=== PATIENT | female | born 1935 | race Caucasian/White ===

== ENCOUNTER 2020-02-12 01:58 | Emergency (ER) | payer MEDICARE, OTHER, SELFPAY ==
[2020-02-12 02:00] VITALS: BP 169/79; PULSE 94; RESP 28; TEMP 36.6; O2SAT 96; BMI 26.3
--- NOTE | 2020-02-12 02:08 | ED_ITS ---
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 There is no fever, erythema, fluctuance, or swelling. She is exquisitely tender which makes exam more challenging. I do not appreciate significant looseness in the prosthesis. Related Data Home Medications Medication Instructions Recorded Confirmed Tolterodine Tartrate (Detrol La) 4 mg PO Q DAY #0 04/20/10 insulin glargine [Lantus U-100 15 unit SQ QAM #0 07/15/11 Insulin] Diphenhydramine Hydrochloride #0 09/06/11 (BENADRYL) VITAMIN D (Vitamin D3) #0 09/06/11 ACETAMINOPHEN 500 mg PO Q4HP PRN #0 11/28/16 fluoxetine [Prozac] 40 mg PO QDAY #0 11/28/16 insulin aspart U-100 [Novolog SQ QIDACHS #0 11/28/16 U-100 Insulin aspart] tolterodine [Detrol LA] 4 mg PO BID #0 11/28/16 diclofenac sodium [Voltaren] 1 jony TOPICAL #0 02/23/17 docusate sodium 250 mg PO QDAY PRN #0 02/23/17 Previous Rx's Medication Instructions Recorded indomethacin 25 mg PO TIDCC #20 cap 11/16/16 indomethacin 25 mg PO Q8HP PRN #20 cap 11/28/16 prednisone 40 mg PO Q DAY 5 Days #0 tab 12/01/16 tramadol 50 mg PO Q6HP PRN #10 tab 12/01/16 cyclobenzaprine 10 mg PO QIDP PRN #10 tab 02/23/17 clindamycin HCl 300 mg PO TID #21 cap 02/12/20 Allergies Allergy/AdvReac Type Severity Reaction Status Date / Time iodine [IODINE] Allergy Unknown Verified 02/12/20 02:09 lisinopril [LISINOPRIL] Allergy Unknown Verified 02/12/20 02:09 shellfish derived Allergy Unknown Verified 02/12/20 02:09 [SHELLFISH DERIVED] PENICILLIN Allergy Unknown Uncoded 02/12/20 02:09 Review of Systems Review of Systems Narrative: Chronic cough due to COPD Denies ? fever ? chills ? chest pain ? dyspnea ? orthopnea ? wheezing ? abdominal pain ? change to bowel or bladder habits ? nausea vomiting ? skin changes ? rashes Patient History Medical History (Updated 02/12/20 @ 02:31 by Frida Joseph MD) COPD (chronic obstructive pulmonary disease) (Acute) Diabetes (Acute) Gouty arthritis of toe (Inactive) Hypertension (Acute) Social History Smoking Status: Never smoker Exam Narrative Exam Narrative: General: Alert appropriate in no acute distress Respiratory: Able to speak in full sentences, no obvious respiratory distress Skin: No obvious rashes, warm and dry Neurologic: Grossly intact no obvious asymmetries or abnormalities Psych, appropriate insight and affect, cooperative ENT: Anchoring prosthesis the anterior portion of the mandible with tenderness associated with the right post without fluctuance, significant mobility to palpation, no swelling, no skin rashes, no submandibular lymphadenopathy Initial Vital Signs Initial Vital Signs: Vital Signs Temperature 97.8 F 02/12/20 02:00 Pulse Rate 94 H 02/12/20 02:00 Respiratory Rate 28 H 02/12/20 02:00 Blood Pressure 169/79 H 02/12/20 02:00 Pulse Oximetry 96 02/12/20 02:00 Course Orders Ordered: Discontinued Medications Hydrocodone Bitart/Acetaminophen (Vicodin 5/325 Prepack) 1 bottle MISC SEEINSTR ONE Stop: 02/12/20 02:41 Last Admin: 02/12/20 02:46 Dose: 1 bottle Documented by: [email or web address] Clindamycin HCl (Cleocin) 300 mg PO NOW ONE Stop: 02/12/20 02:18 Last Admin: 02/12/20 02:27 Dose: 300 mg Documented by: [email or web address] Vital Signs Vital signs: Vital Signs - 8 hr 02/12/20 02:00 02/12/20 02:31 Temperature 97.8 F Pulse Rate 94 H 88 Respiratory Rate 28 H Blood Pressure 169/79 H Blood Pressure [Left Arm] 135/87 Pulse Oximetry 96 96 Medical Decision Making MDM Narrative Medical decision making narrative: Exquisite tenderness around the a dental implant post without overt infection. No signs of shingles no signs of trauma. Will likely represents infection around the implant itself. We use Vicodin for pain control sparingly along with risks and benefit discussion and clindamycin and recommendation that she follow-up with her dentist tomorrow. Discharge Plan Departure Patient Disposition: Home Clinical Impression: Dental infection Instructions: DI for Dental Pain, DI for Prescription Opioid Use Activity Restrictions/Additional Instructions: Thank you for coming in today, I am sorry that you are in so much pain I suspect that your developing an infection around the right post of your dental implant. I am not seeing any large abscess or anything that looks life- threatening at this time. I am going to suggest that you begin clindamycin, an antibiotic, to treat dental infections when you are allergic to penicillin. Please contact her dentist tomorrow to see if they have other recommendations. You may notice that your blood sugars are a bit higher when you have an infection. Please make sure that your following these and using appropriate insulin as needed to control for higher sugars I have given you 10 [place], narcotic plus Tylenol. You can take 1 every 6 hours as needed for pain. These can be addicting please do be careful. These will cause constipation so make sure that you are taking extra docusate or other stool softener while you are taking narcotics. If you develop fevers, swelling, redness or signs of abscess or infection that you can see on either the outside of the inside please feel free to return for further evaluation Prescriptions: New clindamycin HCl 300 mg capsule 300 mg PO TID Qty: 21 RF: 0 No Action Tolterodine Tartrate (Detrol La) 4 mg PO Q DAY Qty: 0 RF: 0 insulin glargine [Lantus U-100 Insulin] 100 UNIT/1 ML solution 15 unit SQ QAM Qty: 0 RF: 0 VITAMIN D (Vitamin D3) Qty: 0 RF: 0 Diphenhydramine Hydrochloride (BENADRYL) Qty: 0 RF: 0 indomethacin 25 MG capsule 25 mg PO TIDCC Qty: 20 RF: 0 fluoxetine [Prozac] 40 MG capsule 40 mg PO QDAY Qty: 0 RF: 0 insulin aspart U-100 [Novolog U-100 Insulin aspart] 100 unit/mL solution SQ QIDACHS Qty: 0 RF: 0 tolterodine [Detrol LA] 4 MG capsule,extended release 24hr 4 mg PO BID Qty: 0 RF: 0 ACETAMINOPHEN 500 mg PO Q4HP PRNQty: 0 RF: 0 indomethacin 25 MG capsule 25 mg PO Q8HP PRNQty: 20 RF: 0 prednisone 20 MG tablet 40 mg PO Q DAY 5 Days Qty: 0 RF: 0 tramadol 50 MG tablet 50 mg PO Q6HP PRNQty: 10 RF: 0 docusate sodium 250 MG capsule 250 mg PO QDAY PRNQty: 0 RF: 0 diclofenac sodium [Voltaren] 1 % gel 1 jony Topical Qty: 0 RF: 0 cyclobenzaprine 10 MG tablet 10 mg PO QIDP PRNQty: 10 RF: 0 Referrals: Sapna Evans [Primary Care Provider] -
[2020-02-12] MEDS: CLINDAMYCIN 150 MG CAPSULE 300 MG PO (02:27)
[2020-02-12 02:31] VITALS: BP 135/87; PULSE 88; O2SAT 96
[2020-02-12] MEDS: HYDROCODONE/ACET 5/325 PREPACK 1 BOTTLE MISC (02:46)
== END 2020-02-12 02:50 | disposition home or self-care (01) ==
PROVIDERS: Emergency Provider Emergency Medicine; Family Provider Internal Medicine; PCP Internal Medicine
DX: K04.7 Periapical abscess without sinus (principal); E11.8 Type 2 diabetes mellitus with unspecified complications; Z79.4 Long term (current) use of insulin; I10 Essential (primary) hypertension
CPT/HCPCS: 99283

== ENCOUNTER 2020-02-14 15:50 | Emergency (ER) | payer MEDICARE, OTHER, SELFPAY ==
[2020-02-14 16:05] VITALS: BP 129/89; PULSE 94; RESP 14; TEMP 36.6; O2SAT 96; BMI 27.1
--- NOTE | 2020-02-14 16:51 | ED.DENTAL ---
HPI - Dental/Oral <Cris LopezSAMMIE - Last Filed: 02/14/20 18:34> General Chief complaint: Dental/Oral Stated complaint: states broken jaw Time Seen by Provider: 02/14/20 16:15 Source: patient Mode of arrival: Ambulatory Limitations: no limitations History of Present Illness HPI Narrative: 84yo female presents to the emergency department stating ?I was sent here by my dentist for a broken jaw. Patient states she was seen on 02/11 for a dental infection and followed up with her dentist. She was then sent to an oral surgeon who discovered that her jaw was broken. She states she has had tooth implant over 25 years ago and developed jaw pain a few weeks ago that has been increasing. She is able to eat, open and close her drop. However, the oral surgeon, Dr. Carlos took X-rays and instructed the patient to come to the hospital for evaluation and admission. Patient denies any other symptoms such as fevers, chills, nausea, vomiting, diarrhea, chest pain, shortness of breath, or any other concerns Related Data Home Medications Medication Instructions Recorded Confirmed Tolterodine Tartrate (Detrol La) 4 mg PO Q DAY #0 04/20/10 insulin glargine [Lantus U-100 15 unit SQ QAM #0 07/15/11 Insulin] Diphenhydramine Hydrochloride #0 09/06/11 (BENADRYL) VITAMIN D (Vitamin D3) #0 09/06/11 ACETAMINOPHEN 500 mg PO Q4HP PRN #0 11/28/16 fluoxetine [Prozac] 40 mg PO QDAY #0 11/28/16 insulin aspart U-100 [Novolog SQ QIDACHS #0 11/28/16 U-100 Insulin aspart] tolterodine [Detrol LA] 4 mg PO BID #0 11/28/16 diclofenac sodium [Voltaren] 1 jony TOPICAL #0 02/23/17 docusate sodium 250 mg PO QDAY PRN #0 02/23/17 Previous Rx's Medication Instructions Recorded indomethacin 25 mg PO TIDCC #20 cap 11/16/16 indomethacin 25 mg PO Q8HP PRN #20 cap 11/28/16 prednisone 40 mg PO Q DAY 5 Days #0 tab 12/01/16 tramadol 50 mg PO Q6HP PRN #10 tab 12/01/16 cyclobenzaprine 10 mg PO QIDP PRN #10 tab 02/23/17 clindamycin HCl 300 mg PO TID #21 cap 02/12/20 Allergies Allergy/AdvReac Type Severity Reaction Status Date / Time iodine [IODINE] Allergy Unknown Verified 02/14/20 16:10 lisinopril [LISINOPRIL] Allergy Unknown Verified 02/14/20 16:10 shellfish derived Allergy Unknown Verified 02/14/20 16:10 [SHELLFISH DERIVED] PENICILLIN Allergy Unknown Uncoded 02/12/20 02:09 Review of Systems <SAMMIE Lechuga - Last Filed: 02/14/20 18:34> Review of Systems Narrative: REVIEW OF SYSTEMS: GENERAL: Denies fever or chills. HENT: Reports jaw pain, see HPI. EYES: No vision changes. RESPIRATORY: No shortness of breath. GASTROINTESTINAL: No nausea or vomiting. Patient History <SAMMIE Lechuga - Last Filed: 02/14/20 18:34> Medical History COPD (chronic obstructive pulmonary disease) (Acute) Diabetes (Acute) Gouty arthritis of toe (Inactive) Hypertension (Acute) Social History Smoking Status: Never smoker Smoking Status: Never smoker alcohol intake frequency: holidays/special occasions only Substance Use Type: does not use Exam <SAMMIE Lechuga - Last Filed: 02/14/20 18:34> Initial Vital Signs Initial Vital Signs: Vital Signs Temperature 97.8 F 02/14/20 16:05 Pulse Rate 94 H 02/14/20 16:05 Respiratory Rate 14 02/14/20 16:05 Blood Pressure 129/89 02/14/20 16:05 Pulse Oximetry 96 02/14/20 16:05 PHYSICAL EXAMINATION: GENERAL: Well groomed, alert, and cooperative. Answers questions promptly and appropriately. Vital signs noted. HENT: Normocephalic, atraumatic. Multiple missing teeth, right-sided drop pain with palpation. Patient able to open almost completely and close drop completely trauma, does report pain during this process. EYES: Conjunctiva pink, sclera white, no periorbital swelling. RESPIRATORY: Normal respiratory rate, trachea midline, airway patent. No stridor, nasal flaring or accessory muscle use. SKIN: Warm, dry, soft, appropriate color for ethnicity. NEURO: Alert and Oriented X 3. <Darcy Billy DO - Last Filed: 02/15/20 07:43> Initial Vital Signs Initial Vital Signs: Vital Signs Temperature 97.8 F 02/14/20 16:05 Pulse Rate 94 H 02/14/20 16:05 Respiratory Rate 14 02/14/20 16:05 Blood Pressure 129/89 02/14/20 16:05 Pulse Oximetry 96 02/14/20 16:05 Course <SAMMIE Lechuga - Last Filed: 02/14/20 18:34> Course Course Narrative: I spoke with Dr. Domínguez from [facility] and Dr. Carlos from Oral surgery who both confirmed that patient is a direct admit at [facility] Vital Signs Vital signs: Vital Signs - 8 hr 02/14/20 16:05 Temperature 97.8 F Pulse Rate 94 H Respiratory Rate 14 Blood Pressure 129/89 Pulse Oximetry 96 <Darcy Billy DO - Last Filed: 02/15/20 07:43> Vital Signs Vital signs: Vital Signs - 8 hr 02/14/20 16:05 Temperature 97.8 F Pulse Rate 94 H Respiratory Rate 14 Blood Pressure 129/89 Pulse Oximetry 96 [facility] - Dental/Oral <SAMMIE Lechuga - Last Filed: 02/14/20 18:34> Medical Records Attestation: I reviewed the patient's medical records. Lab Data Attestation: I reviewed the patient's lab results. [facility] Narrative Medical decision making narrative: 84-year-old presenting to the emergency department for admission for a fracture drop. Patient able to open and close draw, no respiratory distress, no signs of sepsis or immediate emergency. Multiple doctors confirm patient was a direct admit at [facility]. Patient was discharge and instructed to reports to [facility] as soon as possible. Patient agreed to plan of care verbalized understanding. Discharge Plan Departure Patient Disposition: Home Clinical Impression: Jaw pain Discharge Date/Time: 02/14/20 17:05 Activity Restrictions/Additional Instructions: Thank you for entrusting me with your care today. As discussed, I spoke with Dr. Domínguez at [facility], we discussed that patient has been set up to be a admission to this hospital. Please proceed directly to [facility], they are expecting you and are aware of your jaw fracture. Prescriptions: No Action Tolterodine Tartrate (Detrol La) 4 mg PO Q DAY Qty: 0 RF: 0 insulin glargine [Lantus U-100 Insulin] 100 UNIT/1 ML solution 15 unit SQ QAM Qty: 0 RF: 0 VITAMIN D (Vitamin D3) Qty: 0 RF: 0 Diphenhydramine Hydrochloride (BENADRYL) Qty: 0 RF: 0 indomethacin 25 MG capsule 25 mg PO TIDCC Qty: 20 RF: 0 fluoxetine [Prozac] 40 MG capsule 40 mg PO QDAY Qty: 0 RF: 0 insulin aspart U-100 [Novolog U-100 Insulin aspart] 100 unit/mL solution SQ QIDACHS Qty: 0 RF: 0 tolterodine [Detrol LA] 4 MG capsule,extended release 24hr 4 mg PO BID Qty: 0 RF: 0 ACETAMINOPHEN 500 mg PO Q4HP PRNQty: 0 RF: 0 indomethacin 25 MG capsule 25 mg PO Q8HP PRNQty: 20 RF: 0 prednisone 20 MG tablet 40 mg PO Q DAY 5 Days Qty: 0 RF: 0 tramadol 50 MG tablet 50 mg PO Q6HP PRNQty: 10 RF: 0 docusate sodium 250 MG capsule 250 mg PO QDAY PRNQty: 0 RF: 0 diclofenac sodium [Voltaren] 1 % gel 1 jony Topical Qty: 0 RF: 0 cyclobenzaprine 10 MG tablet 10 mg PO QIDP PRNQty: 10 RF: 0 clindamycin HCl 300 mg capsule 300 mg PO TID Qty: 21 RF: 0 Referrals: Sapna Evans [Primary Care Provider] -
== END 2020-02-14 17:05 | disposition home or self-care (01) ==
PROVIDERS: Emergency Provider Nurse Practitioner; Family Provider Internal Medicine; PCP Internal Medicine
DX: R68.84 Jaw pain (principal)
CPT/HCPCS: 99281

== ENCOUNTER → 2021-12-21 14:39 | Outpatient (CLI) | payer MEDICARE, OTHER, SELFPAY ==
--- NOTE | 2021-12-21 14:45 | DI.CT.S_ITS ---
PROCEDURE: CT UE LT WO CON INDICATIONS: Primary osteoarthritis, left shoulder,arthritis TECHNIQUE: Noncontrast 1-1.5 mm thick sections acquired from the acromioclavicular joint to the inferior scapula, with coronal and sagittal reformatting. COMPARISON: None. FINDINGS: Image quality: Images are degraded by motion artifact. Bones: No acute, displaced fracture. Advanced degenerative change of the glenohumeral articulation with fibrocystic change . Intra-articular bodies are seen, most prominent adjacent to the biceps tendon. Advanced narrowing with mild osteophytosis of the AC joint. Soft tissues: Subcoracoid fluid, which may reflect bursitis. IMPRESSION: Advanced degenerative change of the glenohumeral articulation. Dictated by: Abelardo Lopez M.D. on 12/21/2021 at 16:03 Approved by: Abelardo Lopez M.D. on 12/21/2021 at 16:09
== END ==
PROVIDERS: Family Provider Internal Medicine; PCP Internal Medicine; Referring Provider Orthopaedic Surgery; Visit Provider Orthopaedic Surgery
DX: M19.012 Primary osteoarthritis, left shoulder (principal)
CPT/HCPCS: 73200

== ENCOUNTER → 2022-03-03 09:42 | Outpatient (CLI) | payer MEDICARE, OTHER, SELFPAY ==
[2022-03-03 13:20] LABS: COVID19 -Nasal RAPID Negative (Negative)
== END ==
PROVIDERS: Family Provider Internal Medicine; PCP Internal Medicine; Visit Provider Family Medicine Sleep Medicine
DX: Z20.822 Contact with and (suspected) exposure to COVID-19 (principal)
CPT/HCPCS: 87635; C9803

== ENCOUNTER 2022-03-05 11:13 | Observation (INO) | payer MEDICARE, OTHER, SELFPAY ==
[2022-03-03 11:41] VITALS: BMI 28.3
[2022-03-04] VITALS (14 sets, daily range): BP systolic 110–154; BP diastolic 59–105; PULSE 71–84; RESP 12–165; TEMP 35.9–36.7; O2SAT 90–95; BMI 28.3
[2022-03-04] MEDS: ACETAMINOPHEN 325 MG TABLET 975 MG PO (08:14)
[2022-03-04] MEDS: CELECOXIB 200 MG CAPSULE PO (08:15)
[2022-03-04] MEDS: VANCOMYCIN 1,000 MG/200 ML PIGGYBACK 200 MG IV ×2 (08:15→20:13)
[2022-03-04] MEDS: LACTATED RINGERS 1,000 ML 42 ML IV (08:39)
--- NOTE | 2022-03-04 09:22 | PM.PREOP ---
Pre-operative Note Interval Note History & Physical reviewed/Exam performed by Physician: Yes Changes to H&P: No
--- NOTE | 2022-03-04 09:39 | SUR.PREOP ---
Block start time [0940] . Monitoring initiated and maintained throughout procedure. Oxygen and medications given per anesthesiologist instructions. Patient remained stable throughout procedure, no adverse reactions noted. Block end time [0950_) .
--- NOTE | 2022-03-04 09:41 | SUR.OPER ---
Beach chair with Wilfrid/Elyssa shoulder positioner. Lower body on padded OR bed. Head in foam padded head cradle, secured with straps. Non-operative arm secured <90 degrees abduction. Pillow under knees. Safety belt at thigh. Cloth tape over blanket over lower legs.
[2022-03-04] MEDS: GENTAMICIN 200 MG in SODIUM CHLORIDE 0.9% 100 ML 105 ML IV (10:10)
[2022-03-04] MEDS: LIDOCAINE 1% W/EPI 20 ML INJ (10:38)
--- NOTE | 2022-03-04 10:49 | PM.PROC.1 ---
Procedures Date/Time Date of procedure: 03/04/22 Time of procedure: 09:35 General Procedure description: Ultrasound guided interscalene brachial plexus nerve block for post op pain control after left total shoulder arthroplasty by Dr. Allen. Risk and benefits of procedure discussed with patient. ASA monitoring applied to patient. O2 given via nasal cannula. 0.5 mg Versed and 25 mcg fentanyl given for procedural sedation. Skin site was prepped with chlorhexidine and allowed to fully dry. Sterile gloves, mask, hat and probe cover were used to maintain sterility. 2% lidocaine and 30ga needle was used to make a small skin wheal at needle insertion site. Under ultrasound guidance, a 21ga 50mm Pajunk needle was directed into the interscalene groove (middle/anterior scalenes) near the brachial plexus. Patient reported no parasthesias. After negative aspiration, 12 mL 0.5% ropivicaine and 10mg dexamethasone were injected around brachial plexus. Patient tolerated procedure well.
--- NOTE | 2022-03-04 12:25 | P.OP_ITS ---
Operative Date/Time/Diagnoses Date of procedure: 03/04/22 Time of procedure: 10:00 Pre-op diagnosis: Left end-stage arthritis glenohumeral joint Post-op diagnosis: same Procedure & Clinicians Procedure: Left total shoulder arthroplasty Same procedure as scheduled: Yes Indications: End-stage arthritis left shoulder joint Surgeon: Bryson Allen Sales Development Representative: Jeanie Cartagena Anesthesia Type: General and Peripheral nerve block Operative Notes Findings: End-stage arthritis to the glenohumeral joint with significant loss of cartilage to both the humeral head and the glenoid. Inferior osteophytes on the humeral head and neck. No sign of any rotator cuff tear. No sign of any high-riding humeral head. Closure Type: primary Applied: implant(s) (Size 6 stem, small glenoid and a 44 x 17 humeral head) Estimated Blood Loss (mL): 50 Procedure in detail: On date of service, Patient was met in the holding area. The operative site was signed and witnessed by the OR staff. The surgeries once again discussed with the patient and any remaining questions they had were answered fully. Patient was taken back to the operating theater and placed on the operating table in a supine position. Great care was taken to ensure that all bony prominences were properly padded. Patient was then placed into the beach chair position. The head and neck were properly positioned and secured. A timeout was performed verifying patient's name, procedure, and the operative site. The upper extremity was then prepped and draped in the normal sterile fashion. Previously, the bony anatomy and incision were marked out as well as injected with Marcaine with epinephrine. A deltopectoral approach was performed. 10 blade was used to incise the skin and fascial tissue. A deep knife was used to continue sharp dissection until the cephalic vein was visualized. The cephalic vein was dissected free allowing us to expose the deltopectoral interval. This interval was then developed. A Harrington elevator was used to free up the deltoid of any scarring both superficially as well as deeply. The vein and the deltoid were taken laterally while the pectoralis was taken medially. This gave us good visualization of the strap muscles. The clavipectoral fascia was removed and the strap muscles were then retracted medially with the pectoralis. This gave us stabilization of the subscapularis. The circumflex vessels were ligated and the subscapularis was sharply excised off the lesser tuberosity and then tagged. Once the subscapularis was released we're able to dislocate the shoulder. Patient had end-stage arthritic changes to the humeral head as well as the glenoid with large osteophytes anterior inferiorly as well as posteriorly. A Ronger was then used to remove the osteophytes. See findings above for descriptions of the humeral head and glenoid. Next, cutting guide was placed and a saw was used to remove the humeral head. Once the head was removed it was templated. A 44 x 17 head gave us the best coverage. A starting awl was then used to find the canal and then the humerus was reamed and broached. Trial stem was placed and a variety of heads were trialed. A size 10 stem gave us the best fit. Protector placed for the osteotomy was then placed and and we turned our attention back to the subscapularis as well as the glenoid. The subscapularis was freed up and a 360? fashion. The degenerative anterior and inferior capsular tissue was removed. This was followed by removing the degenerative labral tissue from around the glenoid as well as the biceps insertion. Retractors were used to protect the axillary nerve while we remove the degenerative capsular and labral tissue. This gave us good visualization of the glenoid. Glenoid trials were used until we found the appropriate fit and curvature. A large glenoid provided the best fit. The center hole was drilled followed by reaming of the glenoid. The wound was copiously irrigated after reaming. Next the pegs were drilled and a trial glenoid was impacted into place. Once we were satisfied with the preparation of the glenoid, the final component was cemented into place. This was followed by impaction. We Return to our attention back to the humerus. The protector plate was removed and heads were trialed once again until we found the appropriate fit. Once again the 44 x 17 head provided the best coverage as well as stability to the glenohumeral joint. Trials were removed and bone tunnels were made into the humeral neck. #2 FiberWire were passed through the bone tunnels for eventual subscapularis repair. The final stem and head were impacted into place and the shoulder was reduced. It was taken through range of motion and was felt to be stable in both posterior translation as well as external and internal rotation with abduction. The subscapularis was repaired back to the lesser tuberosity through the bone tunnels. This was then reinforced with soft tissue repair. Part of the rotator interval was then closed. A drain was placed and the rest of the wound was closed in a layered fashion. The shoulder was then cleaned dried and dressed and the patient was taken to the PACU in stable condition. Patient will follow our postoperative protocol for total shoulder arthroplasty. Complications: none Post-operative Condition: stable Disposition: Acute Care Plan for aftercare: Patient will be admitted overnight. As long she is comfortable enough she can go home in the morning.
[2022-03-04] MEDS: HYDROCODONE/ACET 5/325 TABLET 1 TAB PO (13:07)
[2022-03-04] MEDS: LACTATED RINGERS 1,000 ML 125 ML IV (15:00)
--- NOTE | 2022-03-04 15:10 | PT.IPTN ---
Current Diagnoses Primary osteoarthritis, left shoulder (03/04/22) Surgery Performed Operation Date: 03/04/22 09:30 Actual Procedures p Total Shoulder Arthroplasty(Left) - Bryson Allen MD Physical Therapy Treatment Note M3 PT-IP Subjective Start: 03/04/22 15:55 Freq: NEEDED Status: Active Protocol: Document 03/04/22 15:10 AB (Rec: 03/04/22 15:58 AB [id number]) Subjective Physical Therapy Visit Type Type Administrative Note Notes EMR reviewed and checked on pt . pt asleep and attempted to wake up but pt just momentarily woke up and went back to sleep. spouse in room . obtained pt's home set up and PLOF. set up PT eval tomorrow with spouse at ~ 10 am.
[2022-03-04] MEDS: INDOMETHACIN 25 MG CAPSULE PO (17:27)
[2022-03-04] MEDS: IPRATROPIUM 0.5 MG/2.5 ML NEB INH (20:30)
[2022-03-04] MEDS: ALBUTEROL 2.5 MG/3 ML NEB (ADULT) INH (20:30)
[2022-03-04] MEDS: BUDESONIDE 0.5 MG/2 ML NEB INH (20:30)
[2022-03-04] MEDS: DOCUSATE 100 MG CAPSULE PO (21:40)
[2022-03-04] MEDS: MAGNESIUM HYDROXIDE 30 ML UDC PO (21:41)
[2022-03-04] MEDS: INSULIN LISPRO 100 UNIT/ML 3ML VIAL 10 UNIT SUBCUT (21:41)
[2022-03-05] VITALS (13 sets, daily range): BP systolic 108–133; BP diastolic 52–68; PULSE 63–101; RESP 14–19; TEMP 36–36.8; O2SAT 90–96
[2022-03-05 05:21] LABS: Hematocrit 34.1 % (36-46); Hemoglobin 11.6 g/dL (12.0-16.0); Mean Corpuscular Hemoglobin 31.9 PG (26-34); Mean Corpuscular Volume 93.9 fL (80-100); Platelet Count 151 X10^3/uL (150-400); Red Blood Cell Count 3.63 X10^6/uL (4.0-5.2); White Blood Cell Count 7.9 X10^3/uL (4.5-11.0)
[2022-03-05] MEDS: ACETAMINOPHEN 325 MG TABLET 975 MG PO (06:35)
[2022-03-05] MEDS: PANTOPRAZOLE DR 40 MG TABLET PO (06:35)
--- NOTE | 2022-03-05 07:01 | PC.NURSE ---
Shift Note-Patient has been oriented x3, forgetful, in room, very attentive. Lt arm in sling, Aquacel drsg CDI, needed to be reapplied d/t patient pulling off while itching, left hand numb and tingling until am, warm with strong pulse, moves wrist and hand well. Denied pain until am, 975ml Tylenol given.
[2022-03-05] MEDS: HYDROMORPHONE 0.5 MG INJ 0.2 MG IV ×5 (08:19→19:54)
[2022-03-05] MEDS: LOSARTAN 25 MG TABLET PO (08:20)
[2022-03-05] MEDS: FLUoxetine 20 MG CAPSULE 40 MG PO (08:20)
[2022-03-05] MEDS: predniSONE 20 MG TABLET 40 MG PO (08:21)
[2022-03-05] MEDS: DOCUSATE 100 MG CAPSULE PO ×2 (08:27→19:54)
[2022-03-05] MEDS: ATORVASTATIN 20 MG TABLET 40 MG PO (08:27)
[2022-03-05] MEDS: INDOMETHACIN 25 MG CAPSULE PO ×3 (08:48→18:08)
[2022-03-05] MEDS: INSULIN LISPRO 100 UNIT/ML 3ML VIAL 10 UNIT SUBCUT ×4 (08:48→21:02)
[2022-03-05] MEDS: INSULIN GLARGINE 100 UNIT/ML 3ML PEN 15 UNIT SUBCUT (08:48)
[2022-03-05] MEDS: OXYBUTYNIN 5 MG ER TAB 20 MG PO (08:49)
[2022-03-05] MEDS: BUDESONIDE 0.5 MG/2 ML NEB INH ×2 (08:55→21:20)
[2022-03-05] MEDS: ALBUTEROL/IPRATROPIUM 3 ML AMPUL INH ×5 (08:55→23:44)
--- NOTE | 2022-03-05 09:25 | CM.DANOTE ---
DCP: Case received, EMR reviewed and met with patient. Spouse, Raj, was also at bedside. Was able to obtain information regarding patient's baseline activity level at home prior to her surgery, as well as her current living situation. DCP assessment completed with information currently available. Patient is an 86 year old female who admitted yesterday morning to the care of the orthopedic team. PCP: Dr. Evans. Payer: confirmed: [email or web address]. Patient came to the hospital for a surgical procedure. Patient had left total shoulder arthroplasty secondary to left end-state arthritis of glenohumeral joint. Met with patient in her room. Her spouse, Raj, was also at bedside. Introduced self and role. Confirmed that patient resides with spouse in [place], and with children as well. At her baseline, she does not drive, she uses a cane, also has a walker. She has had to use her right arm for most things, since she could not raise her left arm. She indicated, she has good home support, with spouse and children and in-laws. Spouse confirmed, she has a good home plan, should not need any type of home health. P: DCP to continue to follow. Will see how she does with P.T. Patient should be able to go home when she is medically stable and cleared by P.T. Marcie Gentile RN/Lining Printer Discharge Planning/Care Management CM Discharge Assessment Start: 03/05/22 09:24 Freq: Status: Active Protocol: Document 03/05/22 09:24 (Rec: 03/05/22 09:25 [id number]) Discharge Planning Assessment Assigned Assembly Member Marcie Gentile RN/Lining Printer Advance Directives? No History Provided By Patient,Significant Other, Medical Record Prior Living Arrangements House Household Members spouse,family,children Type of transporation used prior to Relies on Others admit Independent with ADL's Yes Needs Assistance With Meal Prep,Home Chores / Shopping Caregiver for Another No DME Already Rented / Owned FWW / Walker,Cane Patient/Family Preference OP PT Therapy Barriers to Discharge No Comment Patient has spouse, and children at home for support. Discharge Plan Home Transportation Arrangement Spouse Referrals Initiated None needed Whiteboard Updated in Patient Room with Yes name and ext. # of Assembly Member Review Status In Process Next Review Type Continued Stay Review Pre-Anesthesia Assessment Start: 03/03/22 11:41 Freq: Status: Complete Protocol: Document 03/03/22 11:41 CAB (Rec: 03/03/22 12:35 CAB [id number]) Pre-Anesthesia Assessment PAC Comment Unable to reach pt's for scheduled phone assess, limited chart review only. Patient Information Reviewed Via Chart Review H&P Completed Within 30 Days Yes Diagnostic Results BMP/CMP,CBC,EKG Comment Outside labs/ECG scanned, COVID screen 03/03/22 Primary Care Provider Sapna Evans Medical Clearance Received Yes Seen Specialist in Last 12 Months Yes Specialist Seen Orthopedist Comment PCP clearance scanned and placed in surgery folder for dos Primary Language Portuguese Kick Boxer Required No Height 5 ft 4 in Weight 165 lb Body Mass Index (BMI) 28.3 Barriers to Learning Memory Anesthesia Review Requested No alcohol intake current alcohol intake frequency holidays/special occasions only Smoking Status Never smoker Substance Use Type does not use Pain Present Pain Reported Musculoskeletal Symptoms Joint Pain,Limited Range of Motion History of Falling (Recent or History of Yes ) Patient is completely paralyzed or No completely immobile Comment Hx COPD Currently Taking a Beta Daphne No Anti-Coagulant Therapy No Hx Pacemaker/ICD No Pacemaker Rep Required? No Urinary Catheter Present No Hx Urinary Self Catheterization No Diabetes Yes HgbA1C 8.4 Date 11/06/21 Patient No Lactating No Presence of External or Internal Medical Yes: Bilat knee prosthesis Devices Marital Status Lives With spouse Support System Child/Children,Spouse Does the Patient Have Assistance After Yes: Daughter is very Surgery supportive and assists with care Patient Discharge Plan Description Return Home Advance Directives? No
--- NOTE | 2022-03-05 10:02 | PM.PNPO.1 ---
Subjective Subjective Date Patient Seen: 03/05/22 Time Patient Seen: 10:02 Interval history: Sitting up in bed, was just talking to RN and is tearful. Complains of severe pain in LUE. Reports 'hallucinations' w/ oxycodone, cannot have hydrocodone at this time as she just had Tylenol. She does not want 'heavy' narcotics d/t h/o alcohol abuse disorder. Suggested tramadol; per , has had this in the past with success. Has not worked with OT yet. Exam Vital Signs (past 8 hours): - 03/05/22 04:07 03/05/22 08:02 03/05/22 08:20 Temperature 97.2 F L 98.2 F Pulse Rate 68 87 87 Respiratory Rate 17 18 Blood Pressure 133/56 L 129/68 129/68 Pulse Oximetry 96 90 L 03/05/22 08:56 Temperature Pulse Rate 70 Respiratory Rate 14 Blood Pressure Pulse Oximetry 93 Oxygen Delivery Method Room Air Oxygen Flow Rate 0 Narrative Exam Narrative: Brisk capillary refill in left fingers. Movement intact in fingers and wrist. Sling in place. Aquacel dressing CDI. Hemovac w/ 120 mL of bloody drainage. Objective Labs Result Diagrams: 03/05/22 05:03 Labs: Laboratory Results - last 24 hr 03/05/22 05:03 WBC 7.9 RBC 3.63 L Hgb 11.6 L Hct 34.1 L MCV 93.9 MCH 31.9 MCHC 34.0 RDW 13.0 Plt Count 151 PFSH Medical History (Updated 03/05/22 @ 10:08 by Jeanie Cartagena PA-C) COPD (chronic obstructive pulmonary disease) Depression Diabetes Gouty arthritis of toe Hypertension Memory changes Osteoarthritis Spinal stenosis Surgical History (Updated 03/05/22 @ 10:08 by Jeanie Cartagena PA-C) History of arthroplasty of left knee History of arthroplasty of right knee Social History household members: spouse, family and children Smoking Status: Never smoker alcohol intake: former Assessment & Plan Post-op Assessment and plan (1) Status post total shoulder arthroplasty: Assessment and Plan narrative: OT, pain medication change as above. Hopeful to d/c home tomorrow if pain can be better managed. Pt to wear sling at all times, including while sleeping. TSA post-op protocol available in pt folder. (2) Acute postoperative anemia due to expected blood loss: Assessment and Plan narrative: No intervention needed at this time. (3) Diabetes: Assessment and Plan narrative: Continue home meds as ordered. (4) Hypertension: Assessment and Plan narrative: Continue home meds as ordered. Postoperative Procedures: Procedures Operation Date: 03/04/22 09:30 Actual Procedure Side Surgeon p Total Shoulder Arthroplasty Left Bryson Allen MD Postoperative day: 1 Quality VTE Deep Vein Thrombosis/Pulmonary Embolism Present on Admission: No
--- NOTE | 2022-03-05 10:21 | PT.IIE ---
Current Diagnoses Acute posthemorrhagic anemia (03/05/22) Type 2 diabetes mellitus without complications (03/05/22) Essential (primary) hypertension (03/05/22) Primary osteoarthritis, left shoulder (03/05/22) Presence of unspecified artificial shoulder joint (03/05/22) Surgery Performed Operation Date: 03/04/22 09:30 Actual Procedures p Total Shoulder Arthroplasty(Left) - Brysno Allen MD Medical History (Last Updated 03/03/22 @ 12:35 by Josie Brink RN) COPD (chronic obstructive pulmonary disease) Depression Diabetes Gouty arthritis of toe Hypertension Memory changes Osteoarthritis Spinal stenosis Physical Therapy Inpatient Evaluation/Re-Eval M1 PT/OT-IP Prior Functional Status Start: 03/04/22 15:55 Freq: NEEDED Status: Active Protocol: Document 03/05/22 10:21 AB (Rec: 03/05/22 12:51 AB [email or web address]) Medical Review Prior Functional Status Medical History Reviewed Yes Communication able to make needs known Mobility and Gait per spouse: pt is modified independent with all mobilities and ambulation using quad cane but able to ambulate without AD but with h /o falls Social History Household Members spouse,family,children Living Arrangements House Number of Floors (Floors) Two Floors Number of Stairs To Enter/Railing? 3 steps to enter with B rails 15 steps to get to 2nd level bedroom with B rails Home Environment High Toilet,Tub/Shower Home Equipment Quad Cane,Shower Seat with Backrest,Hand Held Shower Additional Social History Comment pt has her spouse and 2 daughters to assist her as needed M2 PT-IP Current Condition Start: 03/04/22 15:55 Freq: NEEDED Status: Active Protocol: Document 03/05/22 10:21 AB (Rec: 03/05/22 12:51 AB [email or web address]) Physical Therapy Current Condition Current Condition Evaluation Date 03/05/22 Treatment Diagnosis s/p L TSA; difficulty in walking Onset Date 03/04/22 M3 PT-IP Subjective Start: 03/04/22 15:55 Freq: NEEDED Status: Active Protocol: Document 03/05/22 10:21 AB (Rec: 03/05/22 12:51 AB [email or web address]) Subjective Physical Therapy Visit Type Type Initial Evaluation Visit Start Time 10:21 Visit Stop Time 10:56 Total Visit Minutes 37 Number of CLINICAL DATA ABSTRACTOR Visits 0 Physical Therapy Visit Comments Patient Comments agreeable to do PT Therapy Pain Assessment Pain When Pain Assessed At Rest Pain Present Pain Present Pain Reported Location Left Shoulder Intensity 8 Scale Used Numeric (0 - 10) Pain Management Techniques Apply Cold,Distraction, Modification of Treatment,Re- positioning,Timing of Activity with Medications M4 PT-IP Mobility and Gait Start: 03/04/22 15:55 Freq: NEEDED Status: Active Protocol: Document 03/05/22 10:21 AB (Rec: 03/05/22 12:51 AB [id number]) PT-Bed Mobility Assessment Supine to Sit Supine to Sit Standby Assistance PT-Transfer Assessment Sit to and From Stand Sit to and from Stand Minimal Assistance Equipment Transfer Assistive Device Gait Belt,Small Based Quad Cane Orthotic/Prosthetic Devices or Brace: Yes Transfers Transfer Destination Chair Transfer Technique Stand Step Pivot Transfer Ability Level of Assist Minimal Assistance,1 Person Assistance,Use of Upper Extremities Comments Mobility Comments talked to pt's spouse yesterday and caregiver training was set up but spouse in pt's room when PT came and pt stated that pt went home. pt also stated that she is not going home today. educated pt on shoulder precautions. completed supine to sit SBA. able to sit on EOB SBA. assisted with sling. noted increase LUE guarding. attempted elbow PROM but pt unable to tolerate with c/o increase pain and increase guarding with pt crying due ot pain. nurse gave pt another pain medication. Donned sling back. pt completed sit to stand min A and ambulated in room using quad cane min A and cues. pt agreed to sit on the chair. positioned pt on the chair. call ight and table placed within reach. Gait Assessment Gait Gait Assistance Required: Minimum Assistance Distance (Feet) 20 Able to Maintain Weight Bearing Status Yes During Gait Assistive Devices Assistive Device Gait Belt,Small Based Quad Cane Orthotic/Prosthetic Devices or Brace: Yes Gait Deviations General Gait Pattern Antalgic,Decreased Stride Length,Decreased Feet Clearance Factors Limiting Gait Function Factors Limiting Gait Function Decreased Activity Tolerance, Decreased Strength,Difficulty Following Directions, Incoordination,Limited Range of Motion,Pain,Poor Balance, Poor Safety Awareness PT-Balance Assessment Sitting Balance and Reactions Static Sitting Balance Ability Good Dynamic Sitting Balance Ability Good Standing Balance and Reactions Static Standing Balance Ability Fair Dynamic Standing Balance Ability Fair Device Used quad cane M5 PT-IP Objective Assessments Start: 03/04/22 15:55 Freq: NEEDED Status: Active Protocol: Document 03/05/22 10:21 AB (Rec: 03/05/22 12:51 AB [id number]) Orientation Orientation/Cognition Level of Alertness Alert Orientation Name,Situation Language Function Ability Hard of Hearing Safety Awareness Decreased Safety Awareness Memory Description Short Term Impaired,Volleyball Referee Impaired Strength Lower Extremity Strength Assessment Left Impaired Hip 4-/5 Knee 3+/5 Muscle Tone Muscle Tone WNL Yes M6 PT-IP Treatment Start: 03/04/22 15:55 Freq: NEEDED Status: Active Protocol: Document 03/05/22 10:21 AB (Rec: 03/05/22 12:51 AB [email or web address]) Physical Therapy Treatment Education Education Provided Precautions,Weight Bearing Status,Post-Op Packet,Safety M7 PT-IP Assessment and Plan Start: 03/04/22 15:55 Freq: NEEDED Status: Active Protocol: Document 03/05/22 10:21 AB (Rec: 03/05/22 12:51 AB [id number]) PT Summary Assessment and Plan Potential Rehabilitation Potential Fair Status of Condition at Evaluation Evolving Summary Impairments Pain,ROM,Strength,Balance, Coordination,Sensation,Tone, Cognition,Bed Mobility, Transfers,Gait,Activity Tolerance Assessment Summary pt requiring min A with mobility using quad cane but unable to tolerate ROM on elbow/hand due to should pain. pt plans to go home and spouse to assist her. pt will require HHPT to improve mobility and safety. pt also has decrease memory affecting safety awareness and independence. will need to conduct caregiver training prior to d/c. Goals Bed Mobility Goal Standby Assistance Transfer Goal Standby Assistance,Cane Gait Goal Standby Assistance,Cane Gait Distance 150 Other Goals up/down 15 steps L rail SBA Days to Meet Goals 5 Frequency of Treatment Frequency Of Treatment Twice a Day Treatment Plan Physical Therapy Treatment Plan Bed Mobility Training,Transfer Training,Gait Training, Therapeutic Exercise,Balance Retraining,Post Op Education, Discharge Planning,Hot or Cold Pack,Neuromuscular Re-ed, Coordination Retraining,Manual Therapy Precautions Shoulder Precautions Sling,PROM,Internal Rotation to Body,No External Rotation, No Abduction,Forward Flexion to 90 degrees,Pendulums Weight Bearing Status Weight Bearing Status Non-Weight Bearing Allowed Weight Bearing Amount (enter % LUE NWB or #) (%) Recommendations To Nursing Amount of Assist Needed 1 Person Assist Discharge Recommendations PT Discharge Recommendations Home with / Assist Available,Home Health Transportation Needs at Discharge Private Vehicle
[2022-03-05] MEDS: TRAMADOL 50 MG TABLET PO ×3 (10:47→23:59)
--- NOTE | 2022-03-05 13:15 | PT.IPTN ---
Current Diagnoses Acute posthemorrhagic anemia (03/05/22) Type 2 diabetes mellitus without complications (03/05/22) Essential (primary) hypertension (03/05/22) Primary osteoarthritis, left shoulder (03/05/22) Presence of unspecified artificial shoulder joint (03/05/22) Surgery Performed Operation Date: 03/04/22 09:30 Actual Procedures p Total Shoulder Arthroplasty(Left) - Bryson Allen MD Physical Therapy Treatment Note M2 PT-IP Current Condition Start: 03/04/22 15:55 Freq: NEEDED Status: Active Protocol: Document 03/05/22 10:21 AB (Rec: 03/05/22 12:51 AB [email or web address]) Physical Therapy Current Condition Current Condition Evaluation Date 03/05/22 Treatment Diagnosis s/p L TSA; difficulty in walking Onset Date 03/04/22 M3 PT-IP Subjective Start: 03/04/22 15:55 Freq: NEEDED Status: Active Protocol: Document 03/05/22 13:15 AB (Rec: 03/05/22 14:38 AB [email or web address]) Subjective Physical Therapy Visit Type Type Treatment Note Visit Start Time 13:15 Visit Stop Time 14:15 Total Visit Minutes 60 Number of SUPERVISOR EXTRUDING DEPARTMENT Visits 0 Physical Therapy Visit Comments Patient Comments agreeable to do PT; continues to c/o increase pain on L shoulder Therapy Pain Assessment Pain When Pain Assessed At Rest Pain Present Pain Present Pain Reported Location Left Shoulder Scale Used scale not stated Pain Behaviors Crying,Facial Grimacing, Guarding Pain Management Techniques Apply Cold,Distraction, Modification of Treatment,Re- positioning,Timing of Activity with Medications M4 PT-IP Mobility and Gait Start: 03/04/22 15:55 Freq: NEEDED Status: Active Protocol: Document 03/05/22 13:15 AB (Rec: 03/05/22 14:38 AB [email or web address]) PT-Transfer Assessment Sit to and From Stand Sit to and from Stand Contact Guard Assistance, Minimal Assistance,1 Person Assistance,Use of Upper Extremities Equipment Transfer Assistive Device Gait Belt,Small Based Quad Cane Orthotic/Prosthetic Devices or Brace: No Comments Mobility Comments spouse in room. caregiver training conducted. educated spouse on how to manage sling. sling removed and showed pt and spouse elbow/hand/wrist exercises. pt continue to c/o increase L shoulder with LUE movement with increase guarding limiting ROM on L elbow. Pt not appropriate for pendulum exercise at this time due to increase pain and LUE guarding. educated spouse on how to manage sling and spouse was able to put sling on pt. also educated on how to use safety belt and how to assist pt using safety belt. pt completed sit to stand from the chair with spouse assisiting CGA to min A and cues and pt ambulated in room ~ 25 ft using quad cane and spouse was able to assist pt. pt gets easily distracted and need cues to focus on task. pt agreed to do stairs. ambulated out in the hallway with spouse assisting CGA to min A using SBQC and completed ~ 40 ft. pt requested to sit down and w/c placed behind pt. pt then stated that she is not feeling well. BP checked: 133/61. pt rested and agreed to do stairs. assisted pt to the stairs. PT educated pt and spouse on stair climbing. pt completed up/down 3 steps using L rail ascending sideways min to mod A going up and min A for going down. pt stated that she is tired. assisted back to the room. ambulated from w/c to chair with spouse assisting CGA to min A. positioned pt on the chair. call light and table placed within reach. informed nurse that pt needs a chair alarm due to decrease safety awareness. further caregiver training is needed prior to d/c. set up caregiver training tomorrow at 10 am. Gait Assessment Gait Gait Assistance Required: Contact Guard Assist,Minimum Assistance Distance (Feet) 40 Able to Maintain Weight Bearing Status Yes During Gait Assistive Devices Assistive Device Gait Belt,Small Based Quad Cane Orthotic/Prosthetic Devices or Brace: Yes Gait Deviations General Gait Pattern Antalgic,Ataxic,Decreased Feet Clearance,Step-to Gait Factors Limiting Gait Function Factors Limiting Gait Function Decreased Activity Tolerance, Decreased Strength,Difficulty Following Directions,Limited Range of Motion,Pain,Poor Balance,Poor Safety Awareness Stair Climbing Assessment Evaluation Level of Assist On Stairs Minimal Assistance,Moderate Assistance Devices Stair Climbing Assistive Devices Left Railing Technique/Endurance Stair Climbing Direction Ascend and Descend Stair Climbing Technique Step to Step Number of Steps Climbed 3 Stair Climbing Set # Repetitions (reps) 1 Comments Stair Climbing Comments pls refer to mobility section for details M5 PT-IP Objective Assessments Start: 03/04/22 15:55 Freq: NEEDED Status: Active Protocol: Document 03/05/22 10:21 AB (Rec: 03/05/22 12:51 AB [id number]) Orientation Orientation/Cognition Level of Alertness Alert Orientation Name,Situation Language Function Ability Hard of Hearing Safety Awareness Decreased Safety Awareness Memory Description Short Term Impaired,Tin Plater Impaired Strength Lower Extremity Strength Assessment Left Impaired Hip 4-/5 Knee 3+/5 Muscle Tone Muscle Tone WNL Yes M6 PT-IP Treatment Start: 03/04/22 15:55 Freq: NEEDED Status: Active Protocol: Document 03/05/22 13:15 AB (Rec: 03/05/22 14:38 AB [id number]) Physical Therapy Treatment Exercises Exercises Elbow Flexion/Extension,Wrist ROM,Hand ROM Education Education Provided Precautions,Weight Bearing Status,Safety Brace Education [place],Patient, Caregiver M7 PT-IP Assessment and Plan Start: 03/04/22 15:55 Freq: NEEDED Status: Active Protocol: Document 03/05/22 13:15 AB (Rec: 03/05/22 14:38 AB [email or web address]) PT Summary Assessment and Plan Potential Rehabilitation Potential Good Summary Impairments Pain,ROM,Strength,Balance, Coordination,Sensation,Tone, Cognition,Bed Mobility, Transfers,Gait,Activity Tolerance Progress Towards Goals Slow Progress due to Pain Assessment Summary caregiver training conducted but further training is needed and set up for tomorrow at 10am. pt will have her spouse to assist her at home and will need HHPT. Goals Bed Mobility Goal Standby Assistance Transfer Goal Standby Assistance,Cane Gait Goal Standby Assistance,Cane Gait Distance 150 Other Goals up/down 15 steps 1 rail SBA Days to Meet Goals 5 Frequency of Treatment Frequency Of Treatment Twice a Day Treatment Plan Physical Therapy Treatment Plan Bed Mobility Training,Transfer Training,Gait Training, Therapeutic Exercise,Balance Retraining,Post Op Education, Discharge Planning,Hot or Cold Pack,Neuromuscular Re-ed, Coordination Retraining,Manual Therapy Precautions Shoulder Precautions Sling,PROM,Internal Rotation to Body,No External Rotation, No Abduction,Forward Flexion to 90 degrees,Pendulums Weight Bearing Status Weight Bearing Status Non-Weight Bearing Allowed Weight Bearing Amount (enter % LUE NWB or #) (%) Recommendations To Nursing Amount of Assist Needed 1 Person Assist Discharge Recommendations PT Discharge Recommendations Home with 23/05 Assist Available,Home Health Transportation Needs at Discharge Private Vehicle
[2022-03-05] MEDS: CYCLOBENZAPRINE 10 MG TABLET PO (20:09)
[2022-03-05] MEDS: SODIUM CHLORIDE 0.9% FLUSH 10 ML IV (20:09)
[2022-03-06] VITALS: BP 117/65; PULSE 99; RESP 20; TEMP 36.8; O2SAT 91
[2022-03-06 04:00] VITALS: BP 158/76; PULSE 99; RESP 19; TEMP 36.8; O2SAT 96
[2022-03-06] MEDS: ACETAMINOPHEN 325 MG TABLET 975 MG PO (04:27)
[2022-03-06] MEDS: PANTOPRAZOLE DR 40 MG TABLET PO (06:11)
[2022-03-06 07:15] VITALS: PULSE 76; RESP 14; O2SAT 96
[2022-03-06] MEDS: ALBUTEROL/IPRATROPIUM 3 ML AMPUL INH (07:15)
[2022-03-06] MEDS: BUDESONIDE 0.5 MG/2 ML NEB INH (07:15)
[2022-03-06 08:00] VITALS: BP 180/72; PULSE 92; RESP 19; TEMP 37.1; O2SAT 92
[2022-03-06] MEDS: predniSONE 20 MG TABLET 40 MG PO (08:24)
[2022-03-06] MEDS: LOSARTAN 25 MG TABLET PO (08:24)
[2022-03-06] MEDS: DOCUSATE 100 MG CAPSULE PO (08:24)
[2022-03-06] MEDS: TRAMADOL 50 MG TABLET PO (08:25)
[2022-03-06] MEDS: ATORVASTATIN 20 MG TABLET 40 MG PO (08:25)
[2022-03-06] MEDS: INDOMETHACIN 25 MG CAPSULE PO (08:25)
[2022-03-06] MEDS: INSULIN LISPRO 100 UNIT/ML 3ML VIAL 10 UNIT SUBCUT (08:26)
[2022-03-06] MEDS: INSULIN GLARGINE 100 UNIT/ML 3ML PEN 15 UNIT SUBCUT (08:29)
--- NOTE | 2022-03-06 08:43 | P.DS_ITS ---
History of Present Illness History of Present Illness Date Patient Seen: 03/06/22 Time Patient Seen: 08:43 Chief complaint: *OPB* LT TSA Narrative: Operative Date/Time/Diagnoses Date of procedure: 03/04/22 Time of procedure: 10:00 Pre-op diagnosis: Left end-stage arthritis glenohumeral joint Post-op diagnosis: same Procedure & Clinicians Procedure: Left total shoulder arthroplasty Same procedure as scheduled: Yes Indications: End-stage arthritis left shoulder joint Surgeon: Bryson Allen Title I Coordinator: Jeanie Cartagena Anesthesia Type: General and Peripheral nerve block Operative Notes Findings: End-stage arthritis to the glenohumeral joint with significant loss of cartilage to both the humeral head and the glenoid.? Inferior osteophytes on the humeral head and neck.? No sign of any rotator cuff tear.? No sign of any high-riding humeral head. Closure Type: primary Applied: implant(s) (Size 6 stem, small glenoid and a 44 x 17 humeral head) Estimated Blood Loss (mL): 50 Discharge Providers Provider Date of admission: 03/05/22 11:13 Discharge Date: 03/06/22 Primary care physician: Sapna Evans MD Consults: 03/04/22 12:22 Consult to Discharge Planning Routine Comment: Consult to Physical Therapy Evaluate & Treat Comment: Physician Instructions: Evaluate and Treat Consult to Respiratory Therapy Evaluate & Treat Comment: Physician Instructions: Evaluate and treat Discharge provider: Jeanie Cartagena PA-C Summary Hospital Course Discharge Diagnosis: s/p LEFT total shoulder arthroplasty Acute anemia d/t expected surgical blood loss HTN DM Hospital Course: Ms Lopez's hospital course was notable for poor pain control. On POD# 1 she was feeling better and wanted to go home with her spouse. She was evaluated by PT during her stay. She was eating and voiding without difficulty and her pain was moderately well-controlle with oral medication. Exam Vital Signs (past 8 hours): - 03/06/22 04:00 03/06/22 07:15 03/06/22 08:00 Temperature 98.2 F 98.7 F Pulse Rate 99 H 76 92 H Respiratory Rate 19 14 19 Blood Pressure 158/76 H 180/72 H Pulse Oximetry 96 96 92 Oxygen Delivery Method Room Air Oxygen Flow Rate 0 Narrative Exam Narrative: Hand tremors at baseline. Aquacel dressing CDI. 5/5 digital forensic examiner strength and hand intrinsics. Brisk capillary refill, sensation to light touch and wrist and finger movement intact. Objective Labs Result Diagrams: 03/05/22 05:03 [facility] Medical History (Updated 03/05/22 @ 10:08 by Jeanie Cartagena PA-C) COPD (chronic obstructive pulmonary disease) Depression Diabetes Gouty arthritis of toe Hypertension Memory changes Osteoarthritis Spinal stenosis Surgical History (Updated 03/05/22 @ 10:08 by Jeanie Cartagena PA-C) History of arthroplasty of left knee History of arthroplasty of right knee Social History household members: spouse, family and children Smoking Status: Never smoker alcohol intake: former Discharge Assessment & Plan Assessment and Plan Assessment: s/p LEFT total shoulder arthroplasty Acute anemia d/t expected surgical blood loss HTN DM Plan of Treatment: Discharge home, mulitmodal pain control, sling at all times, outpatient OT, follow up in office as scheduled. Discharge Plan Discharge Plan Patient Disposition: Home Discharge orders & Medications Prescriptions: New cyclobenzaprine 10 mg Tablet 10 mg PO QID PRN (Reason: MUSCLE SPASM) Qty: 90 0RF acetaminophen 325 mg Tablet 975 mg PO TID PRN (Reason: pain (scale score 4-6)) Qty: 180 1RF docusate sodium 100 mg Capsule 100 mg PO BID PRN (Reason: constipation) Qty: 60 2RF tramadol 50 mg Tablet 50 mg PO QID PRN (Reason: pain (scale score 7-10)) Qty: 120 1RF hydromorphone 2 mg tablet 2 mg PO Q6H PRN (Reason: pain, severe) Qty: 10 0RF Rx Instructions: Do not take unless having very severe pain. Continued Lantus U-100 Insulin 100 UNIT/1 ML solution 30 unit SQ QAM Qty: 0 0RF VITAMIN D (Vitamin D3) 1,000 units PO BEDTIME Qty: 0 0RF fluoxetine [Prozac] 40 MG capsule 40 mg PO QDAY Qty: 0 0RF insulin aspart U-100 [Novolog U-100 Insulin aspart] 100 unit/mL solution 10 unit SQ QIDACHS Qty: 0 0RF tolterodine [Detrol LA] 4 MG capsule,extended release 24hr 2 mg PO DAILY Qty: 0 0RF Rx Instructions: 2mg daily each morning. docusate sodium 250 MG capsule 250 mg PO QDAY PRN (Reason: Constipation) Qty: 0 0RF diclofenac sodium [Voltaren] 1 % gel 1 jony Topical PRN PRN (Reason: Pain (Scale Score 1-3)) Qty: 0 0RF omeprazole 40 mg Capsule,Delayed Release(Dr/Ec) 40 mg PO DAILY 0RF telmisartan [Micardis] 20 mg Tablet 10 mg PO DAILY 0RF Rx Instructions: takes half a 20mg tab once daily in the morning Spiriva with HandiHaler 18 mcg Capsule, W/Inhalation Device 1 cap INHALATION DAILY PRN (Reason: Respiratory Distress) 0RF Rx Instructions: puncture 1 cap using device; one dose = 2 inhalations atorvastatin 40 mg Tablet 40 mg PO DAILY 0RF aspirin 81 mg tablet,delayed release (DR/EC) 81 mg PO DAILY 0RF magnesium oxide 500 mg Tablet 500 mg PO DAILY 0RF gabapentin 300 mg capsule 900 mg PO BEDTIME 0RF doxycycline hyclate 100 mg tablet 100 mg PO BID 0RF Discontinued acetaminophen 500 mg Tablet 500 mg PO Q6H PRN (Reason: Pain) Qty: 0 0RF tramadol 50 MG tablet 50 mg PO Q6HP PRN (Reason: Pain (Scale Score 4-6)) 0RF Follow up/Referrals: Sapna Evans MD [Primary Care Provider] - Bryson Allen MD [Physician] - As previously scheduled (Follow up with Dr Allen on 03/16/2022 @ 1:00 pm at [facility] office in [place].) Diet/Activity/Treatments Diet: Diet as Tolerated Activity: Sling on at all times, including while sleeping. May have off to bathe/shower. FOR FULL ACTIVITY RESTRICTIONS, PLEASE SEE DR ALLEN'S TOTAL S [facility] PROTOCOL. Cold/Heat Therapy: Ice to shoulder for 20 minutes, 3 times/day as needed for pain. Skin/Wound/Dressing Care Report to your healthcare provider any signs of infection, such as:: chills, fever, night sweats, unusual drainage and unusual redness Dressing: Leave Aquacel dressing in place until follow up in office. May get dressing wet in shower or bath, but no soaking incision under water. Visit Report/Discharge Packet Instructions: DI for Prescription Opioid Use, DI for Shoulder Replacement Stand Alone Forms: Surgery Discharge Discharge Data Primary Care Provider: Sapna Evans Attending Provider: Bryson Allen VTE Deep Vein Thrombosis/Pulmonary Embolism Present on Admission: No
[2022-03-06] MEDS: OXYBUTYNIN 5 MG ER TAB 20 MG PO (09:14)
[2022-03-06] MEDS: FLUoxetine 20 MG CAPSULE 40 MG PO (09:15)
== END 2022-03-06 10:08 | disposition home or self-care (01) ==
LOC: OR 12:00 → AC 12:00
PROVIDERS: Admitting Provider Orthopaedic Surgery; Family Provider Internal Medicine; PCP Internal Medicine; Referring Provider Orthopaedic Surgery; Visit Provider Orthopaedic Surgery
PROC: (CPT 23472; principal; 2022-03-04 09:30)
DX: M19.012 Primary osteoarthritis, left shoulder (principal); D62 Acute posthemorrhagic anemia; E11.9 Type 2 diabetes mellitus without complications; Z79.4 Long term (current) use of insulin; I10 Essential (primary) hypertension; J44.9 Chronic obstructive pulmonary disease, unspecified; M25.712 Osteophyte, left shoulder
CPT/HCPCS: 23472; 36415; 64450; 82962; 85027; 94640; 94762; 97116; 97162; 97530; C1776; G0378; J1100; J1170; J1815; J2250; J2405; J2704; J3010; J7613

== ENCOUNTER 2022-03-07 09:49 | Inpatient (IN) | payer MEDICARE, OTHER, SELFPAY ==
[2022-03-04 14:03] VITALS: BMI 28.3
[2022-03-07] VITALS (21 sets, daily range): BP systolic 136–189; BP diastolic 78–90; PULSE 85–104; RESP 16–42; TEMP 36.8–37.1; O2SAT 91–100; BMI 27.5
--- NOTE | 2022-03-07 | DI.RAD.S_ITS ---
PROCEDURE: XR SHOULDER LT MIN 2V INDICATIONS: PAIN LT SHOULDER TECHNIQUE: 2 views of the shoulder were acquired. COMPARISON: [facility], CR, XR SHOULDER 2+ VIEWS LEFT, 08/25/2021, 14:50. [facility], CR, XR SHOULDER LT MIN 2V, 03/04/2022, 12:42. FINDINGS: Bones: Left shoulder arthroplasty with prosthesis in anatomic alignment. Moderate acromioclavicular joint degeneration. No suspicious bony lesions. Visualized ribs appear intact. Soft tissues: No suspicious soft tissue calcifications. IMPRESSION: 1. Left shoulder arthroplasty with prosthesis in anatomic alignment. 2. Moderate degenerative joint disease of the acromioclavicular joint. Dictated by: Reji Saenz M.D. on 03/07/2022 at 10:31 Approved by: Reji Saenz M.D. on 03/07/2022 at 10:32
--- NOTE | 2022-03-07 10:01 | DI.CT.S_ITS ---
PROCEDURE: CT HEAD/BRAIN WO CON INDICATIONS: altered, headache, on anticoagulation TECHNIQUE: Noncontrast 4.5 mm thick angled axial sections acquired from the foramen magnum to the vertex, with coronal and sagittal reformats. For radiation dose reduction, the following was used: automated exposure control, adjustment of mA and/or kV according to patient size. COMPARISON: [facility], CT, HEAD WITHOUT CONTRAST, 03/24/2016, 7:01. FINDINGS: Image quality: Excellent. CSF spaces: Basal cisterns are patent. No extra-axial fluid collections. The ventricles are symmetric in size and shape. Brain: No intracranial bleeds or masses. Small old lacunar infarct in the left basal ganglia. There is [id number] cerebral volume loss for age, with resultant ventricular and sulcal prominence. There are moderate to severe periventricular and deep white matter chronic small vessel ischemic changes. There is intracranial internal carotid artery atherosclerosis. Skull and face: Calvarium and visualized facial bones appear intact, without suspicious lesions. Sinuses: Visualized sinuses and mastoids are clear. IMPRESSION: 1. No acute intracranial abnormalities. 2. Cerebral volume loss and chronic microvascular ischemic changes. Dictated by: Reji Saenz M.D. on 03/07/2022 at 10:19 Approved by: Reji Saenz M.D. on 03/07/2022 at 10:21
--- NOTE | 2022-03-07 10:01 | DI.RAD.S_ITS ---
PROCEDURE: XR CHEST 1V INDICATIONS: weakness, altered TECHNIQUE: One view of the chest was acquired. COMPARISON: [facility], , CHEST 1 VIEW, 05/28/2015, 20:51. FINDINGS: Surgical changes and devices: None. Lungs and pleura: Lungs are clear. No pleural effusions or pneumothorax. Mediastinum: Mediastinal contours appear normal. Heart size is normal. Bones and chest wall: No suspicious bony lesions. Overlying soft tissues appear unremarkable. IMPRESSION: No acute cardiopulmonary disease. Dictated by: Reji Saenz M.D. on 03/07/2022 at 10:29 Approved by: Reji Saenz M.D. on 03/07/2022 at 10:30
[2022-03-07] MEDS: SODIUM CHLORIDE 0.9% 1,000 ML 150 ML IV (10:29)
[2022-03-07 11:32] LABS: Add Manual Diff / Slide Review NO; Basophils Absolute Auto 0 /uL (0-100); Basophils Percent Auto 0.2 % (0-2); Eosinophils Absolute Auto 0 /uL (0-450); Eosinophils Percent Auto 0.1 % (2-4); Hematocrit 35.9 % (36-46); Hemoglobin 12.1 g/dL (12.0-16.0); Lymphocytes Absolute Auto 1700 /uL (1100-4500); Lymphocytes Percent Auto 22.1 % (25-40); Mean Corpuscular HGB Conc 33.7 % (30-36); Mean Corpuscular Hemoglobin 31.7 PG (26-34); Mean Corpuscular Volume 93.9 fL (80-100); Monocytes Absolute Auto 800 /uL (0-900); Neutrophils Absolute Auto 5100 /uL (1500-7000); Neutrophils Percent Auto 67.6 % (50-75); Platelet Count 170 X10^3/uL (150-400); Red Blood Cell Count 3.83 X10^6/uL (4.0-5.2); White Blood Cell Count 7.5 X10^3/uL (4.5-11.0)
[2022-03-07 11:38] LABS: Lactate (Lactic Acid) 1.2 mmol/L (0.7-2.1)
[2022-03-07 12:09] LABS: Thyroid Stimulating Hormone 2.23 uIU/mL (0.47-4.68)
--- NOTE | 2022-03-07 12:10 | ED.NEUROSD ---
HPI - Neuro Symptoms/Deficit General Chief Complaint: Neuro Symptoms/Deficit Stated Complaint: Altered LOC & Lt. Shoulder pain Time Seen by Provider: 03/07/22 09:57 Source: patient and EMS Mode of arrival: Family Vehicle History of Present Illness HPI Narrative: 86-year-old female nonsmoker with history of closed head injuries, gout, COPD, hypertension, diabetes presents by EMS for evaluation of altered mental status since last evening. She had just been in the hospital to have a left shoulder surgery was discharged home yesterday after having a left total shoulder arthroplasty for end-stage arthritis of the glenohumeral joint. She was receiving Dilaudid and Flexeril for pain control in the hospital and was discharged home in her normal state of health and as the night wore on she became confused and speaking nonsensically. At that point her pain medications were held yet her symptoms continued over the course of the evening and this morning at which point EMS was activated. She has no complaint of vision change or slurred speech nor extremity numbness, tingling or weakness. She is not on any medications that are new to her, currently her had been giving Ultram and Tylenol for pain control, she had received these medications on multiple occasions prior to her surgery. She has no chest pain or shortness of breath. She has no abdominal pain though she has had decreased bowel movements since prior to the surgery. She has no urinary complaints such as dysuria, frequency or urgency. On Anticoagulants: Yes Related Data Home Medications Medication Instructions Recorded Confirmed insulin glargine 100 unit/mL 30 unit SQ QAM #0 07/15/11 03/07/22 subcutaneous solution (Lantus U-100 Insulin) VITAMIN D (Vitamin D3) 1,000 units PO BEDTIME #0 09/06/11 03/07/22 fluoxetine 40 mg capsule (Prozac) 40 mg PO QDAY #0 11/28/16 03/07/22 insulin aspart U-100 100 unit/mL 10 unit SQ QIDACHS #0 11/28/16 03/07/22 subcutaneous solution (Novolog U-100 Insulin aspart) tolterodine 4 mg capsule,extended 2 mg PO DAILY #0 11/28/16 03/07/22 release 24 hr (Detrol LA) diclofenac sodium 1 % topical gel 1 jony TOPICAL PRN PRN #0 04/26/17 05/08/22 (Voltaren) atorvastatin 40 mg tablet 40 mg PO DAILY 03/03/22 03/07/22 omeprazole 40 mg capsule,delayed 40 mg PO DAILY 03/03/22 03/07/22 release telmisartan 20 mg tablet (Micardis) 10 mg PO DAILY 03/03/22 03/07/22 aspirin 81 mg tablet,delayed 81 mg PO DAILY 03/04/22 03/07/22 release doxycycline hyclate 100 mg tablet 100 mg PO BID 03/04/22 03/07/22 gabapentin 300 mg capsule 900 mg PO BEDTIME 03/04/22 03/07/22 magnesium oxide 500 mg tablet 500 mg PO DAILY 03/04/22 03/07/22 calcium citrate 200 mg (950 mg) 200 mg PO BEDTIME 03/07/22 03/07/22 tablet Previous Rx's Medication Instructions Recorded acetaminophen 325 mg tablet 975 mg PO TID PRN #180 tab 03/06/22 cyclobenzaprine 10 mg tablet 10 mg PO QID PRN #90 tab 03/06/22 docusate sodium 100 mg capsule 100 mg PO BID PRN #60 cap 03/06/22 hydromorphone 2 mg tablet 2 mg PO Q6H PRN #10 tab 03/06/22 tramadol 50 mg tablet 50 mg PO QID PRN #120 tab 03/06/22 Allergies Allergy/AdvReac Type Severity Reaction Status Date / Time iodine [IODINE] Allergy Unknown Verified 03/07/22 10:12 lisinopril [LISINOPRIL] Allergy Unknown Verified 03/07/22 10:12 shellfish derived Allergy Unknown Verified 03/07/22 10:12 [SHELLFISH DERIVED] PENICILLIN Allergy Unknown Uncoded 03/07/22 10:12 Review of Systems Review of Systems ROS Unobtainable: Unobtainable due to mental status/LOC Hematologic/Lymphatic On Anticoagulants: Yes Patient History Medical History COPD (chronic obstructive pulmonary disease) Depression Diabetes Gouty arthritis of toe Hypertension Memory changes Osteoarthritis Spinal stenosis Surgical History History of arthroplasty of left knee History of arthroplasty of right knee Social History household members: spouse, family and children Smoking Status: Never smoker alcohol intake: former Smoking Status: Never smoker alcohol intake frequency: holidays/special occasions only Substance Use Type: does not use Exam Narrative Exam Narrative: GENERAL: [86] year old patient appears stated age. Well-developed patient, in mild distress. GCS 13, confused and slurring but controlling secretions and guarding airway without difficulty HEAD: Atraumatic. Normocephalic. EYES: Pupils equal round and reactive. Extraocular motions intact. No scleral icterus. No injection or drainage. ENT: dry mucous membranes Nose without bleeding, purulent drainage. Throat without erythema, tonsillar hypertrophy or exudate. Airway patent. NECK: Trachea midline. Non tender CARDIOVASCULAR: Regular rate and rhythm without murmurs, gallops, or rubs. RESPIRATORY: Clear to auscultation. Breath sounds equal bilaterally. No wheezes, rales, or rhonchi. GASTROINTESTINAL: Abdomen soft, non-tender, nondistended. EXTREMITIES: left upper extremity with incisions that appear clean, dry and intact, no abnormal drainage, full but painful range of motion BACK: Nontender without deformity or crepitance. No flank tenderness. NEURO: alert to person and place. SKIN: No rash or erythema of visible areas Initial Vital Signs Initial Vital Signs: Vital Signs Blood Pressure 136/88 03/07/22 09:58 Course Orders Ordered: ED Orders 03/07/22 13:27 Urinalysis and Microscopic Stat Urine Drug Screen, Rapid Stat Acetaminophen (Acetaminophen 325 Mg Tablet) 650 mg PO Q6HR PRN PRN Reason: pain Last Admin: 03/07/22 20:56 Dose: 650 mg Documented by: [email or web address] Albuterol (Albuterol 2.5 Mg/3 Ml Neb (Adult)) 2.5 mg INH [id number] PRN PRN Reason: Shortness Of Breath Albuterol (Albuterol 2.5 Mg/3 Ml Neb (Adult)) 2.5 mg INH RTBID KADE Aspirin (Aspirin Ec 81 Mg Tablet) 81 mg PO DAILY KADE Atorvastatin Calcium (Atorvastatin 20 Mg Tablet) 40 mg PO DAILY KADE Budesonide (Budesonide 0.5 Mg/2 Ml Neb) 0.5 mg INH RTBID KADE Dextrose (Dextrose 50 % In Water 25 Gm/50 Ml Syringe) 25 gm IV PRN PRN; Protocol PRN Reason: Hypoglycemia Docusate Sodium (Docusate 100 Mg Capsule) 100 mg PO BID PRN PRN Reason: constipation Fluoxetine HCl (Fluoxetine 20 Mg Capsule) 40 mg PO DAILY KADE Gabapentin (Gabapentin 300 Mg Capsule) 900 mg PO BEDTIME KADE Last Admin: 03/07/22 20:57 Dose: 900 mg Documented by: JETT Sodium Chloride (Normal Saline 0.9%) 1,000 mls @ 75 mls/hr IV CONT KADE Last Admin: 03/07/22 18:37 Dose: 75 mls/hr Documented by: [email or web address] Insulin Glargine (Insulin Glargine 100 Unit/Ml 3ml Pen) 15 unit SUBCUT BEDTIME KADE Last Admin: 03/07/22 21:49 Dose: 15 unit Documented by: JETT Cosigned by: BRONSON Insulin Human Lispro (Insulin Lispro 100 Unit/Ml 3ml Vial) 0 unit SUBCUT ACHS [facility]; Protocol Last Admin: 03/07/22 21:46 Dose: Not Given Documented by: JETT Magnesium Hydroxide (Magnesium Hydroxide 30 Ml Udc) 30 ml PO DAILY PRN PRN Reason: Constipation Naloxone HCl (Naloxone 0.4 Mg/Ml Vial) 0.2 mg IV Q2MIN PRN PRN Reason: Opiate Reversal Pantoprazole Sodium (Pantoprazole Dr 40 Mg Tablet) 40 mg PO 0600 [facility] Discontinued Medications Sodium Chloride (Normal Saline 0.9%) 1,000 mls @ 150 mls/hr IV CONT KADE Stop: 03/07/22 17:25 Last Infusion: 03/07/22 15:59 Dose: 150 mls/hr Documented by: Admin: 03/07/22 10:29 Dose: 150 mls/hr Documented by: ALEJANDRA Vital Signs Vital signs: Vital Signs - 8 hr 03/07/22 14:30 Pulse Rate 92 H Respiratory Rate 27 H Pulse Oximetry 91 MDM - Neuro Symptoms/Deficit Lab Data Result diagrams: 03/07/22 10:24 03/07/22 12:15 Labs: Lab Results 03/07/22 03/07/22 03/07/22 Range/Units 10:24 10:24 10:24 WBC 7.5 (4.5-11.0) X10^3/uL RBC 3.83 L (4.0-5.2) X10^6/uL Hgb 12.1 (12.0-16.0) g/dL Hct 35.9 L (36-46) % MCV 93.9 (80-100) fL MCH 31.7 (26-34) PG MCHC 33.7 (30-36) % RDW 13.0 (11.6-14.8) % Plt Count 170 (150-400) X10^3/uL Neut % (Auto) 67.6 (50-75) % Lymph % (Auto) 22.1 L (25-40) % Allen % (Auto) 10.0 (3-14) % Eos % (Auto) 0.1 L (2-4) % Baso % (Auto) 0.2 (0-2) % Neut # (Auto) 5100 (6464-5988) /uL Lymph # (Auto) 1700 (4335-0005) /uL Allen # (Auto) 800 (0-900) /uL Eos # (Auto) 0 (0-450) /uL Baso # (Auto) 0 (0-100) /uL Sodium (137-145) mmol/L Potassium (3.4-5.1) mmol/L Chloride (98-107) mmol/L Carbon Dioxide (22-32) mmol/L BUN (7-17) mg/dL Creatinine (0.52-1.04) mg/dL Estimated GFR (>60) mL/min BUN/Creatinine Ratio (6-22) Glucose (80-110) mg/dL Lactate 1.2 (0.7-2.1) mmol/L Calcium (8.4-10.2) mg/dL Total Bilirubin (0.2-1.3) mg/dL AST (14-36) IU/L ALT (<35) IU/L Alkaline Phosphatase (38-126) U/L Total Creatine Kinase (30-135) U/L CK-MB (CK-2) (<2.37) ng/mL CK-MB (CK-2) Rel Index (1.5-5.0) % Troponin I (0.01-0.034) ng/mL Total Protein (6.3-8.2) g/dL Albumin (3.5-5.0) g/dL Globulin (1.7-4.1) g/dL Albumin/Globulin Ratio (1.0-2.8) Procalcitonin (<0.5) ng/mL TSH 2.23 (0.47-4.68) uIU/mL Prolactin (3.0-18.6) ng/mL Urine Color Urine Appearance Urine pH (4.5-8.0) Ur Specific [place] (1.000-1.035) Urine Protein (Negative) Urine Glucose (UA) (Negative) g/dL Urine Ketones (NEGATIVE) Urine Occult Blood (Negative) Urine Nitrate (Negative) Urine Bilirubin (NEGATIVE) Urine Urobilinogen (0.2) E.U./dL Ur Leukocyte Esterase (NEGATIVE) Urine RBC (0-5/HPF) Urine WBC (0-5/HPF) Ur Squamous Epith Cells (0-5/HPF) Ur Renal Epithelial Cell (0-1/HPF) Urine Bacteria (None) Ur Culture Indicated? Salicylates (<20) mg/dL U Opiates 300ng/mL cut (Negative) Ur Oxycodone Screen (Negative) Urine Methadone Screen (Negative) Acetaminophen (10-30) ug/mL Ur Barbiturates Screen (Negative) U Tricyclic Antidepress (Negative) Ur Phencyclidine Scrn (Negative) Ur Amphetamines Screen (Negative) U Methamphetamines Scrn (Negative) Ur MDMA Scrn (Ecstasy) (Negative) U Benzodiazepines Scrn (Negative) Urine Cocaine Screen (Negative) U Marijuana (THC) Screen (Negative) Ethyl Alcohol ( - 10) mg/dL 03/07/22 03/07/22 03/07/22 Range/Units 12:15 13:27 13:27 WBC (4.5-11.0) X10^3/uL RBC (4.0-5.2) X10^6/uL Hgb (12.0-16.0) g/dL Hct (36-46) % MCV (80-100) fL MCH (26-34) PG MCHC (30-36) % RDW (11.6-14.8) % Plt Count (150-400) X10^3/uL Neut % (Auto) (50-75) % Lymph % (Auto) (25-40) % Allen % (Auto) (3-14) % Eos % (Auto) (2-4) % Baso % (Auto) (0-2) % Neut # (Auto) (4359-0048) /uL Lymph # (Auto) (7757-9112) /uL Allen # (Auto) (0-900) /uL Eos # (Auto) (0-450) /uL Baso # (Auto) (0-100) /uL Sodium 139 (137-145) mmol/L Potassium 3.7 (3.4-5.1) mmol/L Chloride 105 (98-107) mmol/L Carbon Dioxide 29 (22-32) mmol/L BUN 28 H (7-17) mg/dL Creatinine 1.31 H (0.52-1.04) mg/dL Estimated GFR 40 L (>60) mL/min BUN/Creatinine Ratio 21.4 (6-22) Glucose 154 H (80-110) mg/dL Lactate (0.7-2.1) mmol/L Calcium 9.1 (8.4-10.2) mg/dL Total Bilirubin 0.7 (0.2-1.3) mg/dL AST 42 H (14-36) IU/L ALT 23 (<35) IU/L Alkaline Phosphatase 74 (38-126) U/L Total Creatine Kinase 907 H (30-135) U/L CK-MB (CK-2) 3.42 H (<2.37) ng/mL CK-MB (CK-2) Rel Index 0.4 L (1.5-5.0) % Troponin I 0.014 (0.01-0.034) ng/mL Total Protein 6.7 (6.3-8.2) g/dL Albumin 3.8 (3.5-5.0) g/dL Globulin 2.9 (1.7-4.1) g/dL Albumin/Globulin Ratio 1.3 (1.0-2.8) Procalcitonin 0.09 (<0.5) ng/mL TSH (0.47-4.68) uIU/mL Prolactin 9.3 (3.0-18.6) ng/mL Urine Color Yellow Urine Appearance Clear Urine pH 5.5 (4.5-8.0) Ur Specific [place] 1.020 (1.000-1.035) Urine Protein Trace H (Negative) Urine Glucose (UA) 1+ H (Negative) g/dL Urine Ketones Negative (NEGATIVE) Urine Occult Blood 1+ H (Negative) Urine Nitrate Negative (Negative) Urine Bilirubin Negative (NEGATIVE) Urine Urobilinogen 0.2 (0.2) E.U./dL Ur Leukocyte Esterase Trace H (NEGATIVE) Urine RBC 0-1/hpf (0-5/HPF) Urine WBC 0-1/hpf (0-5/HPF) Ur Squamous Epith Cells None seen (0-5/HPF) Ur Renal Epithelial Cell 0-1/hpf (0-1/HPF) Urine Bacteria None seen (None) Ur Culture Indicated? Cult not indicated Salicylates < 1.0 (<20) mg/dL U Opiates 300ng/mL cut Negative (Negative) Ur Oxycodone Screen Negative (Negative) Urine Methadone Screen Negative (Negative) Acetaminophen < 10 (10-30) ug/mL Ur Barbiturates Screen Negative (Negative) U Tricyclic Antidepress Positive H (Negative) Ur Phencyclidine Scrn Negative (Negative) Ur Amphetamines Screen Negative (Negative) U Methamphetamines Scrn Negative (Negative) Ur MDMA Scrn (Ecstasy) Negative (Negative) U Benzodiazepines Scrn Negative (Negative) Urine Cocaine Screen Negative (Negative) U Marijuana (THC) Screen Negative (Negative) Ethyl Alcohol < 10 ( - 10) mg/dL MDM Narrative Medical decision making narrative: 86-year-old female with recent shoulder surgery with increased confusion and hallucinations since discharge. Her medication regimen is largely stable. There is no evidence of stroke, lab abnormality or obvious infection. Discharge Plan Departure Patient Disposition: Admitted as Observation Clinical Impression: Acute delirium, Hallucination Admit Date/Time: 03/07/22 14:54 Admit Provider: Michael Vanessa
[2022-03-07 12:36] LABS: Acetaminophen < 10 ug/mL (10-30); Alanine Aminotransferase 23 IU/L (<35); Albumin 3.8 g/dL (3.5-5.0); Albumin Globulin Ratio 1.3 (1.0-2.8); Alkaline Phosphatase 74 U/L (38-126); Aspartate Aminotransferase 42 IU/L (14-36); BUN Creatinine Ratio 21.4 (6-22); Bilirubin Total 0.7 mg/dL (0.2-1.3); Blood Urea Nitrogen 28 mg/dL (7-17); Calcium 9.1 mg/dL (8.4-10.2); Carbon Dioxide 29 mmol/L (22-32); Chloride 105 mmol/L (98-107); Creatine Kinase 907 U/L (30-135); Estimated Glomerular Filt Rate 40 mL/min (>60); Ethanol (ETOH) < 10 mg/dL; Globulin 2.9 g/dL (1.7-4.1); Glucose 154 mg/dL (80-110); HEMOLYSIS < 15 (0-50); Potassium 3.7 mmol/L (3.4-5.1); Salicylate < 1.0 mg/dL (<20); Sodium 139 mmol/L (137-145); Total Protein 6.7 g/dL (6.3-8.2)
[2022-03-07 12:48] LABS: Troponin I 0.014 ng/mL (0.01-0.034)
[2022-03-07 12:51] LABS: CKMB % Relative Index 0.4 % (1.5-5.0); Creatine Kinase MB 3.42 ng/mL (<2.37)
[2022-03-07 12:53] LABS: Procalcitonin 0.09 ng/mL (<0.5); Prolactin 9.3 ng/mL (3.0-18.6)
[2022-03-07 13:34] LABS: Appearance Urine UA CLEAR; Bilirubin Urine UA NEGATIVE (NEGATIVE); Color Urine UA YELLOW; Glucose Urine UA 1+ g/dL (Negative); Ketones Urine UA NEGATIVE (NEGATIVE); Leukocyte Esterase Urine UA TRACE (NEGATIVE); Nitrite Urine UA NEGATIVE (Negative); Occult Blood Urine UA 1+ (Negative); Protein Urine UA TRACE (Negative); Urobilinogen Urine UA 0.2 E.U./dL (0.2)
[2022-03-07 13:35] LABS: pH Urine UA 5.5 (4.5-8.0)
[2022-03-07 13:46] LABS: RBC Urine 0-1/HPF (0-5/HPF); Renal Epithelial Cells Urine 0-1/HPF (0-1/HPF); Squamous Epithelial Cell Urine None Seen (0-5/HPF); WBC Urine 0-1/HPF (0-5/HPF)
[2022-03-07 13:47] LABS: Bacteria Urine None Seen
[2022-03-07 13:48] LABS: Culture Indicated Urine Cult Not Indicated
[2022-03-07 13:49] LABS: Ur Creatinine Normal (Normal); Ur Specific Gravity Normal (Normal); Urine pH Normal (Normal)
[2022-03-07 13:50] LABS: UR Morphine/Opiate cutoff 300 Negative (Negative); Urine Amphetamines Negative (Negative); Urine Barbiturates Negative (Negative); Urine Benzodiazepines Negative (Negative); Urine Cocaine Negative (Negative); Urine MDMA Negative (Negative); Urine Methadone Negative (Negative); Urine Methamphetamines Negative (Negative); Urine Oxycodone Negative (Negative); Urine Phencyclidine Negative (Negative); Urine Tetrahydrocannabinol Negative (Negative); Urine Tricyclic Antidepressant Positive (Negative)
[2022-03-07 16:23] LABS: COVID19 -Nasal RAPID Negative (Negative)
--- NOTE | 2022-03-07 17:13 | PM.HP.1 ---
History of Present Illness History of Present Illness Date Patient Seen: 03/07/22 Time Patient Seen: 17:00 Chief complaint: Altered LOC & Lt. Shoulder pain Narrative: 86-year-old female nonsmoker with history of closed head injuries, gout, COPD, hypertension, diabetes presents by EMS for evaluation of altered mental status since last evening. History obtained from ED physician as patient is confused and not in room when I examined her. Patient had elective left total shoulder arthroplasty on 03/04/2022 and discharged from the hospital yesterday. Per history provided to ER physician she started to become confused and speaking nonsensically a couple of hours after getting home. At that point held further doses of pain medication. stated she was not having any issues with confusion while in the hospital getting the pain pills. There has been no observation of fevers, chills, complaints of chest pain, urinary discomfort, cough or shortness of breath. No unilateral weakness. Laboratory evaluation in ED unremarkable. Urinalysis microscopic with 0-1 WBC and no bacteria. Chest x-ray normal and head CT without acute findings. Patient History Medical History COPD (chronic obstructive pulmonary disease) Depression Diabetes Gouty arthritis of toe Hypertension Memory changes Osteoarthritis Spinal stenosis Surgical History History of arthroplasty of left knee History of arthroplasty of right knee Family & Social History Social History: household members spouse,family,children Prior Living Arrangements House Safety & Behavioral: Feels Safe in Current Yes Environment Been Physically Hurt or No Threatened By a Person Tobacco & Substance use: Smoking Status Never smoker alcohol intake former alcohol intake frequency holiday/special occasion Substance Use Type does not use Meds Home Medications and Allergies Home Medications Medication Instructions Recorded Confirmed Type insulin glargine 100 unit/mL 30 unit SQ QAM #0 07/15/11 03/04/22 History subcutaneous solution (Lantus U-100 Insulin) VITAMIN D (Vitamin D3) 1,000 units PO BEDTIME #0 09/06/11 03/04/22 History fluoxetine 40 mg capsule (Prozac) 40 mg PO QDAY #0 11/28/16 03/04/22 History insulin aspart U-100 100 unit/mL 10 unit SQ QIDACHS #0 11/28/16 03/04/22 History subcutaneous solution (Novolog U-100 Insulin aspart) tolterodine 4 mg capsule,extended 2 mg PO DAILY #0 11/28/16 03/04/22 History release 24 hr (Detrol LA) diclofenac sodium 1 % topical gel 1 jony TOPICAL PRN PRN #0 02/23/17 03/04/22 History (Voltaren) docusate sodium 250 mg capsule 250 mg PO QDAY PRN #0 02/23/17 03/04/22 History atorvastatin 40 mg tablet 40 mg PO DAILY 03/03/22 03/04/22 History omeprazole 40 mg capsule,delayed 40 mg PO DAILY 03/03/22 03/04/22 History release telmisartan 20 mg tablet (Micardis) 10 mg PO DAILY 03/03/22 03/04/22 History tiotropium bromide 18 mcg capsule 1 cap INHALATION DAILY PRN 03/03/22 03/03/22 History with inhalation device (Spiriva with HandiHaler) aspirin 81 mg tablet,delayed 81 mg PO DAILY 03/04/22 03/04/22 History release doxycycline hyclate 100 mg tablet 100 mg PO BID 03/04/22 03/04/22 History gabapentin 300 mg capsule 900 mg PO BEDTIME 03/04/22 03/04/22 History magnesium oxide 500 mg tablet 500 mg PO DAILY 03/04/22 03/04/22 History acetaminophen 325 mg tablet 975 mg PO TID PRN #180 tab 03/06/22 Rx cyclobenzaprine 10 mg tablet 10 mg PO QID PRN #90 tab 03/06/22 Rx docusate sodium 100 mg capsule 100 mg PO BID PRN #60 cap 03/06/22 Rx hydromorphone 2 mg tablet 2 mg PO Q6H PRN #10 tab 03/06/22 Rx tramadol 50 mg tablet 50 mg PO QID PRN #120 tab 03/06/22 Rx Allergies Allergy/AdvReac Type Severity Reaction Status Date / Time iodine [IODINE] Allergy Unknown Verified 03/07/22 10:12 lisinopril [LISINOPRIL] Allergy Unknown Verified 03/07/22 10:12 shellfish derived Allergy Unknown Verified 03/07/22 10:12 [SHELLFISH DERIVED] PENICILLIN Allergy Unknown Uncoded 03/07/22 10:12 Review of Systems Review of Systems Narrative: Unable to obtain further ROS due to patient altered mental status and family member not available at this time Exam Vital Signs (past 8 hours): - 03/07/22 09:58 03/07/22 09:59 03/07/22 10:00 Temperature Pulse Rate 89 90 Respiratory Rate 34 H Blood Pressure 136/88 144/89 H Pulse Oximetry 96 96 03/07/22 10:02 03/07/22 10:30 03/07/22 11:05 Temperature 98.2 F Pulse Rate 92 H 85 94 H Respiratory Rate 20 37 H Blood Pressure 144/89 H 149/85 H Pulse Oximetry 97 93 94 03/07/22 11:30 03/07/22 12:00 03/07/22 12:30 Temperature Pulse Rate 96 H 98 H 102 H Respiratory Rate 36 H 33 H 42 H Blood Pressure Pulse Oximetry 94 93 94 03/07/22 13:00 03/07/22 13:30 03/07/22 14:09 Temperature Pulse Rate 97 H 96 H 104 H Respiratory Rate 34 H 34 H 27 H Blood Pressure Pulse Oximetry 93 95 100 03/07/22 14:11 03/07/22 14:30 03/07/22 15:00 Temperature Pulse Rate 94 H 92 H 101 H Respiratory Rate 27 H 27 H Blood Pressure 189/90 H Pulse Oximetry 93 91 97 03/07/22 15:30 03/07/22 15:55 Temperature 98.7 F Pulse Rate 97 H 97 H Respiratory Rate 16 Blood Pressure 174/80 H Pulse Oximetry 96 91 Oxygen Delivery Method Room Air Oxygen Flow Rate 2 Narrative Exam Narrative: General: Alert but clearly confused female who appears somewhat restless HEENT: Nontraumatic, pupils equal and reactive, sclera anicteric Oropharynx: Dry mucosa Neck: No lymphadenopathy Lungs: Clear to auscultation Heart: Regular rhythm without murmur Abdomen: Soft, nontender no HSM Extremities: Left shoulder with postop sling Neurological: Oriented to self only, speech is rambling and nonsensical Objective Labs Result Diagrams: 03/07/22 10:24 03/07/22 12:15 Labs: Laboratory Results - last 24 hr 03/07/22 03/07/22 03/07/22 10:24 10:24 10:24 WBC 7.5 RBC 3.83 L Hgb 12.1 Hct 35.9 L MCV 93.9 MCH 31.7 MCHC 33.7 RDW 13.0 Plt Count 170 Neut % (Auto) 67.6 Lymph % (Auto) 22.1 L [place] % (Auto) 10.0 Eos % (Auto) 0.1 L Baso % (Auto) 0.2 Neut # (Auto) 5100 Lymph # (Auto) 1700 [place] # (Auto) 800 Eos # (Auto) 0 Baso # (Auto) 0 Sodium Potassium Chloride Carbon Dioxide BUN Creatinine Estimated GFR BUN/Creatinine Ratio Glucose Lactate 1.2 Calcium Total Bilirubin AST ALT Alkaline Phosphatase Total Creatine Kinase CK-MB (CK-2) CK-MB (CK-2) Rel Index Troponin I Total Protein Albumin Globulin Albumin/Globulin Ratio Procalcitonin TSH 2.23 Prolactin Urine Color Urine Appearance Urine pH Ur Specific Erin Urine Protein Urine Glucose (UA) Urine Ketones Urine Occult Blood Urine Nitrate Urine Bilirubin Urine Urobilinogen Ur Leukocyte Esterase Urine RBC Urine WBC Ur Squamous Epith Cells Ur Renal Epithelial Cell Urine Bacteria Ur Culture Indicated? Salicylates U Opiates 300ng/mL cut Ur Oxycodone Screen Urine Methadone Screen Acetaminophen Ur Barbiturates Screen U Tricyclic Antidepress Ur Phencyclidine Scrn Ur Amphetamines Screen U Methamphetamines Scrn Ur MDMA Scrn (Ecstasy) U Benzodiazepines Scrn Urine Cocaine Screen U Marijuana (THC) Screen Ethyl Alcohol SARS-CoV-2 (PCR) 03/07/22 03/07/22 03/07/22 12:15 13:27 13:27 WBC RBC Hgb Hct MCV MCH MCHC RDW Plt Count Neut % (Auto) Lymph % (Auto) [place] % (Auto) Eos % (Auto) Baso % (Auto) Neut # (Auto) Lymph # (Auto) [place] # (Auto) Eos # (Auto) Baso # (Auto) Sodium 139 Potassium 3.7 Chloride 105 Carbon Dioxide 29 BUN 28 H Creatinine 1.31 H Estimated GFR 40 L BUN/Creatinine Ratio 21.4 Glucose 154 H Lactate Calcium 9.1 Total Bilirubin 0.7 AST 42 H ALT 23 Alkaline Phosphatase 74 Total Creatine Kinase 907 H CK-MB (CK-2) 3.42 H CK-MB (CK-2) Rel Index 0.4 L Troponin I 0.014 Total Protein 6.7 Albumin 3.8 Globulin 2.9 Albumin/Globulin Ratio 1.3 Procalcitonin 0.09 TSH Prolactin 9.3 Urine Color Yellow Urine Appearance Clear Urine pH 5.5 Ur Specific Erin 1.020 Urine Protein Trace H Urine Glucose (UA) 1+ H Urine Ketones Negative Urine Occult Blood 1+ H Urine Nitrate Negative Urine Bilirubin Negative Urine Urobilinogen 0.2 Ur Leukocyte Esterase Trace H Urine RBC 0-1/hpf Urine WBC 0-1/hpf Ur Squamous Epith Cells None seen Ur Renal Epithelial Cell 0-1/hpf Urine Bacteria None seen Ur Culture Indicated? Cult not indicated Salicylates < 1.0 U Opiates 300ng/mL cut Negative Ur Oxycodone Screen Negative Urine Methadone Screen Negative Acetaminophen < 10 Ur Barbiturates Screen Negative U Tricyclic Antidepress Positive H Ur Phencyclidine Scrn Negative Ur Amphetamines Screen Negative U Methamphetamines Scrn Negative Ur MDMA Scrn (Ecstasy) Negative U Benzodiazepines Scrn Negative Urine Cocaine Screen Negative U Marijuana (THC) Screen Negative Ethyl Alcohol < 10 SARS-CoV-2 (PCR) 03/07/22 15:56 WBC RBC Hgb Hct MCV MCH MCHC RDW Plt Count Neut % (Auto) Lymph % (Auto) [place] % (Auto) Eos % (Auto) Baso % (Auto) Neut # (Auto) Lymph # (Auto) [place] # (Auto) Eos # (Auto) Baso # (Auto) Sodium Potassium Chloride Carbon Dioxide BUN Creatinine Estimated GFR BUN/Creatinine Ratio Glucose Lactate Calcium Total Bilirubin AST ALT Alkaline Phosphatase Total Creatine Kinase CK-MB (CK-2) CK-MB (CK-2) Rel Index Troponin I Total Protein Albumin Globulin Albumin/Globulin Ratio Procalcitonin TSH Prolactin Urine Color Urine Appearance Urine pH Ur Specific Erin Urine Protein Urine Glucose (UA) Urine Ketones Urine Occult Blood Urine Nitrate Urine Bilirubin Urine Urobilinogen Ur Leukocyte Esterase Urine RBC Urine WBC Ur Squamous Epith Cells Ur Renal Epithelial Cell Urine Bacteria Ur Culture Indicated? Salicylates U Opiates 300ng/mL cut Ur Oxycodone Screen Urine Methadone Screen Acetaminophen Ur Barbiturates Screen U Tricyclic Antidepress Ur Phencyclidine Scrn Ur Amphetamines Screen U Methamphetamines Scrn Ur MDMA Scrn (Ecstasy) U Benzodiazepines Scrn Urine Cocaine Screen U Marijuana (THC) Screen Ethyl Alcohol SARS-CoV-2 (PCR) Negative Assessment & Plan Assessment & Plan narrative: 86-year-old female postop shoulder arthroplasty now presenting with acute confusion 1. Acute metabolic encephalopathy -could be due to combination of pain meds and muscle relaxants provided postop although patient was doing okay with these meds while in hospital -no evidence of UTI or other infectious process, no evidence of CVA -possibly could be dehydrated -provide gentle hydration -NPO due to risk of aspiration -can try swallow trial in a.m. Time Spent With Patient Critical Care time: I spent a total of [] minutes of critical care time on this patient's care today; this time is exclusive of procedural time. Quality VTE Deep Vein Thrombosis/Pulmonary Embolism Present on Admission: No
[2022-03-07] MEDS: SODIUM CHLORIDE 0.9% 1,000 ML 75 ML IV (18:37)
[2022-03-07] MEDS: ACETAMINOPHEN 325 MG TABLET 650 MG PO (20:56)
[2022-03-07] MEDS: GABAPENTIN 300 MG CAPSULE 900 MG PO (20:57)
[2022-03-07] MEDS: INSULIN GLARGINE 100 UNIT/ML 3ML PEN 15 UNIT SUBCUT (21:49)
[2022-03-08] VITALS (12 sets, daily range): BP systolic 138–171; BP diastolic 65–84; PULSE 85–104; RESP 16–22; TEMP 36.6–37.6; O2SAT 89–96
[2022-03-08] MEDS: ALBUTEROL 2.5 MG/3 ML NEB (ADULT) INH ×2 (07:24→20:05)
[2022-03-08] MEDS: BUDESONIDE 0.5 MG/2 ML NEB INH ×2 (07:24→20:05)
[2022-03-08] MEDS: ASPIRIN EC 81 MG TABLET PO (08:37)
[2022-03-08] MEDS: FLUoxetine 20 MG CAPSULE 40 MG PO (08:37)
[2022-03-08] MEDS: ATORVASTATIN 20 MG TABLET 40 MG PO (08:37)
[2022-03-08] MEDS: SODIUM CHLORIDE 0.9% 1,000 ML 75 ML IV (08:54)
--- NOTE | 2022-03-08 11:52 | DI.MRI.S_ITS ---
PROCEDURE: MR STROKE Pre- and post-contrast brain MRI, non-contrast brain MR angiogram, pre- and postcontrast neck MR angiogram INDICATIONS: confusion, delirium, reported facial numbness, weak r/o CVA TECHNIQUE: Brain: Noncontrast axial T1 spin echo, axial T2 fast spin echo, sagittal and axial FLAIR, coronal T2 fast spin echo, axial gradient echo, axial diffusion and ADC through the brain. After the administration of contrast, axial 3D VIBE of the cranial vasculature and brain. Brain MRA: Non-contrast 3-D time of flight MR angiogram, with multiple wenxanj-fxbbzsftl-zffkxtugqx (MIP) reformats performed. Neck MRA: Axial and sagittal TruFISP through the neck. Coronal dynamic MR angiogram during administration of contrast in the arterial and venous phases, with 3-dimenstional yiuuwda-hqvwkwkcc-[id number] (MIP) reformats constructed from subtraction images. COMPARISON: [facility], CT, CT HEAD/BRAIN WO CON, 03/07/2022, 10:28. FINDINGS: Image quality: There are motion artifacts. BRAIN: CSF spaces: Ventricles are normal in size and shape. Basal cisterns are patent. No extra-axial fluid collections. Brain: No intracranial bleeds or mass effects. There is moderate cerebral volume loss. Severe periventricular white matter chronic small vessel ischemic changes are present. Diffusion weighted images show no acute ischemic insults. Brainstem appears normal. Normal intravascular flow voids are present. No abnormal intracranial enhancement. Skull and face: Calvarial marrow signal is normal. Orbits appear normal. Sinuses: Sinuses and mastoids are clear. BRAIN MR ANGIOGRAM: Anterior circulation: Intracranial internal carotid arteries are normal in size and enhancement. The flow within the paired anterior cerebral arteries is normal and symmetric. The flow within the middle cerebral arteries is normal and symmetric. The anterior communicating artery is seen. No stenoses, occlusions, or aneurysms. Posterior circulation: The visualized portions of the vertebral arteries demonstrate normal caliber, and join to form a normal appearing basilar artery. The flow within the posterior cerebral arteries is normal and symmetric. No stenoses, occlusions, or aneurysms. NECK MR ANGIOGRAM: Carotids: Great vessels demonstrate a conventional anatomy as they arise from the aortic arch. The origins of the common carotid arteries appear patent. The calibers and courses of both common carotid arteries are normal. The bifurcation regions appear normal bilaterally. The internal carotid arteries demonstrate normal course and caliber. Posterior circulation: The origins of the vertebral arteries appear patent. More superior portions of both vertebral arteries demonstrate normal course and caliber, and join to form a normal appearing basilar artery. Miscellaneous: Subclavian arteries appear patent. Pre-contrast images through the neck show no soft tissue abnormalities. IMPRESSION: Limited examination due to motion artifacts. BRAIN MRI: 1. No acute intracranial abnormalities. 2. Moderate cerebral volume loss and severe chronic microvascular ischemic changes. BRAIN MR ANGIOGRAM: No high-grade stenosis or occlusion in anterior or posterior circulations. NECK MR ANGIOGRAM: No high-grade stenosis or occlusion in cervical carotid arteries or vertebral arteries. Dictated by: Reji Saenz M.D. on 03/08/2022 at 15:24 Approved by: Reji Saenz M.D. on 03/08/2022 at 15:29
--- NOTE | 2022-03-08 15:29 | PM.PN.1 ---
Subjective Subjective Date Patient Seen: 03/08/22 Interval history: Patient remains delirious, reports left sided decrease in sensation, speech not back to baseline per . She is agitated intermittently but easily redirectable. Exam Vital Signs (past 8 hours): - 03/08/22 09:15 03/08/22 09:18 03/08/22 12:18 Temperature 98.9 F 99.6 F Pulse Rate 103 H 104 H Respiratory Rate 16 16 Blood Pressure 155/66 H 171/84 H Pulse Oximetry 94 94 94 Oxygen Delivery Method Room Air Oxygen Flow Rate 0 Narrative Exam Narrative: General:? Alert but clearly confused female, anxious and restless. Lungs:? Clear to auscultation without wheezes rhonchi or rales bilaterally Heart:? Regular rhythm without murmur Abdomen:? Soft, nontender non-distended Extremities:? Left shoulder with postop sling, LUE edema, trace bilateral LE edema. Neurological: Oriented to self and month,year, but not at home. speech is rambling, tangential at best, difficult to understand and pressured but also slurred. Objective Labs Result Diagrams: 03/07/22 10:24 03/07/22 12:15 Labs: Laboratory Results - last 24 hr 03/07/22 15:56 SARS-CoV-2 (PCR) Negative [facility] Medical History COPD (chronic obstructive pulmonary disease) Depression Diabetes Gouty arthritis of toe Hypertension Memory changes Osteoarthritis Spinal stenosis Surgical History History of arthroplasty of left knee History of arthroplasty of right knee Social History household members: spouse, family and children Smoking Status: Never smoker alcohol intake: former Assessment & Plan Assessment & Plan narrative: 86-year-old female postop shoulder arthroplasty now presenting with acute confusion, etiology likely due to narcotics though her delirium is persistent today. 1.? Acute metabolic encephalopathy -could be due to combination of pain meds and muscle relaxants provided postop although patient was doing okay with these meds while in hospital -no evidence of UTI or other infectious process. Given persistence today and patient reporting left facial decreased sensation will try and obtain MRI to rule out CVA. -ativan 0.5 mg prn for agitation. 2. Type 2 diabetes - continue insulin, though reduced lantus to 15 units and cut out meal time given poor PO intake currently. Also has a sliding scale. 3. HTN - remains hypertensive, will continue home medications for now, depending on MRI consider permissive HTN. Code: Occupational Therapist Spent With Patient Critical Care time: I spent a total of [] minutes of critical care time on this patient's care today; this time is exclusive of procedural time. Quality VTE Deep Vein Thrombosis/Pulmonary Embolism Present on Admission: No
[2022-03-08] MEDS: ACETAMINOPHEN 325 MG TABLET 650 MG PO (15:59)
--- NOTE | 2022-03-08 16:06 | CM.DANOTE ---
Patient is an 86 yo female who was admitted on 03/07/22 for AMS. Pt has [facility] and [employer] for insurance and her PCP is Sapna Evans. EMR was reviewed. Per MD, pt admitted with AMS with acute metabolic encephalopathy with unknown etiology. Pt was recently discharged on 03/06/22 after planned Shoulder Surg with Ortho and was cleared by PT for home with family assist and r/o HH and did not have any confusion during hospital stay. Per RN, pt off floor for MRI towards determining cause of AMS. Patient resides with spouse Rafat in [place], and with two adult Dtrs as well. At her baseline, she does not drive, she uses a cane, also has a walker. She has had to use her right arm for most things, since she could not raise her left arm. Pt has good home support, with spouse and children and in-laws. Pt and spouse declined HH at last admission a few days ago. No PT orders at this time as pt not medically appropriate at this time due to her ongoing confusion. Plan: SW to follow closely for identified discharge planning needs and to confirm safe plan of home with spouse and Dtrs to assist when more medically stable. 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 Yes Advance Directives on File No History Provided By Patient,Significant Other, Medical Record Has Patient been admitted in last 30 Yes days? Prior Living Arrangements House Household Members spouse,family,children Type of transporation used prior to Relies on Others admit Independent with ADL's Yes Is patient alert and oriented? Yes Caregiver for Another No Community Services used prior to Physical Therapy admission: Patient/Family Preference OP PT Therapy Barriers to Discharge No Comment Patient has spouse, and children at home for support. Discharge Plan Home Transportation Arrangement Spouse Referrals Initiated None needed Additional Comment Pending possible PT eval and recommendations Review Status In Process Please Provide Date Initial DC 03/08/22 Assessment Was Performed Next Review Type Continued Stay Review
[2022-03-08] MEDS: GABAPENTIN 300 MG CAPSULE 900 MG PO (21:24)
[2022-03-08] MEDS: LORazepam 0.5 MG TABLET PO (21:25)
[2022-03-08] MEDS: KETOROLAC 30 MG/ML VIAL 15 MG IV (23:14)
[2022-03-09] VITALS (10 sets, daily range): BP systolic 137–151; BP diastolic 56–67; PULSE 68–97; RESP 16–21; TEMP 36–36.8; O2SAT 92–98
[2022-03-09] MEDS: LORazepam 0.5 MG TABLET PO (01:01)
[2022-03-09] MEDS: ALBUTEROL 2.5 MG/3 ML NEB (ADULT) INH ×2 (07:10→20:25)
[2022-03-09] MEDS: BUDESONIDE 0.5 MG/2 ML NEB INH ×2 (07:10→20:24)
[2022-03-09] MEDS: ENOXAPARIN 40 MG/0.4 ML SYRINGE SUBCUT (12:02)
--- NOTE | 2022-03-09 15:35 | PM.PN.1 ---
Subjective Subjective Date Patient Seen: 03/09/22 Interval history: She is more alert today, less paranoid and very pleasant today. Still remains slightly confused. Exam Vital Signs (past 8 hours): - 03/09/22 11:38 03/09/22 12:30 Temperature 96.8 F L Pulse Rate 80 Respiratory Rate 16 Blood Pressure 145/61 H Pulse Oximetry 96 97 Oxygen Delivery Method Nasal Cannula Oxygen Flow Rate 0 Narrative Exam Narrative: General:? Elderly female in no acute distress. Lungs:? Clear to auscultation without wheezes rhonchi or rales bilaterally Heart:? Regular rhythm without murmur Abdomen:? Soft, nontender non-distended Extremities:? Left shoulder with postop sling, LUE edema, trace bilateral LE edema. Neurological: Oriented x3 today but still slightly confused. significant UE tremor at rest and worsened with motion. Objective Labs Result Diagrams: 03/07/22 10:24 03/07/22 12:15 [facility] Medical History COPD (chronic obstructive pulmonary disease) Depression Diabetes Gouty arthritis of toe Hypertension Memory changes Osteoarthritis Spinal stenosis Surgical History History of arthroplasty of left knee History of arthroplasty of right knee Social History household members: spouse, family and children Smoking Status: Never smoker alcohol intake: former Assessment & Plan Assessment & Plan narrative: 86-year-old female postop shoulder arthroplasty now presenting with acute confusion, etiology likely due to narcotics though her delirium is persistent today. 1.? Acute metabolic encephalopathy -likely due to combination of pain meds and muscle relaxants provided postop although patient was doing okay with these meds while in hospital -no evidence of UTI or other infectious process. MRI negative for stroke. -ativan 0.5 mg prn for agitation, though she is much improved today. 2. Type 2 diabetes ?- continue insulin, though reduced lantus to 15 units and cut out meal time given poor PO intake currently.? Also has a sliding scale. 3. HTN ?- continue home medications, BP much improved today. Code: Oceanographic Meteorologist Spent With Patient Critical Care time: I spent a total of [] minutes of critical care time on this patient's care today; this time is exclusive of procedural time. Quality VTE Deep Vein Thrombosis/Pulmonary Embolism Present on Admission: No
[2022-03-09] MEDS: ACETAMINOPHEN 325 MG TABLET 650 MG PO (18:17)
[2022-03-09] MEDS: SODIUM CHLORIDE 0.9% 1,000 ML 75 ML IV (19:45)
[2022-03-09] MEDS: GABAPENTIN 300 MG CAPSULE 900 MG PO (20:26)
[2022-03-09] MEDS: KETOROLAC 30 MG/ML VIAL 15 MG IV (20:26)
[2022-03-10] VITALS (13 sets, daily range): BP systolic 122–177; BP diastolic 53–89; PULSE 62–88; RESP 15–18; TEMP 36.2–37.3; O2SAT 92–96
[2022-03-10] MEDS: KETOROLAC 30 MG/ML VIAL 15 MG IV ×2 (06:01→13:13)
[2022-03-10] MEDS: PANTOPRAZOLE DR 40 MG TABLET PO (06:02)
[2022-03-10] MEDS: BUDESONIDE 0.5 MG/2 ML NEB INH ×2 (08:24→19:50)
[2022-03-10] MEDS: ALBUTEROL 2.5 MG/3 ML NEB (ADULT) INH ×2 (08:24→19:50)
[2022-03-10] MEDS: ENOXAPARIN 40 MG/0.4 ML SYRINGE SUBCUT (09:43)
[2022-03-10] MEDS: ATORVASTATIN 20 MG TABLET 40 MG PO (09:44)
[2022-03-10] MEDS: ASPIRIN EC 81 MG TABLET PO (09:45)
[2022-03-10] MEDS: FLUoxetine 20 MG CAPSULE 40 MG PO (09:45)
--- NOTE | 2022-03-10 10:42 | CM.DPC ---
Addendum entered by Marcie Gentile R.N. 03/10/22 12:59: Spoke to patient's , Raj, who is at bedside. Asked him if he has copy of vaccination cards for COVID, for it was not on state web site. Spouse has vaccination card with him, she was vaccinated at [facility]. Made copy, and Trista will fax over to [facility] and [facility]. Original Note: DCP Cont: Discussed patient during team rounds. Hospitalist indicated, patient is deconditioned, and may need skilled rehab. He did put in P.T. orders. Called spouse, Raj, to see if 'he feels that patient needs snf. He stated, she was very weak when she went home after her shoulder surgery, so it would be beneficial for her. Asked him about preferences upon snf agencies, and stated, he used to work at [facility], would be first preference, [facility] is second. Will also discuss with patient. Monserrat at [facility] will also review, she will need P.T. notes. Maribel at [facility] called back and indicated, she will review, would like vaccination status which will affect which room she will go into. P: DCP to continue to follow. Will see how she does with P.T. [facility] has referral, and [facility]. Auth from [employer] will need to be obtained. Marcie Gentile RN/Hide Examiner
[2022-03-10 11:28] LABS: Estimated Glomerular Filt Rate 53 mL/min (>60)
--- NOTE | 2022-03-10 11:54 | CM.DPNOTE ---
Faxed referral packet to [facility] per Gloria and received fax conf. Trista Schmidt CM Assist.
[2022-03-10] MEDS: INSULIN LISPRO 100 UNIT/ML 3ML VIAL SUBCUT ×3 (13:14→21:28)
--- NOTE | 2022-03-10 14:15 | PT.IIE ---
Current Diagnoses Metabolic encephalopathy (03/08/22) Medical History (Last Reviewed 03/07/22 @ 13:07 by Rolando Alegria DO) COPD (chronic obstructive pulmonary disease) Depression Diabetes Gouty arthritis of toe Hypertension Memory changes Osteoarthritis Spinal stenosis Physical Therapy Inpatient Evaluation/Re-Eval M1 PT/OT-IP Prior Functional Status Start: 03/10/22 14:58 Freq: NEEDED Status: Active Protocol: Document 03/10/22 14:15 AB (Rec: 03/10/22 15:09 AB [id number]) Medical Review Prior Functional Status Medical History Reviewed Yes Communication able to make needs known; pt easily distracted Mobility and Gait pt s/p L TSA 03/04/22 and went home. prior to TSA, pt is modified independent with all mobilities and ambulation using quad cane. spouse stated that pt was just in bed for 5 days when she went home because pt was unable to stand Social History Household Members spouse,family,children Living Arrangements House Number of Floors (Floors) Two Floors Number of Stairs To Enter/Railing? 3 steps B rails to enter the house 15 steps B rails to bedroom level Home Environment High Toilet,Tub/Shower Home Equipment Quad Cane,Bedside Commode, Shower Seat with Backrest,Hand Held Shower Additional Social History Comment pt has spouse at home and also has her 2 daughters M2 PT-IP Current Condition Start: 03/10/22 14:58 Freq: NEEDED Status: Active Protocol: Document 03/10/22 14:15 AB (Rec: 03/10/22 15:09 AB [email or web address]) Physical Therapy Current Condition Current Condition Evaluation Date 03/10/22 Treatment Diagnosis acute metaoblic encephalopathy ; difficulty in walking Onset Date 03/08/22 M3 PT-IP Subjective Start: 03/10/22 14:58 Freq: NEEDED Status: Active Protocol: Document 03/10/22 14:15 AB (Rec: 03/10/22 15:09 AB [email or web address]) Subjective Physical Therapy Visit Type Type Initial Evaluation Visit Start Time 14:15 Visit Stop Time 14:36 Total Visit Minutes 21 Number of DIAMOND MOUNTER Visits 0 Physical Therapy Visit Comments Patient Comments requesting to use the toilet M4 PT-IP Mobility and Gait Start: 03/10/22 14:58 Freq: NEEDED Status: Active Protocol: Document 03/10/22 14:15 AB (Rec: 03/10/22 15:09 AB [id number]) PT-Bed Mobility Assessment Supine to Sit Supine to Sit Standby Assistance,Head of Bed Elevated PT-Transfer Assessment Sit to and From Stand Sit to and from Stand Maximum Assistance,1 Person Assistance,2 Person Assistance ,Use of Upper Extremities Equipment Transfer Assistive Device Bed Rail,Small Based Quad Cane Orthotic/Prosthetic Devices or Brace: Yes Transfers Transfer Destination Bedside Commode Transfer Technique Stand Step Pivot Transfer Ability Level of Assist Maximum Assistance,1 Person Assistance,2 Person Assistance ,Use of Upper Extremities Comments Mobility Comments pt supine in bed without sling on. educated pt on L shoulder precautions. pt completed supine to sit with HOB elevated SBA. assisted with sling management. completed sit to stand max A x 1-2 and max cues. pt with (+ ) tremors and increase posterior trunk lean with LOB and has difficulty follow directions. instructed and assisted to sit back on the EOB. educated pt again for safety. bedside commode positioned next to pt. completed sit to stand again max A x 1-2 and max cues and step transfer using SBQC max A x 1-2 and max cues. completed sit to stand from bedside commode max A and max cues and step transfer to chair max A x 1-2 and max cues . pt refused further ambulation. positioned pt on the chair. call light and table placed within reach. Gait Assessment Comments Gait Comments steps during transfers using SBQC but refused further ambulation PT-Balance Assessment Sitting Balance and Reactions Static Sitting Balance Ability Good Dynamic Sitting Balance Ability Fair Standing Balance and Reactions Static Standing Balance Ability Poor Dynamic Standing Balance Ability Poor Device Used FWW M5 PT-IP Objective Assessments Start: 03/10/22 14:58 Freq: NEEDED Status: Active Protocol: Document 03/10/22 14:15 AB (Rec: 03/10/22 15:09 [email or web address]) Orientation Orientation/Cognition Level of Alertness Confusional State Orientation Name Safety Awareness Decreased Safety Awareness Memory Description Short Term Impaired,Halfway Impaired Gross Range of Motion Lower Extremity ROM Assessment Within Functional Limits Strength Lower Extremity Strength Assessment Bilaterally Impaired Comments Strength Comments LLE: 3+/5 RLE: 4-/5 Sensation Assessment Sensation Gross Sensation WNL Muscle Tone Muscle Tone WNL Yes M6 PT-IP Treatment Start: 03/10/22 14:58 Freq: NEEDED Status: Active Protocol: Document 03/10/22 14:15 AB (Rec: 03/10/22 15:09 AB [email or web address]) Physical Therapy Treatment Education Education Provided Precautions,Weight Bearing Status,Safety M7 PT-IP Assessment and Plan Start: 03/10/22 14:58 Freq: NEEDED Status: Active Protocol: Document 03/10/22 14:15 AB (Rec: 03/10/22 15:09 AB [email or web address]) PT Summary Assessment and Plan Potential Rehabilitation Potential Fair Status of Condition at Evaluation Evolving Summary Impairments Pain,ROM,Strength,Balance, Coordination,Sensation,Tone, Cognition,Bed Mobility, Transfers,Gait,Activity Tolerance Assessment Summary pt requiring max A x 1-2 with all mobilities using SBQC and max cues for safety. d/c plan depending on progress but at this time will require SNF rehab. will continue to assess progress. Goals Bed Mobility Goal Standby Assistance Transfer Goal Standby Assistance,Cane Gait Goal Standby Assistance,Cane Gait Distance 150 Other Goals 15 steps B rails SBA Days to Meet Goals 10 Frequency of Treatment Frequency Of Treatment Once a Day Treatment Plan Physical Therapy Treatment Plan Bed Mobility Training,Transfer Training,Gait Training, Therapeutic Exercise,Balance Retraining,Post Op Education, Discharge Planning,Hot or Cold Pack,Neuromuscular Re-ed, Coordination Retraining,Manual Therapy Precautions Shoulder Precautions Sling,PROM,Internal Rotation to Body,No External Rotation, No Abduction,Forward Flexion to 90 degrees,Pendulums Weight Bearing Status Weight Bearing Status Non-Weight Bearing Allowed Weight Bearing Amount (enter % LUE NWB or #) (%) Recommendations To Nursing Amount of Assist Needed 2 Person Assist Discharge Recommendations PT Discharge Recommendations SNF Rehab Transportation Needs at Discharge Wheelchair/Cabulance
--- NOTE | 2022-03-10 14:37 | PM.PN.1 ---
Subjective Subjective Date Patient Seen: 03/10/22 Interval history: She is more alert today, less paranoid and very pleasant today. Still remains slightly confused according to spouse at bedside. Exam Vital Signs (past 8 hours): - 03/10/22 07:35 03/10/22 08:00 03/10/22 08:24 Temperature 97.4 F L Pulse Rate 65 78 Respiratory Rate 18 16 Blood Pressure 177/71 H Pulse Oximetry 92 96 96 03/10/22 11:00 03/10/22 12:00 Temperature 97.1 F L Pulse Rate 88 Respiratory Rate 16 Blood Pressure 122/58 L Pulse Oximetry 96 96 Oxygen Delivery Method Room Air Oxygen Flow Rate 0 Narrative Exam Narrative: General:? Elderly female in no acute distress. Lungs:? Clear to auscultation without wheezes rhonchi or rales bilaterally Heart:? Regular rhythm without murmur Abdomen:? Soft, nontender non-distended Extremities:? Left shoulder with postop sling, LUE edema, trace bilateral LE edema. Neurological: Oriented x3 today but still slightly confused. significant UE tremor at rest and worsened with motion though this is better today. Objective Labs Result Diagrams: 03/07/22 10:24 03/10/22 09:32 Labs: Laboratory Results - last 24 hr 03/10/22 09:32 Creatinine 1.03 Estimated G[facility] 53 [facility] Medical History COPD (chronic obstructive pulmonary disease) Depression Diabetes Gouty arthritis of toe Hypertension Memory changes Osteoarthritis Spinal stenosis Surgical History History of arthroplasty of left knee History of arthroplasty of right knee Social History household members: spouse, family and children Smoking Status: Never smoker alcohol intake: former Assessment & Plan Assessment & Plan narrative: 86-year-old female postop shoulder arthroplasty now presenting with acute confusion, etiology likely due to narcotics though her delirium is persistent today. 1.? Acute metabolic encephalopathy -likely due to combination of pain meds and muscle relaxants as patient has slowly improved since witholding these medications. -no evidence of UTI or other infectious process. MRI negative for stroke. -no other obvious metabolic etiologies based on chemitry profile on admission and during her admission thus far. 2. Type 2 diabetes ?- continue insulin, though reduced lantus to 15 units and cut out meal time given poor PO intake. BS are increased today, likely due to improvement in diet. Will increase lantus tonight.? Also has a sliding scale. 3. HTN ?- continue home medications, BP much improved today. Code: Full Dispo: probable SNF, pending PT/OT Time Spent With Patient Critical Care time: I spent a total of [] minutes of critical care time on this patient's care today; this time is exclusive of procedural time. Quality VTE Deep Vein Thrombosis/Pulmonary Embolism Present on Admission: No
--- NOTE | 2022-03-10 15:17 | OT.IP.EVAL ---
Current Diagnoses Metabolic encephalopathy (03/08/22) Past Medical History (Last Reviewed 03/07/22 @ 13:07 by Rolando Alegria DO) COPD (chronic obstructive pulmonary disease) Depression Diabetes Gouty arthritis of toe History of arthroplasty of left knee History of arthroplasty of right knee Hypertension Memory changes Osteoarthritis Spinal stenosis Surgical History (Last Reviewed 03/07/22 @ 13:07 by Rolando Alegria DO) History of arthroplasty of left knee History of arthroplasty of right knee Occupational Therapy Inpatient Evaluation/Re-Eval M1 PT/OT-IP Prior Functional Status Start: 03/10/22 14:58 Freq: NEEDED Status: Active Protocol: Document 03/10/22 15:18 [facility] (Rec: 03/10/22 15:35 [facility] [id number]) Medical Review Prior Functional Status Medical History Reviewed Yes Communication able to make needs known; pt easily distracted Mobility and Gait pt s/p L TSA 03/04/22 and went home. prior to TSA, pt is modified independent with all mobilities and ambulation using quad cane. spouse stated that pt was just in bed for 5 days when she went home because pt was unable to stand Activities of Daily Living and IADL's Pt 's daughters and assisting pt for ADL needs after shoulder sx, prior to her surgery pt able to do all her ADl's on her own but needing assist to step into and out of the shower. Prior Functional Level (Other details) Pt's states pt much more confused then prior as at time a bit forgetful. Pt's feels she is not thinking well due to the medications. 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 Social History Household Members spouse,family,children Living Arrangements House Number of Floors (Floors) Two Floors Number of Stairs To Enter/Railing? 3 steps B rails to enter the house 15 steps B rails to bedroom level Home Environment High Toilet,Tub/Shower Home Equipment Quad Cane,Bedside Commode, Shower Seat with Backrest,Hand Held Shower Additional Social History Comment pt has spouse at home and also has her 2 daughters M2 OT-IP Current Condition Start: 03/10/22 15:18 Freq: Status: Active Protocol: Document 03/10/22 15:18 [facility] (Rec: 03/10/22 15:35 [facility] [id number]) Occupational Therapy Current Condition Current Condition Evaluation Date 03/10/22 Treatment Diagnosis acute metabolic encephalopathy , s/p recent L TSA on 03/04/22 Post Operative Precautions Shoulder Precautions Sling,Internal Rotation to Body,No External Rotation,No Abduction,Forward Flexion to 90 degrees Weight Bearing Status Allowed Weight Bearing Amount (enter % NWB LUE or #) (%) M3 OT- IP Subjective and Pain Start: 03/10/22 15:18 Freq: Status: Active Protocol: Document 03/10/22 15:18 [facility] (Rec: 03/10/22 15:35 [facility] [id number]) OT- Subjective Occupational Therapy Visit Type Type Initial Evaluation Visit Start Time 14:58 Visit Stop Time 15:17 Total Visit Minutes 19 Occupational Therapy Visit Comments Patient Comments Pt sitting on the BSC and nursing aid present when OT came into the room. Pt's in the room. Patient/Caregiver Goals Pt's wanting pt to go to skilled rehab prior to coming home to get stronger. OT Pain Assessment Pain When Pain Assessed At Rest Pain Present Pain Present Pain Reported Location Left Shoulder Intensity 2 Scale Used Numeric (0 - 10) M4 OT- IP ADL's Start: 03/10/22 15:18 Freq: Status: Active Protocol: Document 03/10/22 15:18 [facility] (Rec: 03/10/22 15:35 [facility] [id number]) OT [id number] Comments OT Self-Feeding Comments Not at meal time, mario need assist for set-up. OT ADL-Grooming Comments OT Grooming Comments Not performed as pt just wanting to get back to bed. OT ADL-Oral Care Comments Oral Care Comments Not performed. OT ADL-Dressing General Eval Lower Body Dressing Ability Maximum Assistance Areas Needing Assistance Underpants/Brief,Socks OT ADL-Toileting General Evaluation Toileting Ability Maximum Assistance Areas Needing Assistance Manage Clothing,Perform Perineal Hygiene OT ADL-Bathing Comments OT Bathing Comments Not performed. M5 OT- IP IADL's Start: 03/10/22 15:18 Freq: Status: Active Protocol: Document 03/10/22 15:18 [facility] (Rec: 03/10/22 15:35 [facility] [id number]) OT-Instrumental Activities of Daily Living Home Safety Awareness Awareness of Need for Assistance at Home Decreased Awareness Ability to Problem Solve Emergency Unable to Problem Solve Situations Home Safety Comments Pt a bit confused at this time , tearful, and not thinking well per her . Medication Management Medication Management Caregiver Administers Money Management Money Management Caregiver Provides Assistance Meal Preparation Meal Preparation Caregiver Provides Assist Shipping Clerk Shipping Clerk Caregiver Provides Assist Driving Driving Concerns Identified Regarding Safety M6 OT- IP Functional Cognition Start: 03/10/22 15:18 Freq: Status: Active Protocol: Document 03/10/22 15:18 [facility] (Rec: 03/10/22 15:35 [facility] [id number]) Cognitive Factors Limiting Selfcare Function Cognitive Ability Level of Alertness Alert,Confusional State Patient Orientation Name Attention Span Ability Capable of Focused Attention, Unable to Sustain Attention Ability to Follow Commands Able to Follow One Step Commands with Increased Time, Able to Follow One Step Commands with Repetition Cognitive Comments Cognitive Assessment Comments Pt easily gets distracted, confused and tearful, but easily redirected. Pt able to follow simple concrete commands. Pt getting tearful as explaining that they are planning on turning their living room to their bedroom as pt's states has medical issues as well. In addition having a walk in shower built on the main floor . Pt getting tearful that she does not want to leave her bedroom as she has been in it for 40 years. OT- Vision and Hearing OT- Hearing Assessment OT- Hearing Assessment WFL OT- Vision Assessment Visual Acuity Glasses All The Time Vision Assessment Comments Pt has bifocals per pt's , pt states wears glasses for reading. M7 OT- IP Mobility and Balance Start: 03/10/22 15:18 Freq: Status: Active Protocol: Document 03/10/22 15:18 [facility] (Rec: 03/10/22 15:35 [facility] [id number]) OT- Bed Mobility Assessment Sit to Supine Sit to Supine Assist Moderate Assistance OT-Transfer Assessment Sit to and From Stand MAx Assistance,1 Person Assistance Transfers Transfer Ability Moderate Assistance,Maximum Assistance,2 Person Assistance Technique Transfer Destination Bed,Bedside Commode Transfer Technique Stand Step Pivot Devices Transfer Assistive Devices Gait Belt,Small Based Quad Cane Comments Mobility Comments MOD/MAXA X 1 to stand and unsteady on the feet and needing assist for balance. Pt able to take a few step to the bed and needing mod/MAX A and another person assist for safety at this time. OT- Balance Assessment Sitting Balance and Reactions Static Sitting Balance Ability Good Dynamic Sitting Balance Ability Fair Standing Balance and Reactions Static Standing Balance Ability Poor Dynamic Standing Balance Ability Poor M8 OT- IP Objective Assessments Start: 03/10/22 15:18 Freq: Status: Active Protocol: Document 03/10/22 15:18 [facility] (Rec: 03/10/22 15:35 [facility] [id number]) OT Gross Range of Motion Upper Extremity Range of Motion Assessment Left Impaired OT Strength Upper Extremity Strength Assessment Left Impaired OT-Muscle Tone Assessment Muscle Tone WNL Yes M9 OT- IP Assessment and Plan Start: 03/10/22 15:18 Freq: Status: Active Protocol: Document 03/10/22 15:18 [facility] (Rec: 03/10/22 15:35 [facility] [id number]) OT Summary Assessment and Plan Potential Rehabilitation Potential Good Analytic Complexity at Evaluation Low Summary OT Impairments Pain,Range of Motion,Strength, Balance,Functional Cognition, Functional Mobility,Self- Feeding,Grooming,Dressing, Toileting,Bathing,Toilet Transfers,Shower Transfers, Activity Tolerance Progress Towards Goals Slow Progress due to Pain,Slow Progress due to Medical Issues,Slow Progress due to Activity Tolerance,Slow Progress due to Cognition Assessment Summary Pt MOD complexity and main barriers are steps, confusion at this time, and now needing extensive asisst for all ADL and mobility needs and would benefit from skilled rehab prior to going home. Pt had a recent L TSA on 03/04/22. Goals Self-Feeding Goal Standby Assistance Grooming Goal Standby Assistance Dressing Goal Minimal Assistance Toileting Goal Standby Assistance Bathing Goal Minimal Assistance Toilet Transfer Goal Standby Assistance Shower Transfer Goal Standby Assistance Days to Meet Goals 20 Frequency of Treatment Frequency Of Treatment Once a Day Treatment Plan OT Treatment Plan ADL Training,Functional Cognition Training,Functional Mobility,Patient/Family Education,Discharge Planning Other Treatment Recommendations and Next Transfer to [facility] [place] with MODA X1 Treatment Focus with SBQC. Discharge Recommendations OT Discharge Recommendations SNF Rehab Transportation Needs at Discharge Wheelchair/Cabulance
[2022-03-10] MEDS: INSULIN GLARGINE 100 UNIT/ML 3ML PEN 25 UNIT SUBCUT (21:26)
[2022-03-10] MEDS: GABAPENTIN 300 MG CAPSULE 900 MG PO (21:28)
[2022-03-10] MEDS: ACETAMINOPHEN 325 MG TABLET 650 MG PO (22:52)
[2022-03-11] VITALS (13 sets, daily range): BP systolic 129–157; BP diastolic 48–65; PULSE 72–86; RESP 14–18; TEMP 36.1–36.7; O2SAT 87–98
[2022-03-11] MEDS: SODIUM CHLORIDE 0.9% FLUSH 10 ML IV ×3 (02:57→21:36)
--- NOTE | 2022-03-11 03:22 | PC.NURSE ---
Up to the BSC 1 PA with her cane, denies any pain. CBG 82 this morning requested apple juice & declined any snacks. Will cont. POC & monitor.
[2022-03-11] MEDS: PANTOPRAZOLE DR 40 MG TABLET PO (05:23)
[2022-03-11 07:00] LABS: BUN Creatinine Ratio 16.1 (6-22); Blood Urea Nitrogen 19 mg/dL (7-17); Calcium 8.2 mg/dL (8.4-10.2); Carbon Dioxide 24 mmol/L (22-32); Chloride 110 mmol/L (98-107); Estimated Glomerular Filt Rate 45 mL/min (>60); Glucose 121 mg/dL (80-110); HEMOLYSIS < 15 (0-50); Potassium 3.5 mmol/L (3.4-5.1); Sodium 139 mmol/L (137-145)
[2022-03-11] MEDS: BUDESONIDE 0.5 MG/2 ML NEB INH ×2 (07:52→19:45)
[2022-03-11] MEDS: ALBUTEROL 2.5 MG/3 ML NEB (ADULT) INH ×2 (07:52→19:47)
--- NOTE | 2022-03-11 07:53 | CM.DPC ---
DCP Cont: Called Maribel at [facility] regarding the referral that was sent. She stated, she did receive the vaccine record, but not other information. Trista is refaxing the referral including the therapy notes. Maribel indicated, she can work on the insurance auth today. P: DCP to continue to follow. [facility] will work on insurance auth today, possible discharge tomorrow. Marcie Gentile RN/[employer]
[2022-03-11] MEDS: ASPIRIN EC 81 MG TABLET PO (09:43)
[2022-03-11] MEDS: ATORVASTATIN 20 MG TABLET 40 MG PO (09:43)
[2022-03-11] MEDS: ENOXAPARIN 40 MG/0.4 ML SYRINGE SUBCUT (09:44)
[2022-03-11] MEDS: FLUoxetine 20 MG CAPSULE 40 MG PO (09:44)
--- NOTE | 2022-03-11 11:21 | CM.DPC ---
DCP Cont: Spoke to Maribel at [facility]. Sent her updated P.T, and O.T. notes, she is working on insurance auth through [employer]. Let her know that patient may be medically ready tomorrow. Sent her an updated med list as well. spouse continues to be updated. P: DCP to continue to follow. [facility] is working on insurance auth. Marcie Gentile RN/[employer]
--- NOTE | 2022-03-11 11:45 | PT-IP ANOTE ---
Attempted to see pt at 11:45, pt refused therapy due to increased fatigue. Agreeable to try in PM.
--- NOTE | 2022-03-11 13:38 | OT.IP.TRT ---
Current Diagnoses Metabolic encephalopathy (03/08/22) Occupational Therapy Treatment Note M2 OT-IP Current Condition Start: 03/10/22 15:18 Freq: Status: Active Protocol: Document 03/10/22 15:18 [facility] (Rec: 03/10/22 15:35 [facility] [id number]) Occupational Therapy Current Condition Current Condition Evaluation Date 03/10/22 Treatment Diagnosis acute metabolic encephalopathy , s/p recent L TSA on 03/04/22 Post Operative Precautions Shoulder Precautions Sling,Internal Rotation to Body,No External Rotation,No Abduction,Forward Flexion to 90 degrees Weight Bearing Status Allowed Weight Bearing Amount (enter % NWB LUE or #) (%) M3 OT- IP Subjective and Pain Start: 03/10/22 15:18 Freq: Status: Active Protocol: Document 03/11/22 13:04 [facility] (Rec: 03/11/22 16:06 [facility] [id number]) OT- Subjective Occupational Therapy Visit Type Type Treatment Note Visit Start Time 13:04 Visit Stop Time 13:38 Total Visit Minutes 34 Occupational Therapy Visit Comments Patient Comments Pt wanting to use the BSC. Patient/Caregiver Goals TO go home. OT Pain Assessment Pain When Pain Assessed At Rest Pain Present Pain Present Pain Reported M4 OT- IP ADL's Start: 03/10/22 15:18 Freq: Status: Active Protocol: Document 03/11/22 13:04 [facility] (Rec: 03/11/22 16:06 [facility] [id number]) OT ADL-Grooming General Evaluation Areas Needing Assistance Combing/Brushing Hair Comments OT Grooming Comments Pt needing assist to comb the left side of her hair. OT ADL-Oral Care Comments Oral Care Comments Pt not wanting to do it now and wanting to do oral care after dinner. OT ADL-Dressing General Eval Lower Body Dressing Ability Maximum Assistance Areas Needing Assistance Underpants/Brief,Socks OT ADL-Toileting General Evaluation Toileting Ability Moderate Assistance Areas Needing Assistance Manage Clothing Comments OT Toileting Comments Pt able to wipe after urination. Pt needing assist for all hygiene needs. OT ADL-Bathing Comments OT Bathing Comments Not performed. M5 OT- IP IADL's Start: 03/10/22 15:18 Freq: Status: Active Protocol: Document 03/10/22 15:18 [facility] (Rec: 03/10/22 15:35 [facility] [id number]) OT-Instrumental Activities of Daily Living Home Safety Awareness Awareness of Need for Assistance at Home Decreased Awareness Ability to Problem Solve Emergency Unable to Problem Solve Situations Home Safety Comments Pt a bit confused at this time , tearful, and not thinking well per her . Medication Management Medication Management Caregiver Administers Money Management Money Management Caregiver Provides Assistance Meal Preparation Meal Preparation Caregiver Provides Assist Senior Information Security Consultant Senior Information Security Consultant Caregiver Provides Assist Driving Driving Concerns Identified Regarding Safety M6 OT- IP Functional Cognition Start: 03/10/22 15:18 Freq: Status: Active Protocol: Document 03/11/22 13:04 [facility] (Rec: 03/11/22 16:06 [facility] [id number]) Cognitive Factors Limiting Selfcare Function Cognitive Ability Level of Alertness Alert,Confusional State Patient Orientation Name Attention Span Ability Capable of Focused Attention, Unable to Sustain Attention Ability to Follow Commands Able to Follow One Step Commands with Increased Time, Able to Follow One Step Commands with Repetition Memory Description Short Term Impaired,Working Impaired Problem Solving Ability Unable to Identify Errors, Needs Assist to Identify Solutions Cognitive Tests SLUMS Pt scored 13/30 which implies dementia. Pt is also very hard of hearing which may also affect her score. Pt current score implies dementia. Pt able to state the year, state we live in, able to recall 10 animals in one minute, able to states 1/5 objects after time passed, able to states 3 digit number backwards, able to write the numbers correctly on the clock, and able to answer 1/4 questions right after a paragraph read. In addition pt has 7th grade education which can also impact her score. Cognitive Comments Cognitive Assessment Comments Pt easily gets distracted, confused and tearful, but easily redirected. Pt able to follow simple concrete commands. Pt getting tearful and states at home that her family does not want her to do the dishes at home as they are afraid of her falling. M7 OT- IP Mobility and Balance Start: 03/10/22 15:18 Freq: Status: Active Protocol: Document 03/11/22 13:04 [facility] (Rec: 03/11/22 16:06 [facility] [id number]) OT-Transfer Assessment Sit to and From Stand Sit to and from Stand Moderate Assistance,1 Person Assistance Transfers Transfer Ability Moderate Assistance,Maximum Assistance,1 Person Assistance Technique Transfer Destination Bed,Bedside Commode Transfer Technique Stand Step Pivot Devices Transfer Assistive Devices Gait Belt,Small Based Quad Cane Comments Mobility Comments Pt MODA/MAX X1 due to unsteady on her feet and needing another person close by for safety with SBQC. OT- Balance Assessment Sitting Balance and Reactions Static Sitting Balance Ability Good Dynamic Sitting Balance Ability Fair Standing Balance and Reactions Static Standing Balance Ability Poor Dynamic Standing Balance Ability Poor M8 OT- IP Objective Assessments Start: 03/10/22 15:18 Freq: Status: Active Protocol: Document 03/10/22 15:18 [facility] (Rec: 03/10/22 15:35 [facility] [id number]) OT Gross Range of Motion Upper Extremity Range of Motion Assessment Left Impaired OT Strength Upper Extremity Strength Assessment Left Impaired OT-Muscle Tone Assessment Muscle Tone WNL Yes M9 OT- IP Assessment and Plan Start: 03/10/22 15:18 Freq: Status: Active Protocol: Document 03/11/22 13:04 [facility] (Rec: 03/11/22 16:06 [facility] [id number]) OT Summary Assessment and Plan Potential Rehabilitation Potential Good Analytic Complexity at Evaluation Low Summary OT Impairments Pain,Range of Motion,Strength, Balance,Functional Cognition, Functional Mobility,Self- Feeding,Grooming,Dressing, Toileting,Bathing,Toilet Transfers,Shower Transfers, Activity Tolerance Progress Towards Goals Slow Progress due to Activity Tolerance,Slow Progress due to Cognition Assessment Summary Pt agreed to try to shower tomorrow for OT. Pt to go to skilled rehab when medically stable. Goals Self-Feeding Goal Standby Assistance Grooming Goal Standby Assistance Dressing Goal Minimal Assistance Toileting Goal Standby Assistance Bathing Goal Minimal Assistance Toilet Transfer Goal Standby Assistance Shower Transfer Goal Standby Assistance Days to Meet Goals 19 Frequency of Treatment Frequency Of Treatment Once a Day Treatment Plan OT Treatment Plan ADL Training,Functional Cognition Training,Functional Mobility,Patient/Family Education,Discharge Planning Other Treatment Recommendations and Next shower Treatment Focus Discharge Recommendations OT Discharge Recommendations SNF Rehab Transportation Needs at Discharge Wheelchair/Cabulance
--- NOTE | 2022-03-11 13:50 | P.PN_ITS ---
Subjective Subjective Date Patient Seen: 03/11/22 Interval history: She is more alert today, less paranoid and very pleasant today. Still remains slightly confused according to spouse at bedside. She was quite tired after working with therapy this morning. Exam Vital Signs (past 8 hours): - 03/11/22 06:00 03/11/22 07:52 03/11/22 08:20 Temperature 97.2 F L Pulse Rate 83 Respiratory Rate 18 Blood Pressure 153/62 H Pulse Oximetry 97 92 87 L 03/11/22 11:00 Temperature 96.9 F L Pulse Rate 81 Respiratory Rate 16 Blood Pressure 157/65 H Pulse Oximetry 98 Oxygen Delivery Method Room Air Oxygen Flow Rate 0 Narrative Exam Narrative: General:? Elderly female in no acute distress. Lungs:? Clear to auscultation without wheezes rhonchi or rales bilaterally Heart:? Regular rhythm without murmur Abdomen:? Soft, nontender non-distended Extremities:? Left shoulder with postop sling, LUE edema, trace bilateral LE tay ma. Neurological: Oriented x3 today but still slightly confused. UE tremor worsened with motion is better today. Objective Labs Result Diagrams: 03/07/22 10:24 03/11/22 06:16 Labs: Laboratory Results - last 24 hr 03/11/22 06:16 Sodium 139 Potassium 3.5 Chloride 110 H Carbon Dioxide 24 BUN 19 H Creatinine 1.18 H Estimated GFR 45 L BUN/Creatinine Ratio 16.1 Glucose 121 H Calcium 8.2 L [facility] Medical History (Updated 03/11/22 @ 03:43 by Katty Pugh RN) Arthropathy of left shoulder COPD (chronic obstructive pulmonary disease) Depression Diabetes Gouty arthritis of toe Hypertension Memory changes Osteoarthritis Spinal stenosis Surgical History History of arthroplasty of left knee History of arthroplasty of right knee Social History household members: spouse, family and children Smoking Status: Never smoker alcohol intake: former Assessment & Plan Assessment & Plan narrative: 86-year-old female postop shoulder arthroplasty now presenting with acute confusion, etiology likely due to narcotics though her delirium is persistent today. 1.? Acute metabolic encephalopathy -likely due to combination of pain meds and muscle relaxants as patient has slowly improved since witholding these medications. -no evidence of UTI or other infectious process. MRI negative for stroke. -no other obvious metabolic etiologies based on chemitry profile on admission and during her admission thus far. -continue PT/OT 2. Type 2 diabetes ?- continue insulin, though reduced lantus to 15 units and cut out meal time given poor PO intake. Had to increase to 25 with improvement in Am sugars. Also has a sliding scale. will continue to adjust as needed. 3. HTN ?- continue home medications, BP much improved today. 4. history of recent shoulder arthoplasty - continue PT/OT, unable to use left arm. Code: Full Dispo: awaiting authorization for SNF, she is medically appropriate for transfer now. appreciate PT/OT consultations. Time Spent With Patient Critical Care time: I spent a total of [] minutes of critical care time on this patient's care today; this time is exclusive of procedural time. Quality VTE Deep Vein Thrombosis/Pulmonary Embolism Present on Admission: No
--- NOTE | 2022-03-11 14:39 | PT.IPTN ---
Current Diagnoses Metabolic encephalopathy (03/08/22) Physical Therapy Treatment Note M2 PT-IP Current Condition Start: 03/10/22 14:58 Freq: NEEDED Status: Active Protocol: Document 03/10/22 14:15 [facility] (Rec: 03/10/22 15:09 [facility] [id number]) Physical Therapy Current Condition Current Condition Evaluation Date 03/10/22 Treatment Diagnosis acute metaoblic encephalopathy ; difficulty in walking Onset Date 03/08/22 M3 PT-IP Subjective Start: 03/10/22 14:58 Freq: NEEDED Status: Active Protocol: Document 03/11/22 14:22 [facility] (Rec: 03/11/22 15:53 [facility] [id number]) Subjective Physical Therapy Visit Type Type Treatment Note Visit Start Time 14:22 Visit Stop Time 14:39 Total Visit Minutes 17 Number of NURSE TECHNICIAN Visits 1 Physical Therapy Visit Comments Patient Comments Pt agreeable to transfer to chair. M4 PT-IP Mobility and Gait Start: 03/10/22 14:58 Freq: NEEDED Status: Active Protocol: Document 03/11/22 14:22 [facility] (Rec: 03/11/22 15:53 [facility] [id number]) PT-Bed Mobility Assessment Supine to Sit Supine to Sit Minimal Assistance,1 Person Assistance,Head of Bed Elevated Scooting Scooting to Edge of Bed Contact Guard Assistance PT-Transfer Assessment Sit to and From Stand Sit to and from Stand Moderate Assistance,1 Person Assistance,Use of Upper Extremities Equipment Transfer Assistive Device Small Based Quad Cane Orthotic/Prosthetic Devices or Brace: Yes Transfers Transfer Destination Chair Transfer Technique Stand Step Pivot Transfer Ability Level of Assist Moderate Assistance,1 Person Assistance,Use of Upper Extremities Gait Assessment Gait Gait Assistance Required: Moderate Assistance,1 Person Assist Distance (Feet) 3 Assistive Devices Assistive Device Small Based Quad Cane Orthotic/Prosthetic Devices or Brace: Yes Gait Deviations General Gait Pattern Decreased Stride Length, Decreased Feet Clearance, Flexed Trunk,Lateral Trunk Lean Factors Limiting Gait Function Factors Limiting Gait Function Decreased Activity Tolerance, Decreased Strength,Difficulty Following Directions, Incoordination,Pain,Poor Balance,Poor Safety Awareness Comments Gait Comments steps during transfers using SBQC but refused further ambulation PT-Balance Assessment Sitting Balance and Reactions Static Sitting Balance Ability Good Dynamic Sitting Balance Ability Fair Standing Balance and Reactions Static Standing Balance Ability Poor Dynamic Standing Balance Ability Poor Device Used FWW M5 PT-IP Objective Assessments Start: 03/10/22 14:58 Freq: NEEDED Status: Active Protocol: Document 03/10/22 14:15 [facility] (Rec: 03/10/22 15:09 [facility] [id number]) Orientation Orientation/Cognition Level of Alertness Confusional State Orientation Name Safety Awareness Decreased Safety Awareness Memory Description Short Term Impaired,Custodial Impaired Gross Range of Motion Lower Extremity ROM Assessment Within Functional Limits Strength Lower Extremity Strength Assessment Bilaterally Impaired Comments Strength Comments LLE: 3+/5 RLE: 4-/5 Sensation Assessment Sensation Gross Sensation WNL Muscle Tone Muscle Tone WNL Yes M6 PT-IP Treatment Start: 03/10/22 14:58 Freq: NEEDED Status: Active Protocol: Document 03/11/22 14:22 [facility] (Rec: 03/11/22 15:53 [facility] [id number]) Physical Therapy Treatment Exercises Exercises Ankle Pumps,Gluteal Sets,Heel Slides Education Education Provided Precautions,Weight Bearing Status,Safety M7 PT-IP Assessment and Plan Start: 03/10/22 14:58 Freq: NEEDED Status: Active Protocol: Document 03/11/22 14:22 [facility] (Rec: 03/11/22 15:53 [facility] [id number]) PT Summary Assessment and Plan Potential Rehabilitation Potential Fair Status of Condition at Evaluation Evolving Summary Impairments Pain,ROM,Strength,Balance, Coordination,Sensation,Tone, Cognition,Bed Mobility, Transfers,Gait,Activity Tolerance Assessment Summary Pt Min A for bed mobility, Mod A for sit<>stand and stand step pivot w/ SBQC. Pt w/ retrolean requiring verbal and tactile cues to shift weight forward. Refused further ambulation after transfer, but completed LE exercises to improve strength and blood flow. She will require SNF to improve functional mobility. Goals Bed Mobility Goal Standby Assistance Transfer Goal Standby Assistance,Cane Gait Goal Standby Assistance,Cane Gait Distance 150 Other Goals 15 steps B rails SBA Days to Meet Goals 10 Frequency of Treatment Frequency Of Treatment Once a Day Treatment Plan Physical Therapy Treatment Plan Bed Mobility Training,Transfer Training,Gait Training, Therapeutic Exercise,Balance Retraining,Post Op Education, Discharge Planning,Hot or Cold Pack,Neuromuscular Re-ed, Coordination Retraining,Manual Therapy Precautions Shoulder Precautions Sling,PROM,Internal Rotation to Body,No External Rotation, No Abduction,Forward Flexion to 90 degrees,Pendulums Weight Bearing Status Weight Bearing Status Non-Weight Bearing Allowed Weight Bearing Amount (enter % LUE NWB or #) (%) Recommendations To Nursing Amount of Assist Needed 2 Person Assist Discharge Recommendations PT Discharge Recommendations SNF Rehab Transportation Needs at Discharge Wheelchair/Cabulance
[2022-03-11] MEDS: POTASSIUM CHLORIDE 20 MEQ/15 ML UDC PO (14:50)
[2022-03-11] MEDS: INSULIN LISPRO 100 UNIT/ML 3ML VIAL SUBCUT ×3 (14:53→21:37)
[2022-03-11] MEDS: ACETAMINOPHEN 325 MG TABLET 650 MG PO (17:24)
--- NOTE | 2022-03-11 18:18 | PC.NURSE ---
Pt arrived to room 214 this afternoon reporting pain 10/10 with movement from gurney via slide board. VSS, afebrile on RA, LS CTA, abdomen SNT, BS +x4. She reports pain in L shoulder, and R hip but predominantly R hip. She is medicated with scheduled pain medications and prn morphine with good effect bringing pain level down to 4-5/10 in her R hip. She arrives from ED with Fisher in place draining medium yellow clear urine. NS at 150ml/hr she is able to tolerate apple juice, an ensure, 1/2 of a sandwhich and about 15 % of her dinner tray. MD at bedside informs RN of plan for surgery to R hip tomorrow and she will be NPO after midnight. Daughter Michell talking with daughter and notified of updates given patient permission. Continuous monitoring.
[2022-03-11] MEDS: GABAPENTIN 300 MG CAPSULE 900 MG PO (21:35)
[2022-03-11] MEDS: INSULIN GLARGINE 100 UNIT/ML 3ML PEN 25 UNIT SUBCUT (21:39)
[2022-03-12] VITALS (7 sets, daily range): BP systolic 144–170; BP diastolic 74–83; PULSE 69–87; RESP 16–20; TEMP 36.5–36.8; O2SAT 90–100
[2022-03-12] MEDS: ACETAMINOPHEN 325 MG TABLET 650 MG PO (02:00)
[2022-03-12] MEDS: PANTOPRAZOLE DR 40 MG TABLET PO (05:19)
[2022-03-12 06:40] LABS: BUN Creatinine Ratio 17.4 (6-22); Blood Urea Nitrogen 21 mg/dL (7-17); Calcium 8.3 mg/dL (8.4-10.2); Carbon Dioxide 26 mmol/L (22-32); Chloride 108 mmol/L (98-107); Estimated Glomerular Filt Rate 44 mL/min (>60); Glucose 176 mg/dL (80-110); HEMOLYSIS < 15 (0-50); Sodium 138 mmol/L (137-145)
[2022-03-12] MEDS: ASPIRIN EC 81 MG TABLET PO (08:49)
[2022-03-12] MEDS: ATORVASTATIN 20 MG TABLET 40 MG PO (08:49)
[2022-03-12] MEDS: INSULIN LISPRO 100 UNIT/ML 3ML VIAL SUBCUT ×2 (08:53→13:23)
[2022-03-12] MEDS: FLUoxetine 20 MG CAPSULE 40 MG PO (08:56)
[2022-03-12] MEDS: BUDESONIDE 0.5 MG/2 ML NEB INH (08:56)
[2022-03-12] MEDS: ALBUTEROL 2.5 MG/3 ML NEB (ADULT) INH (08:56)
[2022-03-12] MEDS: ENOXAPARIN 40 MG/0.4 ML SYRINGE SUBCUT (08:56)
--- NOTE | 2022-03-12 09:23 | CM.DPC ---
Addendum entered by Marcie Gentile R.N. 03/12/22 13:43: Monserrat at [facility] confirmed that she received insurance auth, and can accept today, with tow picker of 1530. Monserrat wants to make sure that patient will take her booster for COVID when she gets to their facility. Went in to ask patient and spouse, she was sitting up in chair. She stated that she will take booste shot. Patient will need updated COVID swab, updated nurse Marisol and Rafal. Spouse and patient are aware of tow picker time of 1530 for [facility]. Updated white board at main nurses station, and updated hospitalist, Dr. Tucker. Awaiting orders and DC Summary. PASSR completed, Monserrat already has access to vaccination information. Addendum entered by Marcie Gentile R.N. 03/12/22 12:16: Spoke to Monserrat at [facility]. She already had referral, stated that the only barrier is that she would need her COVID booster so she won't be in islolation. Updated patient's spouse, Raj, who is in the room. He is ok with [facility], patient is currently sleeping. Ayde at [facility] indicated, her recruitment director wanted more notes. Monserrat at [facility] is willing to accept, and stated that she may be able to get the auth today. Let Ayde know that this DC Resident Services Manager would need to move forward with [facility], for patient is medically ready, and several notes have already been sent to [facility]. Monserrat will work on auth, and may be able to accept today. Spouse of patient will see if she will take COVID booster. Addendum entered by Marcie Gentile R.N. 03/12/22 09:30: Did speak to Ayde at [facility]. She indicated, she has to run this by her recruitment director, and also, awaiting auth. Did mention that Maribel had accepted patient, which is why auth was submitted, so unsure as of why she needs to ask her nursing scheduler. Ayde also indicated that she has to see about staffing for Tuesday, if she does not get the auth today. She will call this DC Resident Services Manager back. Did call Monserrat at [facility] as back up regarding this patient, and that auth was pending. This is in case that [facility] states that they can't accept. Left March a message about situation. Original Note: DCP Cont: Left a message with Maribel at [facility], for she was to submit the auth to patient's insurance yesterday. In the message, inquired if she could potentially get the auth today, patient could be ready for discharge. Will await call back. P: DCP to continue to follow, working on getting patient to [facility]. Marcie Gentile RN/Delimber Operator
[2022-03-12] MEDS: SODIUM CHLORIDE 0.9% FLUSH 10 ML IV (09:59)
[2022-03-12] MEDS: KETOROLAC 30 MG/ML VIAL 15 MG IV (10:39)
--- NOTE | 2022-03-12 11:14 | PT-IP ANOTE ---
Pt refused therapy this AM due to fatigue. Will check in PM.
--- NOTE | 2022-03-12 11:14 | OT.IPNOTE ---
Pt agreed to try to shower this morning. However, after getting pain medications, pt hard to arouse and states not wanting to shower at this time.
--- NOTE | 2022-03-12 13:29 | PT.IPTN ---
Current Diagnoses Metabolic encephalopathy (03/08/22) Physical Therapy Treatment Note M2 PT-IP Current Condition Start: 03/10/22 14:58 Freq: NEEDED Status: Active Protocol: Document 03/10/22 14:15 AB (Rec: 03/10/22 15:09 AB [id number]) Physical Therapy Current Condition Current Condition Evaluation Date 03/10/22 Treatment Diagnosis acute metaoblic encephalopathy ; difficulty in walking Onset Date 03/08/22 M3 PT-IP Subjective Start: 03/10/22 14:58 Freq: NEEDED Status: Active Protocol: Document 03/12/22 13:10 KS (Rec: 03/12/22 14:16 KS [id number]) Subjective Physical Therapy Visit Type Type Treatment Note Visit Start Time 13:10 Visit Stop Time 13:29 Total Visit Minutes 19 Notes Spouse present during treatment. Number of CIGAR HEAD PEGGER Visits 2 Physical Therapy Visit Comments Patient Comments Pt agreeable to transfer to chair. M4 PT-IP Mobility and Gait Start: 03/10/22 14:58 Freq: NEEDED Status: Active Protocol: Document 03/12/22 13:10 KS (Rec: 03/12/22 14:16 KS [id number]) PT-Bed Mobility Assessment Supine to Sit Supine to Sit Minimal Assistance,1 Person Assistance,Head of Bed Elevated Scooting Scooting to Edge of Bed Contact Guard Assistance PT-Transfer Assessment Sit to and From Stand Sit to and from Stand Moderate Assistance,1 Person Assistance,Use of Upper Extremities Equipment Transfer Assistive Device Small Based Quad Cane Orthotic/Prosthetic Devices or Brace: Yes Transfers Transfer Destination Chair Transfer Technique Pt ambulared w/ SBQC Transfer Ability Level of Assist Moderate Assistance,1 Person Assistance,Use of Upper Extremities Comments Mobility Comments Pt in bed upon arrival w/ in room providing encouragement. Pt tearful, but not able to articulate why at this time. Min A for sup<>sit w/ HOB elevated, Mod A for sit<>Stand w/ SBQC. Pt then ambulated ~6 ft to chair w/ SBQC Min A. Pt became tearful again and left in chair w/ all needs in reach. RN aware. Gait Assessment Gait Gait Assistance Required: Minimum Assistance,1 Person Assist Distance (Feet) 6 Assistive Devices Assistive Device Small Based Quad Cane Orthotic/Prosthetic Devices or Brace: Yes Gait Deviations General Gait Pattern Decreased Stride Length, Decreased Feet Clearance, Flexed Trunk,Lateral Trunk Lean Factors Limiting Gait Function Factors Limiting Gait Function Decreased Activity Tolerance, Decreased Strength,Difficulty Following Directions, Incoordination,Pain,Poor Balance,Poor Safety Awareness Comments Gait Comments Ambulated from bed to chair only. PT-Balance Assessment Sitting Balance and Reactions Static Sitting Balance Ability Good Dynamic Sitting Balance Ability Fair Standing Balance and Reactions Static Standing Balance Ability Poor Dynamic Standing Balance Ability Poor Device Used FWW M5 PT-IP Objective Assessments Start: 03/10/22 14:58 Freq: NEEDED Status: Active Protocol: Document 03/10/22 14:15 AB (Rec: 03/10/22 15:09 AB [id number]) Orientation Orientation/Cognition Level of Alertness Confusional State Orientation Name Safety Awareness Decreased Safety Awareness Memory Description Short Term Impaired,Management And Budget Analyst Impaired Gross Range of Motion Lower Extremity ROM Assessment Within Functional Limits Strength Lower Extremity Strength Assessment Bilaterally Impaired Comments Strength Comments LLE: 3+/5 RLE: 4-/5 Sensation Assessment Sensation Gross Sensation WNL Muscle Tone Muscle Tone WNL Yes M6 PT-IP Treatment Start: 03/10/22 14:58 Freq: NEEDED Status: Active Protocol: Document 03/12/22 13:10 KS (Rec: 03/12/22 14:16 KS [id number]) Physical Therapy Treatment Education Education Provided Precautions,Weight Bearing Status,Safety M7 PT-IP Assessment and Plan Start: 03/10/22 14:58 Freq: NEEDED Status: Active Protocol: Document 03/12/22 13:10 KS (Rec: 03/12/22 14:16 KS [id number]) PT Summary Assessment and Plan Potential Rehabilitation Potential Fair Status of Condition at Evaluation Evolving Summary Impairments Pain,ROM,Strength,Balance, Coordination,Sensation,Tone, Cognition,Bed Mobility, Transfers,Gait,Activity Tolerance Assessment Summary Pt requiring mostly Min to Mod A for bed mobility, transfers , and short distance ambulation w/ SBQC. Very tearful this PM and needing frequent redirection and encouragement. Unstable when ambulating but no LOB. She will need SNF to improve stability and functional mobility tolerance. Goals Bed Mobility Goal Standby Assistance Transfer Goal Standby Assistance,Cane Gait Goal Standby Assistance,Cane Gait Distance 150 Other Goals 15 steps B rails SBA Days to Meet Goals 10 Frequency of Treatment Frequency Of Treatment Once a Day Treatment Plan Physical Therapy Treatment Plan Bed Mobility Training,Transfer Training,Gait Training, Therapeutic Exercise,Balance Retraining,Post Op Education, Discharge Planning,Hot or Cold Pack,Neuromuscular Re-ed, Coordination Retraining,Manual Therapy Precautions Shoulder Precautions Sling,PROM,Internal Rotation to Body,No External Rotation, No Abduction,Forward Flexion to 90 degrees,Pendulums Weight Bearing Status Weight Bearing Status Non-Weight Bearing Allowed Weight Bearing Amount (enter % LUE NWB or #) (%) Recommendations To Nursing Amount of Assist Needed 2 Person Assist Discharge Recommendations PT Discharge Recommendations SNF Rehab Transportation Needs at Discharge Wheelchair/Cabulance
--- NOTE | 2022-03-12 13:45 | P.DS_ITS ---
History of Present Illness History of Present Illness Date Patient Seen: 03/12/22 Chief complaint: Altered LOC & Lt. Shoulder pain Narrative: Per Dr. Romero: 86-year-old female nonsmoker with history of closed head injuries, gout, COPD, hypertension, diabetes presents by EMS for evaluation of altered mental status since last evening.? History obtained from ED physician as patient is confused and not in room when I examined her.? Patient had elective left total shoulder arthroplasty on 03/04/2022 and discharged from the hospital yesterday.? Per history provided to ER physician she started to become confused and speaking nonsensically a couple of hours after getting home.? At that point held further doses of pain medication.? stated she was not having any issues with confusion while in the hospital getting the pain pills.? There has been no observation of fevers, chills, complaints of chest pain, urinary discomfort, cough or shortness of breath.? No unilateral weakness.? Laboratory evaluation in ED unremarkable.? Urinalysis microscopic with 0-1 WBC and no bacteria.? Chest x- ray normal and head CT without acute findings. Discharge Providers Provider Date of admission: 03/08/22 10:00 Discharge Date: 03/12/22 Primary care physician: Sapna Evans MD Consults: 03/07/22 16:45 Consult to Dietitian, Adult Routine Comment: Reason For Exam: triggered by admit assessment 03/10/22 08:38 Consult to Occupational Therapy Evaluate & Treat Comment: Physician Instructions: Evaluate and treat Consult to Physical Therapy Evaluate & Treat Comment: Physician Instructions: Evaluate and Treat Discharge provider: Elton Tucker DO Summary Hospital Course Discharge Diagnosis: Please see hospital course by problem list noted below Hospital Course: 86-year-old female postop shoulder arthroplasty now presenting with acute confusion, etiology likely due to narcotics though her delirium is persistent today to a much lesser extent. 1.? Acute metabolic encephalopathy -likely due to combination of pain meds and muscle relaxants as patient has slowly improved since witholding these medications. Possibly she has an underlying cognitive impairment and a hospital delirium as well given extended hospital stays over the past week or so. -no evidence of UTI or other infectious process. MRI was performed and was negative for stroke. -no other obvious metabolic etiologies based on chemistry profile on admission and during her admission. -physical and occupational therapy assessments recommended transfer to a senior care facility, and the patient was discharged to [facility] to continue additional therapy prior to eventual return home. 2. Type 2 diabetes ?-patient initially had reduced Lantus dosing due to poor p.o. intake, but this was increased once her oral intake improved. She can resume her home Lantus dosing at the time of discharge, though she may need continued adjustments at her senior care facility. 3. HTN ?-no changes to her home blood pressure medications are recommended at this time 4. history of recent shoulder arthoplasty ?- continue PT/OT at SNF, she is unable to use left arm at this time pending outpatient orthopedic follow-up Time Spent with Patient Time spent: Greater than 30 minutes Exam Vital Signs (past 8 hours): - 03/12/22 07:15 03/12/22 08:59 03/12/22 11:00 Temperature 98.2 F 97.7 F Pulse Rate 69 79 74 Respiratory Rate 18 18 16 Blood Pressure 170/77 H 168/74 H Pulse Oximetry 96 95 100 03/12/22 11:30 Temperature Pulse Rate Respiratory Rate Blood Pressure Pulse Oximetry 90 L Oxygen Delivery Method Room Air Oxygen Flow Rate 0 Narrative Exam Narrative: General:? Elderly female, tearful and anxious, self depricating at times. Lungs:? Clear to auscultation without wheezes rhonchi or rales bilaterally Heart:? Regular rhythm without murmur Abdomen:? Soft, nontender non-distended Extremities:? Left shoulder with postop sling, LUE edema, trace bilateral LE edema. Neurological: Oriented x3 today but still slightly confused. UE tremor worsened with motion is better today. Objective Labs Result Diagrams: 03/07/22 10:24 03/12/22 06:06 Labs: Laboratory Results - last 24 hr 03/12/22 06:06 Sodium 138 Potassium 4.0 Chloride 108 H Carbon Dioxide 26 BUN 21 H Creatinine 1.21 H Estimated GFR 44 L BUN/Creatinine Ratio 17.4 Glucose 176 H Calcium 8.3 L [facility] Medical History (Updated 03/11/22 @ 03:43 by Katty Pugh RN) Arthropathy of left shoulder COPD (chronic obstructive pulmonary disease) Depression Diabetes Gouty arthritis of toe Hypertension Memory changes Osteoarthritis Spinal stenosis Surgical History History of arthroplasty of left knee History of arthroplasty of right knee Social History household members: spouse, family and children Smoking Status: Never smoker alcohol intake: former Discharge Plan Discharge Plan Patient Disposition: SNF Transfer to: [facility] Provider Discharge Comment: Patient was admitted with delirium secondary to pain medication after shoulder surgery. Improved with cessation but remains slightly confused. Transfer to SNF for continued PT / OT. Pain medications were reduced. Discharge orders & Medications Prescriptions: Continued Lantus U-100 Insulin 100 UNIT/1 ML solution 30 unit SQ QAM Qty: 0 0RF VITAMIN D (Vitamin D3) 1,000 units PO BEDTIME Qty: 0 0RF fluoxetine [Prozac] 40 MG capsule 40 mg PO QDAY Qty: 0 0RF insulin aspart U-100 [Novolog U-100 Insulin aspart] 100 unit/mL solution 10 unit SQ QIDACHS Qty: 0 0RF tolterodine [Detrol LA] 4 MG capsule,extended release 24hr 2 mg PO DAILY Qty: 0 0RF Rx Instructions: 2mg daily each morning. diclofenac sodium [Voltaren] 1 % gel 1 jony Topical PRN PRN (Reason: Pain (Scale Score 1-3)) Qty: 0 0RF omeprazole 40 mg Capsule,Delayed Release(Dr/Ec) 40 mg PO DAILY 0RF telmisartan [Micardis] 20 mg Tablet 10 mg PO DAILY 0RF Rx Instructions: takes half a 20mg tab once daily in the morning atorvastatin 40 mg Tablet 40 mg PO DAILY 0RF aspirin 81 mg tablet,delayed release (DR/EC) 81 mg PO DAILY 0RF magnesium oxide 500 mg Tablet 500 mg PO DAILY 0RF gabapentin 300 mg capsule 900 mg PO BEDTIME 0RF acetaminophen 325 mg Tablet 975 mg PO TID PRN (Reason: pain (scale score 4-6)) Qty: 180 1RF docusate sodium 100 mg Capsule 100 mg PO BID PRN (Reason: constipation) Qty: 60 2RF calcium citrate 200 mg (950 mg) Tablet 200 mg PO BEDTIME 0RF Discontinued doxycycline hyclate 100 mg tablet 100 mg PO BID 0RF cyclobenzaprine 10 mg Tablet 10 mg PO QID PRN (Reason: MUSCLE SPASM) Qty: 90 0RF tramadol 50 mg Tablet 50 mg PO QID PRN (Reason: pain (scale score 7-10)) Qty: 120 1RF hydromorphone 2 mg tablet 2 mg PO Q6H PRN (Reason: pain, severe) Qty: 10 0RF Rx Instructions: Do not take unless having very severe pain. Follow up/Referrals: Sapna Evans MD [Primary Care Provider] - Diet/Activity/Treatments Diet: Diet as Tolerated Liquid consistency: Normal/Thin Food texture: Regular Diet comment: As tolerate Activity: Do not use LUE. Keep in sling. Discharge Data Primary Care Provider: Sapna Evans Quality VTE Deep Vein Thrombosis/Pulmonary Embolism Present on Admission: No
[2022-03-12 14:51] LABS: COVID19 -Nasal RAPID Negative (Negative)
--- NOTE | 2022-03-12 15:38 | PC.NURSE ---
Pt A&Ox2. VSS, afebrile on RA. She reports pain to LUE minimal controlled today with prn toradol. After administration she naps and OT is unable to assist her to shower. She is medically cleared for discharge to SNF per hospitalist, and CM informs RN that she received authorization from insurance company and [facility] will be accepting patient this afternoon. She agrees to having COVID booster shot there. at bedside supportive. Pt is tearful this afternoon stating she misses home and wants to go home. RN calls report to Tamela at [facility] at 3 pm and transporter arrives at 1530 to escort patient. Facility designee given discharge packet and patient leaves with all of her belongings at 1540.
== END 2022-03-12 15:40 | DRG 92 ==
LOC: ED 14:51 → AC 14:54
PROVIDERS: Internal Medicine; Admitting Provider Internal Medicine; Emergency Provider Emergency Medicine; Family Provider Internal Medicine; PCP Internal Medicine; Referring Provider Emergency Medicine; Visit Provider Internal Medicine
DX: G92.8 Other toxic encephalopathy (principal); D62 Acute posthemorrhagic anemia; T40.2X5A Adverse effect of other opioids, initial encounter; E11.9 Type 2 diabetes mellitus without complications; E78.5 Hyperlipidemia, unspecified; I10 Essential (primary) hypertension; F32.A Depression, unspecified; Z79.4 Long term (current) use of insulin; Z96.612 Presence of left artificial shoulder joint; Z20.822 Contact with and (suspected) exposure to COVID-19; M19.012 Primary osteoarthritis, left shoulder; J44.9 Chronic obstructive pulmonary disease, unspecified; M25.712 Osteophyte, left shoulder
CPT/HCPCS: 36415; 70450; 70548; 70553; 71045; 73030; 80048; 80053; 80305; 80320; 80329; 81001; 82550; 82553; 82565; 82962; 83605; 84145; 84146; 84443; 84484; 85025; 85027; 87040; 87635; 93005; 94640; 94760; 96360; 96361; 97116; 97162; 97166; 97530; 97535; 99284; 99285; C9803; G0378; A9579; G0480; J1170; J1650; J1815; J1885; J7613

== ENCOUNTER 2022-11-09 02:27 | Emergency (ER) | payer MEDICARE, OTHER, SELFPAY ==
[2022-03-07 14:55] VITALS: BMI 27.5
[2022-11-09] VITALS (39 sets, daily range): BP systolic 117–183; BP diastolic 57–104; PULSE 70–99; RESP 12–50; TEMP 36.6; O2SAT 88–97
--- NOTE | 2022-11-09 02:36 | DI.RAD.S_ITS ---
PROCEDURE: XR CHEST 1V INDICATIONS: chest pain TECHNIQUE: One view of the chest was acquired. COMPARISON: [facility], CR, XR CHEST 1V, 03/07/2022, 10:55. FINDINGS: Surgical changes and devices: Left shoulder arthroplasty is seen. Lungs and pleura: Lungs are clear. No pleural effusions or pneumothorax. Mediastinum: Aortic arch calcifications are seen. Heart size is normal. Bones and chest wall: No suspicious bony lesions. Overlying soft tissues appear unremarkable. IMPRESSION: No acute cardiopulmonary pathology. No discrepancies. Dictated by: Markos Desir M.D. on 11/09/2022 at 8:54 Approved by: Markos Desir M.D. on 11/09/2022 at 9:00
--- NOTE | 2022-11-09 02:37 | ED_ITS ---
HPI - Chest Pain General Chief Complaint: Chest Pain Stated Complaint: CP Time Seen by Provider: 11/09/22 02:35 Source: patient and EMS Mode of arrival: EMS History of Present Illness HPI narrative: 87-year-old female nonsmoker with history of hypertension, hyperlipidemia and diabetes presents by EMS for evaluation of left-sided chest pain. She states that she is been having episodes of pain off and on for quite some time, she admittedly is a poor historian. She states that her and her or enjoying personal time but refused to elucidate what that means. She denies any trauma or injury. She states that she had left-sided chest pain and pressure without obvious provocation, palliation or radiation. She denies associated symptoms such as dizziness, weakness or lightheadedness. She denies nausea, vomiting or diarrhea. She denies any known cardiac history. She denies any recent travel or history of blood clot but does state she thinks maybe she had some type of cancer back in the 1950s Related Data Home Medications Medication Instructions Recorded Confirmed insulin glargine 100 unit/mL 30 unit SQ QAM ##0 07/15/11 03/07/22 subcutaneous solution (Lantus U-100 Insulin) VITAMIN D (Vitamin D3) 1,000 units PO BEDTIME ##0 09/06/11 03/07/22 fluoxetine 40 mg capsule (Prozac) 40 mg PO QDAY ##0 11/28/16 03/07/22 insulin aspart U-100 100 unit/mL 10 unit SQ QIDACHS ##0 11/28/16 03/07/22 subcutaneous solution (Novolog U-100 Insulin aspart) tolterodine 4 mg capsule,extended 2 mg PO DAILY urinary ##0 11/28/16 03/07/22 release 24 hr (Detrol LA) diclofenac sodium 1 % topical gel 1 jony topical PRN PRN Pain (Scale 02/23/17 03/07/22 (Voltaren) Score 1-3) ##0 atorvastatin 40 mg tablet 40 mg PO DAILY 03/03/22 03/07/22 omeprazole 40 mg capsule,delayed 40 mg PO DAILY 03/03/22 03/07/22 release telmisartan 20 mg tablet (Micardis) 10 mg PO DAILY 03/03/22 03/07/22 aspirin 81 mg tablet,delayed 81 mg PO DAILY 03/04/22 03/07/22 release gabapentin 300 mg capsule 900 mg PO BEDTIME 03/04/22 03/07/22 magnesium oxide 500 mg tablet 500 mg PO DAILY 03/04/22 03/07/22 calcium citrate 200 mg (950 mg) 200 mg PO BEDTIME 03/07/22 03/07/22 tablet Previous Rx's Medication Instructions Recorded acetaminophen 325 mg tablet 975 mg PO TID PRN pain (scale 03/06/22 score 4-6) #180 tabs docusate sodium 100 mg capsule 100 mg PO BID PRN constipation #60 03/06/22 caps Allergies Allergy/AdvReac Type Severity Reaction Status Date / Time iodine [IODINE] Allergy Severe Swelling Verified 03/08/22 09:33 of Lip/Tongue/Throat lisinopril [LISINOPRIL] Allergy Severe Swelling Verified 03/08/22 09:33 of Lip/Tongue/Throat shellfish derived Allergy Severe Swelling Verified 03/08/22 09:34 [SHELLFISH DERIVED] of Lip/Tongue/Throat Penicillins Allergy Intermediate Rash Verified 03/09/22 09:43 Review of Systems Review of Systems Narrative: GENERAL: See HPI HEENT: Denies sinus pain, ear pain, sore throat, difficulty swallowing, dizziness. RESPIRATORY: See HPI CARDIOVASCULAR: See HPI GASTROINTESTINAL: Denies nausea, vomiting, abdominal pain, diarrhea, constipation, melena. : Denies dysuria, frequency, incontinence, hematuria, urinary retention. MUSCULOSKELETAL: denies weakness, joint pain, or bony pain SKIN: Denies rash, skin lesions, or other NEUROLOGIC: Denies weakness, headache, numbness, change in speech, confusion, seizures, incoordination. PSYCHIATRIC: No concerning psychosocial issues. 12 point review of systems is negative except for those stated above Patient History Medical History Arthropathy of left shoulder COPD (chronic obstructive pulmonary disease) Depression Diabetes Gouty arthritis of toe Hypertension Memory changes Osteoarthritis Spinal stenosis Surgical History History of arthroplasty of left knee History of arthroplasty of right knee Social History household members: spouse, family and children Smoking Status: Never smoker alcohol intake: former Smoking Status: Never smoker alcohol intake frequency: holidays/special occasions only Substance Use Type: does not use Exam Narrative Exam Narrative: GENERAL: [87] year old patient appears stated age. Well-developed patient, in mild distress. Resting comfortably, pleasantly confused HEAD: Atraumatic. Normocephalic. EYES: Pupils equal round and reactive. Extraocular motions intact. No scleral icterus. No injection or drainage. ENT: Nose without bleeding, purulent drainage. Throat without erythema, tonsillar hypertrophy or exudate. Airway patent. NECK: Trachea midline. Non tender CARDIOVASCULAR: Regular rate and rhythm without murmurs, gallops, or rubs. RESPIRATORY: Clear to auscultation. Breath sounds equal bilaterally. No wheezes, rales, or rhonchi. GASTROINTESTINAL: Abdomen soft, non-tender, nondistended. EXTREMITIES: No edema or joint tenderness. BACK: Nontender without deformity or crepitance. No flank tenderness. NEURO: AOx3. SKIN: No rash or erythema of visible areas Initial Vital Signs Initial Vital Signs: Vital Signs Temperature 97.9 F 11/09/22 02:30 Pulse Rate 72 11/09/22 02:30 Respiratory Rate 18 11/09/22 02:30 Blood Pressure 137/72 11/09/22 02:30 Pulse Oximetry 96 11/09/22 02:30 Oxygen Delivery Method 11/09/22 02:30 Course Orders Ordered: Discontinued Medications Sodium Chloride (Normal Saline 0.9%) 1,000 mls @ 150 mls/hr IV CONT KADE Last Infusion: 11/09/22 07:32 Dose: 150 mls/hr Documented By: Admin: 11/09/22 03:09 Dose: 150 mls/hr Documented By: MARIAA Nitroglycerin (Nitroglycerin 0.4 Mg Sl Tab) 0.4 mg SL [id number] PRN PRN Reason: Chest Pain Nitroglycerin (Nitroglycerin Oint 1 Inch/Gm Oint...G.) 1 inch TOP NOW ONE Stop: 11/09/22 03:21 Last Admin: 11/09/22 03:23 Dose: 1 inch Documented By: SB Vital Signs Vital signs: Vital Signs - 8 hr 11/09/22 02:30 11/09/22 03:23 11/09/22 03:25 Temperature 97.9 F Pulse Rate 72 70 76 Respiratory Rate 18 24 Blood Pressure 137/72 166/70 H Pulse Oximetry 96 96 Oxygen Delivery Method Room Air 11/09/22 03:26 11/09/22 03:26 11/09/22 03:30 Temperature Pulse Rate 79 Respiratory Rate 19 Blood Pressure 143/72 H 136/67 Pulse Oximetry 96 Oxygen Delivery Method 11/09/22 03:30 Temperature Pulse Rate 78 Respiratory Rate 13 Blood Pressure Pulse Oximetry 96 Oxygen Delivery Method MDM - Chest Pain Lab Data Result diagrams: 11/09/22 02:30 11/09/22 02:30 Labs: Lab Results 11/09/22 11/09/22 11/09/22 Range/Units 02:30 02:30 02:30 WBC 6.7 (4.5-11.0) X10^3/uL RBC 4.55 (4.0-5.2) X10^6/uL Hgb 13.2 (12.0-16.0) g/dL Hct 41.1 (36-46) % MCV 90.2 (80-100) fL MCH 29.1 (26-34) PG MCHC 32.2 (30-36) % RDW 14.2 (11.6-14.8) % Plt Count 186 (150-400) X10^3/uL Neut % (Auto) 48.9 L (50-75) % Lymph % (Auto) 35.1 (25-40) % [place] % (Auto) 12.8 (3-14) % Eos % (Auto) 2.4 (2-4) % Baso % (Auto) 0.8 (0-2) % Neut # (Auto) 3300 (7454-8574) /uL Lymph # (Auto) 2400 (6400-2952) /uL [place] # (Auto) 900 (0-900) /uL Eos # (Auto) 200 (0-450) /uL Baso # (Auto) 100 (0-100) /uL PT 12.7 (10.1-12.7) SECONDS INR 1.1 (0.9-1.3) D-Dimer 477 (<500) ng/ml Sodium 137 (137-145) mmol/L Potassium 3.9 (3.4-5.1) mmol/L Chloride 100 (98-107) mmol/L Carbon Dioxide 28 (22-32) mmol/L BUN 22 H (7-17) mg/dL Creatinine 1.40 H (0.52-1.04) mg/dL Estimated GFR 37 L (>60) mL/min BUN/Creatinine Ratio 15.7 (6-22) Glucose 100 (80-110) mg/dL Calcium 9.3 (8.4-10.2) mg/dL Total Bilirubin 0.3 (0.2-1.3) mg/dL AST 30 (14-36) IU/L ALT 20 (<35) IU/L Alkaline Phosphatase 103 (38-126) U/L Total Creatine Kinase 98 (30-135) U/L CK-MB (CK-2) TNP CK-MB (CK-2) Rel Index TNP Troponin I < 0.012 (0.01-0.034) ng/mL NT-Pro-B Natriuret Pep 32 (<450) pg/mL Total Protein 7.3 (6.3-8.2) g/dL Albumin 4.2 (3.5-5.0) g/dL Globulin 3.1 (1.7-4.1) g/dL Albumin/Globulin Ratio 1.4 (1.0-2.8) Lipase 38 (23-300) U/L Procalcitonin 0.05 (<0.5) ng/mL 11/09/22 Range/Units 05:47 WBC (4.5-11.0) X10^3/uL RBC (4.0-5.2) X10^6/uL Hgb (12.0-16.0) g/dL Hct (36-46) % MCV (80-100) fL MCH (26-34) PG MCHC (30-36) % RDW (11.6-14.8) % Plt Count (150-400) X10^3/uL Neut % (Auto) (50-75) % Lymph % (Auto) (25-40) % [place] % (Auto) (3-14) % Eos % (Auto) (2-4) % Baso % (Auto) (0-2) % Neut # (Auto) (3468-8604) /uL Lymph # (Auto) (7212-1480) /uL [place] # (Auto) (0-900) /uL Eos # (Auto) (0-450) /uL Baso # (Auto) (0-100) /uL PT (10.1-12.7) SECONDS INR (0.9-1.3) D-Dimer (<500) ng/ml Sodium (137-145) mmol/L Potassium (3.4-5.1) mmol/L Chloride (98-107) mmol/L Carbon Dioxide (22-32) mmol/L BUN (7-17) mg/dL Creatinine (0.52-1.04) mg/dL Estimated GFR (>60) mL/min BUN/Creatinine Ratio (6-22) Glucose (80-110) mg/dL Calcium (8.4-10.2) mg/dL Total Bilirubin (0.2-1.3) mg/dL AST (14-36) IU/L ALT (<35) IU/L Alkaline Phosphatase (38-126) U/L Total Creatine Kinase 101 (30-135) U/L CK-MB (CK-2) 0.85 CK-MB (CK-2) Rel Index 0.8 L Troponin I < 0.012 (0.01-0.034) ng/mL NT-Pro-B Natriuret Pep (<450) pg/mL Total Protein (6.3-8.2) g/dL Albumin (3.5-5.0) g/dL Globulin (1.7-4.1) g/dL Albumin/Globulin Ratio (1.0-2.8) Lipase (23-300) U/L Procalcitonin (<0.5) ng/mL ECG Data Interpretation: [0246] EKG is normal sinus rhythm rate [67 ] and free of any signs of ischemia or ectopy. No ST segmental elevation or depression. No T wave inversions MDM Narrative Medical decision making narrative: CC: 87-year-old female presents with vague chest pressure that started with exertion Complicating co-morbidities: age, diabetes, hypertension, hyperlipidemia Data collected from: patient, paramedics Medical records reviewed: including prior notes from ER visits earlier in the year Differential considered, but not limited to: angina, pancreatitis, gallbladder disease, pneumonia, musculoskeletal, esophageal spasm Exam documented above, pertinent findings include: no significant physical exam findings, patient in no distress, lungs clear, heart rate regular, abdomen soft Lab Test results independently reviewed as above. Pertinent findings: Independently reviewed EKG as above Imaging studies independently reviewed: chest x-ray without acute findings Treatments: patient had received aspirin EN route and had resolution of symptoms with nitro Re-evaluations: patient asymptomatic for essentially entire visit Discussion: patient developed mild, vague chest pressure during exertion, she is in no extremis, EKG unremarkable, troponin negative, symptoms resolved with nitro and did not return Disposition: see below, along with detailed discharge instructions that have been reviewed with patient as well as indications for ED re-evaluation and additional outpatient follow up Discharge Plan Departure Patient Disposition: Home Clinical Impression: Atypical chest pain Activity Restrictions/Additional Instructions: *You have been diagnosed with [atypical chest pain. As we discussed your history and physical exam are reassuring, labs, EKG and x-rays would suggest against heart attack, blood clot pneumonia or other diagnosis that would require a specific intervention] *What to do: *Please continue to take your regular medications as directed. *Please follow up with your primary care provider in 2-3 days, call for an appointment. Let them know you were seen in the Emergency Department and that we ask that you be seen in follow up. We will electronically transmit a record of today's note if your PCP is in our system *If you do not have a primary care provider please contact the [facility] Resource line at [phone]. They will ask some questions about your medical history and help get you set up with a doctor in the community. *Return to Emergency Department if you should have any new, worsening or concerning symptoms, such as [fever greater than 101 F, shaking chills, worsening pain, persistent vomiting or other bothersome symptoms] Prescriptions: No Action Lantus U-100 Insulin 100 UNIT/1 ML solution 30 unit SQ QAM Qty: 0 VITAMIN D (Vitamin D3) 1,000 units PO BEDTIME Qty: 0 fluoxetine [Prozac] 40 MG capsule 40 mg PO QDAY Qty: 0 insulin aspart U-100 [Novolog U-100 Insulin aspart] 100 unit/mL solution 10 unit SQ QIDACHS Qty: 0 tolterodine [Detrol LA] 4 MG capsule,extended release 24hr 2 mg PO DAILY Qty: 0 Rx Instructions: 2mg daily each morning. diclofenac sodium [Voltaren] 1 % gel 1 jony Topical PRN PRN (Reason: Pain (Scale Score 1-3)) Qty: 0 omeprazole 40 mg Capsule,Delayed Release(Dr/Ec) 40 mg PO DAILY telmisartan [Micardis] 20 mg Tablet 10 mg PO DAILY Rx Instructions: takes half a 20mg tab once daily in the morning atorvastatin 40 mg Tablet 40 mg PO DAILY aspirin 81 mg tablet,delayed release (DR/EC) 81 mg PO DAILY magnesium oxide 500 mg Tablet 500 mg PO DAILY gabapentin 300 mg capsule 900 mg PO BEDTIME acetaminophen 325 mg Tablet 975 mg PO TID PRN (Reason: pain (scale score 4-6)) Qty: 180 1RF docusate sodium 100 mg Capsule 100 mg PO BID PRN (Reason: constipation) Qty: 60 2RF calcium citrate 200 mg (950 mg) Tablet 200 mg PO BEDTIME Referrals: Sapna Evans MD [Primary Care Provider] - Stand Alone Forms: Patient Portal/API
[2022-11-09 02:51] LABS: Add Manual Diff / Slide Review NO; Basophils Absolute Auto 100 /uL (0-100); Basophils Percent Auto 0.8 % (0-2); Eosinophils Absolute Auto 200 /uL (0-450); Eosinophils Percent Auto 2.4 % (2-4); Hematocrit 41.1 % (36-46); Hemoglobin 13.2 g/dL (12.0-16.0); Lymphocytes Absolute Auto 2400 /uL (1100-4500); Lymphocytes Percent Auto 35.1 % (25-40); Mean Corpuscular HGB Conc 32.2 % (30-36); Mean Corpuscular Hemoglobin 29.1 PG (26-34); Mean Corpuscular Volume 90.2 fL (80-100); Monocytes Absolute Auto 900 /uL (0-900); Monocytes Percent Auto 12.8 % (3-14); Neutrophils Absolute Auto 3300 /uL (1500-7000); Neutrophils Percent Auto 48.9 % (50-75); Platelet Count 186 X10^3/uL (150-400); Red Blood Cell Count 4.55 X10^6/uL (4.0-5.2); Red Cell Distribution Width 14.2 % (11.6-14.8); White Blood Cell Count 6.7 X10^3/uL (4.5-11.0)
[2022-11-09 03:05] LABS: INR 1.1 (0.9-1.3); Prothrombin Time 12.7 SECONDS (10.1-12.7)
[2022-11-09 03:06] LABS: D Dimer 477 ng/ml (<500)
--- NOTE | 2022-11-09 03:07 | PC.NURSE ---
Pt reports engaging in personal matters with her when the chest pain began. Pt denies SOB. Pain remains constant. Call light within reach. Encouraged to use for needs.
[2022-11-09 03:09] LABS: Alanine Aminotransferase 20 IU/L (<35); Albumin 4.2 g/dL (3.5-5.0); Albumin Globulin Ratio 1.4 (1.0-2.8); Alkaline Phosphatase 103 U/L (38-126); Aspartate Aminotransferase 30 IU/L (14-36); BUN Creatinine Ratio 15.7 (6-22); Bilirubin Total 0.3 mg/dL (0.2-1.3); Blood Urea Nitrogen 22 mg/dL (7-17); Calcium 9.3 mg/dL (8.4-10.2); Carbon Dioxide 28 mmol/L (22-32); Chloride 100 mmol/L (98-107); Creatine Kinase 98 U/L (30-135); Estimated Glomerular Filt Rate 37 mL/min (>60); Globulin 3.1 g/dL (1.7-4.1); Glucose 100 mg/dL (80-110); HEMOLYSIS < 15 (0-50); Lipase 38 U/L (23-300); Potassium 3.9 mmol/L (3.4-5.1); Sodium 137 mmol/L (137-145); Total Protein 7.3 g/dL (6.3-8.2)
[2022-11-09] MEDS: SODIUM CHLORIDE 0.9% 1,000 ML 150 ML IV (03:09)
[2022-11-09 03:21] LABS: NT-proBNP (BNP-Adult 18+) 32 pg/mL (<450); Troponin I < 0.012 ng/mL (0.01-0.034)
[2022-11-09] MEDS: NITROGLYCERIN OINT 1 INCH/GM OINT...G. TOP (03:23)
[2022-11-09 03:25] LABS: Procalcitonin 0.05 ng/mL (<0.5)
[2022-11-09 06:27] LABS: Creatine Kinase 101 U/L (30-135)
[2022-11-09 06:38] LABS: Troponin I < 0.012 ng/mL (0.01-0.034)
[2022-11-09 06:43] LABS: CKMB % Relative Index 0.8 % (1.5-5.0); Creatine Kinase MB 0.85 ng/mL (<2.37)
== END 2022-11-09 07:33 | disposition home or self-care (01) ==
PROVIDERS: Emergency Provider Emergency Medicine; Family Provider Internal Medicine; PCP Internal Medicine
DX: R07.89 Other chest pain (principal); Z79.899 Other long term (current) drug therapy
CPT/HCPCS: 36415; 71045; 80053; 82550; 82553; 83690; 83880; 84145; 84484; 85025; 85379; 85610; 93005; 93010; 99284

== ENCOUNTER 2022-11-17 16:04 | Emergency (ER) | payer MEDICARE, OTHER, SELFPAY ==
[2022-03-07 14:55] VITALS: BMI 27.5
--- NOTE | 2022-11-17 16:08 | DI.RAD.S_ITS ---
PROCEDURE: XR CHEST 1V INDICATIONS: chest pain TECHNIQUE: One view of the chest was acquired. COMPARISON: [facility], CR, XR CHEST 1V, 11/09/2022, 2:43. FINDINGS: Surgical changes and devices: None. Lungs and pleura: Lungs are clear. No pleural effusions or pneumothorax. Mediastinum: Mediastinal contours appear normal. Heart size is normal. Bones and chest wall: No suspicious bony lesions. Overlying soft tissues appear unremarkable. IMPRESSION: No acute cardiopulmonary findings. Dictated by: Chloe Ring M.D. on 11/17/2022 at 17:14 Approved by: Chloe Ring M.D. on 11/17/2022 at 17:15
[2022-11-17 16:12] VITALS: BP 161/77; PULSE 87; RESP 18; TEMP 36.9; O2SAT 94
[2022-11-17 16:32] LABS: Add Manual Diff / Slide Review NO; Basophils Absolute Auto 100 /uL (0-100); Basophils Percent Auto 1.1 % (0-2); Eosinophils Absolute Auto 100 /uL (0-450); Eosinophils Percent Auto 1.4 % (2-4); Hematocrit 40.2 % (36-46); Hemoglobin 13.2 g/dL (12.0-16.0); Lymphocytes Absolute Auto 1400 /uL (1100-4500); Lymphocytes Percent Auto 23.7 % (25-40); Mean Corpuscular HGB Conc 32.8 % (30-36); Mean Corpuscular Hemoglobin 29.4 PG (26-34); Mean Corpuscular Volume 89.7 fL (80-100); Monocytes Absolute Auto 600 /uL (0-900); Monocytes Percent Auto 10.1 % (3-14); Neutrophils Absolute Auto 3700 /uL (1500-7000); Neutrophils Percent Auto 63.7 % (50-75); Platelet Count 209 X10^3/uL (150-400); Red Blood Cell Count 4.48 X10^6/uL (4.0-5.2); Red Cell Distribution Width 14.4 % (11.6-14.8); White Blood Cell Count 5.8 X10^3/uL (4.5-11.0)
--- NOTE | 2022-11-17 16:40 | ED.ARRPALP ---
HPI - Arrhythmia/Palpitations General Chief Complaint: Chest Pain Stated Complaint: Atrial Flutter Time Seen by Provider: 11/17/22 16:07 Source: patient and EMS Mode of arrival: EMS History of Present Illness HPI narrative: Patient is 87-year-old female history of insulin-dependent diabetes hyperlipidemia COPD presents today from PCP office with atrial flutter. Patient reports that she had bowl of cereal this morning and then they went to a routine appointment provider heard or felt something was abnormal not sure what her rate was but thought there was flutter atrial fibrillation, and sent to the ED for further evaluation. She describes that she has some chest sort of chest discomfort she feels a little dizzy and lightheaded, however that has been going on. She denies any fever or chills. No nausea vomiting or abdominal pain. She has chronic ongoing left arm pain but no other issues. Related Data Home Medications Medication Instructions Recorded Confirmed insulin glargine 100 unit/mL 30 unit SQ QAM ##0 07/15/11 03/07/22 subcutaneous solution (Lantus U-100 Insulin) VITAMIN D (Vitamin D3) 1,000 units PO BEDTIME ##0 09/06/11 03/07/22 fluoxetine 40 mg capsule (Prozac) 40 mg PO QDAY ##0 11/28/16 03/07/22 insulin aspart U-100 100 unit/mL 10 unit SQ QIDACHS ##0 11/28/16 03/07/22 subcutaneous solution (Novolog U-100 Insulin aspart) tolterodine 4 mg capsule,extended 2 mg PO DAILY urinary ##0 11/28/16 03/07/22 release 24 hr (Detrol LA) diclofenac sodium 1 % topical gel 1 jony topical PRN PRN Pain (Scale 02/23/17 03/07/22 (Voltaren) Score 1-3) ##0 atorvastatin 40 mg tablet 40 mg PO DAILY 03/03/22 03/07/22 omeprazole 40 mg capsule,delayed 40 mg PO DAILY 03/03/22 03/07/22 release telmisartan 20 mg tablet (Micardis) 10 mg PO DAILY 03/03/22 03/07/22 aspirin 81 mg tablet,delayed 81 mg PO DAILY 03/04/22 03/07/22 release gabapentin 300 mg capsule 900 mg PO BEDTIME 03/04/22 03/07/22 magnesium oxide 500 mg tablet 500 mg PO DAILY 03/04/22 03/07/22 calcium citrate 200 mg (950 mg) 200 mg PO BEDTIME 03/07/22 03/07/22 tablet Previous Rx's Medication Instructions Recorded acetaminophen 325 mg tablet 975 mg PO TID PRN pain (scale 03/06/22 score 4-6) #180 tabs docusate sodium 100 mg capsule 100 mg PO BID PRN constipation #60 03/06/22 caps Allergies Allergy/AdvReac Type Severity Reaction Status Date / Time iodine [IODINE] Allergy Severe Swelling Verified 03/08/22 09:33 of Lip/Tongue/Throat lisinopril [LISINOPRIL] Allergy Severe Swelling Verified 03/08/22 09:33 of Lip/Tongue/Throat shellfish derived Allergy Severe Swelling Verified 03/08/22 09:34 [SHELLFISH DERIVED] of Lip/Tongue/Throat Penicillins Allergy Intermediate Rash Verified 03/09/22 09:43 Review of Systems Review of Systems ROS Unobtainable: All systems reviewed & are unremarkable except as noted in HPI and below Patient History Medical History Arthropathy of left shoulder COPD (chronic obstructive pulmonary disease) Depression Diabetes Gouty arthritis of toe Hypertension Memory changes Osteoarthritis Spinal stenosis Surgical History History of arthroplasty of left knee History of arthroplasty of right knee Social History household members: spouse, family and children Smoking Status: Never smoker alcohol intake: former Smoking Status: Never smoker alcohol intake frequency: holidays/special occasions only Substance Use Type: does not use Exam Initial Vital Signs Initial Vital Signs: Vital Signs Temperature 98.5 F 11/17/22 16:12 Pulse Rate 87 11/17/22 16:12 Respiratory Rate 18 11/17/22 16:12 Blood Pressure 161/77 H 11/17/22 16:12 Pulse Oximetry 94 11/17/22 16:12 Oxygen Delivery Method 11/17/22 16:12 GENERAL: Elderly 87-year-old female HEENT: Head atraumatic,EOMI, pupils reactive, face symmetric, moist mucous membranes CARDIOVASCULAR: Regular rate and rhythm without murmurs, rubs or gallops. RESPIRATORY: Breath sounds equal bilaterally, no wheezes rales or rhonchi. ABDOMEN: Soft, nontender. Normoactive bowel sounds all 4 quadrants. No guarding or rebound. EXTREMITIES: Normal range of motion, no clubbing or edema. Neurovascularly intact NEUROLOGICAL: Alert and oriented x4 SKIN: Warm, dry, no laceration, no petechiae, no rashes or lesions. Course Orders Ordered: ED Orders 11/17/22 16:08 XR chest 1V Stat EKG-12 Lead Stat 11/17/22 16:25 Complete Blood Count AUTO DIFF Stat Comprehensive Metabolic Panel Stat Lipase Stat NT-proBNP (BNP-Adult 18+) Stat Troponin & CK Cardiac Panel Stat 11/17/22 16:49 Ictotest Urine Stat Urine Culture Stat Urine Microscopic Stat 11/17/22 18:25 Trop I [Troponin I] Stat Vital Signs Vital signs: Vital Signs - 8 hr 11/17/22 16:12 11/17/22 17:45 Temperature 98.5 F Pulse Rate 87 72 Respiratory Rate 18 19 Blood Pressure 161/77 H 121/74 Pulse Oximetry 94 97 Oxygen Delivery Method Room Air Room Air MDM - Arrhythmia/Palpitations Lab Data Result diagrams: 11/17/22 16:25 11/17/22 16:25 Labs: Lab Results 11/17/22 11/17/22 11/17/22 Range/Units 16:25 16:25 16:49 WBC 5.8 (4.5-11.0) X10^3/uL RBC 4.48 (4.0-5.2) X10^6/uL Hgb 13.2 (12.0-16.0) g/dL Hct 40.2 (36-46) % MCV 89.7 (80-100) fL MCH 29.4 (26-34) PG MCHC 32.8 (30-36) % RDW 14.4 (11.6-14.8) % Plt Count 209 (150-400) X10^3/uL Neut % (Auto) 63.7 (50-75) % Lymph % (Auto) 23.7 L (25-40) % [place] % (Auto) 10.1 (3-14) % Eos % (Auto) 1.4 L (2-4) % Baso % (Auto) 1.1 (0-2) % Neut # (Auto) 3700 (1366-1257) /uL Lymph # (Auto) 1400 (0864-2240) /uL [place] # (Auto) 600 (0-900) /uL Eos # (Auto) 100 (0-450) /uL Baso # (Auto) 100 (0-100) /uL Sodium 136 L (137-145) mmol/L Potassium 4.1 (3.4-5.1) mmol/L Chloride 100 (98-107) mmol/L Carbon Dioxide 27 (22-32) mmol/L BUN 18 H (7-17) mg/dL Creatinine 1.21 H (0.52-1.04) mg/dL Estimated GFR 44 L (>60) mL/min BUN/Creatinine Ratio 14.9 (6-22) Glucose 242 H D (80-110) mg/dL Calcium 9.8 (8.4-10.2) mg/dL Total Bilirubin 0.4 (0.2-1.3) mg/dL AST 24 (14-36) IU/L ALT 19 (<35) IU/L Alkaline Phosphatase 98 (38-126) U/L Total Creatine Kinase 113 (30-135) U/L CK-MB (CK-2) 0.85 (<2.37) ng/mL CK-MB (CK-2) Rel Index 0.8 L (1.5-5.0) % Troponin I < 0.012 (0.01-0.034) ng/mL NT-Pro-B Natriuret Pep 133 (<450) pg/mL Total Protein 7.3 (6.3-8.2) g/dL Lipase 32 (23-300) U/L Ur Bilirubin Confirm (Negative) Urine RBC None seen (0-5/HPF) Urine WBC 1-5/hpf (0-5/HPF) Urine Bacteria None seen (None) Urine Mucus 1+ H (Negative) Ur Culture Indicated? Specimen cultured 11/17/22 11/17/22 Range/Units 16:49 18:25 WBC (4.5-11.0) X10^3/uL RBC (4.0-5.2) X10^6/uL Hgb (12.0-16.0) g/dL Hct (36-46) % MCV (80-100) fL MCH (26-34) PG MCHC (30-36) % RDW (11.6-14.8) % Plt Count (150-400) X10^3/uL Neut % (Auto) (50-75) % Lymph % (Auto) (25-40) % [place] % (Auto) (3-14) % Eos % (Auto) (2-4) % Baso % (Auto) (0-2) % Neut # (Auto) (7283-2515) /uL Lymph # (Auto) (8892-5026) /uL [place] # (Auto) (0-900) /uL Eos # (Auto) (0-450) /uL Baso # (Auto) (0-100) /uL Sodium (137-145) mmol/L Potassium (3.4-5.1) mmol/L Chloride (98-107) mmol/L Carbon Dioxide (22-32) mmol/L BUN (7-17) mg/dL Creatinine (0.52-1.04) mg/dL Estimated GFR (>60) mL/min BUN/Creatinine Ratio (6-22) Glucose (80-110) mg/dL Calcium (8.4-10.2) mg/dL Total Bilirubin (0.2-1.3) mg/dL AST (14-36) IU/L ALT (<35) IU/L Alkaline Phosphatase (38-126) U/L Total Creatine Kinase (30-135) U/L CK-MB (CK-2) (<2.37) ng/mL CK-MB (CK-2) Rel Index (1.5-5.0) % Troponin I < 0.012 (0.01-0.034) ng/mL NT-Pro-B Natriuret Pep (<450) pg/mL Total Protein (6.3-8.2) g/dL Lipase (23-300) U/L Ur Bilirubin Confirm Negative (Negative) Urine RBC (0-5/HPF) Urine WBC (0-5/HPF) Urine Bacteria (None) Urine Mucus (Negative) Ur Culture Indicated? Urine Dip Bedside Urine Glucose 1000 mg/dl Bedside Urine Bilirubin + 1 Bedside Urine Ketone - Negative Urine Specific Brant 1.025 Bedside Urine Occult Blood - Negative Bedside Urine pH 6.0 Bedside Urine Protein +/- 15 Bedside Urine Urobilinogen - Negative Bedside Urine Nitrite - Negative Bedside Urine Leukocytes + 70 Esterase Imaging Data Chest x-ray: Radiologist's Impresson: Signed Patient: Analia Lopez MR#: [id number] : 1935 Acct:[id number] Age/Sex: 87 / F Date of Service: 11/17/22 Loc: ED Accession Number: [id number] ?? Procedure: XR chest 1V Ordering Provider: Nona Jones D.O. PROCEDURE:? XR CHEST 1V ? INDICATIONS:? chest pain ? TECHNIQUE:? One view of the chest was acquired.? ? COMPARISON:? [facility] [place], CR, XR CHEST 1V, 11/09/2022, 2:43. ? FINDINGS:? ? Surgical changes and devices:? None.? ? Lungs and pleura:? Lungs are clear.? No pleural effusions or pneumothorax.? ? Mediastinum:? Mediastinal contours appear normal.? Heart size is normal.? ? Bones and chest wall:? No suspicious bony lesions.? Overlying soft tissues appear unremarkable.? ? IMPRESSION:? No acute cardiopulmonary findings. ? ? Dictated by: Chloe Ring M.D. on 11/17/2022 at 17:14 ? ? Approved by: Chloe Ring M.D. on 11/17/2022 at 17:15 ? ECG Data Interpretation: Normal sinus rhythm rate 80 ME interval 182 QRS [address] changes no T-wave inversions similar to previous EKG MDM Narrative Medical decision making narrative: Patient is a 7-year-old female who presents with possible palpitations and chest pain. She is actually seen evaluated here November 09 for the same. She had likely follow-up with PCP today who thought that there was an arrhythmia. However in the ED she is in normal sinus rhythm. She is 2- troponins. She overall is a poor historian but does not appear to be in any pain. There was no evidence of DKA. She is not requiring anything for pain at this time. At this time I do recommend outpatient follow-up possible stress test possible Holter monitor. However no indication to stay hospitalized today. MDM CC: Palpitations chest pain Complicating co-morbidities: Insulin-dependent diabetes hypertension hyperlipidemia Corroborating data: Recent ED visits Data collected from: [ ] Medical records reviewed: ED visit Differential considered: Acute coronary syndrome, atrial fibrillation atrial flutter, PVCs Exam documented above, pertinent findings include: Sinus rhythm no abnormal physical findings Lab Test results independently reviewed as above. Pertinent findings: As above 2 neg troponins Independently reviewed EKG as above Imaging studies independently reviewed: Consultations: None Treatments: None Re-evaluations: Remains in sinus rhythm no deficits Discussion: As above Diagnosis: Palpitations Disposition: see below, along with detailed discharge instructions that have been reviewed with patient as well as indications for ED re-evaluation and additional outpatient follow up Discharge Plan Departure Patient Disposition: Home Clinical Impression: Palpitations, Atypical chest pain Instructions: DI for Atypical Chest Pain, DI for Palpitations Activity Restrictions/Additional Instructions: *You have been diagnosed with palpitations atypical chest *What to do: At this time no evidence of heart attack. Rhythm is appropriate. However I do recommend a stress test and an outpatient Holter monitor. Please discuss this with her primary care provider *Continue to take medications as directed *Follow up with your primary care provider in 2-3 days or call [phone] *Return to ER if you should have increasing chest pain palpitations shortness of breath dizziness lightheadedness or any new, worsening or concerning symptoms Prescriptions: No Action Lantus U-100 Insulin 100 UNIT/1 ML solution 30 unit SQ QAM Qty: 0 VITAMIN D (Vitamin D3) 1,000 units PO BEDTIME Qty: 0 fluoxetine [Prozac] 40 MG capsule 40 mg PO QDAY Qty: 0 insulin aspart U-100 [Novolog U-100 Insulin aspart] 100 unit/mL solution 10 unit SQ QIDACHS Qty: 0 tolterodine [Detrol LA] 4 MG capsule,extended release 24hr 2 mg PO DAILY Qty: 0 Rx Instructions: 2mg daily each morning. diclofenac sodium [Voltaren] 1 % gel 1 jony Topical PRN PRN (Reason: Pain (Scale Score 1-3)) Qty: 0 omeprazole 40 mg Capsule,Delayed Release(Dr/Ec) 40 mg PO DAILY telmisartan [Micardis] 20 mg Tablet 10 mg PO DAILY Rx Instructions: takes half a 20mg tab once daily in the morning atorvastatin 40 mg Tablet 40 mg PO DAILY aspirin 81 mg tablet,delayed release (DR/EC) 81 mg PO DAILY magnesium oxide 500 mg Tablet 500 mg PO DAILY gabapentin 300 mg capsule 900 mg PO BEDTIME acetaminophen 325 mg Tablet 975 mg PO TID PRN (Reason: pain (scale score 4-6)) Qty: 180 1RF docusate sodium 100 mg Capsule 100 mg PO BID PRN (Reason: constipation) Qty: 60 2RF calcium citrate 200 mg (950 mg) Tablet 200 mg PO BEDTIME Referrals: Sapna Evans MD [Primary Care Provider] - Stand Alone Forms: Patient Portal/API
[2022-11-17 17:02] LABS: Alanine Aminotransferase 19 IU/L (<35); Alkaline Phosphatase 98 U/L (38-126); Aspartate Aminotransferase 24 IU/L (14-36); BUN Creatinine Ratio 14.9 (6-22); Bilirubin Total 0.4 mg/dL (0.2-1.3); Blood Urea Nitrogen 18 mg/dL (7-17); Calcium 9.8 mg/dL (8.4-10.2); Carbon Dioxide 27 mmol/L (22-32); Chloride 100 mmol/L (98-107); Creatine Kinase 113 U/L (30-135); Estimated Glomerular Filt Rate 44 mL/min (>60); Glucose 242 mg/dL (80-110); Lipase 32 U/L (23-300); Potassium 4.1 mmol/L (3.4-5.1); Sodium 136 mmol/L (137-145); Total Protein 7.3 g/dL (6.3-8.2)
[2022-11-17 17:12] LABS: NT-proBNP (BNP-Adult 18+) 133 pg/mL (<450); Troponin I < 0.012 ng/mL (0.01-0.034)
[2022-11-17 17:17] LABS: CKMB % Relative Index 0.8 % (1.5-5.0); Creatine Kinase MB 0.85 ng/mL (<2.37)
[2022-11-17 17:26] LABS: Ictotest Urine Negative (Negative)
[2022-11-17 17:45] VITALS: BP 121/74; PULSE 72; RESP 19; RESP 23; O2SAT 97
[2022-11-17 18:00] VITALS: BP 127/73; PULSE 74; RESP 20; O2SAT 94
[2022-11-17 18:02] LABS: Bacteria Urine None Seen; Mucus Urine 1+ (Negative); RBC Urine None Seen (0-5/HPF); WBC Urine 1-5/HPF (0-5/HPF)
[2022-11-17 18:03] LABS: Culture Indicated Urine Specimen Cultured
[2022-11-17 18:30] VITALS: BP 128/69; PULSE 70; RESP 16; O2SAT 94
[2022-11-17 19:00] VITALS: BP 146/67; PULSE 72; RESP 20; O2SAT 96
[2022-11-17 19:05] LABS: Troponin I < 0.012 ng/mL (0.01-0.034)
[2022-11-17 19:35] VITALS: BP 161/67; PULSE 67; RESP 17; O2SAT 92
[2022-11-19 16:24] LABS: Albumin 3.9 g/dL (3.5-5.0); Albumin Globulin Ratio 1.1 (1.0-2.8); Globulin 3.4 g/dL (1.7-4.1); HEMOLYSIS 26 (0-50)
== END 2022-11-17 19:46 | disposition home or self-care (01) ==
PROVIDERS: Emergency Provider Emergency Medicine; Family Provider Internal Medicine; PCP Internal Medicine
DX: R00.2 Palpitations (principal); R07.89 Other chest pain
CPT/HCPCS: 71045; 80053; 81003; 81015; 82550; 82553; 83690; 83880; 84484; 85025; 87086; 93005; 99283; 99284

== ENCOUNTER → 2023-04-12 10:01 | Outpatient (CLI) | payer MEDICARE, OTHER, SELFPAY ==
[2022-03-07 14:55] VITALS: BMI 27.5
--- NOTE | 2023-04-12 | DI.NM.S_ITS ---
PROCEDURE: NM JACOB PERF SPECT SINGLE STUDY Exercise myocardial perfusion SPECT with gated imaging and ejection fraction RADIOPHARMACEUTICAL: 27.1 mCi Tc-99m sestamibi IV at peak exercise. INDICATIONS: Essential (primary) hypertension TECHNIQUE: Radiopharmaceutical was injected at peak stress test. SPECT images were obtained, with perfusion images in short axis, horizontal long axis, and vertical long axis views. Gated images were reviewed using CorNova software. COMPARISON: None. CARDIAC STRESS: A lexiscan (dose 0.4mg IV X1) pharmaceutical nuclear stress test was done. Hemodynamic data: There is normal blood pressure and heart response to lexiscan. Symptoms: Patient denied anginal chest pain during exercise. EKG: No diagnostic changes of ischemia; no ectopy. FINDINGS: Raw data: There is good labeling of myocardium by radiotracer. No significant motion artifacts. Ygrb-id-gyrqd ratio is 0.3 (normal is less than 0.38 for sestamibi tracer, and less than 0.50 for thallium tracer). Left ventricular function: Gated images demonstrate normal left ventricle wall thickening. No segmental wall motion abnormalities. Left ventricle end diastolic volume is 79 mL. Left ventricle stress ejection fraction is 75%; normal values are above 45%. Myocardial perfusion: There is normal distribution of activity in the left and right ventricular myocardium, without focal perfusion defects. IMPRESSION: Low risk, normal pharmaceutical nuclear stress test. No resting images done. 1) No perfusion evidence of ischemia or infarction. 2) Normal left ventricular size, wall motion, and systolic function (EF post stress 75%). 3) No ST changes with lexsican. 4) No angina during the study. 5) No prior nuclear stress test available for comparison. Dictated by: Cecy Jaquez MD on 04/22/2023 at 13:04 Approved by: Cecy Jaquez MD on 04/22/2023 at 13:06
== END ==
PROVIDERS: Family Provider Internal Medicine; PCP Internal Medicine; Referring Provider Internal Medicine Cardiovascular Disease; Visit Provider Internal Medicine Cardiovascular Disease
DX: I10 Essential (primary) hypertension (principal); R42 Dizziness and giddiness; R07.9 Chest pain, unspecified
CPT/HCPCS: 78451; 93017; A9502; J2785

== ENCOUNTER → 2023-04-20 07:56 | Outpatient (CLI) | payer MEDICARE, OTHER, SELFPAY ==
[2022-03-07 14:55] VITALS: BMI 27.5
--- NOTE | 2023-04-20 | DI.ECHO.S_ITS ---
[facility] +---------+ : : [address] : [place] : : : : [id number] : : : : Phone: [phone] Echocardiogram Report + + :Name: ONUR ANDRADE Study Date: 04/20/2023 Height: 65 in : :[facility] ReadingLocation: Weight: 177 lb : : Gender: Female BSA: 1.9 m2 : :: 1935 Age: 87 yrs BP: 145/78 mmHg: :Reason For Study: HYPERTENSION : :Ordering Physician: ORQUIDEA, : :BARTOLO Performed By: Jaimee Murdock : :Referring: BARTOLO JAQUEZ : + + Interpretation Summary 1) Normal left ventricular thickness and size with mildly systolic function (EF 45-50%). 2) Normal right ventricular size and function. 3) No significant valvular abnormalities. 4) Compared to the Echo done 05/09/2014, :LVEF has decreased from 55-60% to 45- 50% on this study. Procedure: A two-dimensional transthoracic echocardiogram with color flow and Doppler was performed. The study quality was technically adequate. Comparison is made with the echocardiogram of 05/09/2014. The patient was in sinus rhythm with heart rates between 59-65 bpm during the exam. Left Ventricle: The left ventricle is normal in size and wall thickness. The ejection fraction is estimated to be 45-50%. There is mild global hypokinesis of the left ventricle. Diastolic parameters suggest a relaxation abnormality of the left ventricle, consistent with probable normal filling pressures. Right Ventricle: The right ventricle is normal in size and function. Atria: The left atrial size is normal. Right atrial size is normal. There is no Doppler evidence for an interatrial shunt. Mitral Valve: The mitral valve is normal in structure and function. There is mild mitral regurgitation. Aortic Valve: The aortic valve is not well visualized. There is no aortic valve stenosis. No aortic regurgitation is present. Tricuspid Valve: The tricuspid valve leaflets are thin and pliable. There is mild tricuspid regurgitation. The right ventricular systolic pressure is estimated to be at least 31 mmHg based on an estimated right atrial pressure of 3 mm Hg. Pulmonic Valve: The pulmonic valve is not well visualized. There is trace pulmonic regurgitation. Great Vessels: The aortic root is normal size. The dimensions of the ascending aorta are normal. The IVC is of normal diameter and collapses greater than 50% with a sniff. This suggests a low right atrial pressure of 3 mm Hg. Pericardium/ Pleura There is no pericardial effusion. There is no pleural effusion. MMode/2D Measurements & Calculations LVIDd: 3.9 cm LVOT diam: 1.9 cm LVIDs: 2.9 cm Ao root diam: 2.0 cm FS: 26.2 % asc Aorta Diam: 2.0 cm IVSd: 0.93 cm LVPWd: 0.67 cm LV bell. diameter/BSA (cm/m^2): 2.1 LV sys. diameter/BSA (cm/m^2): 1.5 LA A2 area: 16.3 cm2 RA long axis: 3.4 cm LA A4 area: 11.6 cm2 RA area: 8.4 cm2 LA length (vol): 4.3 cm RA vol: 17.8 ml LA vol: 37.0 ml RA : 9.5 ml/m2 LA vol index: 19.7 ml/m2 IVC diam: 1.5 cm RVD1 (basal): 3.2 cm RVD2 (mid): 2.6 cm TAPSE: 1.9 cm Doppler Measurements & Calculations Ao V2 max: 126.5 cm/sec LVOT Max Matthieu: 73.0 cm/sec Ao V2 mean: 84.6 cm/sec LV V1 max P.1 mmHg Ao max P.4 mmHg LV V1 VTI: 17.5 cm Ao mean P.3 mmHg MARICHUY(I,D): 1.9 cm2 Ao V2 VTI: 26.7 cm MARICHUY(V,D): 1.6 cm2 sev ratio: 0.65 MARICHUY indexed to BSA (cm^2/m^2): 0.99 MV E max matthieu: 63.1 cm/sec TR max matthieu: 266.4 cm/sec MV A max matthieu: 118.1 cm/sec TR max P.4 mmHg MV E/A: 0.53 PA V2 max: 127.9 cm/sec Med Peak E' Matthieu: 4.9 cm/sec PA V2 mean: 84.9 cm/sec E/E' med: 12.9 PA mean P.3 mmHg Lat Peak E' Matthieu: 6.4 cm/sec E/E' lat: 9.9 E/e' average: 11.4 MV dec time: 0.24 sec SVLVOT): 49.9 ml Reading Physician:10:59 AM
== END ==
PROVIDERS: Family Provider Internal Medicine; PCP Family Medicine; Referring Provider Internal Medicine Cardiovascular Disease; Visit Provider Internal Medicine Cardiovascular Disease
DX: R07.9 Chest pain, unspecified (principal); I10 Essential (primary) hypertension; R42 Dizziness and giddiness; I08.1 Rheumatic disorders of both mitral and tricuspid valves
CPT/HCPCS: 93306

== ENCOUNTER 2023-04-27 16:37 | Emergency (ER) | payer MEDICARE, OTHER, SELFPAY ==
[2022-03-07 14:55] VITALS: BMI 27.5
[2023-04-27 16:50] VITALS: BP 125/79; PULSE 65; RESP 18; TEMP 36.8; O2SAT 95; BMI 29.5
--- NOTE | 2023-04-27 17:26 | DI.RAD.S_ITS ---
PROCEDURE: XR SACROILIAC JOINT MIN 3V INDICATIONS: pain after fall TECHNIQUE: 3 views of the sacroiliac joints were acquired. COMPARISON: None. FINDINGS: Bones: Moderate degenerative changes of the lower lumbar spine. Degenerative changes of the bilateral sacroiliac joints. No suspicious sclerosis or erosions. No ankylosis noted. No definite fracture seen. Soft tissues: Overlying bowel gas pattern is normal. No suspicious soft tissue densities. IMPRESSION: No definite fracture identified in the sacrum. No diastasis of the sacroiliac joint. Degenerative changes of the lower lumbar spine and bilateral sacroiliac joints. If there are persistent symptoms or clinical suspicion for pathology, then repeat radiographs or advanced imaging (CT or MRI) may be considered for further evaluation. Dictated by: Daniel Abraham M.D. on 04/27/2023 at 18:58 Approved by: Daniel Abraham M.D. on 04/27/2023 at 18:59
--- NOTE | 2023-04-27 18:17 | ED_ITS ---
HPI - Back Pain/Injury General Chief Complaint: Back Pain/Injury Stated Complaint: FELL off bed t-3 Time Seen by Provider: 04/27/23 17:26 Source: patient History of Present Illness HPI Narrative: 87-year-old female nonsmoker with history of hypertension, hyperlipidemia, diabetes, COPD presents with a chief complaint of persistent tailbone pain since a fall about 3 weeks ago with ongoing frequency, urgency with urination in the absence of any fever or chills. She states she has some pain when sitting and movement, but is otherwise well. She she denies numbness, weakness, tingling or radiation of pain down her leg. She states she feels better with over the c ounter meds. Related Data Home Medications Medication Instructions Recorded Confirmed insulin glargine 100 unit/mL 30 unit SQ QAM ##0 07/15/11 03/07/22 subcutaneous solution (Lantus U-100 Insulin) VITAMIN D (Vitamin D3) 1,000 units PO BEDTIME ##0 09/06/11 03/07/22 fluoxetine 40 mg capsule (Prozac) 40 mg PO QDAY ##0 11/28/16 03/07/22 insulin aspart U-100 100 unit/mL 10 unit SQ QIDACHS ##0 11/28/16 03/07/22 subcutaneous solution (Novolog U-100 Insulin aspart) tolterodine 4 mg capsule,extended 2 mg PO DAILY urinary ##0 11/28/16 03/07/22 release 24 hr (Detrol LA) diclofenac sodium 1 % topical gel 1 jony topical PRN PRN Pain (Scale 02/23/17 03/07/22 (Voltaren) Score 1-3) ##0 atorvastatin 40 mg tablet 40 mg PO DAILY 03/03/22 03/07/22 omeprazole 40 mg capsule,delayed 40 mg PO DAILY 03/03/22 03/07/22 release telmisartan 20 mg tablet (Micardis) 10 mg PO DAILY 03/03/22 03/07/22 aspirin 81 mg tablet,delayed 81 mg PO DAILY 03/04/22 03/07/22 release gabapentin 300 mg capsule 900 mg PO BEDTIME 03/04/22 03/07/22 magnesium oxide 500 mg tablet 500 mg PO DAILY 03/04/22 03/07/22 calcium citrate 200 mg (950 mg) 200 mg PO BEDTIME 03/07/22 03/07/22 tablet Previous Rx's Medication Instructions Recorded acetaminophen 325 mg tablet 975 mg PO TID PRN pain (scale 03/06/22 score 4-6) #180 tabs docusate sodium 100 mg capsule 100 mg PO BID PRN constipation #60 03/06/22 caps Allergies Allergy/AdvReac Type Severity Reaction Status Date / Time iodine [IODINE] Allergy Severe Swelling Verified 03/08/22 09:33 of Lip/Tongue/Throat lisinopril [LISINOPRIL] Allergy Severe Swelling Verified 03/08/22 09:33 of Lip/Tongue/Throat shellfish derived Allergy Severe Swelling Verified 03/08/22 09:34 [SHELLFISH DERIVED] of Lip/Tongue/Throat Penicillins Allergy Intermediate Rash Verified 03/09/22 09:43 oxycodone AdvReac Hallucinati Verified 04/27/23 16:50 ng Review of Systems Review of Systems Narrative: GENERAL: Denies chills, fatigue, malaise, fever, sweats. HEENT: Denies sinus pain, ear pain, sore throat, difficulty swallowing, dizziness. RESPIRATORY: Denies dyspnea, cough, wheezing, hemoptysis, sputum. CARDIOVASCULAR: Denies chest pain, palpitations, orthopnea, edema, GASTROINTESTINAL: See HPI : See HPI MUSCULOSKELETAL: See HPI SKIN: Denies rash, skin lesions, or other NEUROLOGIC: Denies weakness, headache, numbness, change in speech, confusion, seizures, incoordination. PSYCHIATRIC: No concerning psychosocial issues. 12 point review of systems is negative except for those stated above Patient History Medical History Arthropathy of left shoulder COPD (chronic obstructive pulmonary disease) Depression Diabetes Gouty arthritis of toe Hypertension Memory changes Osteoarthritis Spinal stenosis Surgical History History of arthroplasty of left knee History of arthroplasty of right knee Social History household members: spouse, family and children Smoking Status: Never smoker alcohol intake: former Smoking Status: Never smoker alcohol intake frequency: holidays/special occasions only Substance Use Type: does not use Exam Narrative Exam Narrative: GENERAL: [87] year old patient appears stated age. Well-developed patient, in mild distress. HEAD: Atraumatic. Normocephalic. EYES: Pupils equal round and reactive. Extraocular motions intact. No scleral icterus. No injection or drainage. ENT: Nose without bleeding, purulent drainage. Throat without erythema, tonsillar hypertrophy or exudate. Airway patent. NECK: Trachea midline. Non tender CARDIOVASCULAR: Regular rate and rhythm without murmurs, gallops, or rubs. RESPIRATORY: Clear to auscultation. Breath sounds equal bilaterally. No wheezes, rales, or rhonchi. GASTROINTESTINAL: Abdomen soft, non-tender, nondistended. EXTREMITIES: No edema or joint tenderness. BACK: Low back pain, in midling, overlying coccyx and sacrum NEURO: AOx3. SKIN: No rash or erythema of visible areas Initial Vital Signs Initial Vital Signs: Vital Signs Temperature 98.2 F 04/27/23 16:50 Pulse Rate 65 04/27/23 16:50 Respiratory Rate 18 04/27/23 16:50 Blood Pressure 125/79 04/27/23 16:50 Pulse Oximetry 95 04/27/23 16:50 Oxygen Delivery Method Room Air 04/27/23 16:50 Course Orders Ordered: ED Orders 04/27/23 17:26 XR sacroiliac joint min 3V Stat Vital Signs Vital signs: Vital Signs - 8 hr 04/27/23 18:31 Pulse Rate 61 Respiratory Rate 18 Blood Pressure 182/74 H Pulse Oximetry 99 Oxygen Delivery Method Room Air MDM - Back Pain/Injury Lab Data Labs: Urine Dip Bedside Urine Glucose Negative Bedside Urine Bilirubin - Negative Bedside Urine Ketone - Negative Urine Specific [place] 1.015 Bedside Urine Occult Blood - Negative Bedside Urine pH 5.5 Bedside Urine Protein - Negative Bedside Urine Urobilinogen - Negative Bedside Urine Nitrite - Negative Bedside Urine Leukocytes - Negative Esterase MDM Narrative Medical decision making narrative: [87] year old patient presents with coccyx pain after ground level fall 3 weeks ago Multiple etiologies for patient's symptoms considered including, but not limited to: [Coccyx fracture versus sacral fracture versus contusion versus other] Prior Charts reviewed in our EMR Primary Historian: patient Labs reviewed and interpreted by myself: No evidence of urinary tract infection Imaging reviewed: No fracture Patient's history and physical exam are reassuring. Pain is well tolerated, no obvious deformities, imaging without evidence of fracture. We did discuss the possible use of a CT scan to look for occult fracture but after discussion of the fact that given her history and physical exam as well as lack of obvious significant findings that the CT would likely not demonstrate any findings that would demonstrate the need for surgical intervention or diagnosis other than pain control and weight-bearing as tolerated which she is already doing. Both patient and would prefer not to pursue advanced imaging at this time Findings and discharge diagnosis discussed with patient/family followed by verbalization of understanding Return precautions discussed with patient/family whom verbalize understanding of diagnosis and plan Discharge Plan Departure Patient Disposition: Home Clinical Impression: Coccygeal contusion Activity Restrictions/Additional Instructions: *You have been diagnosed with [tailbone pain. As we discussed your history and physical exam are reassuring and x-ray demonstrates no evidence of fracture. Furthermore your urine shows no sign of infection.] *What to do: *Please continue to take your regular medications as directed. [ ] New medication prescriptions sent to your pharmacy: [ ] [ ] New medication written as a paper prescription [ ] No new medications given *Please follow up with your primary care provider in 2-3 days, call for an appointment. Let them know you were seen in the Emergency Department and that we ask that you be seen in follow up. We will electronically transmit a record of today's note if your PCP is in our system *If you do not have a primary care provider please contact the [facility] Resource line at [phone]. They will ask some questions about your medical history and help get you set up with a doctor in the community. *Return to Emergency Department if you should have any new, worsening or concerning symptoms, such as [fever greater than 101 F, shaking chills, worsening pain, persistent vomiting or other bothersome symptoms] Prescriptions: No Action Lantus U-100 Insulin 100 UNIT/1 ML solution 30 unit SQ QAM Qty: 0 VITAMIN D (Vitamin D3) 1,000 units PO BEDTIME Qty: 0 fluoxetine [Prozac] 40 MG capsule 40 mg PO QDAY Qty: 0 insulin aspart U-100 [Novolog U-100 Insulin aspart] 100 unit/mL solution 10 unit SQ QIDACHS Qty: 0 tolterodine [Detrol LA] 4 MG capsule,extended release 24hr 2 mg PO DAILY Qty: 0 Rx Instructions: 2mg daily each morning. diclofenac sodium [Voltaren] 1 % gel 1 jony Topical PRN PRN (Reason: Pain (Scale Score 1-3)) Qty: 0 omeprazole 40 mg Capsule,Delayed Release(Dr/Ec) 40 mg PO DAILY telmisartan [Micardis] 20 mg Tablet 10 mg PO DAILY Rx Instructions: takes half a 20mg tab once daily in the morning atorvastatin 40 mg Tablet 40 mg PO DAILY aspirin 81 mg tablet,delayed release (DR/EC) 81 mg PO DAILY magnesium oxide 500 mg Tablet 500 mg PO DAILY gabapentin 300 mg capsule 900 mg PO BEDTIME acetaminophen 325 mg Tablet 975 mg PO TID PRN (Reason: pain (scale score 4-6)) Qty: 180 1RF docusate sodium 100 mg Capsule 100 mg PO BID PRN (Reason: constipation) Qty: 60 2RF calcium citrate 200 mg (950 mg) Tablet 200 mg PO BEDTIME Referrals: Katty Harrington MD [Primary Care Provider] - Stand Alone Forms: Patient Portal/API
[2023-04-27 18:31] VITALS: BP 182/74; PULSE 61; RESP 18; O2SAT 99
== END 2023-04-27 19:28 | disposition home or self-care (01) ==
PROVIDERS: Emergency Provider Emergency Medicine; Family Provider Internal Medicine; PCP Family Medicine
DX: S30.0XXA Contusion of lower back and pelvis, initial encounter (principal); W19.XXXA Unspecified fall, initial encounter
CPT/HCPCS: 72202; 81003; 99283

== ENCOUNTER 2023-07-14 18:26 | Emergency (ER) | payer MEDICARE, OTHER, SELFPAY ==
[2022-03-07 14:55] VITALS: BMI 27.5
[2023-07-14 18:27] VITALS: BP 197/80; PULSE 52; RESP 16; TEMP 37.3; O2SAT 94; BMI 30.7
--- NOTE | 2023-07-14 18:32 | DI.RAD.S_ITS ---
PROCEDURE: XR ELBOW LT MIN 3V INDICATIONS: fall/left arm pain TECHNIQUE: 3 views of the elbow were acquired. COMPARISON: None. FINDINGS: Bones: No fractures or dislocations. No suspicious bony lesions. Soft tissues: No elbow joint effusion. No suspicious soft tissue calcifications. IMPRESSION: No acute osseous abnormality. If symptoms persist with conservative management, consider cross-sectional imaging such as CT or MRI. Dictated by: Brittny Wong M.D. on 07/14/2023 at 19:00 Approved by: Brittny Wong M.D. on 07/14/2023 at 19:00
--- NOTE | 2023-07-14 18:32 | DI.RAD.S_ITS ---
PROCEDURE: XR SHOULDER LT MIN 2V INDICATIONS: fall/left arm pain TECHNIQUE: 3 views of the shoulder were acquired. COMPARISON: [facility], CR, XR SHOULDER LT MIN 2V, 03/07/2022, 10:57. FINDINGS: Bones: Status post left shoulder arthroplasty. Hardware is in expected position. No fractures or dislocations. No suspicious bony lesions. Visualized ribs appear intact. Soft tissues: No suspicious soft tissue calcifications. IMPRESSION: No acute osseous abnormality. Status post left shoulder arthroplasty with prosthesis in anatomic alignment. Dictated by: Brittny Wong M.D. on 07/14/2023 at 19:03 Approved by: Brittny Wong M.D. on 07/14/2023 at 19:05
--- NOTE | 2023-07-14 18:32 | DI.RAD.S_ITS ---
PROCEDURE: XR WRIST LT MIN 3V INDICATIONS: fall/left arm pain TECHNIQUE: 4 views of the wrist were acquired. COMPARISON: [facility], , WRIST MINIMUM 3 VIEWS RIGHT, 09/06/2011, 0:26. FINDINGS: Bones: No acute fracture dislocation. Background of osteoarthritic changes including moderate to severe degeneration of the 1st CMC joint. Scaphoid view: Intact Soft tissues: No suspicious soft tissue calcifications. IMPRESSION: No acute osseous abnormality. If symptoms persist with conservative management, consider repeat radiographs in 7-10 days or cross-sectional imaging such as CT or MRI. Dictated by: Brittny Wong M.D. on 07/14/2023 at 19:01 Approved by: Brittny Wong M.D. on 07/14/2023 at 19:03
--- NOTE | 2023-07-14 18:34 | DI.CT.S_ITS ---
PROCEDURE: CT HEAD/BRAIN WO CON INDICATIONS: fall TECHNIQUE: Noncontrast 4.5 mm thick angled axial sections acquired from the foramen magnum to the vertex, with coronal and sagittal reformats. For radiation dose reduction, the following was used: automated exposure control, adjustment of mA and/or kV according to patient size. COMPARISON: [facility], CT, CT HEAD/BRAIN WO CON, 03/07/2022, 10:28. FINDINGS: Image quality: Excellent. CSF spaces: Basal cisterns are patent. No extra-axial fluid collections. The ventricles are symmetric in size and shape. Brain: No intracranial bleeds or masses. There is cerebral volume loss for age, with resultant ventricular and sulcal prominence. There are periventricular and deep white matter chronic small vessel ischemic changes. There is intracranial internal carotid artery atherosclerosis. Skull and face: Calvarium and visualized facial bones appear intact, without suspicious lesions. Sinuses: Visualized sinuses and mastoids are clear. IMPRESSION: No acute intracranial abnormality. Dictated by: Brittny Wong M.D. on 07/14/2023 at 19:33 Approved by: Brittny Wong M.D. on 07/14/2023 at 19:34
--- NOTE | 2023-07-14 18:34 | DI.CT.S_ITS ---
PROCEDURE: CT CERVICAL SPINE WO CON INDICATIONS: fall TECHNIQUE: Noncontrast 3 mm thick sections acquired from the skull base to the T4 level. Sagittal and coronal reformats were then constructed. For radiation dose reduction, the following was used: automated exposure control, adjustment of mA and/or kV according to patient size. COMPARISON: None. FINDINGS: Image quality: Excellent. Bones: The bones are demineralized. No acute fracture or traumatic subluxation. There is loss of normal cervical lordosis. There is multilevel disc degeneration, severe at C5-C6 and C6-C7. Fixation hardware the mandible is partially visualized. Soft tissues: Prevertebral soft tissues are normal in thickness. No paravertebral hematomas. No apical pneumothoraces. IMPRESSION: No acute fracture or traumatic subluxation. Multilevel degeneration of the cervical spine, severe at C5-C6 and C6-C7. Dictated by: Brittny Wong M.D. on 07/14/2023 at 19:26 Approved by: Brittny Wong M.D. on 07/14/2023 at 19:32
--- NOTE | 2023-07-14 19:49 | ED_ITS ---
HPI - Fall General Chief Complaint: Fall Stated Complaint: Fall Time Seen by Provider: 07/14/23 18:32 Source: patient Mode of arrival: Wheelchair History of Present Illness HPI Narrative: 88-year-old female nonsmoker with history hyperlipidemia, diabetes, hypertension presents with injury suffered as a consequence of a fall. Stating that she felt dizzy at triage. As a consequence of her fall she likely struck her head but denies any neck pain, she has no back pain. She fell towards her left side and has some pain in her left upper extremity but no obvious deformity, no numbness or tingling. She has no chest pain or shortness of breath. She has no abdominal pain. She has had urinary frequency but denies back pain, fever or chills. Related Data Home Medications Medication Instructions Recorded Confirmed insulin glargine 100 unit/mL 30 unit SQ QAM ##0 07/15/11 03/07/22 subcutaneous solution (Lantus U-100 Insulin) VITAMIN D (Vitamin D3) 1,000 units PO BEDTIME ##0 09/06/11 03/07/22 fluoxetine 40 mg capsule (Prozac) 40 mg PO QDAY ##0 11/28/16 03/07/22 insulin aspart U-100 100 unit/mL 10 unit SQ QIDACHS ##0 11/28/16 03/07/22 subcutaneous solution (Novolog U-100 Insulin aspart) tolterodine 4 mg capsule,extended 2 mg PO DAILY urinary ##0 11/28/16 03/07/22 release 24 hr (Detrol LA) diclofenac sodium 1 % topical gel 1 jony topical PRN PRN Pain (Scale 02/23/17 03/07/22 (Voltaren) Score 1-3) ##0 atorvastatin 40 mg tablet 40 mg PO DAILY 03/03/22 03/07/22 omeprazole 40 mg capsule,delayed 40 mg PO DAILY 03/03/22 03/07/22 release telmisartan 20 mg tablet (Micardis) 10 mg PO DAILY 03/03/22 03/07/22 aspirin 81 mg tablet,delayed 81 mg PO DAILY 03/04/22 03/07/22 release gabapentin 300 mg capsule 900 mg PO BEDTIME 03/04/22 03/07/22 magnesium oxide 500 mg tablet 500 mg PO DAILY 03/04/22 03/07/22 calcium citrate 200 mg (950 mg) 200 mg PO BEDTIME 03/07/22 03/07/22 tablet Previous Rx's Medication Instructions Recorded acetaminophen 325 mg tablet 975 mg PO TID PRN pain (scale 03/06/22 score 4-6) #180 tabs docusate sodium 100 mg capsule 100 mg PO BID PRN constipation #60 03/06/22 caps cephalexin 500 mg capsule 500 mg PO Q6H 7 days #28 caps 07/14/23 Allergies Allergy/AdvReac Type Severity Reaction Status Date / Time iodine [IODINE] Allergy Severe Swelling Verified 03/08/22 09:33 of Lip/Tongue/Throat lisinopril [LISINOPRIL] Allergy Severe Swelling Verified 03/08/22 09:33 of Lip/Tongue/Throat shellfish derived Allergy Severe Swelling Verified 03/08/22 09:34 [SHELLFISH DERIVED] of Lip/Tongue/Throat Penicillins Allergy Intermediate Rash Verified 03/09/22 09:43 oxycodone AdvReac Hallucinati Verified 04/27/23 16:50 ng Review of Systems Review of Systems Narrative: GENERAL: Denies chills, fatigue, malaise, fever, sweats. HEENT: Denies sinus pain, ear pain, sore throat, difficulty swallowing, dizziness. RESPIRATORY: Denies dyspnea, cough, wheezing, hemoptysis, sputum. CARDIOVASCULAR: Denies chest pain, palpitations, orthopnea, edema, GASTROINTESTINAL: Denies nausea, vomiting, abdominal pain, diarrhea, constipation, melena. : See HPI MUSCULOSKELETAL: See HPI SKIN: Denies rash, skin lesions, or other NEUROLOGIC: Denies weakness, headache, numbness, change in speech, confusion, seizures, incoordination. PSYCHIATRIC: No concerning psychosocial issues. 12 point review of systems is negative except for those stated above Patient History Medical History Arthropathy of left shoulder COPD (chronic obstructive pulmonary disease) Depression Diabetes Gouty arthritis of toe Hypertension Memory changes Osteoarthritis Spinal stenosis Surgical History History of arthroplasty of left knee History of arthroplasty of right knee Social History household members: spouse, family and children Smoking Status: Never smoker alcohol intake: former Smoking Status: Never smoker alcohol intake frequency: holidays/special occasions only Substance Use Type: does not use Exam Narrative Exam Narrative: GENERAL: [88] year old patient appears stated age. Well-developed patient, in mild distress. HEAD: Atraumatic. Normocephalic. EYES: Pupils equal round and reactive. Extraocular motions intact. No scleral icterus. No injection or drainage. ENT: Dry mucous membranes. Nose without bleeding, purulent drainage. Throat without erythema, tonsillar hypertrophy or exudate. Airway patent. NECK: Trachea midline. Non tender CARDIOVASCULAR: Regular rate and rhythm without murmurs, gallops, or rubs. RESPIRATORY: Clear to auscultation. Breath sounds equal bilaterally. No wheezes, rales, or rhonchi. GASTROINTESTINAL: Abdomen soft, non-tender, nondistended. EXTREMITIES: Full but painful range of motion at left shoulder, elbow and wrist, no obvious deformity, this is closed, isolated and neurovascularly intact BACK: Nontender without deformity or crepitance. No flank tenderness. NEURO: AOx3. SKIN: No rash or erythema of visible areas Initial Vital Signs Initial Vital Signs: Vital Signs Temperature 99.2 F 07/14/23 18:27 Pulse Rate 52 L 07/14/23 18:27 Respiratory Rate 16 07/14/23 18:27 Blood Pressure 197/80 H 07/14/23 18:27 Pulse Oximetry 94 07/14/23 18:27 Oxygen Delivery Method Room Air 07/14/23 18:27 Course Orders Ordered: ED Orders 07/14/23 18:32 XR elbow LT min 3V Stat XR shoulder LT min 2V Stat XR wrist LT min 3V Stat 07/14/23 18:34 CT cervical spine wo con Stat CT head/brain wo con Stat 07/14/23 19:04 EKG-12 Lead Stat 07/14/23 19:57 Urine Culture Stat Urine Microscopic Stat Discontinued Medications Cefazolin Sodium (Cephalexin 250 Mg Cap Prepack) 1 bottle MISC SEEINSTR ONE Stop: 07/14/23 20:15 Last Admin: 07/14/23 20:32 Dose: 1 1000units Documented By: VERÓNICA Vital Signs Vital signs: Vital Signs - 8 hr 07/14/23 20:34 Pulse Rate 54 L Blood Pressure 138/62 Pulse Oximetry 92 Oxygen Delivery Method Room Air MDM - Fall Lab Data Labs: Lab Results 07/14/23 Range/Units 19:57 Urine RBC 0-1/hpf (0-5/HPF) Urine WBC 5-10/hpf H (0-5/HPF) Ur Squamous Epith Cells 0-1 /hpf (0-5/HPF) Urine Bacteria Moderate (10-30) H (None) Ur Culture Indicated? Specimen cultured Urine Dip Bedside Urine Glucose Negative Bedside Urine Bilirubin - Negative Bedside Urine Ketone - Negative Urine Specific [place] 1.015 Bedside Urine Occult Blood - Negative Bedside Urine pH 6.0 Bedside Urine Protein - Negative Bedside Urine Urobilinogen - Negative Bedside Urine Nitrite - Negative Bedside Urine Leukocytes +++ 500 Esterase MDM Narrative Medical decision making narrative: [88] year old patient presents with a fall with minor injuries and urinary complaints Multiple etiologies for patient's symptoms considered including, but not limited to: [UTI versus dehydration versus intracranial hemorrhage versus extremity f racture versus other] Prior Charts reviewed in our EMR Primary Historian: patient Labs reviewed and interpreted by myself: Urine very convincing for infection Imaging reviewed: CT of head and C-spine without fracture or intracranial hemorrhage. Extremity x-rays without fracture or dislocation Patient's symptoms improved over duration of stay with above-stated therapies. She is no longer dizzy, ambulatory in the department, no significant injuries, urine consistent with UTI. Patient given prepack of Keflex tonight and prescription sent to her pharmacy of choice Findings and discharge diagnosis discussed with patient/family followed by verbalization of understanding Return precautions discussed with patient/family whom verbalize understanding of diagnosis and plan Discharge Plan Departure Patient Disposition: Home Clinical Impression: Acute UTI Instructions: DI for Urinary Tract Infection (UTI) Activity Restrictions/Additional Instructions: *You have been diagnosed with [urinary tract infection and no significant associated injuries as a result of your fall.] *What to do: *Please continue to take your regular medications as directed. [x ] New medication prescriptions sent to your pharmacy: [[facility] in [place]] [ ] New medication written as a paper prescription [ ] No new medications given *Please follow up with your primary care provider in 2-3 days, call for an appointment. Let them know you were seen in the Emergency Department and that we ask that you be seen in follow up. We will electronically transmit a record of today's note if your PCP is in our system *Return to Emergency Department if you should have any new, worsening or concerning symptoms, such as [fever greater than 101 F, shaking chills, worsening pain, persistent vomiting or other bothersome symptoms] Prescriptions: New cephalexin 500 mg capsule 500 mg PO Q6H 7 Days Qty: 28 0RF No Action Lantus U-100 Insulin 100 UNIT/1 ML solution 30 unit SQ QAM Qty: 0 VITAMIN D (Vitamin D3) 1,000 units PO BEDTIME Qty: 0 fluoxetine [Prozac] 40 MG capsule 40 mg PO QDAY Qty: 0 insulin aspart U-100 [Novolog U-100 Insulin aspart] 100 unit/mL solution 10 unit SQ QIDACHS Qty: 0 tolterodine [Detrol LA] 4 MG capsule,extended release 24hr 2 mg PO DAILY Qty: 0 Rx Instructions: 2mg daily each morning. diclofenac sodium [Voltaren] 1 % gel 1 jony Topical PRN PRN (Reason: Pain (Scale Score 1-3)) Qty: 0 omeprazole 40 mg Capsule,Delayed Release(Dr/Ec) 40 mg PO DAILY telmisartan [Micardis] 20 mg Tablet 10 mg PO DAILY Rx Instructions: takes half a 20mg tab once daily in the morning atorvastatin 40 mg Tablet 40 mg PO DAILY aspirin 81 mg tablet,delayed release (DR/EC) 81 mg PO DAILY magnesium oxide 500 mg Tablet 500 mg PO DAILY gabapentin 300 mg capsule 900 mg PO BEDTIME acetaminophen 325 mg Tablet 975 mg PO TID PRN (Reason: pain (scale score 4-6)) Qty: 180 1RF docusate sodium 100 mg Capsule 100 mg PO BID PRN (Reason: constipation) Qty: 60 2RF calcium citrate 200 mg (950 mg) Tablet 200 mg PO BEDTIME Referrals: Katty Harrington MD [Primary Care Provider] - Stand Alone Forms: Patient Portal/API
[2023-07-14 20:07] LABS: Bacteria Urine Moderate (10-30); Culture Indicated Urine Specimen Cultured; RBC Urine 0-1/HPF (0-5/HPF); Squamous Epithelial Cell Urine 0-1 /HPF (0-5/HPF); WBC Urine 5-10/HPF (0-5/HPF)
[2023-07-14] MEDS: cephALEXin 250 MG CAP PREPACK 1 BOTTLE MISC (20:32)
[2023-07-14 20:34] VITALS: BP 138/62; PULSE 54; O2SAT 92
== END 2023-07-14 20:35 | disposition home or self-care (01) ==
PROVIDERS: Emergency Provider Emergency Medicine; Family Provider Internal Medicine; PCP Family Medicine
DX: N39.0 Urinary tract infection, site not specified (principal); S09.90XA Unspecified injury of head, initial encounter; W19.XXXA Unspecified fall, initial encounter
CPT/HCPCS: 70450; 72125; 73030; 73080; 73110; 81003; 81015; 87086; 93005; 93010; 99283; 99284

== ENCOUNTER 2023-07-30 14:36 | Emergency (ER) | payer MEDICARE, OTHER, SELFPAY ==
[2022-03-07 14:55] VITALS: BMI 27.5
[2023-07-30] VITALS (11 sets, daily range): BP systolic 129–193; BP diastolic 61–92; PULSE 53–63; RESP 16; TEMP 36.6; O2SAT 89–96; BMI 30.5
--- NOTE | 2023-07-30 14:50 | DI.RAD.S_ITS ---
PROCEDURE: XR CHEST 1V INDICATIONS: dyspnea/copd TECHNIQUE: One view of the chest was acquired. COMPARISON: [facility], CR, XR CHEST 1V, 11/17/2022, 16:11. [facility], CR, XR CHEST 1V, 11/09/2022, 2:43. FINDINGS: Surgical changes and devices: Left shoulder arthroplasty. Lungs and pleura: Lungs are clear. No pleural effusions or pneumothorax. Mediastinum: Mediastinal contours appear normal. Heart size is normal. Bones and chest wall: No suspicious bony lesions. Overlying soft tissues appear unremarkable. IMPRESSION: No acute cardiopulmonary process. Dictated by: David Hewitt M.D. on 07/30/2023 at 15:37 Approved by: David Hewitt M.D. on 07/30/2023 at 15:37
--- NOTE | 2023-07-30 14:50 | DI.RAD.S_ITS ---
PROCEDURE: XR FOOT LT MIN 3V INDICATIONS: L heel pain TECHNIQUE: 3 views of the foot were acquired. COMPARISON: [facility], , FOOT 3V LEFT, 03/24/2016, 6:38. [facility], , FOOT 3V LEFT, 07/15/2011, 22:46. FINDINGS: Bones: No fractures or dislocations. No suspicious bony lesions. Stable appearance of 2nd PIP fixation. Severe osteoarthritic changes of the 1st MTP joint with mild hallux valgus angulation and medial bunion formation. Soft tissues: No tibiotalar joint effusion. Achilles tendon appears normal. IMPRESSION: No acute osseous abnormality. If pain persists with conservative management, consider repeat x-ray in 10-14 days or cross-sectional imaging. Severe osteoarthritic changes of the 1st MTP with mild hallux hallux valgus angulation and medial bunion formation. Dictated by: David Hewitt M.D. on 07/30/2023 at 15:30 Approved by: David Hewitt M.D. on 07/30/2023 at 15:36
[2023-07-30 15:16] LABS: Add Manual Diff / Slide Review NO; Basophils Absolute Auto 0 /uL (0-100); Basophils Percent Auto 0.9 % (0-2); Eosinophils Absolute Auto 100 /uL (0-450); Eosinophils Percent Auto 2.9 % (2-4); Hematocrit 40.1 % (36-46); Hemoglobin 13.1 g/dL (12.0-16.0); Lymphocytes Absolute Auto 1800 /uL (1100-4500); Lymphocytes Percent Auto 35.3 % (25-40); Mean Corpuscular HGB Conc 32.6 % (30-36); Mean Corpuscular Hemoglobin 28.5 PG (26-34); Mean Corpuscular Volume 87.5 fL (80-100); Monocytes Absolute Auto 400 /uL (0-900); Monocytes Percent Auto 8.2 % (3-14); Neutrophils Absolute Auto 2700 /uL (1500-7000); Neutrophils Percent Auto 52.7 % (50-75); Platelet Count 203 X10^3/uL (150-400); Red Blood Cell Count 4.58 X10^6/uL (4.0-5.2); Red Cell Distribution Width 15.1 % (11.6-14.8); White Blood Cell Count 5.1 X10^3/uL (4.5-11.0)
--- NOTE | 2023-07-30 15:22 | ED_ITS ---
HPI - Extremity Injury (Lower) General Chief Complaint: Extremity Injury, Lower Stated Complaint: poss complications from fall last week Time Seen by Provider: 07/30/23 14:48 Source: patient Mode of arrival: Wheelchair History of Present Illness HPI Narrative: 88-year-old female presents by private vehicle from home for left heel pain. Ginette polanco was seen 1 week ago for a fall. She underwent extensive imaging that was reported to be negative and discharged home. states that today the patient was walking when she felt a pain Kiran up from her left heel all the way up to her buttock. Patient complained of pain and they are here today for evaluation. Patient denies new trauma or new falls. Related Data Home Medications Medication Instructions Recorded Confirmed insulin glargine 100 unit/mL 30 unit SQ QAM ##0 07/15/11 03/07/22 subcutaneous solution (Lantus U-100 Insulin) VITAMIN D (Vitamin D3) 1,000 units PO BEDTIME ##0 09/06/11 03/07/22 fluoxetine 40 mg capsule (Prozac) 40 mg PO QDAY ##0 11/28/16 03/07/22 insulin aspart U-100 100 unit/mL 10 unit SQ QIDACHS ##0 11/28/16 03/07/22 subcutaneous solution (Novolog U-100 Insulin aspart) tolterodine 4 mg capsule,extended 2 mg PO DAILY urinary ##0 11/28/16 03/07/22 release 24 hr (Detrol LA) diclofenac sodium 1 % topical gel 1 jony topical PRN PRN Pain (Scale 02/23/17 (Voltaren) Score 1-3) ##0 atorvastatin 40 mg tablet 40 mg PO DAILY 03/03/22 03/07/22 omeprazole 40 mg capsule,delayed 40 mg PO DAILY 03/03/22 03/07/22 release telmisartan 20 mg tablet (Micardis) 10 mg PO DAILY 03/03/22 03/07/22 aspirin 81 mg tablet,delayed 81 mg PO DAILY 03/04/22 03/07/22 release gabapentin 300 mg capsule 900 mg PO BEDTIME 03/04/22 03/07/22 magnesium oxide 500 mg tablet 500 mg PO DAILY 03/04/22 03/07/22 calcium citrate 200 mg (950 mg) 200 mg PO BEDTIME 03/07/22 03/07/22 tablet Previous Rx's Medication Instructions Recorded acetaminophen 325 mg tablet 975 mg PO TID PRN pain (scale 03/06/22 score 4-6) #180 tabs docusate sodium 100 mg capsule 100 mg PO BID PRN constipation #60 03/06/22 caps Allergies Allergy/AdvReac Type Severity Reaction Status Date / Time iodine [IODINE] Allergy Severe Swelling Verified 07/30/23 14:45 of Lip/Tongue/Throat lisinopril [LISINOPRIL] Allergy Severe Swelling Verified 07/30/23 14:45 of Lip/Tongue/Throat shellfish derived Allergy Severe Swelling Verified 07/30/23 14:45 [SHELLFISH DERIVED] of Lip/Tongue/Throat Penicillins Allergy Intermediate Rash Verified 07/30/23 14:45 oxycodone AdvReac Hallucinati Verified 07/30/23 14:45 ng Review of Systems Review of Systems Narrative: CONSTITUTIONAL- Denies: fever, chills, fatigue HEENT- Denies: sore throat, nosebleed, vision changes RESPIRATORY- Denies: shortness of breath, cough, wheezing CARDIAC- Denies: chest pain, edema, orthopnea GI- Denies: abdominal pain, nausea, vomiting, constipation, diarrhea - Denies: frequency, dysuria, hematuria, flank pain MSK-reports: Left heel pain Denies: Joint pain NEUROLOGICAL- Denies: headache, numbness, weakness, dizziness PSYCHIATRIC- Denies: anxiety, depression, suicidal ideation, homicidal ideation Patient History Medical History Arthropathy of left shoulder COPD (chronic obstructive pulmonary disease) Depression Diabetes Gouty arthritis of toe Hypertension Memory changes Osteoarthritis Spinal stenosis Surgical History History of arthroplasty of left knee History of arthroplasty of right knee Social History household members: spouse, family and children Smoking Status: Never smoker alcohol intake: former Smoking Status: Never smoker alcohol intake frequency: holidays/special occasions only Substance Use Type: does not use Exam Initial Vital Signs Initial Vital Signs: Vital Signs Temperature 97.9 F 07/30/23 14:37 Pulse Rate 58 L 07/30/23 14:37 Respiratory Rate 16 07/30/23 14:37 Blood Pressure 193/92 H 07/30/23 14:37 Pulse Oximetry 92 07/30/23 14:37 Oxygen Delivery Method Room Air 07/30/23 14:37 Const: Awake, alert, no acute distress, nontoxic appearing, frail Eyes: PERRL, EOMI, conjunctiva normal ENT: Atraumatic, dentition normal, mucous membranes moist Cardiac: regular rate, regular rhythm RESP: unlabored, clear bilaterally, no wheezing GI: Atraumatic, soft, nontender, nondistended, no rebound, no guarding MSK: Atraumatic, full range of motion, pulses equal Skin: Warm, Dry, intact, no rashes Neuro: AO x3, CN II-XII grossly intact, moves all extremities Psych: affect normal, mood normal, not suicidal, not homicidal Course Course Course Narrative: Frail but nontoxic patient with heel pain, seemingly atraumatic. When patient is distracted there is no reproducible tenderness to palpation, however when paying attention to the physical exam the patient winces when the base of her left heel is palpated. There is no deformity, no foreign body, no laceration, no rash. Patient incidentally found to have oxygen saturations of 87% on room air. Placed on nasal cannula. Patient does have history of COPD with chronic cough. Orders Ordered: ED Orders 07/30/23 14:50 XR chest 1V Stat XR foot LT min 3V Stat 07/30/23 15:05 CBC Auto Diff [Complete Blood Count AUTO DIFF] Stat CMP [Comprehensive Metabolic Panel] Stat Reevaluation(s) Reevaluation #1: Laboratory work is reviewed, no significant abnormalities. While in the exam room the patient coughed a large mucus plug and subsequently saturations improved and she did not require any additional oxygen. She was removed from nasal cannula and saturations maintained greater than 90% on room air. X-rays negative for acute findings. Patient advised of all lab and imaging results, she will continue to follow supportive care measures at home with Tylenol, ice, elevation of the extremity. Vital Signs Vital signs: Vital Signs - 8 hr 07/30/23 14:37 07/30/23 14:50 07/30/23 14:46 Temperature 97.9 F Pulse Rate 58 L 58 L Pulse Rate [Left Dorsalis Pedis] 63 Respiratory Rate 16 Blood Pressure 193/92 H Pulse Oximetry 92 89 L Oxygen Delivery Method Room Air Room Air Oxygen Flow Rate 07/30/23 14:49 07/30/23 14:49 07/30/23 15:00 Temperature Pulse Rate 59 L 53 L Pulse Rate [Left Dorsalis Pedis] Respiratory Rate Blood Pressure 172/79 H Pulse Oximetry 92 91 Oxygen Delivery Method Nasal Cannula Nasal Cannula Oxygen Flow Rate 2 2 07/30/23 15:16 07/30/23 15:16 07/30/23 15:30 Temperature Pulse Rate 59 L 54 L Pulse Rate [Left Dorsalis Pedis] Respiratory Rate Blood Pressure 154/70 H Pulse Oximetry 94 94 Oxygen Delivery Method Nasal Cannula Nasal Cannula Oxygen Flow Rate 2 2 07/30/23 15:53 07/30/23 15:53 07/30/23 16:00 Temperature Pulse Rate 57 L Pulse Rate [Left Dorsalis Pedis] Respiratory Rate Blood Pressure 132/84 135/82 Pulse Oximetry 95 Oxygen Delivery Method Nasal Cannula Oxygen Flow Rate 2 07/30/23 16:00 07/30/23 16:30 07/30/23 16:30 Temperature Pulse Rate 55 L 56 L Pulse Rate [Left Dorsalis Pedis] Respiratory Rate Blood Pressure 136/69 Pulse Oximetry 96 93 Oxygen Delivery Method Nasal Cannula Room Air Oxygen Flow Rate 2 07/30/23 17:00 07/30/23 17:00 Temperature Pulse Rate 55 L Pulse Rate [Left Dorsalis Pedis] Respiratory Rate Blood Pressure 129/61 Pulse Oximetry 96 Oxygen Delivery Method Room Air Oxygen Flow Rate MDM - Extremity Injury (Lower) Lab Data 07/30/23 15:05 07/30/23 15:05 Labs: Lab Results 07/30/23 07/30/23 Range/Units 15:05 15:05 WBC 5.1 (4.5-11.0) X10^3/uL RBC 4.58 (4.0-5.2) X10^6/uL Hgb 13.1 (12.0-16.0) g/dL Hct 40.1 (36-46) % MCV 87.5 (80-100) fL MCH 28.5 (26-34) PG MCHC 32.6 (30-36) % RDW 15.1 H (11.6-14.8) % Plt Count 203 (150-400) X10^3/uL Neut % (Auto) 52.7 (50-75) % Lymph % (Auto) 35.3 (25-40) % [place] % (Auto) 8.2 (3-14) % Eos % (Auto) 2.9 (2-4) % Baso % (Auto) 0.9 (0-2) % Neut # (Auto) 2700 (4629-1772) /uL Lymph # (Auto) 1800 (7253-3772) /uL [place] # (Auto) 400 (0-900) /uL Eos # (Auto) 100 (0-450) /uL Baso # (Auto) 0 (0-100) /uL Sodium 136 L (137-145) mmol/L Potassium 4.3 (3.4-5.1) mmol/L Chloride 103 (98-107) mmol/L Carbon Dioxide 26 (22-32) mmol/L BUN 26 H (7-17) mg/dL Creatinine 1.34 H (0.52-1.04) mg/dL Estimated GFR 38 L (>60) mL/min BUN/Creatinine Ratio 19.4 (6-22) Glucose 119 H (80-110) mg/dL Calcium 9.5 (8.4-10.2) mg/dL Total Bilirubin 0.6 (0.2-1.3) mg/dL AST 30 (14-36) IU/L ALT 22 (<35) IU/L Alkaline Phosphatase 76 (38-126) U/L Total Protein 7.0 (6.3-8.2) g/dL Albumin 3.9 (3.5-5.0) g/dL Globulin 3.1 (1.7-4.1) g/dL Albumin/Globulin Ratio 1.3 (1.0-2.8) Discharge Plan Departure Patient Disposition: Home Clinical Impression: Acute foot pain, COPD (chronic obstructive pulmonary disease) Instructions: Chronic Obstructive Pulmonary Disease, DI for Foot Pain Prescriptions: No Action Lantus U-100 Insulin 100 UNIT/1 ML solution 30 unit SQ QAM Qty: 0 VITAMIN D (Vitamin D3) 1,000 units PO BEDTIME Qty: 0 fluoxetine [Prozac] 40 MG capsule 40 mg PO QDAY Qty: 0 insulin aspart U-100 [Novolog U-100 Insulin aspart] 100 unit/mL solution 10 unit SQ QIDACHS Qty: 0 tolterodine [Detrol LA] 4 MG capsule,extended release 24hr 2 mg PO DAILY Qty: 0 Rx Instructions: 2mg daily each morning. diclofenac sodium [Voltaren] 1 % gel 1 jony Topical PRN PRN (Reason: Pain (Scale Score 1-3)) Qty: 0 omeprazole 40 mg Capsule,Delayed Release(Dr/Ec) 40 mg PO DAILY telmisartan [Micardis] 20 mg Tablet 10 mg PO DAILY Rx Instructions: takes half a 20mg tab once daily in the morning atorvastatin 40 mg Tablet 40 mg PO DAILY aspirin 81 mg tablet,delayed release (DR/EC) 81 mg PO DAILY magnesium oxide 500 mg Tablet 500 mg PO DAILY gabapentin 300 mg capsule 900 mg PO BEDTIME acetaminophen 325 mg Tablet 975 mg PO TID PRN (Reason: pain (scale score 4-6)) Qty: 180 1RF docusate sodium 100 mg Capsule 100 mg PO BID PRN (Reason: constipation) Qty: 60 2RF calcium citrate 200 mg (950 mg) Tablet 200 mg PO BEDTIME Referrals: Katty Harrington MD [Primary Care Provider] - Stand Alone Forms: Patient Portal/API
[2023-07-30 15:24] LABS: Alanine Aminotransferase 22 IU/L (<35); Albumin 3.9 g/dL (3.5-5.0); Albumin Globulin Ratio 1.3 (1.0-2.8); Alkaline Phosphatase 76 U/L (38-126); Aspartate Aminotransferase 30 IU/L (14-36); BUN Creatinine Ratio 19.4 (6-22); Bilirubin Total 0.6 mg/dL (0.2-1.3); Blood Urea Nitrogen 26 mg/dL (7-17); Calcium 9.5 mg/dL (8.4-10.2); Carbon Dioxide 26 mmol/L (22-32); Chloride 103 mmol/L (98-107); Estimated Glomerular Filt Rate 38 mL/min (>60); Globulin 3.1 g/dL (1.7-4.1); Glucose 119 mg/dL (80-110); HEMOLYSIS < 15 (0-50); Potassium 4.3 mmol/L (3.4-5.1); Sodium 136 mmol/L (137-145)
== END 2023-07-30 17:13 | disposition home or self-care (01) ==
PROVIDERS: Emergency Provider Emergency Medicine; Family Provider Internal Medicine; PCP Family Medicine
DX: M79.672 Pain in left foot (principal); J44.9 Chronic obstructive pulmonary disease, unspecified; Z79.899 Other long term (current) drug therapy
CPT/HCPCS: 36415; 71045; 73630; 80053; 85025; 99284

== ENCOUNTER 2023-08-16 06:07 | Emergency (ER) | payer MEDICARE, OTHER, SELFPAY ==
[2022-03-07 14:55] VITALS: BMI 27.5
[2023-08-16] VITALS (40 sets, daily range): BP systolic 150–210; BP diastolic 65–92; PULSE 73–109; RESP 18–38; TEMP 36.2–36.8; O2SAT 89–96; BMI 28.1
--- NOTE | 2023-08-16 06:11 | DI.RAD.S_ITS ---
PROCEDURE: XR SHOULDER RT MIN 2V INDICATIONS: trauma TECHNIQUE: 3 views of the shoulder were acquired. COMPARISON: [facility], CR, XR SHOULDER LT MIN 2V, 07/14/2023, 18:36. [facility], CR, XR SHOULDER LT MIN 2V, 03/07/2022, 10:57. FINDINGS: Bones: No fractures or dislocations. No suspicious bony lesions. Visualized ribs appear intact. Superior subluxation of the humerus. Glenohumeral and acromioclavicular joint space narrowing with associated osteophytosis. Soft tissues: No suspicious soft tissue calcifications. IMPRESSION: No displaced fracture. Moderate shoulder osteoarthritis. Superior subluxation of the humerus, likely a sequela of chronic rotator cuff repair. Dictated by: Octaviano Bailey M.D. on 08/16/2023 at 8:13 Approved by: Octaviano Bailey M.D. on 08/16/2023 at 8:14
--- NOTE | 2023-08-16 06:11 | DI.CT.S_ITS ---
PROCEDURE: CT CHEST ABD PEL WO CON INDICATIONS: trauma, thorasic pain, pelvic pain, TECHNIQUE: After the administration of oral contrast, 5 mm thick sections acquired from the lung apices to the symphysis pubis. 5 mm thick coronal and sagittal reformats acquired, with additional 7 mm coronal MIP reformats through the lungs. For radiation dose reduction, the following was used: automated exposure control, adjustment of mA and/or kV according to patient size. COMPARISON: None. FINDINGS: Image quality: Suboptimal due to lack of intravenous contrast. CHEST: Lungs and pleura: No acute pulmonary opacities. No pleural effusions or pneumothorax. Central and peripheral airways are patent are normal in caliber. Moderate centrilobular emphysema. 2 mm solid nodule in the right upper lobe (series 4, image 38). Mediastinum: Heart size is normal. No pericardial effusion. No mediastinal adenopathy by CT size criteria. Thoracic aorta and central pulmonary arteries are normal in size. Esophagus is normal in caliber. No hiatal hernia. Mild coronary artery calcifications for age Chest wall: No axillary or supraclavicular adenopathy by size criteria. Thyroid gland is unremarkable . ABDOMEN: Solid organs: Liver is normal in size. Gallbladder is unremarkable . Pancreas is normal in contours. Spleen is normal in size. No adrenal nodules. Both kidneys are normal in size, without hydronephrosis or nephrolithiasis. Peritoneum and bowel: Small and large bowel loops are normal in caliber and wall thickness. No free fluid or air. Nodes and vessels: No retroperitoneal or mesenteric adenopathy by size criteria. Aorta and inferior vena cava are normal in size. Miscellaneous: No ventral hernias. PELVIS: Genitourinary: Bladder wall thickness is normal. Miscellaneous: No inguinal hernias or adenopathy. Bones: No suspicious bony lesions. No vertebral body compression fractures. IMPRESSION: No evidence of traumatic injury. 2 mm solid nodule in the right upper lobe. Consider 12 month follow-up per Fleischner society guidelines. Dictated by: Octaviano Bailey M.D. on 08/16/2023 at 8:14 Approved by: Octaviano Bailey M.D. on 08/16/2023 at 8:19
--- NOTE | 2023-08-16 06:11 | DI.RAD.S_ITS ---
PROCEDURE: XR SHOULDER LT MIN 2V INDICATIONS: trauma TECHNIQUE: 3 views of the shoulder were acquired. COMPARISON: [facility], CR, XR SHOULDER LT MIN 2V, 07/14/2023, 18:36. [facility], CR, XR SHOULDER LT MIN 2V, 03/07/2022, 10:57. FINDINGS: Bones: No fractures or dislocations. No suspicious bony lesions. Visualized ribs appear intact. Left shoulder arthroplasty. Soft tissues: No suspicious soft tissue calcifications. IMPRESSION: No displaced fracture. Dictated by: Octaviano Bailey M.D. on 08/16/2023 at 8:13 Approved by: Octaviano Bailey M.D. on 08/16/2023 at 8:13
--- NOTE | 2023-08-16 06:13 | DI.CT.S_ITS ---
PROCEDURE: CT CERVICAL SPINE WO CON INDICATIONS: trauma, tender C3-C7 TECHNIQUE: Noncontrast 3 mm thick sections acquired from the skull base to the T4 level. Sagittal and coronal reformats were then constructed. For radiation dose reduction, the following was used: automated exposure control, adjustment of mA and/or kV according to patient size. COMPARISON: [facility], CT, CT CERVICAL SPINE WO CON, 07/14/2023, 18:37. FINDINGS: Image quality: Excellent. Bones: No acute fractures or dislocations. No acute compression fractures of the vertebral bodies. Craniocervical junction is intact. C1-C2 relationship is preserved. Visualized superior ribs are intact. Moderate-severe multilevel cervical spondylosis noted throughout the imaged spine. There is significant disc space loss, prominent endplate osteophytes, and moderate degenerative endplate changes. No high-grade central canal stenosis identified. Soft tissues: Prevertebral soft tissues are normal in thickness. No paravertebral hematomas. No apical pneumothoraces. IMPRESSION: CT cervical spine without acute fracture or traumatic malalignment. Moderate-severe multilevel cervical spondylosis. No significant discrepancy with the night shift supervisor radiology preliminary report. Dictated by: Daniel Abraham M.D. on 08/16/2023 at 7:20 Approved by: Daniel Abraham M.D. on 08/16/2023 at 7:23
--- NOTE | 2023-08-16 06:13 | DI.CT.S_ITS ---
PROCEDURE: CT HEAD/BRAIN WO CON INDICATIONS: trauma, hit head TECHNIQUE: Noncontrast 4.5 mm thick angled axial sections acquired from the foramen magnum to the vertex, with coronal and sagittal reformats. For radiation dose reduction, the following was used: automated exposure control, adjustment of mA and/or kV according to patient size. COMPARISON: [facility], CT, CT HEAD/BRAIN WO CON, 07/14/2023, 18:37. [facility], CT, CT HEAD/BRAIN WO CON, 03/07/2022, 10:28. FINDINGS: Image quality: Excellent. CSF spaces: Basal cisterns are patent. No extra-axial fluid collections. The ventricles are symmetric in size and shape. Brain: No intracranial bleeds or masses. There is cerebral volume loss for age, with resultant ventricular and sulcal prominence. There are periventricular and deep white matter chronic small vessel ischemic changes. There is intracranial internal carotid artery atherosclerosis. Skull and face: Calvarium and visualized facial bones appear intact, without suspicious lesions. Sinuses: Visualized sinuses and mastoids are clear. IMPRESSION: 1. CT head without acute intracranial abnormalities or acute calvarial fractures. 2. Age-related senescent changes and sequela of chronic small vessel ischemic disease. No significant discrepancy with the medical service technician radiology preliminary report. Dictated by: Daniel Abraham M.D. on 08/16/2023 at 7:18 Approved by: Daniel Abraham M.D. on 08/16/2023 at 7:19
--- NOTE | 2023-08-16 06:23 | ED_ITS ---
HPI - General Adult <Frida Joseph MD - Last Filed: 09/08/23 18:04> General Chief complaint: Trauma Stated complaint: GLF, hip pain Time Seen by Provider: 08/16/23 06:11 Source: patient, family and EMS Mode of arrival: EMS History of Present Illness HPI narrative: 88-year-old woman with progressive Alzheimer's type dementia, hypertension, hyperlipidemia, diabetes brought in by medics after she fell while doing laundry in the shower today. Medics note that they have been out to the home more frequently to help with minor falls as well as minor behavioral issues that are becoming more and more challenging for the family. accompanies the medics. The exact details of the fall are unclear has been states that he walked into the bathroom, startled her and she fell landing on her right side. Patient quite literally, hurts anywhere she is touched. She is coughing but her does not note that she is had fevers recently. She is not oriented to person time or place Related Data Home Medications Medication Instructions Recorded Confirmed VITAMIN D (Vitamin D3) 1,000 units PO BEDTIME ##0 09/06/11 08/19/23 fluoxetine 40 mg capsule (Prozac) 40 mg PO QDAY ##0 11/28/16 08/19/23 insulin aspart U-100 100 unit/mL 10 unit SQ BID ##0 11/28/16 08/19/23 subcutaneous solution (Novolog U-100 Insulin aspart) atorvastatin 40 mg tablet 40 mg PO BEDTIME 03/03/22 08/19/23 aspirin 81 mg tablet,delayed 81 mg PO DAILY 03/04/22 08/19/23 release gabapentin 300 mg capsule 600 mg PO BEDTIME 03/04/22 08/19/23 magnesium oxide 500 mg tablet 500 mg PO DAILY 03/04/22 08/19/23 calcium citrate 200 mg (950 mg) 500 mg PO BID 03/07/22 08/19/23 tablet doxycycline hyclate 100 mg tablet 100 mg PO BID 08/16/23 08/19/23 insulin glargine 100 unit/mL (3 30 unit SUBCUT DAILY 08/16/23 08/19/23 mL) subcutaneous pen (Lantus Solostar U-100 Insulin) metoprolol succinate 50 mg 50 mg PO DAILY 08/16/23 08/19/23 tablet,extended release 24 hr omeprazole 20 mg capsule,delayed 40 mg PO DAILY 08/16/23 08/19/23 release Previous Rx's Medication Instructions Recorded donepezil 5 mg tablet 5 mg PO BEDTIME #30 tabs 08/23/23 Allergies Allergy/AdvReac Type Severity Reaction Status Date / Time iodine [IODINE] Allergy Severe Swelling Verified 07/30/23 14:45 of Lip/Tongue/Throat lisinopril [LISINOPRIL] Allergy Severe Swelling Verified 07/30/23 14:45 of Lip/Tongue/Throat shellfish derived Allergy Severe Swelling Verified 07/30/23 14:45 [SHELLFISH DERIVED] of Lip/Tongue/Throat Penicillins Allergy Intermediate Rash Verified 07/30/23 14:45 oxycodone AdvReac Hallucinati Verified 07/30/23 14:45 ng Review of Systems <Frida Joseph MD - Last Filed: 09/08/23 18:04> Review of Systems Narrative: Pertinent positive and negative findings as per HPI Patient History <Frida Joseph MD - Last Filed: 09/08/23 18:04> Medical History Arthropathy of left shoulder Spinal stenosis Osteoarthritis Depression Memory changes COPD (chronic obstructive pulmonary disease) Diabetes Hypertension Gouty arthritis of toe Surgical History History of arthroplasty of left knee History of arthroplasty of right knee Social History household members: spouse, family and children Smoking Status: Never smoker alcohol intake: former Smoking Status: Never smoker alcohol intake frequency: holidays/special occasions only Substance Use Type: does not use Exam <Frida Joseph MD - Last Filed: 09/08/23 18:04> Initial Vital Signs Initial Vital Signs: Vital Signs Temperature 97.2 F L 08/16/23 06:08 Pulse Rate 87 08/16/23 06:08 Respiratory Rate 18 08/16/23 06:08 Blood Pressure 186/92 H 08/16/23 06:08 Pulse Oximetry 95 08/16/23 06:08 Oxygen Delivery Method Room Air 08/16/23 06:08 General: Frail, older-appearing woman in a C-collar quite chatty but not oriented to person time or place. States that she hurts with any where she is palpated HEENT: Moist mucous membranes, normal sclera with reactive pupils, no bruising or contusions but she complains about pain on the right mormon area Neck: Midline tenderness C 3, 4, 5, 6, 7, supple otherwise Respiratory: Lungs are clear to auscultation, no wheezing no rales no rhonchi. Full and symmetrical air movement Chest: She is tender with any AP compression of the ribcage. She is tender along multiple areas of midline thoracic spine. There is no obvious bruising over the thorax, no subcutaneous air no restricted breathing or splinting secondary to pain Cardiac: Regular rate and rhythm no murmurs no bruits Abdomen: Soft, patient states that her entire abdomen is tender to palpation, she has no rebound or guarding, no flank pain Pelvis: She does complain of ?pain in the ass? with minor manipulation of pelvic ring Hips: She states that both hips hurt right more than the left. Internal and external rotation of both hips seems to cause more pelvic ring pain. She is not able to localize specifically where the pain is Skin: Quite thin, she has a large bruise that appears to be 2 to 3-day-old on the left upper arm and a new contusion to the proximal posterior right upper arm. Neurologic: She is speaking in full sentences, moving all extremities despite reported pain, she is not oriented to person time and place and does appear to be at her baseline per her Extremities: Pain with movement of the left shoulder that patient states is new and worse since a shoulder replacement in 2021, tenderness with external rotation at the right shoulder. No elbow wrist knee or ankle pain is reported Psych: Cooperative, poor memory <José Kaiser MD - Last Filed: 08/17/23 08:03> Initial Vital Signs Initial Vital Signs: Vital Signs Temperature 97.2 F L 08/16/23 06:08 Pulse Rate 87 08/16/23 06:08 Respiratory Rate 18 08/16/23 06:08 Blood Pressure 186/92 H 08/16/23 06:08 Pulse Oximetry 95 08/16/23 06:08 Oxygen Delivery Method Room Air 08/16/23 06:08 Course <Frida Joseph MD - Last Filed: 09/08/23 18:04> Orders Ordered: Discontinued Medications Acetaminophen (Acetaminophen 325 Mg Tablet) 975 mg PO NOW ONE Stop: 08/16/23 07:16 Last Admin: 08/16/23 07:45 Dose: 975 mg Documented By: VERÓNICA Albuterol/Ipratropium (Albuterol/Ipratropium 3 Ml Ampul) 3 ml INH NOW ONE Stop: 08/16/23 09:32 Last Admin: 08/16/23 09:43 Dose: 3 ml Documented By: PAOLO Sodium Chloride (Normal Saline 0.9%) 500 mls @ 1,000 mls/hr IV BOLUS ONE Stop: 08/16/23 09:54 Last Admin: 08/16/23 11:10 Dose: Not Given Documented By: VERÓNICA Oxycodone/Acetaminophen (Oxycodone/Acetaminophen 5/325 Tablet) 1 tab PO NOW ONE Stop: 08/16/23 06:12 Last Admin: 08/16/23 06:30 Dose: Not Given Documented By: BRUCE Vital Signs Vital signs: Vital Signs - 8 hr 08/16/23 06:08 08/16/23 06:15 08/16/23 06:49 Temperature 97.2 F L Pulse Rate 87 83 88 Respiratory Rate 18 24 Blood Pressure 186/92 H 181/88 H Pulse Oximetry 95 94 96 Oxygen Delivery Method Room Air Oxygen Flow Rate 08/16/23 06:50 08/16/23 06:51 08/16/23 06:51 Temperature Pulse Rate 85 86 Respiratory Rate 20 20 Blood Pressure 210/90 H Pulse Oximetry 94 95 Oxygen Delivery Method Oxygen Flow Rate 08/16/23 07:00 08/16/23 07:00 08/16/23 07:15 Temperature Pulse Rate 88 86 86 Respiratory Rate 18 23 23 Blood Pressure 198/65 H Pulse Oximetry 93 94 92 Oxygen Delivery Method Room Air Nasal Cannula Oxygen Flow Rate 3 08/16/23 07:29 08/16/23 07:29 08/16/23 07:30 Temperature Pulse Rate 88 88 Respiratory Rate 24 24 Blood Pressure 199/84 H Pulse Oximetry 91 91 Oxygen Delivery Method Oxygen Flow Rate 08/16/23 07:30 08/16/23 07:31 08/16/23 07:45 Temperature Pulse Rate 88 87 Respiratory Rate 18 23 Blood Pressure 195/85 H 195/85 H Pulse Oximetry 92 92 Oxygen Delivery Method Nasal Cannula Oxygen Flow Rate 3 08/16/23 07:45 08/16/23 08:00 08/16/23 08:01 Temperature Pulse Rate 91 H 90 Respiratory Rate 24 24 Blood Pressure 191/85 H Pulse Oximetry 93 92 Oxygen Delivery Method Oxygen Flow Rate 08/16/23 08:01 08/16/23 08:32 08/16/23 08:45 Temperature Pulse Rate 95 H 84 Respiratory Rate 24 Blood Pressure 156/72 H Pulse Oximetry 91 Oxygen Delivery Method Oxygen Flow Rate 08/16/23 09:00 08/16/23 09:21 08/16/23 09:30 Temperature Pulse Rate 85 78 73 Respiratory Rate 22 22 22 Blood Pressure Pulse Oximetry 91 92 94 Oxygen Delivery Method Nasal Cannula Oximask Oximask Oxygen Flow Rate 3 3 3 08/16/23 09:43 08/16/23 09:45 08/16/23 10:00 Temperature Pulse Rate 73 81 90 Respiratory Rate 18 24 23 Blood Pressure Pulse Oximetry 96 91 91 Oxygen Delivery Method Oximask Oxygen Flow Rate 3 08/16/23 10:15 08/16/23 10:30 08/16/23 10:45 Temperature Pulse Rate 92 H 94 H 91 H Respiratory Rate 31 H 28 H 26 H Blood Pressure Pulse Oximetry 91 91 92 Oxygen Delivery Method Oximask Oxygen Flow Rate 3.5 08/16/23 11:00 08/16/23 11:15 08/16/23 11:30 Temperature Pulse Rate 90 92 H 90 Respiratory Rate 18 26 H 24 Blood Pressure Pulse Oximetry 91 92 92 Oxygen Delivery Method Oximask Oxygen Flow Rate 3.5 08/16/23 11:45 08/16/23 12:00 08/16/23 12:15 Temperature Pulse Rate 91 H 92 H 109 H Respiratory Rate 28 H 37 H 27 H Blood Pressure Pulse Oximetry 91 90 L 92 Oxygen Delivery Method Oximask Oxygen Flow Rate 3.5 08/16/23 12:17 08/16/23 12:17 08/16/23 12:30 Temperature Pulse Rate 94 H 85 Respiratory Rate 25 H 24 Blood Pressure 164/70 H Pulse Oximetry 93 89 L Oxygen Delivery Method Oximask Oximask Oxygen Flow Rate 3.5 3.5 08/16/23 12:30 08/16/23 12:45 08/16/23 12:57 Temperature Pulse Rate 86 90 Respiratory Rate 36 H 29 H Blood Pressure 151/70 H Pulse Oximetry 92 Oxygen Delivery Method Oxygen Flow Rate 3.5 08/16/23 12:57 08/16/23 13:00 08/16/23 13:02 Temperature Pulse Rate 80 89 Respiratory Rate 38 H 23 Blood Pressure 196/89 H Pulse Oximetry 89 L 93 Oxygen Delivery Method Oximask Oxygen Flow Rate 3.5 08/16/23 13:02 08/16/23 13:15 Temperature Pulse Rate 78 Respiratory Rate 23 Blood Pressure 180/77 H Pulse Oximetry 94 Oxygen Delivery Method Oxygen Flow Rate <José Kaiser MD - Last Filed: 08/17/23 08:03> Course Course Narrative: August 16, 2023 7:00 a.m. Job: ?sign out from Dr Joseph patient had ground level fall. Likely mechanical mechanism. Imaging is pending. Laboratory studies pending. Pain is controlled. 7:15 a.m.. Patient in no distress at this time. She does request Tylenol for pain. Orders Ordered: Discontinued Medications Acetaminophen (Acetaminophen 325 Mg Tablet) 975 mg PO NOW ONE Stop: 08/16/23 07:16 Last Admin: 08/16/23 07:45 Dose: 975 mg Documented By: VERÓNICA Albuterol/Ipratropium (Albuterol/Ipratropium 3 Ml Ampul) 3 ml INH NOW ONE Stop: 08/16/23 09:32 Last Admin: 08/16/23 09:43 Dose: 3 ml Documented By: PAOLO Sodium Chloride (Normal Saline 0.9%) 500 mls @ 1,000 mls/hr IV BOLUS ONE Stop: 08/16/23 09:54 Last Admin: 08/16/23 11:10 Dose: Not Given Documented By: VERÓNICA Oxycodone/Acetaminophen (Oxycodone/Acetaminophen 5/325 Tablet) 1 tab PO NOW ONE Stop: 08/16/23 06:12 Last Admin: 08/16/23 06:30 Dose: Not Given Documented By: BRUCE Vital Signs Vital signs: Vital Signs - 8 hr 08/16/23 06:08 08/16/23 06:15 08/16/23 06:49 Temperature 97.2 F L Pulse Rate 87 83 88 Respiratory Rate 18 24 Blood Pressure 186/92 H 181/88 H Pulse Oximetry 95 94 96 Oxygen Delivery Method Room Air Oxygen Flow Rate 08/16/23 06:50 08/16/23 06:51 08/16/23 06:51 Temperature Pulse Rate 85 86 Respiratory Rate 20 20 Blood Pressure 210/90 H Pulse Oximetry 94 95 Oxygen Delivery Method Oxygen Flow Rate 08/16/23 07:00 08/16/23 07:00 08/16/23 07:15 Temperature Pulse Rate 88 86 86 Respiratory Rate 18 23 23 Blood Pressure 198/65 H Pulse Oximetry 93 94 92 Oxygen Delivery Method Room Air Nasal Cannula Oxygen Flow Rate 3 08/16/23 07:29 08/16/23 07:29 08/16/23 07:30 Temperature Pulse Rate 88 88 Respiratory Rate 24 24 Blood Pressure 199/84 H Pulse Oximetry 91 91 Oxygen Delivery Method Oxygen Flow Rate 08/16/23 07:30 08/16/23 07:31 08/16/23 07:45 Temperature Pulse Rate 88 87 Respiratory Rate 18 23 Blood Pressure 195/85 H 195/85 H Pulse Oximetry 92 92 Oxygen Delivery Method Nasal Cannula Oxygen Flow Rate 3 08/16/23 07:45 08/16/23 08:00 08/16/23 08:01 Temperature Pulse Rate 91 H 90 Respiratory Rate 24 24 Blood Pressure 191/85 H Pulse Oximetry 93 92 Oxygen Delivery Method Oxygen Flow Rate 08/16/23 08:01 08/16/23 08:32 08/16/23 08:45 Temperature Pulse Rate 95 H 84 Respiratory Rate 24 Blood Pressure 156/72 H Pulse Oximetry 91 Oxygen Delivery Method Oxygen Flow Rate 08/16/23 09:00 08/16/23 09:21 08/16/23 09:30 Temperature Pulse Rate 85 78 73 Respiratory Rate 22 22 22 Blood Pressure Pulse Oximetry 91 92 94 Oxygen Delivery Method Nasal Cannula Oximask Oximask Oxygen Flow Rate 3 3 3 08/16/23 09:43 08/16/23 09:45 08/16/23 10:00 Temperature Pulse Rate 73 81 90 Respiratory Rate 18 24 23 Blood Pressure Pulse Oximetry 96 91 91 Oxygen Delivery Method Oximask Oxygen Flow Rate 3 08/16/23 10:15 08/16/23 10:30 08/16/23 10:45 Temperature Pulse Rate 92 H 94 H 91 H Respiratory Rate 31 H 28 H 26 H Blood Pressure Pulse Oximetry 91 91 92 Oxygen Delivery Method Oximask Oxygen Flow Rate 3.5 08/16/23 11:00 08/16/23 11:15 08/16/23 11:30 Temperature Pulse Rate 90 92 H 90 Respiratory Rate 18 26 H 24 Blood Pressure Pulse Oximetry 91 92 92 Oxygen Delivery Method Oximask Oxygen Flow Rate 3.5 08/16/23 11:45 08/16/23 12:00 08/16/23 12:15 Temperature Pulse Rate 91 H 92 H 109 H Respiratory Rate 28 H 37 H 27 H Blood Pressure Pulse Oximetry 91 90 L 92 Oxygen Delivery Method Oximask Oxygen Flow Rate 3.5 08/16/23 12:17 08/16/23 12:17 08/16/23 12:30 Temperature Pulse Rate 94 H 85 Respiratory Rate 25 H 24 Blood Pressure 164/70 H Pulse Oximetry 93 89 L Oxygen Delivery Method Oximask Oximask Oxygen Flow Rate 3.5 3.5 08/16/23 12:30 08/16/23 12:45 08/16/23 12:57 Temperature Pulse Rate 86 90 Respiratory Rate 36 H 29 H Blood Pressure 151/70 H Pulse Oximetry 92 Oxygen Delivery Method Oxygen Flow Rate 3.5 08/16/23 12:57 08/16/23 13:00 08/16/23 13:02 Temperature Pulse Rate 80 89 Respiratory Rate 38 H 23 Blood Pressure 196/89 H Pulse Oximetry 89 L 93 Oxygen Delivery Method Oximask Oxygen Flow Rate 3.5 08/16/23 13:02 08/16/23 13:15 Temperature Pulse Rate 78 Respiratory Rate 23 Blood Pressure 180/77 H Pulse Oximetry 94 Oxygen Delivery Method Oxygen Flow Rate Medical Decision Making <Frida Joseph MD - Last Filed: 09/08/23 18:04> Lab Data 08/16/23 06:26 08/16/23 06:26 Labs: Lab Results 08/16/23 08/16/23 Range/Units 06:26 08:35 WBC 5.9 (4.5-11.0) X10^3/uL RBC 4.43 (4.0-5.2) X10^6/uL Hgb 13.0 (12.0-16.0) g/dL Hct 39.2 (36-46) % MCV 88.3 (80-100) fL MCH 29.2 (26-34) PG MCHC 33.1 (30-36) % RDW 14.5 (11.6-14.8) % Plt Count 179 (150-400) X10^3/uL Neut % (Auto) 57.5 (50-75) % Lymph % (Auto) 28.8 (25-40) % [place] % (Auto) 12.4 (3-14) % Eos % (Auto) 0.7 L (2-4) % Baso % (Auto) 0.6 (0-2) % Neut # (Auto) 3400 (2919-1100) /uL Lymph # (Auto) 1700 (2865-0332) /uL [place] # (Auto) 700 (0-900) /uL Eos # (Auto) 0 (0-450) /uL Baso # (Auto) 0 (0-100) /uL Sodium 139 (137-145) mmol/L Potassium 3.6 (3.4-5.1) mmol/L Chloride 105 (98-107) mmol/L Carbon Dioxide 22 (22-32) mmol/L BUN 20 H (7-17) mg/dL Creatinine 1.19 H (0.52-1.04) mg/dL Estimated GFR 44 L (>60) mL/min BUN/Creatinine Ratio 16.8 (6-22) Glucose 184 H (80-110) mg/dL Calcium 9.5 (8.4-10.2) mg/dL Total Bilirubin 0.5 (0.2-1.3) mg/dL AST 30 (14-36) IU/L ALT 21 (<35) IU/L Alkaline Phosphatase 81 (38-126) U/L Troponin I 0.022 (0.01-0.034) ng/mL Total Protein 7.3 (6.3-8.2) g/dL Albumin 4.1 (3.5-5.0) g/dL Globulin 3.2 (1.7-4.1) g/dL Albumin/Globulin Ratio 1.3 (1.0-2.8) Procalcitonin 0.06 (<0.5) ng/mL Urine Color Yellow Urine Appearance Clear Urine pH 5.0 (4.5-8.0) Ur Specific [place] >=1.030 H (1.000-1.035) Urine Protein Trace H (Negative) Urine Glucose (UA) 1+ H (Negative) g/dL Urine Ketones Trace H (NEGATIVE) Urine Occult Blood Negative (Negative) Urine Nitrate Negative (Negative) Urine Bilirubin Negative (NEGATIVE) Urine Urobilinogen 0.2 (0.2) E.U./dL Ur Leukocyte Esterase Negative (NEGATIVE) Urine RBC 1-5/hpf (0-5/HPF) Urine WBC 5-10/hpf H (0-5/HPF) Ur Squamous Epith Cells 1-5 /hpf (0-5/HPF) Urine Bacteria Moderate (10-30) H (None) Hyaline Casts 0-1/lpf (None) Urine Mucus 2+ H (Negative) Ur Culture Indicated? Specimen cultured Blood Type B Positive Antibody Screen Negative Urine Dip Bedside Urine Glucose 250 mg/dl Bedside Urine Bilirubin - Negative Bedside Urine Ketone +/- 5 Urine Specific [place] 1.030 Bedside Urine Occult Blood - Negative Bedside Urine pH 6.0 Bedside Urine Protein +/- 15 Bedside Urine Urobilinogen - Negative Bedside Urine Nitrite - Negative Bedside Urine Leukocytes + 70 Esterase Point of care testing: Urine Dip Bedside Urine Glucose 250 mg/dl Bedside Urine Bilirubin - Negative Bedside Urine Ketone +/- 5 Urine Specific [place] 1.030 Bedside Urine Occult Blood - Negative Bedside Urine pH 6.0 Bedside Urine Protein +/- 15 Bedside Urine Urobilinogen - Negative Bedside Urine Nitrite - Negative Bedside Urine Leukocytes + 70 Esterase MDM Narrative Medical decision making narrative: CC: Fall in the shower, standby traumas activated. Incidentally noted cough Complicating co-morbidities: Progressive Alzheimer's type dementia, hypertension hyperlipidemia Data collected from: patient, medics, Social determinants of health that may influence the patients condition: Progressive dementia with increasing difficulties keeping her safe at home Medical records reviewed: Recent hospital visits for foot pain UTI coccygeal contusion atypical chest pain and hospital discharge summary from February of 2022 with acute delirium are all reviewed Differential considered: Dementia, minor trauma, possibility for multiple fractures and injuries Exam documented above, pertinent findings include: Patient is talking and conversant does not seem to be any acute distress however is tender at almost every point palpated on her exam. She does have a older bruise in the left upper extremity and new bruise on the right upper extremity. Lab Test results independently reviewed as above. Pertinent findings: Independently reviewed EKG as above Imaging studies independently reviewed: Consultations: Treatments: Given her pain at every point of palpation her advanced age and overall confusion, in discussion with her , we will go ahead with complete scan from head cervical spine chest abdomen and pelvis all without contrast due to contrast allergy. Has been requests no pain medication beyond Tylenol as it causes worsening confusion Re-evaluations: Discussion: <José Kaiser MD - Last Filed: 08/17/23 08:03> Lab Data Labs: Lab Results 08/16/23 08/16/23 Range/Units 06:26 08:35 WBC 5.9 (4.5-11.0) X10^3/uL RBC 4.43 (4.0-5.2) X10^6/uL Hgb 13.0 (12.0-16.0) g/dL Hct 39.2 (36-46) % MCV 88.3 (80-100) fL MCH 29.2 (26-34) PG MCHC 33.1 (30-36) % RDW 14.5 (11.6-14.8) % Plt Count 179 (150-400) X10^3/uL Neut % (Auto) 57.5 (50-75) % Lymph % (Auto) 28.8 (25-40) % [place] % (Auto) 12.4 (3-14) % Eos % (Auto) 0.7 L (2-4) % Baso % (Auto) 0.6 (0-2) % Neut # (Auto) 3400 (4487-3743) /uL Lymph # (Auto) 1700 (8752-9922) /uL [place] # (Auto) 700 (0-900) /uL Eos # (Auto) 0 (0-450) /uL Baso # (Auto) 0 (0-100) /uL Sodium 139 (137-145) mmol/L Potassium 3.6 (3.4-5.1) mmol/L Chloride 105 (98-107) mmol/L Carbon Dioxide 22 (22-32) mmol/L BUN 20 H (7-17) mg/dL Creatinine 1.19 H (0.52-1.04) mg/dL Estimated GFR 44 L (>60) mL/min BUN/Creatinine Ratio 16.8 (6-22) Glucose 184 H (80-110) mg/dL Calcium 9.5 (8.4-10.2) mg/dL Total Bilirubin 0.5 (0.2-1.3) mg/dL AST 30 (14-36) IU/L ALT 21 (<35) IU/L Alkaline Phosphatase 81 (38-126) U/L Troponin I 0.022 (0.01-0.034) ng/mL Total Protein 7.3 (6.3-8.2) g/dL Albumin 4.1 (3.5-5.0) g/dL Globulin 3.2 (1.7-4.1) g/dL Albumin/Globulin Ratio 1.3 (1.0-2.8) Procalcitonin 0.06 (<0.5) ng/mL Urine Color Yellow Urine Appearance Clear Urine pH 5.0 (4.5-8.0) Ur Specific [place] >=1.030 H (1.000-1.035) Urine Protein Trace H (Negative) Urine Glucose (UA) 1+ H (Negative) g/dL Urine Ketones Trace H (NEGATIVE) Urine Occult Blood Negative (Negative) Urine Nitrate Negative (Negative) Urine Bilirubin Negative (NEGATIVE) Urine Urobilinogen 0.2 (0.2) E.U./dL Ur Leukocyte Esterase Negative (NEGATIVE) Urine RBC 1-5/hpf (0-5/HPF) Urine WBC 5-10/hpf H (0-5/HPF) Ur Squamous Epith Cells 1-5 /hpf (0-5/HPF) Urine Bacteria Moderate (10-30) H (None) Hyaline Casts 0-1/lpf (None) Urine Mucus 2+ H (Negative) Ur Culture Indicated? Specimen cultured Blood Type B Positive Antibody Screen Negative Urine Dip Bedside Urine Glucose 250 mg/dl Bedside Urine Bilirubin - Negative Bedside Urine Ketone +/- 5 Urine Specific [place] 1.030 Bedside Urine Occult Blood - Negative Bedside Urine pH 6.0 Bedside Urine Protein +/- 15 Bedside Urine Urobilinogen - Negative Bedside Urine Nitrite - Negative Bedside Urine Leukocytes + 70 Esterase Point of care testing: Urine Dip Bedside Urine Glucose 250 mg/dl Bedside Urine Bilirubin - Negative Bedside Urine Ketone +/- 5 Urine Specific [place] 1.030 Bedside Urine Occult Blood - Negative Bedside Urine pH 6.0 Bedside Urine Protein +/- 15 Bedside Urine Urobilinogen - Negative Bedside Urine Nitrite - Negative Bedside Urine Leukocytes + [address] chest abdomen and pelvis: Radiologist's Impression: [address] [address] [address] Scan Report Signed Patient: Analia Lopez MR#: [id number] : 1935 Acct:[id number] Age/Sex: 88 / F Date of Service: 08/16/23 Loc: ED Accession Number: [id number] Procedure: CT chest abd pel wo con Ordering Provider: Frida Joseph MD PROCEDURE: CT CHEST ABD PEL WO CON INDICATIONS: trauma, thorasic pain, pelvic pain, TECHNIQUE: After the administration of oral contrast, 5 mm thick sections acquired from the lung apices to the symphysis pubis. 5 mm thick coronal and sagittal reformats acquired, with additional 7 mm coronal MIP reformats through the lungs. For radiation dose reduction, the following was used: automated exposure control, adjustment of mA and/or kV according to patient size. COMPARISON: None. FINDINGS: Image quality: Suboptimal due to lack of intravenous contrast. CHEST: Lungs and pleura: No acute pulmonary opacities. No pleural effusions or pneumothorax. Central and peripheral airways are patent are normal in caliber. Moderate centrilobular emphysema. 2 mm solid nodule in the right upper lobe (series 4, image 38). Mediastinum: Heart size is normal. No pericardial effusion. No mediastinal adenopathy by CT size criteria. Thoracic aorta and central pulmonary arteries are normal in size. Esophagus is normal in caliber. No hiatal hernia. Mild coronary artery calcifications for age Chest wall: No axillary or supraclavicular adenopathy by size criteria. Thyroid gland is unremarkable . ABDOMEN: Solid organs: Liver is normal in size. Gallbladder is unremarkable . Pancreas is normal in contours. Spleen is normal in size. No adrenal nodules. Both kidneys are normal in size, without hydronephrosis or nephrolithiasis. Peritoneum and bowel: Small and large bowel loops are normal in caliber and wall thickness. No free fluid or air. Nodes and vessels: No retroperitoneal or mesenteric adenopathy by size criteria. Aorta and inferior vena cava are normal in size. Miscellaneous: No ventral hernias. PELVIS: Genitourinary: Bladder wall thickness is normal. Miscellaneous: No inguinal hernias or adenopathy. Bones: No suspicious bony lesions. No vertebral body compression fractures. IMPRESSION: No evidence of traumatic injury. 2 mm solid nodule in the right upper lobe. Consider 12 month follow-up per Fleischner society guidelines. Dictated by: Octaviano Bailey M.D. on 08/16/2023 at 8:14 Approved by: Octaviano Bailey M.D. on 08/16/2023 at 8:19 CT scan - head: Radiologist's Impression: [address] [address] [address] Scan Report Signed Patient: Analia Lopez MR#: [id number] : 1935 Acct:[id number] Age/Sex: 88 / F Date of Service: 08/16/23 Loc: ED Accession Number: [id number] Procedure: CT head/brain wo con Ordering Provider: Frida Joseph MD PROCEDURE: CT HEAD/BRAIN WO CON INDICATIONS: trauma, hit head TECHNIQUE: Noncontrast 4.5 mm thick angled axial sections acquired from the foramen magnum to the vertex, with coronal and sagittal reformats. For radiation dose reduction, the following was used: automated exposure control, adjustment of mA and/or kV according to patient size. COMPARISON: [facility], CT, CT HEAD/BRAIN WO CON, 07/14/2023, 18:37. [facility], CT, CT HEAD/BRAIN WO CON, 03/07/2022, 10:28. FINDINGS: Image quality: Excellent. CSF spaces: Basal cisterns are patent. No extra-axial fluid collections. The ventricles are symmetric in size and shape. Brain: No intracranial bleeds or masses. There is cerebral volume loss for age, with resultant ventricular and sulcal prominence. There are periventricular and deep white matter chronic small vessel ischemic changes. There is intracranial internal carotid artery atherosclerosis. Skull and face: Calvarium and visualized facial bones appear intact, without suspicious lesions. Sinuses: Visualized sinuses and mastoids are clear. IMPRESSION: 1. CT head without acute intracranial abnormalities or acute calvarial fractures. 2. Age-related senescent changes and sequela of chronic small vessel ischemic disease. No significant discrepancy with the shift foreman radiology preliminary report. Dictated by: Daniel Abraham M.D. on 08/16/2023 at 7:18 Approved by: Daniel Abraham M.D. on 08/16/2023 at 7:19 CT - cervical spine: Radiologist's Impression: [address] [address] [address] Scan Report Signed Patient: Analia Lopez MR#: [id number] : 1935 Acct:[id number] Age/Sex: 88 / F Date of Service: 08/16/23 Loc: ED Accession Number: [id number] Procedure: CT cervical spine wo con Ordering Provider: Frida Joseph MD PROCEDURE: CT CERVICAL SPINE WO CON INDICATIONS: trauma, tender C3-C7 TECHNIQUE: Noncontrast 3 mm thick sections acquired from the skull base to the T4 level. Sagittal and coronal reformats were then constructed. For radiation dose reduction, the following was used: automated exposure control, adjustment of mA and/or kV according to patient size. COMPARISON: [facility], CT, CT CERVICAL SPINE WO CON, 07/14/2023, 18:37. FINDINGS: Image quality: Excellent. Bones: No acute fractures or dislocations. No acute compression fractures of the vertebral bodies. Craniocervical junction is intact. C1-C2 relationship is preserved. Visualized superior ribs are intact. Moderate-severe multilevel cervical spondylosis noted throughout the imaged spine. There is significant disc space loss, prominent endplate osteophytes, and moderate degenerative endplate changes. No high-grade central canal stenosis identified. Soft tissues: Prevertebral soft tissues are normal in thickness. No paravertebral hematomas. No apical pneumothoraces. IMPRESSION: CT cervical spine without acute fracture or traumatic malalignment. Moderate-severe multilevel cervical spondylosis. No significant discrepancy with the shift foreman radiology preliminary report. Dictated by: Daniel Abraham M.D. on 08/16/2023 at 7:20 Approved by: Daniel Abraham M.D. on 08/16/2023 at 7:23 Extremity x-ray #1: Radiologist's Impression: [address] [address] XRay Report Signed Patient: Analia Lopez MR#: [id number] : 1935 Acct:[id number] Age/Sex: 88 / F Date of Service: 08/16/23 Loc: ED Accession Number: [id number] Procedure: XR shoulder RT min 2V Ordering Provider: Frida Joseph MD PROCEDURE: XR SHOULDER RT MIN 2V INDICATIONS: trauma TECHNIQUE: 3 views of the shoulder were acquired. COMPARISON: [facility], CR, XR SHOULDER LT MIN 2V, 07/14/2023, 18:36. [facility], CR, XR SHOULDER LT MIN 2V, 03/07/2022, 10:57. FINDINGS: Bones: No fractures or dislocations. No suspicious bony lesions. Visualized ribs appear intact. Superior subluxation of the humerus. Glenohumeral and acromioclavicular joint space narrowing with associated osteophytosis. Soft tissues: No suspicious soft tissue calcifications. IMPRESSION: No displaced fracture. Moderate shoulder osteoarthritis. Superior subluxation of the humerus, likely a sequela of chronic rotator cuff repair. Dictated by: Octaviano Bailey M.D. on 08/16/2023 at 8:13 Approved by: Octaviano Bailey M.D. on 08/16/2023 at 8:14 [facility] Narrative Medical decision making narrative: CC: Fall in the shower, standby traumas activated. Incidentally noted cough Complicating co-morbidities: Progressive Alzheimer's type dementia, hypertension hyperlipidemia Data collected from: patient, medics, Social determinants of health that may influence the patients condition: Progressive dementia with increasing difficulties keeping her safe at home Medical records reviewed: Recent hospital visits for foot pain UTI coccygeal contusion atypical chest pain and hospital discharge summary from February of 2022 with acute delirium are all reviewed Differential considered: Dementia, minor trauma, possibility for multiple fractures and injuries Exam documented above, pertinent findings include: Patient is talking and conversant does not seem to be any acute distress however is tender at almost every point palpated on her exam. She does have a older bruise in the left upper extremity and new bruise on the right upper extremity. Lab Test results independently reviewed as above. Pertinent findings: WBC 5.9 hemoglobin 13.0 platelets 179 sodium 139 potassium 3.6 BUN 20 creatinine 1.19, both are at baseline, GFR 44 which is at baseline. Glucose 184. Calcium 9.5 AST 30 ALT 21 troponin 0.022 within normal range, procalcitonin 0.06 Imaging studies independently reviewed: CT head CT cervical spine and CT chest abdomen pelvis x-ray bilateral shoulders no acute finding Consultations: 1:31 p.m.. Patient has been evaluated by social work as well as respiratory therapist. Renetta, social work, states that patient and have family that live with them as well as grandchildren help out. They do have good support. Respiratory therapy has evaluated patient and requiring to be sent home on 1 L nasal cannula oxygen at rest and requires 8 L on ambulation. This is likely not new but chronic. Again, please review past year medical charts patient has been needing oxygen all this time. Patient has been evaluated and treated by respiratory therapy for home oxygen. She requires 1 L at rest and 8 L ambulation. However again this is chronic. She will also have supplemental oxygen to go home with and provided at home services as well. Treatments: Given her pain at every point of palpation her advanced age and overall confusion, in discussion with her , we will go ahead with complete scan from head cervical spine chest abdomen and pelvis all without contrast due to contrast allergy. Has been requests no pain medication beyond Tylenol as it causes worsening confusion Re-evaluations: 8:25 a.m.. Patient able to up and ambulate to the bathroom for urine specimen. Pain is controlled. 1:40 p.m.. Patient in no distress. Patient and do desire discharge home. They do have good home support. Return precautions reviewed with him. They desire discharge home Patient 87% room air on ambulating. I reviewed with patient and . She does have history of COPD. She is not on home oxygen. They are uncertain if she is supposed to be on home oxygen. They do not do breathing treatments at home. Does not smoke. Patient in no respiratory distress at rest but gets short of breath when he is walking around. No recent illness. Does have chronic productive cough which is not new. CT chest is reassuring at this time. No prior history of blood clots in legs or lungs. Discussion: Appropriate for discharge home. Patient has been extensively worked up, trauma is clear of significant injuries. Has contusions. Been evaluated by respiratory therapy as well as social work. Patient has good resources and will be going home with home oxygen. Patient home setting has been evaluated by social work as well. Patient is safe to go home. Discharge Plan Departure Patient Disposition: Home Clinical Impression: Contusion of multiple sites, COPD (chronic obstructive pulmonary disease) Instructions: DI for Chronic Obstructive Pulmonary Disease, DI for Contusion, DI for Trauma Activity Restrictions/Additional Instructions: Please see family doctor this week for re-evaluation. Please continue home oxygen as demonstrated instructed by respiratory therapy here. Be careful with your oxygen tubing and not to trip over it. Return if worse if any questions or concerns. Your CT scans and x-rays are reassuring as well as blood work today. Please have your blood pressure rechecked with family doctor this week as well. Prescriptions: No Action VITAMIN D (Vitamin D3) 1,000 units PO BEDTIME Qty: 0 fluoxetine [Prozac] 40 MG capsule 40 mg PO QDAY Qty: 0 insulin aspart U-100 [Novolog U-100 Insulin aspart] 100 unit/mL solution 10 unit SQ BID Qty: 0 atorvastatin 40 mg Tablet 40 mg PO BEDTIME aspirin 81 mg tablet,delayed release (DR/EC) 81 mg PO DAILY magnesium oxide 500 mg Tablet 500 mg PO DAILY gabapentin 300 mg capsule 600 mg PO BEDTIME calcium citrate 200 mg (950 mg) Tablet 500 mg PO BID metoprolol succinate 50 mg tablet extended release 24 hr 50 mg PO DAILY omeprazole 20 mg capsule,delayed release(DR/EC) 40 mg PO DAILY insulin glargine [Lantus Solostar U-100 Insulin] 100 unit/mL (3 mL) insulin pen 30 unit SUBCUT DAILY Patient Comments: [NO ORIGINAL SIG] doxycycline hyclate 100 mg tablet 100 mg PO BID donepezil 5 mg Tablet 5 mg PO BEDTIME Qty: 30 0RF Referrals: Katty Harrington MD [Primary Care Provider] - Stand Alone Forms: Patient Portal/API
[2023-08-16 06:53] LABS: Add Manual Diff / Slide Review NO; Basophils Absolute Auto 0 /uL (0-100); Basophils Percent Auto 0.6 % (0-2); Eosinophils Absolute Auto 0 /uL (0-450); Eosinophils Percent Auto 0.7 % (2-4); Hematocrit 39.2 % (36-46); Lymphocytes Absolute Auto 1700 /uL (1100-4500); Lymphocytes Percent Auto 28.8 % (25-40); Mean Corpuscular HGB Conc 33.1 % (30-36); Mean Corpuscular Hemoglobin 29.2 PG (26-34); Mean Corpuscular Volume 88.3 fL (80-100); Monocytes Absolute Auto 700 /uL (0-900); Monocytes Percent Auto 12.4 % (3-14); Neutrophils Absolute Auto 3400 /uL (1500-7000); Neutrophils Percent Auto 57.5 % (50-75); Platelet Count 179 X10^3/uL (150-400); Red Blood Cell Count 4.43 X10^6/uL (4.0-5.2); Red Cell Distribution Width 14.5 % (11.6-14.8); White Blood Cell Count 5.9 X10^3/uL (4.5-11.0)
[2023-08-16 07:16] LABS: Alanine Aminotransferase 21 IU/L (<35); Albumin 4.1 g/dL (3.5-5.0); Albumin Globulin Ratio 1.3 (1.0-2.8); Alkaline Phosphatase 81 U/L (38-126); Aspartate Aminotransferase 30 IU/L (14-36); BUN Creatinine Ratio 16.8 (6-22); Bilirubin Total 0.5 mg/dL (0.2-1.3); Blood Urea Nitrogen 20 mg/dL (7-17); Calcium 9.5 mg/dL (8.4-10.2); Carbon Dioxide 22 mmol/L (22-32); Chloride 105 mmol/L (98-107); Estimated Glomerular Filt Rate 44 mL/min (>60); Globulin 3.2 g/dL (1.7-4.1); Glucose 184 mg/dL (80-110); HEMOLYSIS < 15 (0-50); Potassium 3.6 mmol/L (3.4-5.1); Sodium 139 mmol/L (137-145); Total Protein 7.3 g/dL (6.3-8.2)
[2023-08-16 07:27] LABS: Troponin I 0.022 ng/mL (0.01-0.034)
[2023-08-16 07:32] LABS: Procalcitonin 0.06 ng/mL (<0.5)
[2023-08-16] MEDS: ACETAMINOPHEN 325 MG TABLET 975 MG PO (07:45)
[2023-08-16 09:00] LABS: Appearance Urine UA CLEAR; Bilirubin Urine UA NEGATIVE (NEGATIVE); Color Urine UA YELLOW; Glucose Urine UA 1+ g/dL (Negative); Ketones Urine UA TRACE (NEGATIVE); Leukocyte Esterase Urine UA NEGATIVE (NEGATIVE); Nitrite Urine UA NEGATIVE (Negative); Occult Blood Urine UA NEGATIVE (Negative); Protein Urine UA TRACE (Negative); Specific Gravity Urine UA >=1.030 (1.000-1.035); Urobilinogen Urine UA 0.2 E.U./dL (0.2)
[2023-08-16 09:08] LABS: Bacteria Urine Moderate (10-30); Culture Indicated Urine Specimen Cultured; Hyaline Casts Urine 0-1/LPF; Mucus Urine 2+ (Negative); RBC Urine 1-5/HPF (0-5/HPF); Squamous Epithelial Cell Urine 1-5 /HPF (0-5/HPF); WBC Urine 5-10/HPF (0-5/HPF)
--- NOTE | 2023-08-16 09:22 | PC.NURSE ---
Ambulation trial. Pt on 3L in room with 91% sat. Pt dropped to 82% RA on ambulation trial with HR 113. Physician aware. states is not on home O2, states someone has talked to her about needing home O2. Physician aware. Currently in room on 3L 93%, RT brought a oximask to help with sleep apnea sat drop.
[2023-08-16] MEDS: ALBUTEROL/IPRATROPIUM 3 ML AMPUL INH (09:43)
--- NOTE | 2023-08-16 13:28 | PC.NURSE ---
RT and RN performed ambulation trial, pt required 6L O2 to maintain 88% during exertion, physician aware.
--- NOTE | 2023-08-16 13:54 | CM.SWNOTE ---
ED LANDSCAPE MANAGER Note Patient is 88 y/o female who presents to ED after GLF, patient had full trauma work up. Patient has hx of COPD and does not currently have home O2. Patient sees PCP on [place], Patient has Medicare, [employer] Medicare and [employer]. ED provider requests LANDSCAPE MANAGER consult for assistance with home O2 referral. ED provider puts in orders for RT Home O2 eval and education. LANDSCAPE MANAGER calls acute care DCP and reports that RT will follow up with the home O2 referral and ensure patient receives home oxygen. LANDSCAPE MANAGER enters room to meet with patient, present in room is spouse. Patient presents as A/Ox3, it is reported that patient and spouse live in [place] with daughter and son. It is reported to RN that grandchildren help out as well. It is reported that patient has DME and has cane and walker at home. Patient and spouse deny concerns regarding ADLs and state that things are going fine at home. Patient and spouse deny further needs from LANDSCAPE MANAGER. Per RT, patient requires 6 liters of O2, patient passed ambulation trial. Plan: patient to d/c to home with home O2 upon medical clearance with spouse. Patient to f/u with outpatient providers. AYUSH Hall
== END 2023-08-16 14:20 | disposition home or self-care (01) ==
PROVIDERS: Emergency Medicine; Emergency Provider Emergency Medicine; Family Provider Internal Medicine; PCP Family Medicine
DX: S70.11XA Contusion of right thigh, initial encounter (principal); S40.021A Contusion of right upper arm, initial encounter; S30.0XXA Contusion of lower back and pelvis, initial encounter; J44.9 Chronic obstructive pulmonary disease, unspecified; M54.6 Pain in thoracic spine; S09.90XA Unspecified injury of head, initial encounter; R10.2 Pelvic and perineal pain; W18.2XXA Fall in (into) shower or empty bathtub, initial encounter; F03.90 Unspecified dementia, unspecified severity, without behavioral disturbance, psychotic disturbance, mood disturbance, and anxiety
CPT/HCPCS: 51798; 70450; 71250; 72125; 73030; 74176; 80053; 81001; 81003; 84145; 84484; 85025; 86850; 86900; 86901; 87086; 99285

== ENCOUNTER 2023-08-19 03:21 | Inpatient (IN) | payer MEDICARE, OTHER, SELFPAY ==
[2022-03-07 14:55] VITALS: BMI 27.5
[2023-08-19] VITALS (24 sets, daily range): BP systolic 97–153; BP diastolic 51–91; PULSE 65–85; RESP 14–23; TEMP 35.6–36.8; O2SAT 88–99; BMI 26.9
--- NOTE | 2023-08-19 03:26 | DI.RAD.S_ITS ---
PROCEDURE: XR CHEST 1V INDICATIONS: dyspnea TECHNIQUE: One view of the chest was acquired. COMPARISON: [facility], CR, XR CHEST 1V, 07/30/2023, 14:52. FINDINGS: Surgical changes and devices: Stable postsurgical changes of left shoulder arthroplasty. Lungs and pleura: Lungs are clear. No pleural effusions or pneumothorax. Mediastinum: Mediastinal contours appear normal. Heart size is normal. Bones and chest wall: No suspicious bony lesions. Overlying soft tissues appear unremarkable. IMPRESSION: Stable radiographic evaluation of the chest without acute cardiopulmonary abnormalities or focal airspace disease. No significant discrepancy with the warehouse shift supervisor radiology preliminary report. Dictated by: Daniel Abraham M.D. on 08/19/2023 at 7:02 Approved by: Daniel Abraham M.D. on 08/19/2023 at 7:03
--- NOTE | 2023-08-19 03:27 | ED.GENADULT ---
HPI - General Adult General Chief complaint: Shortness of Breath/Dyspnea Stated complaint: low oxygen sats. Time Seen by Provider: 08/19/23 03:24 History of Present Illness HPI narrative: 88-year-old woman with progressive Alzheimer's type dementia, hypertension, hyperlipidemia, diabetes brought in by medics for evaluation of shortness of breath and abnormal breathing pattern. Her reports that she had gone to bed in her normal state of health and then prior to calling EMS he was up to use the restroom and noted that she was breathing quite slow and abnormally. EMS was activated on their arrival she was found to have saturations in the low 80s. She was given oxygen by nasal cannula in perked up bit in route, IV was placed. She had been seen and evaluated a few days ago for injury suffered as a consequence of a fal. she was discharged after a very thorough evaluation including respiratory therapy and social work. She was given oxygen 1 L at home. She routinely requires 1 L at rest and upwards of 8 L on ambulation.l She has no new medications and they deny any change in medications. She is had no fever or chills, no nausea or vomiting, no difficulty with bowel movements or bladder control Patient is full code per Related Data Home Medications Medication Instructions Recorded Confirmed VITAMIN D (Vitamin D3) 1,000 units PO BEDTIME ##0 09/06/11 08/16/23 fluoxetine 40 mg capsule (Prozac) 40 mg PO QDAY ##0 11/28/16 08/16/23 insulin aspart U-100 100 unit/mL 10 unit SQ BID ##0 11/28/16 08/16/23 subcutaneous solution (Novolog U-100 Insulin aspart) atorvastatin 40 mg tablet 40 mg PO BEDTIME 03/03/22 08/16/23 aspirin 81 mg tablet,delayed 81 mg PO DAILY 03/04/22 08/16/23 release gabapentin 300 mg capsule 600 mg PO BEDTIME 03/04/22 08/16/23 magnesium oxide 500 mg tablet 500 mg PO DAILY 03/04/22 08/16/23 calcium citrate 200 mg (950 mg) 500 mg PO BID 03/07/22 08/16/23 tablet doxycycline hyclate 100 mg tablet 100 mg PO BID 08/16/23 08/16/23 insulin glargine 100 unit/mL (3 30 unit SUBCUT DAILY 08/16/23 08/16/23 mL) subcutaneous pen (Lantus Solostar U-100 Insulin) metoprolol succinate 50 mg 50 mg PO DAILY 08/16/23 08/16/23 tablet,extended release 24 hr omeprazole 20 mg capsule,delayed 40 mg PO BID 08/16/23 08/16/23 release Allergies Allergy/AdvReac Type Severity Reaction Status Date / Time iodine [IODINE] Allergy Severe Swelling Verified 07/30/23 14:45 of Lip/Tongue/Throat lisinopril [LISINOPRIL] Allergy Severe Swelling Verified 07/30/23 14:45 of Lip/Tongue/Throat shellfish derived Allergy Severe Swelling Verified 07/30/23 14:45 [SHELLFISH DERIVED] of Lip/Tongue/Throat Penicillins Allergy Intermediate Rash Verified 07/30/23 14:45 oxycodone AdvReac Hallucinati Verified 07/30/23 14:45 ng Review of Systems Review of Systems Narrative: GENERAL: Denies chills, fatigue, malaise, fever, sweats. HEENT: Denies sinus pain, ear pain, sore throat, difficulty swallowing, dizziness. RESPIRATORY: see HPI CARDIOVASCULAR: Denies chest pain, palpitations, orthopnea, edema, GASTROINTESTINAL: Denies nausea, vomiting, abdominal pain, diarrhea, constipation, melena. : Denies dysuria, frequency, incontinence, hematuria, urinary retention. MUSCULOSKELETAL: denies weakness, joint pain, or bony pain SKIN: Denies rash, skin lesions, or other NEUROLOGIC: Denies weakness, headache, numbness, change in speech, confusion, seizures, incoordination. PSYCHIATRIC: No concerning psychosocial issues. 12 point review of systems is negative except for those stated above Patient History Medical History Arthropathy of left shoulder Spinal stenosis Osteoarthritis Depression Memory changes COPD (chronic obstructive pulmonary disease) Diabetes Hypertension Gouty arthritis of toe Surgical History History of arthroplasty of left knee History of arthroplasty of right knee Social History household members: spouse, family and children Smoking Status: Never smoker alcohol intake: former Smoking Status: Never smoker alcohol intake frequency: holidays/special occasions only Substance Use Type: does not use Exam Narrative Exam Narrative: GENERAL: [88] year old patient appears stated age. Well-developed patient, in mild distress. GCS 14 ( pleasantly confused) HEAD: Atraumatic. Normocephalic. EYES: Pupils equal round and reactive. Extraocular motions intact. No scleral icterus. No injection or drainage. ENT: dry mucous membranesNose without bleeding, purulent drainage. Throat without erythema, tonsillar hypertrophy or exudate. Airway patent. NECK: Trachea midline. Non tender CARDIOVASCULAR: Regular rate and rhythm without murmurs, gallops, or rubs. RESPIRATORY: decreased breath sounds throughout with prolonged expiratory phase, slightly coarse sounds in bilateral bases L >R, no significant increased work of breathing or use of accessory muscles GASTROINTESTINAL: Abdomen soft, non-tender, nondistended. EXTREMITIES: No edema or joint tenderness. BACK: Nontender without deformity or crepitance. No flank tenderness. NEURO: AOx3. SKIN: No rash or erythema of visible areas Initial Vital Signs Initial Vital Signs: Vital Signs Pulse Rate 65 08/19/23 03:26 Respiratory Rate 22 08/19/23 03:26 Pulse Oximetry 91 08/19/23 03:26 Course Orders Ordered: ED Orders 08/19/23 03:26 Chest [XR chest 1V] Stat 08/19/23 03:42 Blood Culture Stat Complete Blood Count AUTO DIFF Stat Comprehensive Metabolic Panel Stat Lactate (Lactic Acid) Stat Magnesium Stat NT-proBNP (BNP-Adult 18+) Stat Troponin & CK Cardiac Panel Stat 08/19/23 03:50 COVID19 -Nasal RAPID Stat 08/19/23 04:08 Ictotest Urine Stat UA Complete [Urinalysis and Microscopic] Stat Urine Culture Stat 08/19/23 04:17 ABG [Arterial Blood Gas] Stat Sodium Chloride (Normal Saline 0.9%) 1,000 mls @ 1,000 mls/hr IV BOLUS ONE Stop: 08/19/23 06:12 Last Admin: 08/19/23 05:26 Dose: 1,000 mls/hr Discontinued Medications Albuterol/Ipratropium (Albuterol/Ipratropium 3 Ml Ampul) 3 ml INH NOW ONE Stop: 08/19/23 03:25 Last Admin: 08/19/23 03:41 Dose: 3 ml Documented By: DUY Ceftriaxone Sodium 1,000 mg/ (Sodium Chloride) 100 mls @ 200 mls/hr IV NOW ONE Stop: 08/19/23 05:14 Last Admin: 08/19/23 05:26 Dose: 200 mls/hr Methylprednisolone (Methylprednisolone 125 Mg/2 Ml Vial) 125 mg IV NOW ONE Stop: 08/19/23 03:25 Last Admin: 08/19/23 03:41 Dose: 125 mg Documented By: DUY Vital Signs Vital signs: Vital Signs - 8 hr 08/19/23 03:26 08/19/23 03:30 08/19/23 03:30 Temperature 97.3 F L Pulse Rate 65 68 Respiratory Rate 22 23 Blood Pressure 140/66 153/72 H Pulse Oximetry 91 92 Oxygen Delivery Method Room Air Oxygen Flow Rate 08/19/23 03:30 08/19/23 03:47 08/19/23 04:00 Temperature Pulse Rate 65 74 Respiratory Rate 22 Blood Pressure Pulse Oximetry 88 L 99 91 Oxygen Delivery Method Room Air Nasal Cannula Oxygen Flow Rate 2 08/19/23 04:01 08/19/23 04:01 08/19/23 04:24 Temperature 96.1 F L Pulse Rate 75 Respiratory Rate Blood Pressure 117/57 L Pulse Oximetry 91 Oxygen Delivery Method Nasal Cannula Oxygen Flow Rate 2 08/19/23 04:29 08/19/23 04:30 08/19/23 04:30 Temperature 96.6 F L 96.6 F L Pulse Rate 70 68 Respiratory Rate 15 14 Blood Pressure 97/53 L Pulse Oximetry 90 L 90 L Oxygen Delivery Method Nasal Cannula Nasal Cannula Oxygen Flow Rate 2 08/19/23 05:00 08/19/23 05:00 08/19/23 05:15 Temperature 97.2 F L Pulse Rate 75 Respiratory Rate 15 Blood Pressure 102/51 L Pulse Oximetry 90 L Oxygen Delivery Method Nasal Cannula Nasal Cannula Oxygen Flow Rate 2 4 08/19/23 05:30 08/19/23 05:33 08/19/23 05:33 Temperature 97.9 F 98.1 F Pulse Rate 75 77 Respiratory Rate 15 16 Blood Pressure 118/55 L Pulse Oximetry 94 97 Oxygen Delivery Method Nasal Cannula Oxygen Flow Rate 3 Medical Decision Making Lab Data 08/19/23 03:42 08/19/23 03:42 Labs: Lab Results 08/19/23 08/19/23 08/19/23 Range/Units 03:42 03:50 04:08 WBC 7.2 (4.5-11.0) X10^3/uL RBC 4.38 (4.0-5.2) X10^6/uL Hgb 12.8 (12.0-16.0) g/dL Hct 38.8 (36-46) % MCV 88.5 (80-100) fL MCH 29.1 (26-34) PG MCHC 32.9 (30-36) % RDW 14.6 (11.6-14.8) % Plt Count 185 (150-400) X10^3/uL Neut % (Auto) 73.6 (50-75) % Lymph % (Auto) 17.7 L (25-40) % [place] % (Auto) 7.6 (3-14) % Eos % (Auto) 0.5 L (2-4) % Baso % (Auto) 0.6 (0-2) % Neut # (Auto) 5300 (9355-0995) /uL Lymph # (Auto) 1300 (3568-2536) /uL [place] # (Auto) 600 (0-900) /uL Eos # (Auto) 0 (0-450) /uL Baso # (Auto) 0 (0-100) /uL ABG Sample Site ABG pH (7.35-7.45) ABG pCO2 (35-45) mmHg ABG pO2 (80-100) mmHg ABG HCO3 (23-27) mmol/L ABG Total CO2 (23-27) mmol/L ABG O2 Saturation (95-100) % ABG Base Excess (-2-3) mmol/L FiO2 Sodium 139 (137-145) mmol/L Potassium 3.7 (3.4-5.1) mmol/L Chloride 106 (98-107) mmol/L Carbon Dioxide 25 (22-32) mmol/L BUN 19 H (7-17) mg/dL Creatinine 1.22 H (0.52-1.04) mg/dL Estimated GFR 43 L (>60) mL/min BUN/Creatinine Ratio 15.6 (6-22) Glucose 110 (80-110) mg/dL Lactate 1.1 (0.7-2.1) mmol/L Calcium 10.0 (8.4-10.2) mg/dL Magnesium 1.7 (1.6-2.3) mg/dL Total Bilirubin 0.5 (0.2-1.3) mg/dL AST 35 (14-36) IU/L ALT 26 (<35) IU/L Alkaline Phosphatase 75 (38-126) U/L Total Creatine Kinase 214 H (30-135) U/L Troponin I 0.018 (0.01-0.034) ng/mL NT-Pro-B Natriuret Pep 186 (<450) pg/mL Total Protein 7.1 (6.3-8.2) g/dL Albumin 3.8 (3.5-5.0) g/dL Globulin 3.3 (1.7-4.1) g/dL Albumin/Globulin Ratio 1.2 (1.0-2.8) Urine Color Yellow Urine Appearance Clear Urine pH 5.0 (4.5-8.0) Ur Specific [place] >=1.030 H (1.000-1.035) Urine Protein 1+ H (Negative) Urine Glucose (UA) Negative (Negative) g/dL Urine Ketones 1+ H (NEGATIVE) Urine Occult Blood 2+ H (Negative) Urine Nitrate Negative (Negative) Urine Bilirubin 1+ H (NEGATIVE) Ur Bilirubin Confirm Negative (Negative) Urine Urobilinogen 1.0 (0.2) E.U./dL Ur Leukocyte Esterase 1+ H (NEGATIVE) Urine RBC 1-5/hpf (0-5/HPF) Urine WBC 1-5/hpf (0-5/HPF) Ur Squamous Epith Cells None seen (0-5/HPF) Calcium Oxalate Crystal Few H Urine Bacteria None seen (None) Ur Culture Indicated? Specimen cultured SARS-CoV-2 (PCR) Negative (Negative) 08/19/23 Range/Units 04:17 WBC (4.5-11.0) X10^3/uL RBC (4.0-5.2) X10^6/uL Hgb (12.0-16.0) g/dL Hct (36-46) % MCV (80-100) fL MCH (26-34) PG MCHC (30-36) % RDW (11.6-14.8) % Plt Count (150-400) X10^3/uL Neut % (Auto) (50-75) % Lymph % (Auto) (25-40) % [place] % (Auto) (3-14) % Eos % (Auto) (2-4) % Baso % (Auto) (0-2) % Neut # (Auto) (5962-4080) /uL Lymph # (Auto) (2783-6123) /uL [place] # (Auto) (0-900) /uL Eos # (Auto) (0-450) /uL Baso # (Auto) (0-100) /uL ABG Sample Site Right radial ABG pH 7.39 (7.35-7.45) ABG pCO2 34.5 L (35-45) mmHg ABG pO2 62 L (80-100) mmHg ABG HCO3 21 L (23-27) mmol/L ABG Total CO2 22 L (23-27) mmol/L ABG O2 Saturation 99 (95-100) % ABG Base Excess -4.0 L (-2-3) mmol/L FiO2 28 Sodium (137-145) mmol/L Potassium (3.4-5.1) mmol/L Chloride (98-107) mmol/L Carbon Dioxide (22-32) mmol/L BUN (7-17) mg/dL Creatinine (0.52-1.04) mg/dL Estimated GFR (>60) mL/min BUN/Creatinine Ratio (6-22) Glucose (80-110) mg/dL Lactate (0.7-2.1) mmol/L Calcium (8.4-10.2) mg/dL Magnesium (1.6-2.3) mg/dL Total Bilirubin (0.2-1.3) mg/dL AST (14-36) IU/L ALT (<35) IU/L Alkaline Phosphatase (38-126) U/L Total Creatine Kinase (30-135) U/L Troponin I (0.01-0.034) ng/mL NT-Pro-B Natriuret Pep (<450) pg/mL Total Protein (6.3-8.2) g/dL Albumin (3.5-5.0) g/dL Globulin (1.7-4.1) g/dL Albumin/Globulin Ratio (1.0-2.8) Urine Color Urine Appearance Urine pH (4.5-8.0) Ur Specific [place] (1.000-1.035) Urine Protein (Negative) Urine Glucose (UA) (Negative) g/dL Urine Ketones (NEGATIVE) Urine Occult Blood (Negative) Urine Nitrate (Negative) Urine Bilirubin (NEGATIVE) Ur Bilirubin Confirm (Negative) Urine Urobilinogen (0.2) E.U./dL Ur Leukocyte Esterase (NEGATIVE) Urine RBC (0-5/HPF) Urine WBC (0-5/HPF) Ur Squamous Epith Cells (0-5/HPF) Calcium Oxalate Crystal Urine Bacteria (None) Ur Culture Indicated? SARS-CoV-2 (PCR) (Negative) MDM Narrative Medical decision making narrative: [88] year old patient presents with ow oxygen level Multiple etiologies for patient's symptoms considered including, but not limited to: [ lCOPD exacerbation versus pneumonia versus other] Prior Charts reviewed in our EMR Primary Historian: patient, with independent history from Labs reviewed and interpreted by myself: no leukocytosis or left shift, no signs of anemia, ABG notes PO2 62 on 3L Imaging reviewed: L pneumonia Consultations: Dr. Torres happy to accept on his service patient was found by EMS with oxygen saturation of 80% on her baseline 1 L. She has some coarse lung sounds with crackles in left greater than right base, chest x-ray shows an infiltrative process not noted a few days ago on imaging. Labs are largely reassuring, ABG nose PO2 of 62, patient requires hospitalization for ongoing treatment stabilization of her condition Discharge Plan Departure Patient Disposition: Admitted As Inpatient Clinical Impression: Left lower lobe pneumonia, Acute exacerbation of chronic obstructive pulmonary disease
[2023-08-19] MEDS: methylPREDNISolone 125 MG/2 ML VIAL IV (03:41)
[2023-08-19] MEDS: ALBUTEROL/IPRATROPIUM 3 ML AMPUL INH ×3 (03:41→20:45)
[2023-08-19 04:00] LABS: Add Manual Diff / Slide Review NO; Basophils Absolute Auto 0 /uL (0-100); Basophils Percent Auto 0.6 % (0-2); Eosinophils Absolute Auto 0 /uL (0-450); Eosinophils Percent Auto 0.5 % (2-4); Hematocrit 38.8 % (36-46); Hemoglobin 12.8 g/dL (12.0-16.0); Lymphocytes Absolute Auto 1300 /uL (1100-4500); Lymphocytes Percent Auto 17.7 % (25-40); Mean Corpuscular HGB Conc 32.9 % (30-36); Mean Corpuscular Hemoglobin 29.1 PG (26-34); Mean Corpuscular Volume 88.5 fL (80-100); Monocytes Absolute Auto 600 /uL (0-900); Monocytes Percent Auto 7.6 % (3-14); Neutrophils Absolute Auto 5300 /uL (1500-7000); Neutrophils Percent Auto 73.6 % (50-75); Platelet Count 185 X10^3/uL (150-400); Red Blood Cell Count 4.38 X10^6/uL (4.0-5.2); Red Cell Distribution Width 14.6 % (11.6-14.8); White Blood Cell Count 7.2 X10^3/uL (4.5-11.0)
[2023-08-19 04:08] LABS: Alanine Aminotransferase 26 IU/L (<35); Albumin 3.8 g/dL (3.5-5.0); Albumin Globulin Ratio 1.2 (1.0-2.8); Alkaline Phosphatase 75 U/L (38-126); Aspartate Aminotransferase 35 IU/L (14-36); BUN Creatinine Ratio 15.6 (6-22); Bilirubin Total 0.5 mg/dL (0.2-1.3); Blood Urea Nitrogen 19 mg/dL (7-17); Carbon Dioxide 25 mmol/L (22-32); Chloride 106 mmol/L (98-107); Creatine Kinase 214 U/L (30-135); Estimated Glomerular Filt Rate 43 mL/min (>60); Globulin 3.3 g/dL (1.7-4.1); Glucose 110 mg/dL (80-110); HEMOLYSIS < 15 (0-50); Magnesium 1.7 mg/dL (1.6-2.3); Potassium 3.7 mmol/L (3.4-5.1); Sodium 139 mmol/L (137-145); Total Protein 7.1 g/dL (6.3-8.2)
[2023-08-19 04:19] LABS: COVID19 -Nasal RAPID Negative (Negative)
[2023-08-19 04:19] LABS: NT-proBNP (BNP-Adult 18+) 186 pg/mL (<450); Troponin I 0.018 ng/mL (0.01-0.034)
[2023-08-19 04:19] LABS: Appearance Urine UA CLEAR; Bilirubin Urine UA 1+ (NEGATIVE); Color Urine UA YELLOW; Glucose Urine UA NEGATIVE (Negative); Ketones Urine UA 1+ (NEGATIVE); Leukocyte Esterase Urine UA 1+ (NEGATIVE); Nitrite Urine UA NEGATIVE (Negative); Occult Blood Urine UA 2+ (Negative); Protein Urine UA 1+ (Negative); Specific Gravity Urine UA >=1.030 (1.000-1.035)
[2023-08-19 04:20] LABS: Lactate (Lactic Acid) 1.1 mmol/L (0.7-2.1)
[2023-08-19 04:27] LABS: Ictotest Urine Negative (Negative)
[2023-08-19 04:27] LABS: pH ABG 7.39 (7.35-7.45)
[2023-08-19 04:28] LABS: Allen Test for ABG Passed? Yes, Passed; Blood Gas Collection Site Right Radial; Fractionated Inspired Oxygen 28; HCO3 ABG 21 mmol/L (23-27); Oxygen Saturation ABG 99 % (95-100); PCO2 ABG 34.5 mmHg (35-45); PO2 ABG 62 mmHg (80-100); TCO2 ABG 22 mmol/L (23-27)
[2023-08-19 04:32] LABS: Bacteria Urine None Seen; Calcium Oxalate Crystals Urine Few; Culture Indicated Urine Specimen Cultured; RBC Urine 1-5/HPF (0-5/HPF); Squamous Epithelial Cell Urine None Seen (0-5/HPF); WBC Urine 1-5/HPF (0-5/HPF)
[2023-08-19] MEDS: SODIUM CHLORIDE 0.9% 1,000 ML 1000 ML IV (05:26)
[2023-08-19] MEDS: cefTRIAXone 1,000 MG in SODIUM CHLORIDE 0.9% 100 ML 200 MG IV (05:26)
--- NOTE | 2023-08-19 06:31 | PM.HP.1 ---
History of Present Illness History of Present Illness Date Patient Seen: 08/19/23 Time Patient Seen: 06:31 Chief complaint: low oxygen sats. Narrative: The pt is a 88 yo with oxygen dependent COPD but states taht she does not wear it at home because the tanks are too big. She is suppose to be on 2-3 lpm and recently was started on Doxycycline 100 mg BID after she went to the ER for evaluation of a cough and congestion that has been getting worse over the past 2 weeks. There has been no fevers, chills, hemoptysis, N/V/ but dose report some diarrhea. [facility] Medical History Arthropathy of left shoulder Spinal stenosis Osteoarthritis Depression Memory changes COPD (chronic obstructive pulmonary disease) Diabetes Hypertension Gouty arthritis of toe Surgical History History of arthroplasty of left knee History of arthroplasty of right knee Social History household members: spouse, family and children Smoking Status: Never smoker alcohol intake: former Meds Home Medications and Allergies Home Medications Medication Instructions Recorded Confirmed Type VITAMIN D (Vitamin D3) 1,000 units PO BEDTIME ##0 09/06/11 08/16/23 History fluoxetine 40 mg capsule (Prozac) 40 mg PO QDAY ##0 11/28/16 08/16/23 History insulin aspart U-100 100 unit/mL 10 unit SQ BID ##0 11/28/16 08/16/23 History subcutaneous solution (Novolog U-100 Insulin aspart) atorvastatin 40 mg tablet 40 mg PO BEDTIME 03/03/22 08/16/23 History aspirin 81 mg tablet,delayed 81 mg PO DAILY 03/04/22 08/16/23 History release gabapentin 300 mg capsule 600 mg PO BEDTIME 03/04/22 08/16/23 History magnesium oxide 500 mg tablet 500 mg PO DAILY 03/04/22 08/16/23 History calcium citrate 200 mg (950 mg) 500 mg PO BID 03/07/22 08/16/23 History tablet doxycycline hyclate 100 mg tablet 100 mg PO BID 08/16/23 08/16/23 History insulin glargine 100 unit/mL (3 30 unit SUBCUT DAILY 08/16/23 08/16/23 History mL) subcutaneous pen (Lantus Solostar U-100 Insulin) metoprolol succinate 50 mg 50 mg PO DAILY 08/16/23 08/16/23 History tablet,extended release 24 hr omeprazole 20 mg capsule,delayed 40 mg PO BID 08/16/23 08/16/23 History release Allergies Allergy/AdvReac Type Severity Reaction Status Date / Time iodine [IODINE] Allergy Severe Swelling Verified 07/30/23 14:45 of Lip/Tongue/Throat lisinopril [LISINOPRIL] Allergy Severe Swelling Verified 07/30/23 14:45 of Lip/Tongue/Throat shellfish derived Allergy Severe Swelling Verified 07/30/23 14:45 [SHELLFISH DERIVED] of Lip/Tongue/Throat Penicillins Allergy Intermediate Rash Verified 07/30/23 14:45 oxycodone AdvReac Hallucinati Verified 07/30/23 14:45 ng Exam Vital Signs (past 8 hours): - 08/19/23 03:26 08/19/23 03:30 08/19/23 03:30 Temperature 97.3 F L Pulse Rate 65 68 Respiratory Rate 22 23 Blood Pressure 140/66 153/72 H Pulse Oximetry 91 92 Oxygen Delivery Method Room Air Oxygen Flow Rate 08/19/23 03:30 08/19/23 03:47 08/19/23 04:00 Temperature Pulse Rate 65 74 Respiratory Rate 22 Blood Pressure Pulse Oximetry 88 L 99 91 Oxygen Delivery Method Room Air Nasal Cannula Oxygen Flow Rate 2 08/19/23 04:01 08/19/23 04:01 08/19/23 04:24 Temperature 96.1 F L Pulse Rate 75 Respiratory Rate Blood Pressure 117/57 L Pulse Oximetry 91 Oxygen Delivery Method Nasal Cannula Oxygen Flow Rate 2 08/19/23 04:29 08/19/23 04:30 08/19/23 04:30 Temperature 96.6 F L 96.6 F L Pulse Rate 70 68 Respiratory Rate 15 14 Blood Pressure 97/53 L Pulse Oximetry 90 L 90 L Oxygen Delivery Method Nasal Cannula Nasal Cannula Oxygen Flow Rate 2 08/19/23 05:00 08/19/23 05:00 08/19/23 05:15 Temperature 97.2 F L Pulse Rate 75 Respiratory Rate 15 Blood Pressure 102/51 L Pulse Oximetry 90 L Oxygen Delivery Method Nasal Cannula Nasal Cannula Oxygen Flow Rate 2 4 08/19/23 05:30 08/19/23 05:33 08/19/23 05:33 Temperature 97.9 F 98.1 F Pulse Rate 75 77 Respiratory Rate 15 16 Blood Pressure 118/55 L Pulse Oximetry 94 97 Oxygen Delivery Method Nasal Cannula Oxygen Flow Rate 3 08/19/23 06:00 08/19/23 06:21 Temperature 98.2 F Pulse Rate 78 Respiratory Rate 16 Blood Pressure 112/57 L Pulse Oximetry 95 93 Oxygen Delivery Method Nasal Cannula Oxygen Flow Rate 3 3 Oxygen Delivery Method Nasal Cannula Oxygen Flow Rate 3 Objective Imaging Chest x-ray: My impression: diffuse nonspecific infiltrates Labs 08/19/23 03:42 08/19/23 03:42 Labs: Laboratory Results - last 24 hr 08/19/23 08/19/23 08/19/23 03:42 03:50 04:08 WBC 7.2 RBC 4.38 Hgb 12.8 Hct 38.8 MCV 88.5 MCH 29.1 MCHC 32.9 RDW 14.6 Plt Count 185 Neut % (Auto) 73.6 Lymph % (Auto) 17.7 L [place] % (Auto) 7.6 Eos % (Auto) 0.5 L Baso % (Auto) 0.6 Neut # (Auto) 5300 Lymph # (Auto) 1300 [place] # (Auto) 600 Eos # (Auto) 0 Baso # (Auto) 0 ABG Sample Site ABG pH ABG pCO2 ABG pO2 ABG HCO3 ABG Total CO2 ABG O2 Saturation ABG Base Excess FiO2 Sodium 139 Potassium 3.7 Chloride 106 Carbon Dioxide 25 BUN 19 H Creatinine 1.22 H Estimated GFR 43 L BUN/Creatinine Ratio 15.6 Glucose 110 Lactate 1.1 Calcium 10.0 Magnesium 1.7 Total Bilirubin 0.5 AST 35 ALT 26 Alkaline Phosphatase 75 Total Creatine Kinase 214 H Troponin I 0.018 NT-Pro-B Natriuret Pep 186 Total Protein 7.1 Albumin 3.8 Globulin 3.3 Albumin/Globulin Ratio 1.2 Urine Color Yellow Urine Appearance Clear Urine pH 5.0 Ur Specific [place] >=1.030 H Urine Protein 1+ H Urine Glucose (UA) Negative Urine Ketones 1+ H Urine Occult Blood 2+ H Urine Nitrate Negative Urine Bilirubin 1+ H Ur Bilirubin Confirm Negative Urine Urobilinogen 1.0 Ur Leukocyte Esterase 1+ H Urine RBC 1-5/hpf Urine WBC 1-5/hpf Ur Squamous Epith Cells None seen Calcium Oxalate Crystal Few H Urine Bacteria None seen Ur Culture Indicated? Specimen cultured SARS-CoV-2 (PCR) Negative 08/19/23 04:17 WBC RBC Hgb Hct MCV MCH MCHC RDW Plt Count Neut % (Auto) Lymph % (Auto) [place] % (Auto) Eos % (Auto) Baso % (Auto) Neut # (Auto) Lymph # (Auto) [place] # (Auto) Eos # (Auto) Baso # (Auto) ABG Sample Site Right radial ABG pH 7.39 ABG pCO2 34.5 L ABG pO2 62 L ABG HCO3 21 L ABG Total CO2 22 L ABG O2 Saturation 99 ABG Base Excess -4.0 L FiO2 28 Sodium Potassium Chloride Carbon Dioxide BUN Creatinine Estimated GFR BUN/Creatinine Ratio Glucose Lactate Calcium Magnesium Total Bilirubin AST ALT Alkaline Phosphatase Total Creatine Kinase Troponin I NT-Pro-B Natriuret Pep Total Protein Albumin Globulin Albumin/Globulin Ratio Urine Color Urine Appearance Urine pH Ur Specific [place] Urine Protein Urine Glucose (UA) Urine Ketones Urine Occult Blood Urine Nitrate Urine Bilirubin Ur Bilirubin Confirm Urine Urobilinogen Ur Leukocyte Esterase Urine RBC Urine WBC Ur Squamous Epith Cells Calcium Oxalate Crystal Urine Bacteria Ur Culture Indicated? SARS-CoV-2 (PCR) Assessment & Plan Assessment and plan (1) Acute exacerbation of chronic obstructive pulmonary disease: Status: Acute (2) Diabetes: Problem details: A1c 8.4 11/06/21 Status: Acute (3) Hypertension: Status: Acute Plan Will put the pt on Solumedrol 60mg Q8 hours, breathing tx, Doxcycline, close monitoring. could consider PT/OT, I spoke with the ER provider regarding decision to admit, labs reviewed by myself, CXR reviewed, will recheck labs in am.
[2023-08-19] MEDS: PANTOPRAZOLE DR 20 MG TABLET PO (06:45)
[2023-08-19 07:03] LABS: Add Manual Diff / Slide Review NO; Basophils Absolute Auto 0 /uL (0-100); Basophils Percent Auto 0.3 % (0-2); Eosinophils Absolute Auto 0 /uL (0-450); Eosinophils Percent Auto 0.2 % (2-4); Hematocrit 38.3 % (36-46); Hemoglobin 12.6 g/dL (12.0-16.0); Lymphocytes Absolute Auto 700 /uL (1100-4500); Lymphocytes Percent Auto 15.4 % (25-40); Mean Corpuscular HGB Conc 32.9 % (30-36); Mean Corpuscular Hemoglobin 29.2 PG (26-34); Mean Corpuscular Volume 88.7 fL (80-100); Monocytes Absolute Auto 100 /uL (0-900); Monocytes Percent Auto 2.3 % (3-14); Neutrophils Absolute Auto 3900 /uL (1500-7000); Neutrophils Percent Auto 81.8 % (50-75); Platelet Count 167 X10^3/uL (150-400); Red Blood Cell Count 4.32 X10^6/uL (4.0-5.2); Red Cell Distribution Width 14.3 % (11.6-14.8); White Blood Cell Count 4.7 X10^3/uL (4.5-11.0)
[2023-08-19 07:14] LABS: BUN Creatinine Ratio 19.4 (6-22); Blood Urea Nitrogen 20 mg/dL (7-17); Calcium 9.5 mg/dL (8.4-10.2); Carbon Dioxide 22 mmol/L (22-32); Chloride 109 mmol/L (98-107); Estimated Glomerular Filt Rate 53 mL/min (>60); Glucose 180 mg/dL (80-110); HEMOLYSIS 18 (0-50); Potassium 3.9 mmol/L (3.4-5.1); Sodium 138 mmol/L (137-145)
[2023-08-19] MEDS: DOXYCYCLINE HYCLATE 100 MG TABLET PO ×2 (08:49→20:54)
[2023-08-19] MEDS: INSULIN GLARGINE 100 UNIT/ML 3ML PEN 30 UNIT SUBCUT (08:56)
[2023-08-19] MEDS: ENOXAPARIN 30 MG/0.3 ML SYRINGE SUBCUT (09:00)
[2023-08-19] MEDS: ACETAMINOPHEN 325 MG TABLET 650 MG PO (09:02)
--- NOTE | 2023-08-19 10:49 | PM.HP.1 ---
History of Present Illness History of Present Illness Date Patient Seen: 08/19/23 Time Patient Seen: 10:49 Date of Onset of Symptoms: 08/18/23 Chief complaint: low oxygen sats. Narrative: The patient is an 88-year-old female with history of COPD who had recently run out of oxygen. She is not sure who the vendor is. The patient became acutely short of breath yesterday. Apparently she was recently started on oral antibiotic for possible URI, doxycycline. She notes 2 weeks of Simmering symptoms that came to a head yesterday. Upon arrival she was quite dyspneic and was treated with bronchodilators. She was admitted for acute COPD exacerbation. She denies any chest pain or last several days. She is able to ambulate at home. A Fisher catheter was placed in the emergency department, but she denies any symptoms of retention. She lives on [facility] with her . [facility] Medical History Arthropathy of left shoulder Spinal stenosis Osteoarthritis Depression Memory changes COPD (chronic obstructive pulmonary disease) Diabetes Hypertension Gouty arthritis of toe Surgical History History of arthroplasty of left knee History of arthroplasty of right knee Social History household members: spouse, family and children Smoking Status: Never smoker alcohol intake: former Meds Home Medications and Allergies Home Medications Medication Instructions Recorded Confirmed Type VITAMIN D (Vitamin D3) 1,000 units PO BEDTIME ##0 09/06/11 08/19/23 History fluoxetine 40 mg capsule (Prozac) 40 mg PO QDAY ##0 11/28/16 08/19/23 History insulin aspart U-100 100 unit/mL 10 unit SQ BID ##0 11/28/16 08/19/23 History subcutaneous solution (Novolog U-100 Insulin aspart) atorvastatin 40 mg tablet 40 mg PO BEDTIME 03/03/22 08/19/23 History aspirin 81 mg tablet,delayed 81 mg PO DAILY 03/04/22 08/19/23 History release gabapentin 300 mg capsule 600 mg PO BEDTIME 03/04/22 08/19/23 History magnesium oxide 500 mg tablet 500 mg PO DAILY 03/04/22 08/19/23 History calcium citrate 200 mg (950 mg) 500 mg PO BID 03/07/22 08/19/23 History tablet doxycycline hyclate 100 mg tablet 100 mg PO BID 08/16/23 08/19/23 History insulin glargine 100 unit/mL (3 30 unit SUBCUT DAILY 08/16/23 08/19/23 History mL) subcutaneous pen (Lantus Solostar U-100 Insulin) metoprolol succinate 50 mg 50 mg PO DAILY 08/16/23 08/19/23 History tablet,extended release 24 hr omeprazole 20 mg capsule,delayed 40 mg PO DAILY 08/16/23 08/19/23 History release Allergies Allergy/AdvReac Type Severity Reaction Status Date / Time iodine [IODINE] Allergy Severe Swelling Verified 07/30/23 14:45 of Lip/Tongue/Throat lisinopril [LISINOPRIL] Allergy Severe Swelling Verified 07/30/23 14:45 of Lip/Tongue/Throat shellfish derived Allergy Severe Swelling Verified 07/30/23 14:45 [SHELLFISH DERIVED] of Lip/Tongue/Throat Penicillins Allergy Intermediate Rash Verified 07/30/23 14:45 oxycodone AdvReac Hallucinati Verified 07/30/23 14:45 ng Review of Systems Review of Systems Narrative: She denies recent urinary symptoms including dysuria, hematuria or polyuria. All else reviewed and otherwise negative. Exam Vital Signs (past 8 hours): - 08/19/23 03:26 08/19/23 03:30 08/19/23 03:30 Temperature 97.3 F L Pulse Rate 65 68 Respiratory Rate 22 23 Blood Pressure 140/66 153/72 H Pulse Oximetry 91 92 Oxygen Delivery Method Room Air Oxygen Flow Rate 08/19/23 03:30 08/19/23 03:47 08/19/23 04:00 Temperature Pulse Rate 65 74 Respiratory Rate 22 Blood Pressure Pulse Oximetry 88 L 99 91 Oxygen Delivery Method Room Air Nasal Cannula Oxygen Flow Rate 2 08/19/23 04:01 08/19/23 04:01 08/19/23 04:24 Temperature 96.1 F L Pulse Rate 75 Respiratory Rate Blood Pressure 117/57 L Pulse Oximetry 91 Oxygen Delivery Method Nasal Cannula Oxygen Flow Rate 2 08/19/23 04:29 08/19/23 04:30 08/19/23 04:30 Temperature 96.6 F L 96.6 F L Pulse Rate 70 68 Respiratory Rate 15 14 Blood Pressure 97/53 L Pulse Oximetry 90 L 90 L Oxygen Delivery Method Nasal Cannula Nasal Cannula Oxygen Flow Rate 2 08/19/23 05:00 08/19/23 05:00 08/19/23 05:15 Temperature 97.2 F L Pulse Rate 75 Respiratory Rate 15 Blood Pressure 102/51 L Pulse Oximetry 90 L Oxygen Delivery Method Nasal Cannula Nasal Cannula Oxygen Flow Rate 2 4 08/19/23 05:30 08/19/23 05:33 08/19/23 05:33 Temperature 97.9 F 98.1 F Pulse Rate 75 77 Respiratory Rate 15 16 Blood Pressure 118/55 L Pulse Oximetry 94 97 Oxygen Delivery Method Nasal Cannula Oxygen Flow Rate 3 08/19/23 06:00 08/19/23 06:21 08/19/23 07:44 Temperature 98.2 F 96.6 F L Pulse Rate 78 65 Respiratory Rate 16 19 Blood Pressure 112/57 L 119/65 Pulse Oximetry 95 93 97 Oxygen Delivery Method Nasal Cannula Oxygen Flow Rate 3 3 3 08/19/23 09:05 08/19/23 09:40 Temperature 97.5 F L Pulse Rate 76 Respiratory Rate 16 Blood Pressure 131/67 Pulse Oximetry 95 Oxygen Delivery Method Nasal Cannula Oxygen Flow Rate Oxygen Delivery Method Nasal Cannula Oxygen Flow Rate 3 Narrative Exam Narrative: She is alert and oriented x3, no distress and fluent speech. Her head is normocephalic, EOMI. Anicteric sclera. Neck: Supple and normal JVP. Lungs are notable for decreased breath sounds and expiratory wheezing, normal effort. Heart is regular, no murmur gallop or rub. Abdomen is soft, non-distended. Extremities are free of edema, good peripheral pulses. Skin is otherwise free of rash or lesions. Joints are not swollen or deformed, there is no adenopathy. Judgment appears to be reasonably normal. Objective Imaging Chest x-ray: Radiologist's impression: IMPRESSION: Stable radiographic evaluation of the chest without acute cardiopulmonary abnormalities or focal airspace disease. No significant discrepancy with the mold shifter radiology preliminary report. Labs 08/19/23 06:25 08/19/23 06:25 Labs: Laboratory Results - last 24 hr 08/19/23 08/19/23 08/19/23 03:42 03:50 04:08 WBC 7.2 RBC 4.38 Hgb 12.8 Hct 38.8 MCV 88.5 MCH 29.1 MCHC 32.9 RDW 14.6 Plt Count 185 Neut % (Auto) 73.6 Lymph % (Auto) 17.7 L [place] % (Auto) 7.6 Eos % (Auto) 0.5 L Baso % (Auto) 0.6 Neut # (Auto) 5300 Lymph # (Auto) 1300 [place] # (Auto) 600 Eos # (Auto) 0 Baso # (Auto) 0 ABG Sample Site ABG pH ABG pCO2 ABG pO2 ABG HCO3 ABG Total CO2 ABG O2 Saturation ABG Base Excess FiO2 Sodium 139 Potassium 3.7 Chloride 106 Carbon Dioxide 25 BUN 19 H Creatinine 1.22 H Estimated GFR 43 L BUN/Creatinine Ratio 15.6 Glucose 110 Lactate 1.1 Calcium 10.0 Magnesium 1.7 Total Bilirubin 0.5 AST 35 ALT 26 Alkaline Phosphatase 75 Total Creatine Kinase 214 H Troponin I 0.018 NT-Pro-B Natriuret Pep 186 Total Protein 7.1 Albumin 3.8 Globulin 3.3 Albumin/Globulin Ratio 1.2 Urine Color Yellow Urine Appearance Clear Urine pH 5.0 Ur Specific [place] >=1.030 H Urine Protein 1+ H Urine Glucose (UA) Negative Urine Ketones 1+ H Urine Occult Blood 2+ H Urine Nitrate Negative Urine Bilirubin 1+ H Ur Bilirubin Confirm Negative Urine Urobilinogen 1.0 Ur Leukocyte Esterase 1+ H Urine RBC 1-5/hpf Urine WBC 1-5/hpf Ur Squamous Epith Cells None seen Calcium Oxalate Crystal Few H Urine Bacteria None seen Ur Culture Indicated? Specimen cultured SARS-CoV-2 (PCR) Negative 08/19/23 08/19/23 04:17 06:25 WBC 4.7 RBC 4.32 Hgb 12.6 Hct 38.3 MCV 88.7 MCH 29.2 MCHC 32.9 RDW 14.3 Plt Count 167 Neut % (Auto) 81.8 H Lymph % (Auto) 15.4 L [place] % (Auto) 2.3 L Eos % (Auto) 0.2 L Baso % (Auto) 0.3 Neut # (Auto) 3900 Lymph # (Auto) 700 L [place] # (Auto) 100 Eos # (Auto) 0 Baso # (Auto) 0 ABG Sample Site Right radial ABG pH 7.39 ABG pCO2 34.5 L ABG pO2 62 L ABG HCO3 21 L ABG Total CO2 22 L ABG O2 Saturation 99 ABG Base Excess -4.0 L FiO2 28 Sodium 138 Potassium 3.9 Chloride 109 H Carbon Dioxide 22 BUN 20 H Creatinine 1.03 Estimated GFR 53 L BUN/Creatinine Ratio 19.4 Glucose 180 H Lactate Calcium 9.5 Magnesium Total Bilirubin AST ALT Alkaline Phosphatase Total Creatine Kinase Troponin I NT-Pro-B Natriuret Pep Total Protein Albumin Globulin Albumin/Globulin Ratio Urine Color Urine Appearance Urine pH Ur Specific [place] Urine Protein Urine Glucose (UA) Urine Ketones Urine Occult Blood Urine Nitrate Urine Bilirubin Ur Bilirubin Confirm Urine Urobilinogen Ur Leukocyte Esterase Urine RBC Urine WBC Ur Squamous Epith Cells Calcium Oxalate Crystal Urine Bacteria Ur Culture Indicated? SARS-CoV-2 (PCR) Assessment & Plan Assessment & Plan narrative: 1. Acute COPD exacerbation, present on admission and active. We will treat with bronchodilators and corticosteroids and reassess status. 2. Diabetes mellitus 2, present on admission and stable. Last A1 8.4 in 2021. We will continue her home regimen of Lantus and lispro. 3. Essential hypertension, present on admission and active. We will resume and continue home medications and follow clinically. The chest x-ray is negative for acute infiltrate and she was started on IV Solu-Medrol, doxycycline as well as bronchodilators. A respiratory PCR was not obtained. Will add a PCR. Time Spent With Patient Time with patient: 30 to 49 minutes with 50% spent counseling/coordinating care
[2023-08-19] MEDS: methylPREDNISolone 125 MG/2 ML VIAL 60 MG IV ×2 (12:19→20:04)
[2023-08-19] MEDS: INSULIN LISPRO 100 UNIT/ML 3ML VIAL SUBCUT ×3 (12:20→20:56)
[2023-08-19 13:11] LABS: Influenza A - CEPHEID Flu A NEGATIVE (NEGATIVE); Influenza B - CEPHEID Flu B NEGATIVE (NEGATIVE); Respiratory Syncytial Virus Negative (Negative)
[2023-08-19 13:17] LABS: COVID-19 CEPHEID 4-PLEX PCR Negative (Negative)
--- NOTE | 2023-08-19 16:12 | CM.DPNOTE ---
DCP Note 88 yo F presents with Shortness of Breath/Dyspnea, admitted for management of COPD exacerbation. Patient lives with spouse (and children?) in [place]. Attempted assessment, patient states she is very upset. Spouse, two daughters and son in law are present at bedside. Left room to get report from RN, student life advisor explains that there was a very heated argument between patient and her family and she is concerned about toxicity within this family. Patient is not A+Ox4 per [place] Damon and her student life advisor. Suggested to RN that CM team follow closely and return when patient is alone, or with spouse, to complete initial assessment of need and screen for APS report. Received order for SW Consult this afternoon. COLTEN Jimenez
--- NOTE | 2023-08-19 18:49 | PC.NURSE ---
Patient this evening ACHS BG check was 420, upon repeat test BG read was 399. MD Ross (hospitalist) notified and ordered patient to receive high dose SSI. 12 units given this evening and patient ate 100% of her dinner
[2023-08-19] MEDS: SODIUM CHLORIDE 0.9% FLUSH 10 ML IV (20:55)
[2023-08-19] MEDS: SENNOSIDES 8.6 MG TABLET 17.2 MG PO (20:55)
[2023-08-20] VITALS (9 sets, daily range): BP systolic 115–137; BP diastolic 52–71; PULSE 65–82; RESP 16–19; TEMP 35.8–36.4; O2SAT 92–96
[2023-08-20] MEDS: SODIUM CHLORIDE 0.9% FLUSH 10 ML IV (03:38)
[2023-08-20] MEDS: methylPREDNISolone 125 MG/2 ML VIAL 60 MG IV (03:39)
[2023-08-20] MEDS: PANTOPRAZOLE DR 20 MG TABLET PO (06:15)
--- NOTE | 2023-08-20 06:39 | PC.NURSE ---
Pt. up to the BSC most of this shift. Pulled out her IV access & spouse requested to restart her line later this morning. Pt. is trying to sleep now, will report to day RN. Message sent to Dr. Torres regarding the incident, responded to leave IV out.
--- NOTE | 2023-08-20 08:06 | P.PN_ITS ---
Subjective Subjective Interval history: She is upset, crying and quite angry this morning. She eventually comes down and says ?I am spoiled and I lost my temper. ? She was given lorazepam and eventually took a good nap and felt better in the afternoon. Her family are visiting during the 2nd visit I have with her today. I spoke at length with her daughter, her and other family members explaining the process of balancing dementia and COPD. Her indicates that she will likely need to go to a fci soon but at this point appears willing to take her home? Her oxygen remains low at night, dropping into the 80s, requiring 4 L due to shallow respirations at night but her saturation remains in the 90s during the day on room air. She is also pulled out her IV so will be changed from Solu- Medrol to prednisone. When I see her in the afternoon she has no memory of the events this morning. Her dementia is quite advanced. Her labs from yesterday include a normal CBC and improving GFR now up to 53. Exam Vital Signs (past 8 hours): - 08/20/23 03:00 08/20/23 03:00 08/20/23 07:00 Temperature 97.5 F L 96.8 F L Pulse Rate 68 70 Respiratory Rate 16 19 Blood Pressure 132/59 L 137/71 Pulse Oximetry 94 94 92 Oxygen Delivery Method Simple Mask Oxygen Flow Rate 3 2 3 Oxygen Delivery Method Simple Mask Oxygen Flow Rate 3 Narrative Exam Narrative: Very agitated, upset, threatening with her walker. On 2nd visit she is calm and interruptive, talking over other conversations in the room which she does not seem to be aware of. Her topics are nonsensical. Heart is regular rate and rhythm without murmur Lungs are clear to auscultation bilaterally Extremities have no ankle edema Objective Labs 08/19/23 06:25 08/19/23 06:25 Labs: Laboratory Results - last 24 hr 08/19/23 12:07 SARS-CoV-2 (PCR) Negative Influenza A (RT-PCR) Flu a negative Influenza B (RT-PCR) Flu b negative RSV (PCR) Negative [facility] Medical History Arthropathy of left shoulder Spinal stenosis Osteoarthritis Depression Memory changes COPD (chronic obstructive pulmonary disease) Diabetes Hypertension Gouty arthritis of toe Surgical History History of arthroplasty of left knee History of arthroplasty of right knee Social History household members: spouse, family and children Smoking Status: Never smoker alcohol intake: former Assessment & Plan Assessment & Plan narrative: 1. Acute COPD exacerbation, present on admission and active. Continue oxygen at night, bronchodilators and change to prednisone 40 mg a day. Possible discharge tomorrow with or without oxygen depending on events overnight 2. Diabetes mellitus 2, present on admission and stable. Last A1 8.4 in 2021. We will continue her home regimen of Lantus and lispro. 3. Essential hypertension, present on admission and active. We will resume and continue home medications and follow clinically. The chest x-ray is negative for acute infiltrate 4. Agitated Alzheimer's dementia. Begin donepezil. Discussion with family on potential placement. -Lorazepam as needed. Consider Zyprexa/Seroquel. Discharge plans. indicates that eventual fci placement is his wish but at this time will be taking her home. May need home oxygen, to be determined on 08/21. Total time today of 50 minutes.
[2023-08-20] MEDS: ENOXAPARIN 30 MG/0.3 ML SYRINGE SUBCUT (08:23)
[2023-08-20] MEDS: DOXYCYCLINE HYCLATE 100 MG TABLET PO ×2 (08:23→20:33)
[2023-08-20] MEDS: INSULIN GLARGINE 100 UNIT/ML 3ML PEN 30 UNIT SUBCUT (08:24)
[2023-08-20] MEDS: INSULIN LISPRO 100 UNIT/ML 3ML VIAL SUBCUT ×4 (08:25→20:34)
[2023-08-20] MEDS: ALBUTEROL/IPRATROPIUM 3 ML AMPUL INH ×3 (08:45→20:20)
[2023-08-20] MEDS: LORazepam 0.5 MG TABLET PO (09:39)
[2023-08-20] MEDS: LORazepam 2 MG/ML INJ 1 MG IM (10:13)
[2023-08-20] MEDS: predniSONE 20 MG TABLET 40 MG PO (15:30)
[2023-08-20] MEDS: ACETAMINOPHEN 325 MG TABLET 650 MG PO (18:57)
[2023-08-20] MEDS: DONEPEZIL 5 MG TABLET PO (20:33)
[2023-08-20] MEDS: SENNOSIDES 8.6 MG TABLET 17.2 MG PO (20:33)
[2023-08-21] VITALS (10 sets, daily range): BP systolic 131–153; BP diastolic 60–72; PULSE 72–88; RESP 16–24; TEMP 36.1–36.6; O2SAT 91–99
[2023-08-21] MEDS: BENZOCAINE/MENTHOL 1 LOZ PKT 1 EACH PO (04:20)
--- NOTE | 2023-08-21 07:59 | PC.NURSE ---
Assess- Patient is alert and oriented x4. She states that she does have some pain to her l.shoulder and l.side of her body. Up with the help of this RN and patients . Patients blood sugar 241 this morning. She is confused and thinks that she is at home with her 9 family members. She yelled at her when she had to use the commode. But then calmed down. Patient's lung sounds are diminished in the bases and she does have some sob with exertion. Patient on 2L of oxygen via oxymask. She will be eating breakfast shortly.
[2023-08-21] MEDS: INSULIN LISPRO 100 UNIT/ML 3ML VIAL SUBCUT ×4 (08:19→20:37)
[2023-08-21] MEDS: INSULIN GLARGINE 100 UNIT/ML 3ML PEN 30 UNIT SUBCUT (08:20)
[2023-08-21] MEDS: predniSONE 20 MG TABLET 40 MG PO (08:21)
[2023-08-21] MEDS: DOXYCYCLINE HYCLATE 100 MG TABLET PO (08:21)
[2023-08-21] MEDS: ENOXAPARIN 30 MG/0.3 ML SYRINGE SUBCUT (08:21)
[2023-08-21 09:10] LABS: Add Manual Diff / Slide Review NO; Basophils Absolute Auto 0 /uL (0-100); Basophils Percent Auto 0.3 % (0-2); Eosinophils Absolute Auto 0 /uL (0-450); Hematocrit 37.5 % (36-46); Hemoglobin 12.2 g/dL (12.0-16.0); Lymphocytes Absolute Auto 1100 /uL (1100-4500); Lymphocytes Percent Auto 10.5 % (25-40); Mean Corpuscular HGB Conc 32.5 % (30-36); Mean Corpuscular Hemoglobin 28.8 PG (26-34); Mean Corpuscular Volume 88.5 fL (80-100); Monocytes Absolute Auto 600 /uL (0-900); Monocytes Percent Auto 5.4 % (3-14); Neutrophils Absolute Auto 8800 /uL (1500-7000); Neutrophils Percent Auto 83.8 % (50-75); Platelet Count 193 X10^3/uL (150-400); Red Blood Cell Count 4.24 X10^6/uL (4.0-5.2); White Blood Cell Count 10.5 X10^3/uL (4.5-11.0)
[2023-08-21 09:21] LABS: BUN Creatinine Ratio 30.8 (6-22); Blood Urea Nitrogen 33 mg/dL (7-17); Calcium 9.6 mg/dL (8.4-10.2); Carbon Dioxide 21 mmol/L (22-32); Chloride 104 mmol/L (98-107); Estimated Glomerular Filt Rate 50 mL/min (>60); Glucose 228 mg/dL (80-110); HEMOLYSIS < 15 (0-50); Potassium 3.8 mmol/L (3.4-5.1); Sodium 136 mmol/L (137-145)
[2023-08-21] MEDS: ALBUTEROL/IPRATROPIUM 3 ML AMPUL INH ×3 (10:32→20:46)
--- NOTE | 2023-08-21 15:22 | CM.DANOTE ---
Addendum entered by COLTEN Bond 08/21/23 16:55: Per chargeback specialist, d/c currently pending home O2 needs. RT attempting to contact daughter now to coordinate home O2 plan. Current plan is to d/c home around 1700. SL Addendum entered by COLTEN Bond 08/21/23 16:01: [facility] from [facility] reports can accept patient. RN Gloria kindly agreed to assist in faxing face to face and order to [facility] . CM team will fax d/c summary to [facility] when available. SL Original Note: DCP Assessment Note: Patient is an 88yo F here following low O2 stats. PCP Amado Cullen at [facility] Payer [employer] Medicare and [facility] ROLLOFF TRUCK DRIVER reviewed EMR. Per provider, patient likely to be able to d/c today. Provider reports ordering home O2 eval with RT for additional home O2 needs. Provider in agreement with . ROLLOFF TRUCK DRIVER placed order. Per RN, patient frequently gets short tempered and yells at spouse in room. ROLLOFF TRUCK DRIVER entered room and introduced self and role. Patient accompanied by spouse Raj at bedside ([phone]). Patient reports living in home with spouse and 7 other family members, some small grand children some adult children. Patient reports her family manages most of her ADLs, including transportation, meal prep, house keeping, and assists with bathing. Patient reports having a cane, walker, and bedside commode. Patient reports feeling safe and cared for at home. Patient reports getting frustrated with those around her due to her memory. Patient reported concern with her dtrs cancer diagnosis and her ability to continue in helping caregiving support. Patient and spouse in agreement with [facility] for RN/ROLLOFF TRUCK DRIVER/PT/OT/GAS METER REPAIR SUPERVISOR. Spouse and patient met outside of room. Spouse reports being interested in additional supports for ad terminal makeup operator planning. Spouse does not want to send patient to a memory care facility yet but is interested in resources. ROLLOFF TRUCK DRIVER provided copy of [facility] booklet and [facility] brochure. Spouse interested in hearing from [facility] re: retirement planning. ROLLOFF TRUCK DRIVER faxed initial ref information to [facility] for review. Martina agreed to review. ROLLOFF TRUCK DRIVER completed Face to face. Plan: patient to d/c home with family support. Anticipate [facility] to follow pending acceptance. CM team will continue to follow closely. COLTEN Bond Discharge Planning/Care Management Advanced directive, confirm from FAMILY Start: 08/19/23 15:42 Freq: Q24H Status: Complete Protocol: Document 08/20/23 15:42 HCW (Rec: 08/20/23 16:03 HCW [id number]) Advance Directive, confirm on record Time 16:03 Person contacted patient Copy received No CM Discharge Assessment Start: 08/21/23 15:17 Freq: Status: Active Protocol: Document 08/21/23 15:17 SL (Rec: 08/21/23 15:22 SL [id number]) Discharge Planning Assessment Assigned Pharmacovigilance Scientist COLTEN Lackey DPOA/Assigned Designee Name Raj Lopez (spouse) Contact Information [phone] Advance Directives? Yes Advance Directives on File No History Provided By Patient,Significant Other, Medical Record Prior Living Arrangements House Household Members spouse,family,children Comment 9 people in the home Type of transporation used prior to Relies on Others admit Comment or adult children to transport Independent with ADL's No Is patient alert and oriented? dementia impacts patient memory and understanding of circumstances Needs Assistance With Bathing,Meal Prep,Managing Medications,Home Chores / Shopping DME Already Rented / Owned FWW / Walker,Cane,Oxygen, Bedside Commode Comment here due to running out of home O2 Patient/Family Preference Home with Home Health Comment [facility] reviewing Barriers to Discharge No Comment Patient has spouse, and children at home for support. Discharge Plan Home with Home Health Transportation Arrangement Spouse Referrals Initiated None needed,Home Health SNF/HH Preference [facility] Contact Name/Phone Martina reviewing Whiteboard Updated in Patient Room with Yes name and ext. # of Pharmacovigilance Scientist Review Status In Process Next Review Type Continued Stay Review
--- NOTE | 2023-08-21 15:31 | PM.DS.1 ---
History of Present Illness History of Present Illness Date Patient Seen: 08/19/23 Time Patient Seen: 10:49 Date of Onset of Symptoms: 08/18/23 Chief complaint: low oxygen sats. Narrative: The patient is an 88-year-old female with history of COPD who had recently run out of oxygen. She is not sure who the vendor is. The patient became acutely short of breath yesterday. Apparently she was recently started on oral antibiotic for possible URI, doxycycline. She notes 2 weeks of Simmering symptoms that came to a head yesterday. Upon arrival she was quite dyspneic and was treated with bronchodilators. She was admitted for acute COPD exacerbation. She denies any chest pain or last several days. She is able to ambulate at home. A Fisher catheter was placed in the emergency department, but she denies any symptoms of retention. She lives on [facility] with her . Discharge Providers Provider Date of admission: 08/19/23 05:41 Discharge Date: 08/21/23 Primary care physician: Katty Harrington MD Consults: 08/19/23 15:39 Consult to Dietitian, Adult Routine Comment: Reason For Exam: no teeth, Consult to Electrician Locomotive Routine Comment: 08/21/23 15:27 Consult to Home Health Routine Comment: Reason For Exam: RN/CUT OFF OPERATOR SCORER/PT/OT/bath aid Discharge provider: José Crespo, DO Exam Vital Signs (past 8 hours): - 08/21/23 07:50 08/21/23 08:59 08/21/23 10:49 Temperature 97.0 F L Pulse Rate 72 82 Respiratory Rate 16 20 Blood Pressure 153/72 H Pulse Oximetry 91 91 Oxygen Delivery Method Oximask Nasal Cannula Oxygen Flow Rate 2 0 2 08/21/23 12:00 08/21/23 14:26 08/21/23 15:00 Temperature 97.3 F L Pulse Rate 86 78 Respiratory Rate 16 18 Blood Pressure 138/68 Pulse Oximetry 99 92 Oxygen Delivery Method Nasal Cannula Nasal Cannula Oxygen Flow Rate 2 2 2 Oxygen Delivery Method Nasal Cannula Oxygen Flow Rate 2 Narrative Exam Narrative: Very agitated, upset, threatening with her walker. On 2nd visit she is calm and interruptive, talking over other conversations in the room which she does not seem to be aware of. Her topics are nonsensical. Heart is regular rate and rhythm without murmur Lungs are clear to auscultation bilaterally Extremities have no ankle edema Objective Labs 08/21/23 09:05 08/21/23 09:05 Labs: Laboratory Results - last 24 hr 08/21/23 09:05 WBC 10.5 RBC 4.24 Hgb 12.2 Hct 37.5 MCV 88.5 MCH 28.8 MCHC 32.5 RDW 15.0 H Plt Count 193 Neut % (Auto) 83.8 H Lymph % (Auto) 10.5 L [place] % (Auto) 5.4 Eos % (Auto) 0.0 L Baso % (Auto) 0.3 Neut # (Auto) 8800 H Lymph # (Auto) 1100 [place] # (Auto) 600 Eos # (Auto) 0 Baso # (Auto) 0 Sodium 136 L Potassium 3.8 Chloride 104 Carbon Dioxide 21 L BUN 33 H Creatinine 1.07 H Estimated GFR 50 L BUN/Creatinine Ratio 30.8 H Glucose 228 H Calcium 9.6 PFSH Medical History Arthropathy of left shoulder Spinal stenosis Osteoarthritis Depression Memory changes COPD (chronic obstructive pulmonary disease) Diabetes Hypertension Gouty arthritis of toe Surgical History History of arthroplasty of left knee History of arthroplasty of right knee Social History household members: spouse, family and children Smoking Status: Never smoker alcohol intake: former Discharge Plan Discharge Plan Patient Disposition: Home Health Service Discharge orders & Medications Prescriptions: New prednisone 20 mg Tablet 40 mg PO DAILY 3 Days Qty: 6 0RF Rx Instructions: start on 08/22 cefdinir 300 mg capsule 300 mg PO BID 3 Days Qty: 6 0RF Rx Instructions: start on 08/22 Continued VITAMIN D (Vitamin D3) 1,000 units PO BEDTIME Qty: 0 fluoxetine [Prozac] 40 MG capsule 40 mg PO QDAY Qty: 0 insulin aspart U-100 [Novolog U-100 Insulin aspart] 100 unit/mL solution 10 unit SQ BID Qty: 0 atorvastatin 40 mg Tablet 40 mg PO BEDTIME aspirin 81 mg tablet,delayed release (DR/EC) 81 mg PO DAILY magnesium oxide 500 mg Tablet 500 mg PO DAILY gabapentin 300 mg capsule 600 mg PO BEDTIME calcium citrate 200 mg (950 mg) Tablet 500 mg PO BID metoprolol succinate 50 mg tablet extended release 24 hr 50 mg PO DAILY omeprazole 20 mg capsule,delayed release(DR/EC) 40 mg PO DAILY insulin glargine [Lantus Solostar U-100 Insulin] 100 unit/mL (3 mL) insulin pen 30 unit SUBCUT DAILY Patient Comments: [NO ORIGINAL SIG] doxycycline hyclate 100 mg tablet 100 mg PO BID Follow up/Referrals: Katty Harrington MD [Primary Care Provider] - 1 Week Visit Report/Discharge Packet Stand Alone Forms: Patient Portal/API, Stroke Signs & Symptoms Discharge Data Primary Care Provider: Katty Harrington
--- NOTE | 2023-08-21 16:15 | CM.DPNOTE ---
DCP: Faxed over orders and face to face to [facility]. Valorie, NEW HOME SALES CONSULTANT, has indicated that she spoke to Martina at [facility], who has confirmed acceptance. H&P was already faxed. P: Patient is discharging home with family and [facility]. Marcie Gentile RN/Negative Checker
--- NOTE | 2023-08-21 18:20 | P.PN_ITS ---
Subjective Subjective Interval history: Patient feeling much better today. Ready to go home. Home O2 being arranged first. Exam Vital Signs (past 8 hours): - 08/21/23 10:49 08/21/23 12:00 08/21/23 14:26 Temperature 97.3 F L Pulse Rate 82 86 78 Respiratory Rate 20 16 18 Blood Pressure 138/68 Pulse Oximetry 99 Oxygen Delivery Method Nasal Cannula Nasal Cannula Oxygen Flow Rate 2 2 2 08/21/23 15:00 Temperature Pulse Rate Respiratory Rate Blood Pressure Pulse Oximetry 92 Oxygen Delivery Method Nasal Cannula Oxygen Flow Rate 2 Oxygen Delivery Method Nasal Cannula Oxygen Flow Rate 2 Narrative Exam Narrative: Demented. Heart is regular rate and rhythm without murmur Lungs are clear to auscultation bilaterally Extremities have no ankle edema Objective Labs 08/21/23 09:05 08/21/23 09:05 Labs: Laboratory Results - last 24 hr 08/21/23 09:05 WBC 10.5 RBC 4.24 Hgb 12.2 Hct 37.5 MCV 88.5 MCH 28.8 MCHC 32.5 RDW 15.0 H Plt Count 193 Neut % (Auto) 83.8 H Lymph % (Auto) 10.5 L [place] % (Auto) 5.4 Eos % (Auto) 0.0 L Baso % (Auto) 0.3 Neut # (Auto) 8800 H Lymph # (Auto) 1100 [place] # (Auto) 600 Eos # (Auto) 0 Baso # (Auto) 0 Sodium 136 L Potassium 3.8 Chloride 104 Carbon Dioxide 21 L BUN 33 H Creatinine 1.07 H Estimated GFR 50 L BUN/Creatinine Ratio 30.8 H Glucose 228 H Calcium 9.6 PFSH Medical History Arthropathy of left shoulder Spinal stenosis Osteoarthritis Depression Memory changes COPD (chronic obstructive pulmonary disease) Diabetes Hypertension Gouty arthritis of toe Surgical History History of arthroplasty of left knee History of arthroplasty of right knee Social History household members: spouse, family and children Smoking Status: Never smoker alcohol intake: former Assessment & Plan Assessment & Plan narrative: 1. Acute hypoxic resp failure 2/2 PNA and COPD exacerbation, present on admission and active. On abx and steroids. Continue oxygen at night, bronchodilators and change to prednisone 40 mg a day. Arranging home O2. 2. Diabetes mellitus 2, present on admission and stable. Last A1 8.4 in 2021. We will continue her home regimen of Lantus and lispro. 3. Essential hypertension, present on admission and active. We will resume and continue home medications and follow clinically. 4. Agitated Alzheimer's dementia. -Lorazepam as needed. Consider Zyprexa/Seroquel if needed. -improved mentation on 08/21 and no agitation -started donepezil and can prescribe on dc Dispo: Dc home on 08/22 with home O2.
[2023-08-21] MEDS: DONEPEZIL 5 MG TABLET PO (20:37)
[2023-08-21] MEDS: SENNOSIDES 8.6 MG TABLET 17.2 MG PO (20:37)
--- NOTE | 2023-08-21 23:42 | PC.NURSE ---
Addendum entered by Radha Martinez R.N. 08/22/23 01:26: Patient having a lot of coughing with thicker, clear, mucusy secretions. O2 sat 95%. Changed out from oximask to nasal canula as not able to leave oximask on. Weepy stating she is scared that she won't go to [facility]. Reassured she is not dying at this time. RT notified and humidifier added to oxygen. Provided tea to help with secretions and medicated with ativan for anxiety. Original Note: Patient is alert and oriented except did not know day of month or year. Has bilateral UE tremors right > left. Breath sounds CTA with intermittent cough producing clear sputum. Denied SOB. Was on oxygen at 2L/min per NC at time of assessment with sat of 95%; placed on oximask for night as tends to desat when asleep. HRR. Denied nausea. BT present and abdomen is soft. Stated she had 3 loose stools earlier today so declined senna at bedtime. Up to bathroom with cane and SBA and voided; denied dysuria. Is able to move herself in bed. Has decreased ROM in left UE; stated she had a left TSA and did not do her exercises which affected her ROM. Bruising noted on bilateral UE. Denied pain except when attempting to lift left arm. Did agree to have bilateral calf SCD's applied when assisted to bed but after getting up to bathroom declined to have them put back on. Spouse at bedside and assisting patient as needed. Fall risk score is high and bed alarm is activated.
[2023-08-22] VITALS (9 sets, daily range): BP systolic 126–151; BP diastolic 57–75; PULSE 60–89; RESP 16–20; TEMP 36.1–36.6; O2SAT 92–97
[2023-08-22] MEDS: LORazepam 0.5 MG TABLET PO (01:15)
[2023-08-22] MEDS: ONDANSETRON 4 MG ODT SL (02:10)
[2023-08-22] MEDS: ALBUTEROL 2.5 MG/3 ML NEB (ADULT) INH (02:35)
[2023-08-22] MEDS: PANTOPRAZOLE DR 20 MG TABLET PO (05:57)
--- NOTE | 2023-08-22 08:14 | PC.NURSE ---
Patients blood sugar this morning 142. She is eating breakfast and states that she is feeling better today. Patient has had home oxygen through [email or web address] before and they are aware of this. She has no iv access for the last couple of days and is a one person assist with walker. at bedside. Patient will most likely discharge home today.
[2023-08-22] MEDS: predniSONE 20 MG TABLET 40 MG PO (08:39)
[2023-08-22] MEDS: ACETAMINOPHEN 325 MG TABLET 650 MG PO ×2 (08:39→21:01)
[2023-08-22] MEDS: ENOXAPARIN 40 MG/0.4 ML SYRINGE SUBCUT (08:39)
[2023-08-22] MEDS: INSULIN LISPRO 100 UNIT/ML 3ML VIAL SUBCUT ×4 (08:42→20:55)
[2023-08-22] MEDS: ALBUTEROL/IPRATROPIUM 3 ML AMPUL INH ×2 (09:40→15:24)
[2023-08-22] MEDS: INSULIN GLARGINE 100 UNIT/ML 3ML PEN 33 UNIT SUBCUT (12:08)
[2023-08-22] MEDS: SODIUM CHLORIDE 0.9% FLUSH 10 ML IV ×2 (12:10→20:56)
[2023-08-22] MEDS: cefTRIAXone 1,000 MG in SODIUM CHLORIDE 0.9% 100 ML 200 MG IV (15:32)
--- NOTE | 2023-08-22 15:56 | CM.DPC ---
DCP Continued: GENETICS NURSE reviewed EMR. Per Sandra MCCABE, can accept patient. Will just need d/c summary and to be notified on discharge. Per RN, patient lethargic today and provider would like to keep her another day. Plan: patient likely to d/c home tomorrow with Sandra MCCABE to follow for RN/OT/PT/GENETICS NURSE. Transport with family in POV. CM team will continue to follow closely. COLTEN Bond
--- NOTE | 2023-08-22 20:27 | P.PN_ITS ---
Subjective Subjective Date Patient Seen: 08/22/23 Time Patient Seen: 08:00 Interval history: She is still requiring oxygen, up to 6L with activity. RN thinks she is more fatigued today. She has a cough, but acknowledges this is chronic. Exam Vital Signs (past 8 hours): - 08/22/23 16:00 Temperature 97.6 F Pulse Rate 86 Respiratory Rate 18 Blood Pressure 141/63 H Pulse Oximetry 94 Oxygen Flow Rate 2 Fraction of Inspired Oxygen 28 SaO2/FiO2 Ratio 335 Oxygen Delivery Method Oximask Oxygen Flow Rate 2 Narrative Exam Narrative: GEN: frail, chronically ill appearing CV: regular rate and rhythm PULM: coarse breath sounds bilaterally EXT: no edema Objective Labs 08/21/23 09:05 08/21/23 09:05 [facility] Medical History Arthropathy of left shoulder Spinal stenosis Osteoarthritis Depression Memory changes COPD (chronic obstructive pulmonary disease) Diabetes Hypertension Gouty arthritis of toe Surgical History History of arthroplasty of left knee History of arthroplasty of right knee Social History household members: spouse, family and children Smoking Status: Never smoker alcohol intake: former Assessment & Plan Assessment & Plan narrative: 1. Acute hypoxic resp failure 2/2 PNA and COPD exacerbation, present on admission and active. On abx and steroids. Continue oxygen at night, bronchodilators and change to prednisone 40 mg a day. Arranging home O2. 2. Diabetes mellitus 2, present on admission and stable. Last A1 8.4 in 2021. We will continue her home regimen of Lantus and lispro. 3. Essential hypertension, present on admission and active. We will resume and continue home medications and follow clinically. 4. Agitated Alzheimer's dementia. -stop ativan, start seroquel prn -improved mentation on 08/21 and no agitation -started donepezil and can prescribe on dc
[2023-08-22] MEDS: DONEPEZIL 5 MG TABLET PO (20:54)
[2023-08-23] VITALS: BP 170/74; PULSE 62; RESP 16; TEMP 36.4; O2SAT 95
--- NOTE | 2023-08-23 02:57 | PC.NURSE ---
Patient is alert and oriented except did not know day of month or year. Breath sounds CTA with sat of 93%; on oxygen at 2.5L/min per oximask. HRR w/BP of 142/72 at time of assessment but on last check was elevated further at 170/74. Does have an intermittent cough which has been nonproductive tonight. Denied nausea. BT present and abdomen is soft; declined senna again tonight. Is able to move herself in bed. Up to bathroom with cane and spouse's assistance. Declined to wear SCD's so reminded of importance to ankle wave when awake. Did complain of generalized pain so was medicated with tylenol and on reassessment was asleep. Fall risk score is high and bed alarm is activated. Spouse rooming in.
[2023-08-23 04:00] VITALS: BP 183/81; PULSE 69; RESP 17; TEMP 36.4; O2SAT 98
[2023-08-23 04:01] VITALS: BP 183/81; PULSE 69; RESP 17; TEMP 36.5; O2SAT 98
[2023-08-23] MEDS: PANTOPRAZOLE DR 20 MG TABLET PO (06:45)
[2023-08-23] MEDS: ALBUTEROL/IPRATROPIUM 3 ML AMPUL INH (07:53)
[2023-08-23 08:00] VITALS: BP 161/73; PULSE 69; PULSE 74; RESP 16; TEMP 36.2; O2SAT 94; O2SAT 96
[2023-08-23] MEDS: predniSONE 20 MG TABLET 40 MG PO (09:05)
[2023-08-23] MEDS: ENOXAPARIN 40 MG/0.4 ML SYRINGE SUBCUT (09:05)
[2023-08-23] MEDS: INSULIN GLARGINE 100 UNIT/ML 3ML PEN 33 UNIT SUBCUT (09:06)
[2023-08-23] MEDS: INSULIN LISPRO 100 UNIT/ML 3ML VIAL SUBCUT (09:06)
[2023-08-23] MEDS: SODIUM CHLORIDE 0.9% FLUSH 10 ML IV (09:09)
--- NOTE | 2023-08-23 13:24 | CM.DPC ---
DCP Cont: Patient has discharge orders for home today. Called over at [facility], spoke to Makenzie in intake, has already accepted patient. She has received orders, face to face, but DC Summary is still pending. Let her know that this DC Plant Anatomy Teacher can send her updated notes. P: Patient is discharging home today on home oxygen and [facility] services, will send updated notes. Marcie Gentile RN/Infectious Disease Technician
--- NOTE | 2023-08-23 13:58 | PC.NURSE ---
Pt is dressed and ready for discharge home with Spouse. Daughter is here to drive them home. IV has been removed. Went over d/c instructions with Pt and Spouse-discussed d/c meds, time of last dose, reviewed stroke education, discussed follow up. Scripts have been sent to [facility]. Pt and Spouse denied further questions and Pt was taken out via w/c by [employer] TESTER to [facility] with Spouse, Daughter, and all belongings.
--- NOTE | 2023-08-23 18:52 | P.DS_ITS ---
History of Present Illness History of Present Illness Date Patient Seen: 08/19/23 Time Patient Seen: 10:49 Date of Onset of Symptoms: 08/18/23 Chief complaint: mental health crisis Narrative: Per admitting physician: The patient is an 88-year-old female with history of COPD who had recently run out of oxygen. She is not sure who the vendor is. The patient became acutely short of breath yesterday. Apparently she was recently started on oral antibiotic for possible URI, doxycycline. She notes 2 weeks of Simmering symptoms that came to a head yesterday. Upon arrival she was quite dyspneic and was treated with bronchodilators. She was admitted for acute COPD exacerbation. She denies any chest pain or last several days. She is able to ambulate at home. A Fisher catheter was placed in the emergency department, but she denies a ny symptoms of retention. She lives on [address] with her . Discharge Providers Provider Discharge Date: 08/23/23 Primary care physician: Katty Harrington MD Discharge provider: Sonny Delatorre MD Summary Hospital Course Discharge Diagnosis: 1. Acute hypoxemic respiratory failure secondary to pneumonia and COPD ex acerbation 2. Type 2 Diabetes 3. Essential Hypertension 4. Alzheimer's dementia Hospital Course: Ms. Lopez was admitted to the hospital with respiratory failure. She has a long history of cough, and COPD. She worsened to the point of weakness and lethargy and tachypnea with her noting significant hypoxemia. She had not been on oxygen at home. She was on oxygen during her hospital stay and was not able to be weaned off this. However, she was discharged on 2L o2 with up to 6L o2 required for exertion and her respiratory symptoms were much improved and per her her cough was the best it had been in a long time. She was started on donepezil for her Alzheimer's, I did discuss the limited benefits of this with her but he wanted to continue this medication. She was quite emotionally labile at times. She has a difficult home situation with many family in her house, some who are sick. She was trialed on ativan but became lethargic with this medication so this was stopped. Seroquel was considered but ultimately she felt well without this and was able to be discharged home. She was seen by social work and her did not want to have her placed in a memory facility at this time, social work did provide senior resources and home health resources. Exam Vital Signs (past 8 hours): - 08/22/23 16:00 Temperature 97.6 F Pulse Rate 86 Respiratory Rate 18 Blood Pressure 141/63 H Pulse Oximetry 94 Oxygen Flow Rate 2 Fraction of Inspired Oxygen 28 SaO2/FiO2 Ratio 335 Oxygen Delivery Method Oximask Oxygen Flow Rate 2 Narrative Exam Narrative: GEN: frail, chronically ill appearing CV: regular rate and rhythm PULM: clear bilaterally EXT: no edema NEURO: awake, lert, oriented [facility] Medical History Arthropathy of left shoulder Spinal stenosis Osteoarthritis Depression Memory changes COPD (chronic obstructive pulmonary disease) Diabetes Hypertension Gouty arthritis of toe Surgical History History of arthroplasty of left knee History of arthroplasty of right knee Social History household members: spouse, family and children Smoking Status: Never smoker alcohol intake: former Discharge Plan Departure Prescriptions: No Action VITAMIN D (Vitamin D3) 1,000 units PO BEDTIME Qty: 0 fluoxetine [Prozac] 40 MG capsule 40 mg PO QDAY Qty: 0 insulin aspart U-100 [Novolog U-100 Insulin aspart] 100 unit/mL solution 10 unit SQ BID Qty: 0 atorvastatin 40 mg Tablet 40 mg PO BEDTIME aspirin 81 mg tablet,delayed release (DR/EC) 81 mg PO DAILY magnesium oxide 500 mg Tablet 500 mg PO DAILY gabapentin 300 mg capsule 600 mg PO BEDTIME calcium citrate 200 mg (950 mg) Tablet 500 mg PO BID metoprolol succinate 50 mg tablet extended release 24 hr 50 mg PO DAILY omeprazole 20 mg capsule,delayed release(DR/EC) 40 mg PO DAILY insulin glargine [Lantus Solostar U-100 Insulin] 100 unit/mL (3 mL) insulin pen 30 unit SUBCUT DAILY Patient Comments: [NO ORIGINAL SIG] doxycycline hyclate 100 mg tablet 100 mg PO BID prednisone 20 mg Tablet 40 mg PO DAILY 3 Days Qty: 6 0RF Rx Instructions: start on 08/22 cefdinir 300 mg capsule 300 mg PO BID 3 Days Qty: 6 0RF Rx Instructions: start on 08/22 donepezil 5 mg Tablet 5 mg PO BEDTIME Qty: 30 0RF Referrals: Katty Harrington MD [Primary Care Provider] -
== END 2023-08-23 14:00 | disposition home health service (06) | DRG 190 ==
LOC: ED 05:30 → AC 05:42
PROVIDERS: Hospitalist; Student in an Organized Health Care Education/Training Program; Admitting Provider Internal Medicine; Emergency Provider Emergency Medicine; Family Provider Internal Medicine; PCP Family Medicine; Referring Provider Emergency Medicine; Visit Provider Internal Medicine
DX: J44.1 Chronic obstructive pulmonary disease with (acute) exacerbation (principal); J96.01 Acute respiratory failure with hypoxia; F02.811 Dementia in other diseases classified elsewhere, unspecified severity, with agitation; E11.9 Type 2 diabetes mellitus without complications; I10 Essential (primary) hypertension; G30.9 Alzheimer's disease, unspecified; Z99.81 Dependence on supplemental oxygen; Z79.4 Long term (current) use of insulin; S40.021A Contusion of right upper arm, initial encounter; J44.9 Chronic obstructive pulmonary disease, unspecified; M54.6 Pain in thoracic spine; S09.90XA Unspecified injury of head, initial encounter; R10.2 Pelvic and perineal pain; W18.2XXA Fall in (into) shower or empty bathtub, initial encounter; S70.11XA Contusion of right thigh, initial encounter
CPT/HCPCS: 0241U; 36415; 36600; 51798; 70450; 71045; 71250; 72125; 73030; 74176; 80048; 80053; 81001; 81003; 82550; 82805; 82962; 83605; 83735; 83880; 84145; 84484; 85025; 86850; 86900; 86901; 87040; 87086; 87635; 93010; 94618; 94640; 94760; 96365; 96375; 99284; 99285; C9803; J0696; J1650; J1815; J2060; J2405; J2930; J7613

== ENCOUNTER 2023-08-23 18:42 | Emergency (ER) | payer MEDICARE, OTHER, SELFPAY ==
[2023-08-19 15:00] VITALS: BMI 26.9
[2023-08-23] VITALS (16 sets, daily range): BP systolic 186–216; BP diastolic 80–142; PULSE 57–83; RESP 17–30; TEMP 36.9; O2SAT 92–97; BMI 29.4
--- NOTE | 2023-08-23 18:52 | ED_ITS ---
HPI - General Adult General Chief complaint: Altered Mental Status Stated complaint: mental health crisis Time Seen by Provider: 08/23/23 18:46 History of Present Illness HPI narrative: 88-year-old woman with progressive Alzheimer's type dementia, hypertension, hyperlipidemia, diabetes brought in by medics for evaluation of feeling sad at home. She had just been admitted for a COPD exacerbation and had been sufficiently stabilized and was discharged today. She was set up with 2 L of oxygen for home use. There was extensive care management and social work involvement. There was some discussion about the potential of being sent to a detention facility but family did not wish to pursue this at that time. With Care management help there was consultation and contact with home nursing for additional support at home. Patient denies any suicidal or homicidal ideations. She had mentioned that she felt sad and wanted to come back to the hospital to be seen. She denies any increased work of breathing, no fever no vomiting, no chest pain. Related Data Home Medications Medication Instructions Recorded Confirmed VITAMIN D (Vitamin D3) 1,000 units PO BEDTIME ##0 09/06/11 08/19/23 fluoxetine 40 mg capsule (Prozac) 40 mg PO QDAY ##0 11/28/16 08/19/23 insulin aspart U-100 100 unit/mL 10 unit SQ BID ##0 11/28/16 08/19/23 subcutaneous solution (Novolog U-100 Insulin aspart) atorvastatin 40 mg tablet 40 mg PO BEDTIME 03/03/22 08/19/23 aspirin 81 mg tablet,delayed 81 mg PO DAILY 03/04/22 08/19/23 release gabapentin 300 mg capsule 600 mg PO BEDTIME 03/04/22 08/19/23 magnesium oxide 500 mg tablet 500 mg PO DAILY 03/04/22 08/19/23 calcium citrate 200 mg (950 mg) 500 mg PO BID 03/07/22 08/19/23 tablet doxycycline hyclate 100 mg tablet 100 mg PO BID 08/16/23 08/19/23 insulin glargine 100 unit/mL (3 30 unit SUBCUT DAILY 08/16/23 08/19/23 mL) subcutaneous pen (Lantus Solostar U-100 Insulin) metoprolol succinate 50 mg 50 mg PO DAILY 08/16/23 08/19/23 tablet,extended release 24 hr omeprazole 20 mg capsule,delayed 40 mg PO DAILY 08/16/23 08/19/23 release Previous Rx's Medication Instructions Recorded donepezil 5 mg tablet 5 mg PO BEDTIME #30 tabs 08/23/23 Allergies Allergy/AdvReac Type Severity Reaction Status Date / Time iodine [IODINE] Allergy Severe Swelling Verified 07/30/23 14:45 of Lip/Tongue/Throat lisinopril [LISINOPRIL] Allergy Severe Swelling Verified 07/30/23 14:45 of Lip/Tongue/Throat shellfish derived Allergy Severe Swelling Verified 07/30/23 14:45 [SHELLFISH DERIVED] of Lip/Tongue/Throat Penicillins Allergy Intermediate Rash Verified 07/30/23 14:45 oxycodone AdvReac Hallucinati Verified 07/30/23 14:45 ng Review of Systems Review of Systems Narrative: GENERAL: Denies chills, fatigue, malaise, fever, sweats. HEENT: Denies sinus pain, ear pain, sore throat, difficulty swallowing, dizziness. RESPIRATORY: Denies dyspnea, cough, wheezing, hemoptysis, sputum. CARDIOVASCULAR: Denies chest pain, palpitations, orthopnea, edema, GASTROINTESTINAL: Denies nausea, vomiting, abdominal pain, diarrhea, constipation, melena. : Denies dysuria, frequency, incontinence, hematuria, urinary retention. MUSCULOSKELETAL: denies weakness, joint pain, or bony pain SKIN: Denies rash, skin lesions, or other NEUROLOGIC: Denies weakness, headache, numbness, change in speech, confusion, seizures, incoordination. PSYCHIATRIC: See HPI 12 point review of systems is negative except for those stated above Patient History Medical History Arthropathy of left shoulder Spinal stenosis Osteoarthritis Depression Memory changes COPD (chronic obstructive pulmonary disease) Diabetes Hypertension Gouty arthritis of toe Surgical History History of arthroplasty of left knee History of arthroplasty of right knee Social History household members: spouse, family and children Smoking Status: Never smoker alcohol intake: former Smoking Status: Never smoker alcohol intake frequency: holidays/special occasions only Substance Use Type: does not use Exam Narrative Exam Narrative: GENERAL: [88] year old patient appears stated age. Frail and elderly, in no obvious distress, pleasantly confused and at her baseline HEAD: Atraumatic. Normocephalic. EYES: Pupils equal round and reactive. Extraocular motions intact. No scleral icterus. No injection or drainage. ENT: Nose without bleeding, purulent drainage. Throat without erythema, tonsillar hypertrophy or exudate. Airway patent. NECK: Trachea midline. Non tender CARDIOVASCULAR: Regular rate and rhythm without murmurs, gallops, or rubs. RESPIRATORY: Prolonged expiratory phase with decreased lung sounds, no increased oxygen requirements GASTROINTESTINAL: Abdomen soft, non-tender, nondistended. EXTREMITIES: No edema or joint tenderness. BACK: Nontender without deformity or crepitance. No flank tenderness. NEURO: Cranial nerves 2-12 grossly intact. SKIN: No rash or erythema of visible areas Initial Vital Signs Initial Vital Signs: Vital Signs Pulse Rate 73 08/23/23 18:43 Blood Pressure 186/94 H 08/23/23 18:43 Pulse Oximetry 93 08/23/23 18:43 Course Orders Ordered: ED Orders 08/23/23 18:47 EKG-12 Lead Stat 08/23/23 19:11 Acetaminophen Stat Complete Blood Count AUTO DIFF Stat Comprehensive Metabolic Panel Stat Ethanol (ETOH) Stat Free T4, Direct Thyroxine Stat Salicylate Stat Thyroid Stimulating Hormone Stat 08/23/23 19:50 Urine Drug Screen, Rapid Stat Discontinued Medications Quetiapine Fumarate (Quetiapine 25 Mg Tablet) 12.5 mg PO NOW ONE Stop: 08/23/23 19:30 Last Admin: 08/23/23 19:37 Dose: 12.5 mg Documented By: DUY Vital Signs Vital signs: Vital Signs - 8 hr 08/23/23 18:43 08/23/23 18:43 08/23/23 18:46 Temperature 98.4 F Pulse Rate 73 69 Respiratory Rate 20 Blood Pressure 186/94 H 193/104 H Pulse Oximetry 93 92 Oxygen Delivery Method Room Air Oxygen Flow Rate 08/23/23 18:49 08/23/23 18:49 08/23/23 19:00 Temperature Pulse Rate 83 71 Respiratory Rate 24 Blood Pressure 193/109 H Pulse Oximetry 94 96 Oxygen Delivery Method Nasal Cannula Nasal Cannula Oxygen Flow Rate 2 2 08/23/23 19:00 08/23/23 19:11 08/23/23 19:11 Temperature Pulse Rate 74 Respiratory Rate 30 H Blood Pressure 216/95 H 194/89 H Pulse Oximetry 96 Oxygen Delivery Method Nasal Cannula Oxygen Flow Rate 2 08/23/23 19:30 08/23/23 20:00 08/23/23 20:01 Temperature Pulse Rate 73 57 L 59 L Respiratory Rate 26 H 20 22 Blood Pressure Pulse Oximetry 97 97 97 Oxygen Delivery Method Nasal Cannula Nasal Cannula Oxygen Flow Rate 2 2 08/23/23 20:01 08/23/23 20:08 08/23/23 20:08 Temperature Pulse Rate 58 L Respiratory Rate 19 Blood Pressure 205/95 H 214/80 H Pulse Oximetry 97 Oxygen Delivery Method Nasal Cannula Oxygen Flow Rate 2 08/23/23 20:30 08/23/23 20:30 08/23/23 21:00 Temperature Pulse Rate 58 L 77 Respiratory Rate 24 22 Blood Pressure 202/109 H Pulse Oximetry 95 97 Oxygen Delivery Method Nasal Cannula Nasal Cannula Oxygen Flow Rate 2 2 08/23/23 21:00 08/23/23 21:04 08/23/23 21:04 Temperature Pulse Rate 68 Respiratory Rate 21 Blood Pressure 189/139 H 189/142 H Pulse Oximetry 95 Oxygen Delivery Method Nasal Cannula Oxygen Flow Rate 2 08/23/23 21:30 08/23/23 21:31 08/23/23 21:31 Temperature Pulse Rate 76 67 Respiratory Rate 22 21 Blood Pressure 203/90 H Pulse Oximetry 95 95 Oxygen Delivery Method Nasal Cannula Nasal Cannula Oxygen Flow Rate 2 2 08/23/23 22:00 08/23/23 22:01 08/23/23 22:01 Temperature Pulse Rate 63 62 Respiratory Rate 22 17 Blood Pressure 207/95 H Pulse Oximetry 97 97 Oxygen Delivery Method Nasal Cannula Nasal Cannula Oxygen Flow Rate 2 2 Medical Decision Making Lab Data 08/23/23 19:11 08/23/23 19:11 Labs: Lab Results 08/23/23 08/23/23 Range/Units 19:11 19:50 WBC 5.8 (4.5-11.0) X10^3/uL RBC 4.68 (4.0-5.2) X10^6/uL Hgb 13.6 (12.0-16.0) g/dL Hct 41.0 (36-46) % MCV 87.5 (80-100) fL MCH 29.1 (26-34) PG MCHC 33.2 (30-36) % RDW 14.8 (11.6-14.8) % Plt Count 182 (150-400) X10^3/uL Neut % (Auto) 81.8 H (50-75) % Lymph % (Auto) 14.9 L (25-40) % Trigg % (Auto) 2.6 L (3-14) % Eos % (Auto) 0.0 L (2-4) % Baso % (Auto) 0.7 (0-2) % Neut # (Auto) 4700 (8831-6378) /uL Lymph # (Auto) 900 L (9458-7590) /uL Trigg # (Auto) 200 (0-900) /uL Eos # (Auto) 0 (0-450) /uL Baso # (Auto) 0 (0-100) /uL Sodium 137 (137-145) mmol/L Potassium 4.5 (3.4-5.1) mmol/L Chloride 103 (98-107) mmol/L Carbon Dioxide 24 (22-32) mmol/L BUN 27 H (7-17) mg/dL Creatinine 1.13 H (0.52-1.04) mg/dL Estimated GFR 47 L (>60) mL/min BUN/Creatinine Ratio 23.9 H (6-22) Glucose 211 H (80-110) mg/dL Calcium 10.0 (8.4-10.2) mg/dL Total Bilirubin 0.5 (0.2-1.3) mg/dL AST 39 H (14-36) IU/L ALT 44 H (<35) IU/L Alkaline Phosphatase 75 (38-126) U/L Total Protein 7.3 (6.3-8.2) g/dL Albumin 4.1 (3.5-5.0) g/dL Globulin 3.2 (1.7-4.1) g/dL Albumin/Globulin Ratio 1.3 (1.0-2.8) TSH 0.656 (0.47-4.68) uIU/mL Free T4 1.30 (0.78-2.19) ng/dL Salicylates < 1.0 (<20) mg/dL U Opiates 300ng/mL cut Negative (Negative) Ur Oxycodone Screen Negative (Negative) Urine Methadone Screen Negative (Negative) Acetaminophen < 10 (10-30) ug/mL Ur Barbiturates Screen Negative (Negative) U Tricyclic Antidepress Negative (Negative) Ur Phencyclidine Scrn Negative (Negative) Ur Amphetamines Screen Negative (Negative) U Methamphetamines Scrn Negative (Negative) Ur MDMA Scrn (Ecstasy) Negative (Negative) U Benzodiazepines Scrn Negative (Negative) Urine Cocaine Screen Negative (Negative) U Marijuana (THC) Screen Negative (Negative) Ethyl Alcohol < 10 ( - 10) mg/dL Urine Dip Bedside Urine Glucose 500 mg/dl Bedside Urine Bilirubin - Negative Bedside Urine Ketone - Negative Urine Specific [place] 1.005 Bedside Urine Occult Blood - Negative Bedside Urine pH 6.0 Bedside Urine Protein - Negative Bedside Urine Urobilinogen - Negative Bedside Urine Nitrite - Negative Bedside Urine Leukocytes - Negative Esterase Point of care testing: Urine Dip Bedside Urine Glucose 500 mg/dl Bedside Urine Bilirubin - Negative Bedside Urine Ketone - Negative Urine Specific [place] 1.005 Bedside Urine Occult Blood - Negative Bedside Urine pH 6.0 Bedside Urine Protein - Negative Bedside Urine Urobilinogen - Negative Bedside Urine Nitrite - Negative Bedside Urine Leukocytes - Negative Esterase MDM Narrative Medical decision making narrative: [88] year old patient presents with feeling sad, no suicidal or homicidal ideation, no increased work of breathing and otherwise well Multiple etiologies for patient's symptoms considered including, but not limited to: [Depression versus dementia versus other] Prior Charts reviewed in our EMR Primary Historian: patient Labs reviewed and interpreted by myself: No significant abnormalities requiring a specific intervention Imaging reviewed: Stable radiographic evaluation Patient's symptoms improved over duration of stay with above-stated therapies. She is at her baseline, we have confirmed that oxygen has been delivered to her home. We have discussed with the patient's who is happy to have the patient home. I discussed with the patient who states she is feeling fine and just wants to go home and go to sleep. Findings and discharge diagnosis discussed with patient/family followed by verbalization of understanding Return precautions discussed with patient/family whom verbalize understanding of diagnosis and plan Discharge Plan Departure Patient Disposition: Home Clinical Impression: Depression, COPD (chronic obstructive pulmonary disease), Dementia Instructions: DI for Chronic Obstructive Pulmonary Disease Activity Restrictions/Additional Instructions: *You have been diagnosed with [depression, dementia, chronic COPD] *What to do: *Please continue to take your regular medications as directed. [ ] New medication prescriptions sent to your pharmacy: [ ] [ ] New medication written as a paper prescription [ ] No new medications given *Please follow up with your primary care provider in 2-3 days, call for an appointment. Let them know you were seen in the Emergency Department and that we ask that you be seen in follow up. We will electronically transmit a record of today's note if your PCP is in our system *If you do not have a primary care provider please contact the [facility] Resource line at [phone]. They will ask some questions about your medical history and help get you set up with a doctor in the community. *Return to Emergency Department if you should have any new, worsening or concerning symptoms, such as [fever greater than 101 F, shaking chills, worsening pain, persistent vomiting or other bothersome symptoms] Prescriptions: No Action VITAMIN D (Vitamin D3) 1,000 units PO BEDTIME Qty: 0 fluoxetine [Prozac] 40 MG capsule 40 mg PO QDAY Qty: 0 insulin aspart U-100 [Novolog U-100 Insulin aspart] 100 unit/mL solution 10 unit SQ BID Qty: 0 atorvastatin 40 mg Tablet 40 mg PO BEDTIME aspirin 81 mg tablet,delayed release (DR/EC) 81 mg PO DAILY magnesium oxide 500 mg Tablet 500 mg PO DAILY gabapentin 300 mg capsule 600 mg PO BEDTIME calcium citrate 200 mg (950 mg) Tablet 500 mg PO BID metoprolol succinate 50 mg tablet extended release 24 hr 50 mg PO DAILY omeprazole 20 mg capsule,delayed release(DR/EC) 40 mg PO DAILY insulin glargine [Lantus Solostar U-100 Insulin] 100 unit/mL (3 mL) insulin pen 30 unit SUBCUT DAILY Patient Comments: [NO ORIGINAL SIG] doxycycline hyclate 100 mg tablet 100 mg PO BID donepezil 5 mg Tablet 5 mg PO BEDTIME Qty: 30 0RF Referrals: Katty Harrignton MD [Primary Care Provider] - Stand Alone Forms: Patient Portal/API
--- NOTE | 2023-08-23 18:52 | PM.DS.1 ---
History of Present Illness History of Present Illness Date Patient Seen: 08/19/23 Time Patient Seen: 10:49 Date of Onset of Symptoms: 08/18/23 Chief complaint: mental health crisis Narrative: Per admitting physician: The patient is an 88-year-old female with history of COPD who had recently run out of oxygen. She is not sure who the vendor is. The patient became acutely short of breath yesterday. Apparently she was recently started on oral antibiotic for possible URI, doxycycline. She notes 2 weeks of [place]mer[place] symptoms that came to a head yesterday. Upon arrival she was quite dyspneic and was treated with bronchodilators. She was admitted for acute COPD exacerbation. She denies any chest pain or last several days. She is able to ambulate at home. A Fisher catheter was placed in the emergency department, but she denies any symptoms of retention. She lives on [address] with her . Discharge Providers Provider Discharge Date: 08/23/23 Primary care physician: Katty Harrington MD Discharge provider: Sonny Delatorre MD Summary Hospital Course Discharge Diagnosis: 1. Acute hypoxemic respiratory failure secondary to pneumonia and COPD exacerbation 2. Type 2 Diabetes 3. Essential Hypertension 4. Alzheimer's dementia Hospital Course: Ms. Lopez was admitted to the hospital with respiratory failure. She has a long history of cough, and COPD. She worsened to the point of weakness and lethargy and tachypnea with her noting significant hypoxemia. She had not been on oxygen at home. She was on oxygen during her hospital stay and was not able to be weaned off this. However, she was discharged on 2L o2 with up to 6L o2 required for exertion and her respiratory symptoms were much improved and per her her cough was the best it had been in a long time. She was started on donepezil for her Alzheimer's, I did discuss the limited benefits of this with her but he wanted to continue this medication. She was quite emotionally labile at times. She has a difficult home situation with many family in her house, some who are sick. She was trialed on ativan but became lethargic with this medication so this was stopped. Seroquel was considered but ultimately she felt well without this and was able to be discharged home. She was seen by social work and her did not want to have her placed in a memory facility at this time, social work did provide senior resources and home health resources. Exam Vital Signs (past 8 hours): - 08/22/23 16:00 Temperature 97.6 F Pulse Rate 86 Respiratory Rate 18 Blood Pressure 141/63 H Pulse Oximetry 94 Oxygen Flow Rate 2 Fraction of Inspired Oxygen 28 SaO2/FiO2 Ratio 335 Oxygen Delivery Method Oximask Oxygen Flow Rate 2 Narrative Exam Narrative: GEN: frail, chronically ill appearing CV: regular rate and rhythm PULM: clear bilaterally EXT: no edema NEURO: awake, lert, oriented [facility] Medical History Arthropathy of left shoulder Spinal stenosis Osteoarthritis Depression Memory changes COPD (chronic obstructive pulmonary disease) Diabetes Hypertension Gouty arthritis of toe Surgical History History of arthroplasty of left knee History of arthroplasty of right knee Social History household members: spouse, family and children Smoking Status: Never smoker alcohol intake: former Discharge Plan Departure Prescriptions: No Action VITAMIN D (Vitamin D3) 1,000 units PO BEDTIME Qty: 0 fluoxetine [Prozac] 40 MG capsule 40 mg PO QDAY Qty: 0 insulin aspart U-100 [Novolog U-100 Insulin aspart] 100 unit/mL solution 10 unit SQ BID Qty: 0 atorvastatin 40 mg Tablet 40 mg PO BEDTIME aspirin 81 mg tablet,delayed release (DR/EC) 81 mg PO DAILY magnesium oxide 500 mg Tablet 500 mg PO DAILY gabapentin 300 mg capsule 600 mg PO BEDTIME calcium citrate 200 mg (950 mg) Tablet 500 mg PO BID metoprolol succinate 50 mg tablet extended release 24 hr 50 mg PO DAILY omeprazole 20 mg capsule,delayed release(DR/EC) 40 mg PO DAILY insulin glargine [Lantus Solostar U-100 Insulin] 100 unit/mL (3 mL) insulin pen 30 unit SUBCUT DAILY Patient Comments: [NO ORIGINAL SIG] doxycycline hyclate 100 mg tablet 100 mg PO BID prednisone 20 mg Tablet 40 mg PO DAILY 3 Days Qty: 6 0RF Rx Instructions: start on 08/22 cefdinir 300 mg capsule 300 mg PO BID 3 Days Qty: 6 0RF Rx Instructions: start on 08/22 donepezil 5 mg Tablet 5 mg PO BEDTIME Qty: 30 0RF Referrals: Katty Harrington MD [Primary Care Provider] -
[2023-08-23 19:18] LABS: Add Manual Diff / Slide Review NO; Basophils Absolute Auto 0 /uL (0-100); Basophils Percent Auto 0.7 % (0-2); Eosinophils Absolute Auto 0 /uL (0-450); Hemoglobin 13.6 g/dL (12.0-16.0); Lymphocytes Absolute Auto 900 /uL (1100-4500); Lymphocytes Percent Auto 14.9 % (25-40); Mean Corpuscular HGB Conc 33.2 % (30-36); Mean Corpuscular Hemoglobin 29.1 PG (26-34); Mean Corpuscular Volume 87.5 fL (80-100); Monocytes Absolute Auto 200 /uL (0-900); Monocytes Percent Auto 2.6 % (3-14); Neutrophils Absolute Auto 4700 /uL (1500-7000); Neutrophils Percent Auto 81.8 % (50-75); Platelet Count 182 X10^3/uL (150-400); Red Blood Cell Count 4.68 X10^6/uL (4.0-5.2); Red Cell Distribution Width 14.8 % (11.6-14.8); White Blood Cell Count 5.8 X10^3/uL (4.5-11.0)
[2023-08-23] MEDS: QUETIAPINE 25 MG TABLET 12.5 MG PO (19:37)
[2023-08-23 19:38] LABS: Acetaminophen < 10 ug/mL (10-30); Alanine Aminotransferase 44 IU/L (<35); Albumin 4.1 g/dL (3.5-5.0); Albumin Globulin Ratio 1.3 (1.0-2.8); Alkaline Phosphatase 75 U/L (38-126); Aspartate Aminotransferase 39 IU/L (14-36); BUN Creatinine Ratio 23.9 (6-22); Bilirubin Total 0.5 mg/dL (0.2-1.3); Blood Urea Nitrogen 27 mg/dL (7-17); Carbon Dioxide 24 mmol/L (22-32); Chloride 103 mmol/L (98-107); Estimated Glomerular Filt Rate 47 mL/min (>60); Ethanol (ETOH) < 10 mg/dL; Globulin 3.2 g/dL (1.7-4.1); Glucose 211 mg/dL (80-110); HEMOLYSIS 31 (0-50); Potassium 4.5 mmol/L (3.4-5.1); Salicylate < 1.0 mg/dL (<20); Sodium 137 mmol/L (137-145); Total Protein 7.3 g/dL (6.3-8.2)
[2023-08-23 20:06] LABS: Ur Creatinine Normal (Normal); Ur Specific Gravity Normal (Normal); Urine pH Normal (Normal)
[2023-08-23 20:07] LABS: UR Morphine/Opiate cutoff 300 Negative (Negative); Urine Amphetamines Negative (Negative); Urine Barbiturates Negative (Negative); Urine Benzodiazepines Negative (Negative); Urine Cocaine Negative (Negative); Urine MDMA Negative (Negative); Urine Methadone Negative (Negative); Urine Methamphetamines Negative (Negative); Urine Oxycodone Negative (Negative); Urine Phencyclidine Negative (Negative); Urine Tetrahydrocannabinol Negative (Negative); Urine Tricyclic Antidepressant Negative (Negative)
[2023-08-23 20:35] LABS: Thyroid Stimulating Hormone 0.656 uIU/mL (0.47-4.68)
--- NOTE | 2023-08-23 21:15 | PC.NURSE ---
This nurse spoke with patient's Raj who confirms that the oxygen tank was delivered later today.
--- NOTE | 2023-08-24 10:07 | RT ---
Received a call from patients , notifying me that the patient had run out of oxygen. He noted that after we set up the patient up with oxygen he refused it from [facility]. He stated that he has been kicking himself ever since. Per chart notes, patient's stated that they received oxygen, however after speaking with the patient's today, it appears that he did not receive oxygen from [facility] after all. Patient was given oxygen upon discharge on 08/23 as well as upon discharge on the evening of 08/23 from the ED. Patient's reported that [facility] is not able to provide oxygen at this time because the testing is too old. Patient's states that the patients oxygen is currently 95% on room air. Notified patients that I would attempt to contact [facility] and that he should return to the Emergency room if his deteriorates or has low oxgyen levels. Patient affirmed understanding of the need to return to the ED if his shows signs of low oxygen levels.
--- NOTE | 2023-08-24 10:41 | RT ---
Spoke with Kaitlin from [place]. She stated that she would call the patient's to hopefully finalize oxygen set up.
--- NOTE | 2023-08-25 16:32 | RT ---
Spoke with [place], who confirmed that that the patient received oxygen.
== END 2023-08-23 22:35 | disposition home or self-care (01) ==
PROVIDERS: Emergency Provider Emergency Medicine; Family Provider Internal Medicine; PCP Family Medicine
DX: F32.A Depression, unspecified (principal); R07.9 Chest pain, unspecified; J44.9 Chronic obstructive pulmonary disease, unspecified; F03.90 Unspecified dementia, unspecified severity, without behavioral disturbance, psychotic disturbance, mood disturbance, and anxiety
CPT/HCPCS: 36415; 80053; 80305; 80320; 80329; 81003; 84439; 84443; 85025; 93005; 99284; G0480

== ENCOUNTER 2023-09-27 00:25 | Emergency (ER) | payer MEDICARE, OTHER, SELFPAY ==
[2023-08-19 15:00] VITALS: BMI 26.9
[2023-09-27] VITALS (8 sets, daily range): BP systolic 160–201; BP diastolic 72–88; PULSE 66–86; RESP 18–34; TEMP 36.6; O2SAT 91–98; BMI 28.7
--- NOTE | 2023-09-27 00:30 | DI.RAD.S_ITS ---
PROCEDURE: XR CHEST 1V INDICATIONS: chest pain TECHNIQUE: One view of the chest was acquired. COMPARISON: [facility], CR, XR CHEST 1V, 08/19/2023, 3:27. [facility], CR, XR CHEST 1V, 07/30/2023, 14:52. FINDINGS: Surgical changes and devices: Left shoulder arthroplasty. Lungs and pleura: Lungs are clear. No pleural effusions or pneumothorax. Mediastinum: Mediastinal contours appear normal. Heart size is normal. Bones and chest wall: No suspicious bony lesions. Overlying soft tissues appear unremarkable. IMPRESSION: No acute cardiopulmonary abnormality. Dictated by: Pako Ventura M.D. on 09/27/2023 at 1:36 Approved by: Pako Ventura M.D. on 09/27/2023 at 1:37
[2023-09-27 01:20] LABS: Add Manual Diff / Slide Review NO; Basophils Absolute Auto 100 /uL (0-100); Eosinophils Absolute Auto 0 /uL (0-450); Eosinophils Percent Auto 0.3 % (2-4); Hematocrit 38.6 % (36-46); Hemoglobin 12.7 g/dL (12.0-16.0); Lymphocytes Absolute Auto 2000 /uL (1100-4500); Lymphocytes Percent Auto 30.3 % (25-40); Mean Corpuscular HGB Conc 32.8 % (30-36); Mean Corpuscular Volume 88.3 fL (80-100); Monocytes Absolute Auto 900 /uL (0-900); Neutrophils Absolute Auto 3600 /uL (1500-7000); Neutrophils Percent Auto 54.4 % (50-75); Platelet Count 220 X10^3/uL (150-400); Red Blood Cell Count 4.37 X10^6/uL (4.0-5.2); Red Cell Distribution Width 14.7 % (11.6-14.8); White Blood Cell Count 6.7 X10^3/uL (4.5-11.0)
[2023-09-27 01:31] LABS: Alanine Aminotransferase 20 IU/L (<35); Albumin 4.1 g/dL (3.5-5.0); Albumin Globulin Ratio 1.4 (1.0-2.8); Alkaline Phosphatase 77 U/L (38-126); Aspartate Aminotransferase 41 IU/L (14-36); BUN Creatinine Ratio 16.5 (6-22); Bilirubin Total 0.8 mg/dL (0.2-1.3); Blood Urea Nitrogen 18 mg/dL (7-17); Carbon Dioxide 27 mmol/L (22-32); Chloride 104 mmol/L (98-107); Creatine Kinase 817 U/L (30-135); Estimated Glomerular Filt Rate 49 mL/min (>60); Glucose 113 mg/dL (80-110); HEMOLYSIS < 15 (0-50); Lipase 25 U/L (23-300); Potassium 3.7 mmol/L (3.4-5.1); Sodium 140 mmol/L (137-145); Total Protein 7.1 g/dL (6.3-8.2)
[2023-09-27 01:42] LABS: Troponin I 0.092 ng/mL (0.01-0.034)
--- NOTE | 2023-09-27 02:05 | ED_ITS ---
HPI - Chest Pain General Chief Complaint: Chest Pain Stated Complaint: CP Time Seen by Provider: 09/27/23 00:29 Source: patient, family and EMS Mode of arrival: EMS History of Present Illness HPI narrative: Patient is an 88-year-old female. Reported history of dementia. Is on medications for this. Arrived by EMS. Patient states that she was sitting on her chair. She was wrapping [place] presents. She states she was bending over picking things up off the ground. She had a sudden onset of a cramping sensation in the middle of her chest. She has had discomfort like this in the past but not this bad. She does not remember being short of breath. She is on oxygen by nasal cannula at home at all times. She was unsure as to whether or not it got worse with any movement. She does think that it got worse with palpation. It started to resolve EN route here to the emergency department. Her gave her aspirin prior to EMS arrival. She denies any vomiting. She now is asymptomatic. He was also report that she took some Gaviscon prior to arrival when she thinks this helped her symptoms as well. Related Data Home Medications Medication Instructions Recorded Confirmed VITAMIN D (Vitamin D3) 1,000 units PO BEDTIME ##0 09/06/11 08/19/23 fluoxetine 40 mg capsule (Prozac) 40 mg PO QDAY ##0 11/28/16 08/19/23 insulin aspart U-100 100 unit/mL 10 unit SQ BID ##0 11/28/16 08/19/23 subcutaneous solution (Novolog U-100 Insulin aspart) atorvastatin 40 mg tablet 40 mg PO BEDTIME 03/03/22 08/19/23 aspirin 81 mg tablet,delayed 81 mg PO DAILY 03/04/22 08/19/23 release gabapentin 300 mg capsule 600 mg PO BEDTIME 03/04/22 08/19/23 magnesium oxide 500 mg tablet 500 mg PO DAILY 03/04/22 08/19/23 calcium citrate 200 mg (950 mg) 500 mg PO BID 03/07/22 08/19/23 tablet doxycycline hyclate 100 mg tablet 100 mg PO BID 08/16/23 08/19/23 insulin glargine 100 unit/mL (3 30 unit SUBCUT DAILY 08/16/23 08/19/23 mL) subcutaneous pen (Lantus Solostar U-100 Insulin) metoprolol succinate 50 mg 50 mg PO DAILY 08/16/23 08/19/23 tablet,extended release 24 hr omeprazole 20 mg capsule,delayed 40 mg PO DAILY 08/16/23 08/19/23 release Previous Rx's Medication Instructions Recorded donepezil 5 mg tablet 5 mg PO BEDTIME #30 tabs 08/23/23 Allergies Allergy/AdvReac Type Severity Reaction Status Date / Time iodine [IODINE] Allergy Severe Swelling Verified 07/30/23 14:45 of Lip/Tongue/Throat lisinopril [LISINOPRIL] Allergy Severe Swelling Verified 07/30/23 14:45 of Lip/Tongue/Throat shellfish derived Allergy Severe Swelling Verified 07/30/23 14:45 [SHELLFISH DERIVED] of Lip/Tongue/Throat Penicillins Allergy Intermediate Rash Verified 07/30/23 14:45 oxycodone AdvReac Hallucinati Verified 07/30/23 14:45 ng Review of Systems Constitutional Constitutional: Reports system reviewed and no additional complaints, except as documented Cardiovascular Cardiovascular: Reports system reviewed and no additional complaints, except as documented Respiratory Respiratory: Reports system reviewed and no additional complaints, except as documented Gastrointestinal Gastrointestinal: Reports system reviewed and no additional complaints, except as documented Integumentary/Breasts Skin/Breast: Reports system reviewed and no additional complaints, except as documented Patient History Medical History Arthropathy of left shoulder Spinal stenosis Osteoarthritis Depression Memory changes COPD (chronic obstructive pulmonary disease) Diabetes Hypertension Gouty arthritis of toe Surgical History History of arthroplasty of left knee History of arthroplasty of right knee Social History household members: spouse, family and children Smoking Status: Never smoker alcohol intake: former Smoking Status: Never smoker alcohol intake frequency: holidays/special occasions only Substance Use Type: does not use Exam Initial Vital Signs Initial Vital Signs: Vital Signs Temperature 97.8 F 09/27/23 00:36 Pulse Rate 66 09/27/23 00:36 Respiratory Rate 18 09/27/23 00:36 Blood Pressure 198/88 H 09/27/23 00:36 Pulse Oximetry 97 09/27/23 00:36 Oxygen Delivery Method Room Air 09/27/23 00:36 [facility] Head: normal to inspection and normocephalic Chest Other: Patient states I could reproduce the pain with palpation of the center of her chest. No crepitus. Resp Effort & Inspection: normal respiratory effort Auscultation: clear to auscultation bilaterally Cardio Rate: regular rate GI Inspection: normal to inspection and non-distended Neuro General: patient alert, patient awake, patient oriented x3 and moves all extremities Course Orders Ordered: ED Orders 09/27/23 00:29 EKG-12 Lead Stat 09/27/23 00:30 XR chest 1V Stat 09/27/23 01:10 Complete Blood Count AUTO DIFF Stat Comprehensive Metabolic Panel Stat Lipase Stat Troponin & CK Cardiac Panel Stat Vital Signs Vital signs: Vital Signs - 8 hr 09/27/23 00:36 Temperature 97.8 F Pulse Rate 66 Respiratory Rate 18 Blood Pressure 198/88 H Pulse Oximetry 97 Oxygen Delivery Method Room Air MDM - Chest Pain Lab Data Attestation: I reviewed the patient's lab results. 09/27/23 01:10 09/27/23 01:10 Labs: Lab Results 09/27/23 Range/Units 01:10 WBC 6.7 (4.5-11.0) X10^3/uL RBC 4.37 (4.0-5.2) X10^6/uL Hgb 12.7 (12.0-16.0) g/dL Hct 38.6 (36-46) % MCV 88.3 (80-100) fL MCH 29.0 (26-34) PG MCHC 32.8 (30-36) % RDW 14.7 (11.6-14.8) % Plt Count 220 (150-400) X10^3/uL Neut % (Auto) 54.4 (50-75) % Lymph % (Auto) 30.3 (25-40) % [place] % (Auto) 14.0 (3-14) % Eos % (Auto) 0.3 L (2-4) % Baso % (Auto) 1.0 (0-2) % Neut # (Auto) 3600 (4114-2142) /uL Lymph # (Auto) 2000 (3333-0652) /uL [place] # (Auto) 900 (0-900) /uL Eos # (Auto) 0 (0-450) /uL Baso # (Auto) 100 (0-100) /uL Sodium 140 (137-145) mmol/L Potassium 3.7 (3.4-5.1) mmol/L Chloride 104 (98-107) mmol/L Carbon Dioxide 27 (22-32) mmol/L BUN 18 H (7-17) mg/dL Creatinine 1.09 H (0.52-1.04) mg/dL Estimated GFR 49 L (>60) mL/min BUN/Creatinine Ratio 16.5 (6-22) Glucose 113 H (80-110) mg/dL Calcium 10.0 (8.4-10.2) mg/dL Total Bilirubin 0.8 (0.2-1.3) mg/dL AST 41 H (14-36) IU/L ALT 20 (<35) IU/L Alkaline Phosphatase 77 (38-126) U/L Total Creatine Kinase 817 H (30-135) U/L Troponin I 0.092 H (0.01-0.034) ng/mL Total Protein 7.1 (6.3-8.2) g/dL Albumin 4.1 (3.5-5.0) g/dL Globulin 3.0 (1.7-4.1) g/dL Albumin/Globulin Ratio 1.4 (1.0-2.8) Lipase 25 (23-300) U/L Imaging Data Chest x-ray: Radiologist's Impression: PROCEDURE: XR CHEST 1V INDICATIONS: chest pain TECHNIQUE: One view of the chest was acquired. COMPARISON: [facility], XR CHEST 1V, 08/19/2023, 3:27. [facility], XR CHEST 1V, 07/30/2023, 14:52. FINDINGS: Surgical changes and devices: Left shoulder arthroplasty. Lungs and pleura: Lungs are clear. No pleural effusions or pneumothorax. Mediastinum: Mediastinal contours appear normal. Heart size is normal. Bones and chest wall: No suspicious bony lesions. Overlying soft tissues appear unremarkable. IMPRESSION: No acute cardiopulmonary abnormality. ECG Data Attestation: I personally reviewed and interpreted this ECG as follows: Interpretation: Sinus rhythm Ventricular rate is 67 LVH Left axis deviation Sinus arrhythmia No ST T wave changes MDM Narrative Medical decision making narrative: Patient is asymptomatic currently. I was able to reproduce the pain that she said that she had earlier this evening by touching her in the center of her chest. Her chest x-ray is unremarkable EKG shows no ischemic changes. Patient obviously has multiple risk factors for ACS however given the fact that she states that I could reproduce the pain with palpation the center of her chest this would not be consistent with acute coronary syndrome. No signs of pneumonia. Patient is alert to person and place. She knows where she is. She knows what year it is. There are periods of time when she does seem to go off on an unrelated tangent. Plan will be to discharge patient home with return precautions. The patient and are in agreement with this plan. Discharge Plan Departure Patient Disposition: Home Clinical Impression: Atypical chest pain Instructions: DI for Atypical Chest Pain Activity Restrictions/Additional Instructions: Recommend that you take all of your medications as directed. Contact your primary care doctor for a follow-up. Return to the emergency department for new or worsening symptoms. Prescriptions: No Action VITAMIN D (Vitamin D3) 1,000 units PO BEDTIME Qty: 0 fluoxetine [Prozac] 40 MG capsule 40 mg PO QDAY Qty: 0 insulin aspart U-100 [Novolog U-100 Insulin aspart] 100 unit/mL solution 10 unit SQ BID Qty: 0 atorvastatin 40 mg Tablet 40 mg PO BEDTIME aspirin 81 mg tablet,delayed release (DR/EC) 81 mg PO DAILY magnesium oxide 500 mg Tablet 500 mg PO DAILY gabapentin 300 mg capsule 600 mg PO BEDTIME calcium citrate 200 mg (950 mg) Tablet 500 mg PO BID metoprolol succinate 50 mg tablet extended release 24 hr 50 mg PO DAILY omeprazole 20 mg capsule,delayed release(DR/EC) 40 mg PO DAILY insulin glargine [Lantus Solostar U-100 Insulin] 100 unit/mL (3 mL) insulin pen 30 unit SUBCUT DAILY Patient Comments: [NO ORIGINAL SIG] doxycycline hyclate 100 mg tablet 100 mg PO BID donepezil 5 mg Tablet 5 mg PO BEDTIME Qty: 30 0RF Referrals: Katty Harrington MD [Primary Care Provider] - Stand Alone Forms: Patient Portal/API
== END 2023-09-27 03:10 | disposition home or self-care (01) ==
PROVIDERS: Emergency Provider Emergency Medicine; Family Provider Internal Medicine; PCP Family Medicine
DX: R07.89 Other chest pain (principal)
CPT/HCPCS: 36415; 71045; 80053; 82550; 83690; 84484; 85025; 93005; 99284

== ENCOUNTER 2023-10-06 14:20 | Emergency (ER) | payer MEDICARE, OTHER, SELFPAY ==
[2023-08-19 15:00] VITALS: BMI 26.9
[2023-10-06] VITALS (15 sets, daily range): BP systolic 107–193; BP diastolic 71–106; PULSE 52–75; RESP 16–24; TEMP 36.6; O2SAT 95–99
--- NOTE | 2023-10-06 14:29 | DI.RAD.S_ITS ---
PROCEDURE: XR CHEST 1V INDICATIONS: shortness of breath, agitation TECHNIQUE: One view of the chest was acquired. COMPARISON: [facility], CR, XR CHEST 1V, 09/27/2023, 0:52. FINDINGS: Surgical changes and devices: Left shoulder arthroplasty. Lungs and pleura: Lungs are clear. No pleural effusions or pneumothorax. Mediastinum: Mediastinal contours appear normal. Heart size is normal. Bones and chest wall: No suspicious bony lesions. Overlying soft tissues appear unremarkable. IMPRESSION: No acute process. Dictated by: Kira Hurst M.D. on 10/06/2023 at 15:06 Approved by: Kira Hurst M.D. on 10/06/2023 at 15:06
--- NOTE | 2023-10-06 14:32 | ED.NEUROSD ---
HPI - Neuro Symptoms/Deficit General Chief Complaint: Neuro Symptoms/Deficit Stated Complaint: Diff breathing,drowsy Time Seen by Provider: 10/06/23 14:29 Source: patient, family (), EMS, RN notes reviewed and old records reviewed Mode of arrival: EMS History of Present Illness HPI Narrative: 88-year-old female with progressive Alzheimer's type dementia, hypertension, dyslipidemia, diabetes with known COPD on 4 L home O2. Patient presents today with EMS. Has been states she requested to come to the ER after moving from the bedroom to her recliner chair. He states she complained of feeling more short of breath but she is quite agitated. He states she has known memory issues and does get agitated from time to time she often thinks that they are trying to walk her up in a mental health facility. Patient denies both your history. Patient is intermittently quite agitated. Glucose was 89 in the field. According to she does act this way intermittently. He states it is not atypical. No reported fevers or chills. She did complain of some shortness of breath at 1 point but denies any currently. No chest pain or pressure. She complained of some nausea has been earlier but no vomiting. No recent diarrhea or constipation, no known recent urinary issues. Has had a recent UTI. No new swelling of extremities. Patient 4 L nasal cannula normally and was not requiring additional with EMS. She had no interventions EN route. Patient has multiple allergies including iodine, lisinopril, penicillin and oxycodone. No tobacco, alcohol or illicit. She is accompanied by her . Primary care is on [facility]. Has been confirmed she is DNR/DNI limited intervention. Related Data Home Medications Medication Instructions Recorded Confirmed VITAMIN D (Vitamin D3) 1,000 units PO BEDTIME ##0 09/06/11 08/19/23 fluoxetine 40 mg capsule (Prozac) 40 mg PO QDAY ##0 11/28/16 08/19/23 insulin aspart U-100 100 unit/mL 10 unit SQ BID ##0 11/28/16 08/19/23 subcutaneous solution (Novolog U-100 Insulin aspart) atorvastatin 40 mg tablet 40 mg PO BEDTIME 03/03/22 08/19/23 aspirin 81 mg tablet,delayed 81 mg PO DAILY 03/04/22 08/19/23 release gabapentin 300 mg capsule 600 mg PO BEDTIME 03/04/22 08/19/23 magnesium oxide 500 mg tablet 500 mg PO DAILY 03/04/22 08/19/23 calcium citrate 200 mg (950 mg) 500 mg PO BID 03/07/22 08/19/23 tablet doxycycline hyclate 100 mg tablet 100 mg PO BID 08/16/23 08/19/23 insulin glargine 100 unit/mL (3 30 unit SUBCUT DAILY 08/16/23 08/19/23 mL) subcutaneous pen (Lantus Solostar U-100 Insulin) metoprolol succinate 50 mg 50 mg PO DAILY 08/16/23 08/19/23 tablet,extended release 24 hr omeprazole 20 mg capsule,delayed 40 mg PO DAILY 08/16/23 08/19/23 release Previous Rx's Medication Instructions Recorded donepezil 5 mg tablet 5 mg PO BEDTIME #30 tabs 08/23/23 Allergies Allergy/AdvReac Type Severity Reaction Status Date / Time iodine [IODINE] Allergy Severe Swelling Verified 10/06/23 14:27 of Lip/Tongue/Throat lisinopril [LISINOPRIL] Allergy Severe Swelling Verified 10/06/23 14:27 of Lip/Tongue/Throat shellfish derived Allergy Severe Swelling Verified 10/06/23 14:27 [SHELLFISH DERIVED] of Lip/Tongue/Throat Penicillins Allergy Intermediate Rash Verified 10/06/23 14:27 oxycodone AdvReac Hallucinati Verified 10/06/23 14:27 ng Review of Systems Review of Systems ROS Unobtainable: All systems reviewed & are unremarkable except as noted in HPI and below Patient History Medical History Arthropathy of left shoulder Spinal stenosis Osteoarthritis Depression Memory changes COPD (chronic obstructive pulmonary disease) Diabetes Hypertension Gouty arthritis of toe Surgical History History of arthroplasty of left knee History of arthroplasty of right knee Social History household members: spouse, family and children Smoking Status: Never smoker alcohol intake: former Smoking Status: Never smoker alcohol intake frequency: holidays/special occasions only Substance Use Type: does not use Exam Narrative Exam Narrative: GEN: Elderly appearing female, alert and oriented x to self and location and some medical history, patient appears to be in moderate distress. Patient is tearful notes she expects to be taken to a psychiatric facility. HEENT: Atraumatic, pupils are equal round reactive to light, extraocular movements are intact, nares are clear, there is no conjunctival pallor. Throat is clear without any exudates, erythema, tonsillar enlargement or uvular deviation HEART: Regular rate and rhythm without murmur, clicks, rubs. pulses are equal in upper and lower extremities LUNGS:Lungs clear to auscultation, no wheezes, rales, crackles, chest moves symmetrically, tachypnea or accessory muscle use. Patient's son nasal cannula at 4 L ABD:bowel sounds normal, soft, non-tender, no guarding, rebound, rigidity, no masses noted, no hepatosplenomegaly :No CVA tenderness MSCL: Non-tender, no muscle atrophy, muscles strength 5/5 upper and lower extremities, full range of motion exception of left shoulder. Patient has had a prior shoulder replacement. Has pain with movement at the shoulder. Has been states this is typical. NEURO:CN 2-12 intact, sensation normal PSYCH: Anxious. Intermittently tearful and calm. Initial Vital Signs Initial Vital Signs: Vital Signs Temperature 97.9 F 10/06/23 14:21 Pulse Rate 58 L 10/06/23 14:21 Respiratory Rate 24 10/06/23 14:21 Blood Pressure 107/81 10/06/23 14:21 Pulse Oximetry 98 10/06/23 14:21 Oxygen Delivery Method Nasal Cannula 10/06/23 14:21 Oxygen Flow Rate 4 10/06/23 14:21 Course Orders Ordered: ED Orders 10/06/23 14:27 BNP [NT-proBNP (BNP-Adult 18+)] Stat CBC Auto Diff [Complete Blood Count AUTO DIFF] Stat CMP [Comprehensive Metabolic Panel] Stat Lactate (Lactic Acid) Stat Lipase Stat Procalcitonin Stat Troponin & CK Cardiac Panel Stat 10/06/23 14:28 VBG [Venous Blood Gas] Stat 10/06/23 14:29 Chest [XR chest 1V] Stat 10/06/23 14:32 EKG-12 Lead Stat 10/06/23 14:41 Consult to PRESS SETUP OPERATOR - Certified Performance Technologist Stat 10/06/23 14:56 Covid-19 + FLU A/B + RSV - PCR Stat 10/06/23 16:40 Trop I [Troponin I] Stat Discontinued Medications Lorazepam (Lorazepam 2 Mg/Ml Inj) 0.5 mg IV NOW ONE Stop: 10/06/23 14:35 Last Admin: 10/06/23 14:50 Dose: Not Given Documented By: YAMILET Vital Signs Vital signs: Vital Signs - 8 hr 10/06/23 14:21 10/06/23 14:23 10/06/23 14:24 Temperature 97.9 F Pulse Rate 58 L 73 Respiratory Rate 24 Blood Pressure 107/81 107/81 Pulse Oximetry 98 97 Oxygen Delivery Method Nasal Cannula Oxygen Flow Rate 4 10/06/23 14:24 10/06/23 14:30 10/06/23 14:31 Temperature Pulse Rate 61 75 Respiratory Rate 24 20 Blood Pressure 112/79 Pulse Oximetry 96 98 Oxygen Delivery Method Oxygen Flow Rate 10/06/23 14:31 10/06/23 15:00 10/06/23 15:01 Temperature Pulse Rate 71 55 L Respiratory Rate 24 16 Blood Pressure 170/71 H Pulse Oximetry 96 Oxygen Delivery Method Oxygen Flow Rate 10/06/23 15:01 10/06/23 15:30 10/06/23 15:31 Temperature Pulse Rate 53 L 54 L Respiratory Rate 20 21 Blood Pressure 181/79 H Pulse Oximetry 95 96 Oxygen Delivery Method Oxygen Flow Rate 10/06/23 15:31 10/06/23 16:00 10/06/23 16:01 Temperature Pulse Rate 57 L 52 L Respiratory Rate 21 20 Blood Pressure 169/73 H Pulse Oximetry 96 99 Oxygen Delivery Method Oxygen Flow Rate 10/06/23 16:01 10/06/23 17:00 10/06/23 17:01 Temperature Pulse Rate 54 L 55 L 54 L Respiratory Rate 20 Blood Pressure Pulse Oximetry 99 99 99 Oxygen Delivery Method Oxygen Flow Rate 10/06/23 17:01 10/06/23 17:30 10/06/23 17:31 Temperature Pulse Rate 61 Respiratory Rate Blood Pressure 193/81 H 181/106 H Pulse Oximetry 97 Oxygen Delivery Method Oxygen Flow Rate 10/06/23 17:31 Temperature Pulse Rate 60 Respiratory Rate Blood Pressure Pulse Oximetry 98 Oxygen Delivery Method Oxygen Flow Rate MDM - Neuro Symptoms/Deficit Lab Data 10/06/23 14:27 10/06/23 14:27 Labs: Lab Results 1210/06/23 10/06/23 Range/Units 14:27 14:28 14:56 WBC 6.7 (4.5-11.0) X10^3/uL RBC 4.59 (4.0-5.2) X10^6/uL Hgb 13.2 (12.0-16.0) g/dL Hct 40.3 (36-46) % MCV 87.8 (80-100) fL MCH 28.7 (26-34) PG MCHC 32.7 (30-36) % RDW 15.2 H (11.6-14.8) % Plt Count 208 (150-400) X10^3/uL Neut % (Auto) 58.3 (50-75) % Lymph % (Auto) 31.4 (25-40) % Columbia % (Auto) 9.0 (3-14) % Eos % (Auto) 0.7 L (2-4) % Baso % (Auto) 0.6 (0-2) % Neut # (Auto) 3900 (2838-0721) /uL Lymph # (Auto) 2100 (9235-1528) /uL [place] # (Auto) 600 (0-900) /uL Eos # (Auto) 0 (0-450) /uL Baso # (Auto) 0 (0-100) /uL VBG pH 7.45 H (7.33-7.43) VBG pCO2 39.7 L (45-50) mmHg VBG pO2 16 L (35-45) mmHg VBG HCO3 28 (24-28) mmol/L VBG Total CO2 29 (24-29) mmol/L VBG O2 Saturation 24 L (70-75) % VBG Base Excess 4.0 (0-4) mmol/L FiO2 36 Sodium 138 (137-145) mmol/L Potassium 4.3 (3.4-5.1) mmol/L Chloride 102 (98-107) mmol/L Carbon Dioxide 29 (22-32) mmol/L BUN 21 H (7-17) mg/dL Creatinine 1.15 H (0.52-1.04) mg/dL Estimated GFR 46 L (>60) mL/min BUN/Creatinine Ratio 18.3 (6-22) Glucose 92 (80-110) mg/dL Lactate 1.8 (0.7-2.1) mmol/L Calcium 10.0 (8.4-10.2) mg/dL Total Bilirubin 0.8 (0.2-1.3) mg/dL AST 31 (14-36) IU/L ALT 18 (<35) IU/L Alkaline Phosphatase 73 (38-126) U/L Total Creatine Kinase 95 D (30-135) U/L Troponin I 0.018 (0.01-0.034) ng/mL NT-Pro-B Natriuret Pep 286 (<450) pg/mL Total Protein 7.5 (6.3-8.2) g/dL Albumin 4.2 (3.5-5.0) g/dL Globulin 3.3 (1.7-4.1) g/dL Albumin/Globulin Ratio 1.3 (1.0-2.8) Lipase 25 (23-300) U/L Procalcitonin 0.05 (<0.5) ng/mL SARS-CoV-2 (PCR) Negative (Negative) Influenza A (RT-PCR) Flu a negative (NEGATIVE) Influenza B (RT-PCR) Flu b negative (NEGATIVE) RSV (PCR) Negative (Negative) 10/06/23 Range/Units 16:40 WBC (4.5-11.0) X10^3/uL RBC (4.0-5.2) X10^6/uL Hgb (12.0-16.0) g/dL Hct (36-46) % MCV (80-100) fL MCH (26-34) PG MCHC (30-36) % RDW (11.6-14.8) % Plt Count (150-400) X10^3/uL Neut % (Auto) (50-75) % Lymph % (Auto) (25-40) % Columbia % (Auto) (3-14) % Eos % (Auto) (2-4) % Baso % (Auto) (0-2) % Neut # (Auto) (9772-0078) /uL Lymph # (Auto) (6994-5802) /uL Columbia # (Auto) (0-900) /uL Eos # (Auto) (0-450) /uL Baso # (Auto) (0-100) /uL VBG pH (7.33-7.43) VBG pCO2 (45-50) mmHg VBG pO2 (35-45) mmHg VBG HCO3 (24-28) mmol/L VBG Total CO2 (24-29) mmol/L VBG O2 Saturation (70-75) % VBG Base Excess (0-4) mmol/L FiO2 Sodium (137-145) mmol/L Potassium (3.4-5.1) mmol/L Chloride (98-107) mmol/L Carbon Dioxide (22-32) mmol/L BUN (7-17) mg/dL Creatinine (0.52-1.04) mg/dL Estimated GFR (>60) mL/min BUN/Creatinine Ratio (6-22) Glucose (80-110) mg/dL Lactate (0.7-2.1) mmol/L Calcium (8.4-10.2) mg/dL Total Bilirubin (0.2-1.3) mg/dL AST (14-36) IU/L ALT (<35) IU/L Alkaline Phosphatase (38-126) U/L Total Creatine Kinase (30-135) U/L Troponin I 0.023 (0.01-0.034) ng/mL NT-Pro-B Natriuret Pep (<450) pg/mL Total Protein (6.3-8.2) g/dL Albumin (3.5-5.0) g/dL Globulin (1.7-4.1) g/dL Albumin/Globulin Ratio (1.0-2.8) Lipase (23-300) U/L Procalcitonin (<0.5) ng/mL SARS-CoV-2 (PCR) (Negative) Influenza A (RT-PCR) (NEGATIVE) Influenza B (RT-PCR) (NEGATIVE) RSV (PCR) (Negative) Urine Dip Bedside Urine Glucose Negative Bedside Urine Bilirubin - Negative Bedside Urine Ketone +/- 5 Urine Specific Fletcher 1.010 Bedside Urine Occult Blood - Negative Bedside Urine pH 7.0 Bedside Urine Protein - Negative Bedside Urine Urobilinogen - Negative Bedside Urine Nitrite - Negative Bedside Urine Leukocytes - Negative Esterase Imaging Data Chest x-ray: Radiologist's Impression: Close Chest X-Ray (Signed) AudreyPako - 09/27/23 Chest X-Ray (Signed) Daniel Abraham - 08/19/[address] (Signed) Daniel Abraham - 08/16/[address] (Signed) Annie Abrahamon - 08/16/23 Shoulder X-Ray (Signed) Octaviano Bailey - 08/16/23 Shoulder X-Ray (Signed) Octaviano Bailey - 08/16/23 Chest/Abdomen/Pelvis CT (Signed) Octaviano Bailey - 08/16/23 Foot X-Ray (Signed) Hewitt,David - 07/30/23 Chest X-Ray (Signed) Hewitt,David - 07/30/[address] (Signed) Marvin,Brittny - 07/14/[address] (Signed) [place],Brittny - 07/14/23 Wrist X-Ray (Signed) Marvin,Brittny - 07/14/23 Shoulder X-Ray (Signed) Marvin,Brittny - 07/14/23 Elbow X-Ray (Signed) [place],Brittny - 07/14/23 Sacroiliac Joint X-Ray (Signed) Daniel Abraham - 04/27/23 Echocardiogram Ultrasound (Signed) Cecy Jaquez - 04/20/23 Myocardial Perfusion Scan Nuc Med (Signed) Cecy Jaquez - 04/12/23 Chest X-Ray (Signed) Chloe Ring - 11/17/22 Chest X-Ray (Signed) Markos Desir - 11/09/22 Brain MRI (Signed) Nina Saenz - 03/08/[address] (Signed) Nina Saenz - 03/07/22 Chest X-Ray (Signed) Nina Saenz - 03/07/22 Shoulder X-Ray (Signed) Nina Saenz - 03/07/22 Telemetry Strips 03/05/22 Shoulder X-Ray (Cancelled) 03/04/[address] (Signed) Abelardo Lopez - 12/21/[address] [address] XRay Report Signed Patient: Analia Lopez MR#: [id number] : 1935 Acct:[id number] Age/Sex: 88 / F Date of Service: 09/27/23 Loc: ED Accession Number: [id number] Procedure: XR chest 1V Ordering Provider: Lanker,Benedict D.O. PROCEDURE: XR CHEST 1V INDICATIONS: chest pain TECHNIQUE: One view of the chest was acquired. COMPARISON: [facility], CR, XR CHEST 1V, 08/19/2023, 3:27. [facility], CR, XR CHEST 1V, 07/30/2023, 14:52. FINDINGS: Surgical changes and devices: Left shoulder arthroplasty. Lungs and pleura: Lungs are clear. No pleural effusions or pneumothorax. Mediastinum: Mediastinal contours appear normal. Heart size is normal. Bones and chest wall: No suspicious bony lesions. Overlying soft tissues appear unremarkable. IMPRESSION: No acute cardiopulmonary abnormality. Dictated by: Pako Ventura M.D. on 09/27/2023 at 1:36 Approved by: Pako Ventura M.D. on 09/27/2023 at 1:37 ECG Data Attestation: I personally reviewed and interpreted this ECG as follows: Prior ECG tracings: available for review Interpretation: Sinus bradycardia rate of 53 DE 192 QRS 84 QTC of 459. No acute ST elevation depression. Patient has prior from 09/27/2023 does have change in V1 appreciated and other leads. EKG 2. Sinus bradycardia rate of 57 DE 194 QRS 82 QTC [address]. No acute ST elevation depression. No dynamic changes. MDM Narrative Medical decision making narrative: 88-year-old female with known COPD, hypertension dyslipidemia with dementia with what sounds like intermittent behavioral issues. Patient's seems more agitated and then upset than an medical distress. She is on her usual 4 L nasal cannula, patient's glucose in the field was 89. Patient was in her normal health until moving from the bedroom to her chair when she did describe some shortness of breath but also told her that she is going to be put in a mental health institution. states there is no plan for this she has not been in a mental health institution in the past but he states this is a frequent concern and she is been very paranoid about this. He states this is fairly similar response. Labs show normal white count hemoglobin and platelets. Electrolytes appropriate with sodium 138 and potassium of 4.3 BUN 21 creatinine 1.15, glucose of 92- lactate at 1.8, CK is 95 with a troponin of 0.018 and BNP of 286. Troponin was repeated 2 hours from the last and is 0.23. VBG shows pH 7.45 with a pCO2 of 39 PO2 of 16. EKG showed sinus bradycardia nonspecific change. Chest x-ray show shows no acute change. Urine sample is negative. There was discussion about having some benzodiazepine or additional medication but patient has calmed during her stay. She seems reassured after her initial workup waiting for 2nd troponin. Discussed with if negative would likely discharge home. There is a COVID/influenza/RSV is negative. Asked if they would like to me with a PRESS SETUP OPERATOR seems agreeable. Has been states they do have home health care available. But he is open to meeting with PRESS SETUP OPERATOR. PRESS SETUP OPERATOR consultation and peripheral equipment operator met with the patient and family. Has been is comfortable with patient returning home. Discharge Plan Departure Patient Disposition: Home Clinical Impression: Shortness of breath Activity Restrictions/Additional Instructions: Please follow-up with your physician for recheck. Your pulmonary and cardiac workup did not show any major changes today. Urine did not show any obvious infection. Please continue your home medications as prescribed. Please return for new or worsening symptoms, chest pain, shortness of breath, new swelling in her extremities, changes of altered mental status or other new or concerning changes. Prescriptions: No Action VITAMIN D (Vitamin D3) 1,000 units PO BEDTIME Qty: 0 fluoxetine [Prozac] 40 MG capsule 40 mg PO QDAY Qty: 0 insulin aspart U-100 [Novolog U-100 Insulin aspart] 100 unit/mL solution 10 unit SQ BID Qty: 0 atorvastatin 40 mg Tablet 40 mg PO BEDTIME aspirin 81 mg tablet,delayed release (DR/EC) 81 mg PO DAILY magnesium oxide 500 mg Tablet 500 mg PO DAILY gabapentin 300 mg capsule 600 mg PO BEDTIME calcium citrate 200 mg (950 mg) Tablet 500 mg PO BID metoprolol succinate 50 mg tablet extended release 24 hr 50 mg PO DAILY omeprazole 20 mg capsule,delayed release(DR/EC) 40 mg PO DAILY insulin glargine [Lantus Solostar U-100 Insulin] 100 unit/mL (3 mL) insulin pen 30 unit SUBCUT DAILY Patient Comments: [NO ORIGINAL SIG] doxycycline hyclate 100 mg tablet 100 mg PO BID donepezil 5 mg Tablet 5 mg PO BEDTIME Qty: 30 0RF Referrals: Katty Harrington MD [Primary Care Provider] - Stand Alone Forms: Patient Portal/API
[2023-10-06 14:40] LABS: Fractionated Inspired Oxygen 36; HCO3 VBG 28 mmol/L (24-28); Oxygen Saturation VBG 24 % (70-75); PCO2 VBG 39.7 mmHg (45-50); PO2 VBG 16 mmHg (35-45); Total CO2 VBG 29 mmol/L (24-29); pH VBG 7.45 (7.33-7.43)
[2023-10-06 14:46] LABS: Add Manual Diff / Slide Review NO; Basophils Absolute Auto 0 /uL (0-100); Basophils Percent Auto 0.6 % (0-2); Eosinophils Absolute Auto 0 /uL (0-450); Eosinophils Percent Auto 0.7 % (2-4); Hematocrit 40.3 % (36-46); Hemoglobin 13.2 g/dL (12.0-16.0); Lymphocytes Absolute Auto 2100 /uL (1100-4500); Lymphocytes Percent Auto 31.4 % (25-40); Mean Corpuscular HGB Conc 32.7 % (30-36); Mean Corpuscular Hemoglobin 28.7 PG (26-34); Mean Corpuscular Volume 87.8 fL (80-100); Monocytes Absolute Auto 600 /uL (0-900); Neutrophils Absolute Auto 3900 /uL (1500-7000); Neutrophils Percent Auto 58.3 % (50-75); Platelet Count 208 X10^3/uL (150-400); Red Blood Cell Count 4.59 X10^6/uL (4.0-5.2); Red Cell Distribution Width 15.2 % (11.6-14.8); White Blood Cell Count 6.7 X10^3/uL (4.5-11.0)
[2023-10-06 14:58] LABS: Lactate (Lactic Acid) 1.8 mmol/L (0.7-2.1)
[2023-10-06 14:59] LABS: Alanine Aminotransferase 18 IU/L (<35); Albumin 4.2 g/dL (3.5-5.0); Albumin Globulin Ratio 1.3 (1.0-2.8); Alkaline Phosphatase 73 U/L (38-126); Aspartate Aminotransferase 31 IU/L (14-36); BUN Creatinine Ratio 18.3 (6-22); Bilirubin Total 0.8 mg/dL (0.2-1.3); Blood Urea Nitrogen 21 mg/dL (7-17); Carbon Dioxide 29 mmol/L (22-32); Chloride 102 mmol/L (98-107); Creatine Kinase 95 U/L (30-135); Estimated Glomerular Filt Rate 46 mL/min (>60); Globulin 3.3 g/dL (1.7-4.1); Glucose 92 mg/dL (80-110); HEMOLYSIS < 15 (0-50); Lipase 25 U/L (23-300); Potassium 4.3 mmol/L (3.4-5.1); Sodium 138 mmol/L (137-145); Total Protein 7.5 g/dL (6.3-8.2)
--- NOTE | 2023-10-06 15:00 | PC.NURSE ---
Patient's at bedside providing history and states patient with worsening dementia. Patient has been removing nasal cannula and reluctant to take home medications stating to why take them, they don't do anything. Patient's states patient was found sleeping without NC in and when he placed in her nose she became startled and upset. Patient's stated then walking patient to bathroom without NC in placed and patient became weak. Patient then coughed and became nauseous. Patient is awake, crying and asking to go home.
[2023-10-06 15:11] LABS: NT-proBNP (BNP-Adult 18+) 286 pg/mL (<450); Troponin I 0.018 ng/mL (0.01-0.034)
[2023-10-06 15:16] LABS: Procalcitonin 0.05 ng/mL (<0.5)
[2023-10-06 16:30] LABS: Influenza A - CEPHEID Flu A NEGATIVE (NEGATIVE); Influenza B - CEPHEID Flu B NEGATIVE (NEGATIVE); Respiratory Syncytial Virus Negative (Negative)
[2023-10-06 16:37] LABS: COVID-19 CEPHEID 4-PLEX PCR Negative (Negative)
[2023-10-06 17:17] LABS: Troponin I 0.023 ng/mL (0.01-0.034)
--- NOTE | 2023-10-06 17:48 | CM.SWNOTE ---
ED BRUSH MAKER Note Chaplan provides support to spouse during patient's presentation to ED. Patient is 88 y/o female who presents to ED due to concern for AMS, SOB. Patient has hx of Dementia. BRUSH MAKER briefly meets with spouse and provides senior resource guide. It is reported that patient and spouse reside with several family members who support caring for patient. Spouse endorses that patient does not believe her home is hers, spouse to call his daughter to assist in getting patient home. Spouse denies further needs from BRUSH MAKER and states that he does not think patient would ever agree to a memory care facility. BRUSH MAKER encourages spouse to look into caregivers as a resource for patient. Patient d/c'd upon medical clearance, patient's family to look into higher level of care for patient. Renetta Cat, ON AWAKE COUNSELOR
== END 2023-10-06 17:45 | disposition home or self-care (01) ==
PROVIDERS: Emergency Provider Emergency Medicine; Family Provider Internal Medicine; PCP Family Medicine
DX: J44.9 Chronic obstructive pulmonary disease, unspecified (principal); G30.9 Alzheimer's disease, unspecified; F02.80 Dementia in other diseases classified elsewhere, unspecified severity, without behavioral disturbance, psychotic disturbance, mood disturbance, and anxiety; E11.9 Type 2 diabetes mellitus without complications; Z79.4 Long term (current) use of insulin; I10 Essential (primary) hypertension; Z99.81 Dependence on supplemental oxygen; Z11.52 Encounter for screening for COVID-19
CPT/HCPCS: 0241U; 71045; 80053; 81003; 82550; 82805; 83605; 83690; 83880; 84145; 84484; 85025; 93005; 93010; 96374; 99284

== ENCOUNTER 2023-10-09 16:50 | Emergency (ER) | payer MEDICARE, OTHER, SELFPAY ==
[2023-08-19 15:00] VITALS: BMI 26.9
[2023-10-09 17:23] VITALS: BP 155/67; PULSE 52; RESP 18; TEMP 36.7; O2SAT 95
--- NOTE | 2023-10-09 17:26 | DI.RAD.S_ITS ---
PROCEDURE: XR FOREARM RT 2V INDICATIONS: pain, hx of metal plate TECHNIQUE: 2 views of the forearm were acquired. COMPARISON: [facility], CR, XR HAND RT MIN 3V, 10/09/2023, 17:41. FINDINGS: Bones: No metal plate identified. Cortical irregularity of the radial head neck junction of undetermined chronicity. Osteoarthritic changes of the distal radial ulnar joint. Osteoarthritic change of the radiocarpal joints. Soft tissues: No suspicious soft tissue calcifications or masses. No significant elbow effusion. IMPRESSION: Cortical irregularity at the head neck junction of the radius is concerning for fracture however given lack of elbow effusion this may reflect chronic injury. Correlate for focal pain Dictated by: José Melendez M.D. on 10/09/2023 at 16:59 Approved by: José Melendez M.D. on 10/09/2023 at 17:01
--- NOTE | 2023-10-09 17:26 | DI.RAD.S_ITS ---
PROCEDURE: XR HAND RT MIN 3V INDICATIONS: pain TECHNIQUE: 3 views of the hand(s) acquired. COMPARISON: None. FINDINGS: Bones: Questionable lucency of the dorsal aspect of the 3rd distal phalanx with mild displacement. Advanced osteoarthritic changes throughout the interphalangeal joints of the hand. Moderate to advanced osteoarthritic changes at the 1st carpometacarpal/triscaphe joint. Moderate osteoarthritic changes of the radial ulnar and radiocarpal joints. Calcifications along the triangular fibrocartilage. Carpal bones are normally aligned. No suspicious bony lesions. Soft tissues: No suspicious soft tissue calcifications. IMPRESSION: 1. Probable dorsal avulsion fracture of the 3rd distal phalanx may represent chronic injury, correlate for focal pain. 2. Multifocal advanced osteoarthritic changes. 3. Chondrocalcinosis of the wrist. Dictated by: José Melendez M.D. on 10/09/2023 at 17:02 Approved by: José Melendez M.D. on 10/09/2023 at 17:05
--- NOTE | 2023-10-09 18:22 | ED.UPPEXIN ---
HPI - Extremity Injury (Upper) <Mechelle You PA-C - Last Filed: 10/09/23 19:44> General Chief Complaint: Extremity Injury, Upper Stated Complaint: slipped/rt ulna injury Time Seen by Provider: 10/09/23 17:32 Source: patient and family Mode of arrival: Wheelchair History of Present Illness HPI narrative: 88-year-old woman with history of COPD, arthritis, hypertension and diabetes presents with her and daughter with concern for right wrist injury. Pt normally walks with a cane, is right handed. Today around 3pm she walked into the home and her wet shoes slipped on the floor and she fell farward into a soft reclining chair, but her outstretched hand, wrist and elbow hit a wooden table on the opposite side of the chair. She did not hit her head, fall to the ground or lose consciousness or sustain amny other injury. She has been able to move her hand and wrist and elbow fairly normally but states that she has some pain in her wrist and in her elbow when she presses on it. She normally takes Tylenol for pain and has been taking all of her regular medications. She denies any other complaints or concerns. Related Data Home Medications Medication Instructions Recorded Confirmed VITAMIN D (Vitamin D3) 1,000 units PO BEDTIME ##0 09/06/11 08/19/23 fluoxetine 40 mg capsule (Prozac) 40 mg PO QDAY ##0 11/28/16 08/19/23 insulin aspart U-100 100 unit/mL 10 unit SQ BID ##0 11/28/16 08/19/23 subcutaneous solution (Novolog U-100 Insulin aspart) atorvastatin 40 mg tablet 40 mg PO BEDTIME 03/03/22 08/19/23 aspirin 81 mg tablet,delayed 81 mg PO DAILY 03/04/22 08/19/23 release gabapentin 300 mg capsule 600 mg PO BEDTIME 03/04/22 08/19/23 magnesium oxide 500 mg tablet 500 mg PO DAILY 03/04/22 08/19/23 calcium citrate 200 mg (950 mg) 500 mg PO BID 03/07/22 08/19/23 tablet doxycycline hyclate 100 mg tablet 100 mg PO BID 08/16/23 08/19/23 insulin glargine 100 unit/mL (3 30 unit SUBCUT DAILY 08/16/23 08/19/23 mL) subcutaneous pen (Lantus Solostar U-100 Insulin) metoprolol succinate 50 mg 50 mg PO DAILY 08/16/23 08/19/23 tablet,extended release 24 hr omeprazole 20 mg capsule,delayed 40 mg PO DAILY 08/16/23 08/19/23 release Previous Rx's Medication Instructions Recorded donepezil 5 mg tablet 5 mg PO BEDTIME #30 tabs 08/23/23 Allergies Allergy/AdvReac Type Severity Reaction Status Date / Time iodine [IODINE] Allergy Severe Swelling Verified 10/06/23 14:27 of Lip/Tongue/Throat lisinopril [LISINOPRIL] Allergy Severe Swelling Verified 10/06/23 14:27 of Lip/Tongue/Throat shellfish derived Allergy Severe Swelling Verified 10/06/23 14:27 [SHELLFISH DERIVED] of Lip/Tongue/Throat Penicillins Allergy Intermediate Rash Verified 10/06/23 14:27 oxycodone AdvReac Hallucinati Verified 10/06/23 14:27 ng Review of Systems <Mechelle You PA-C - Last Filed: 10/09/23 19:44> Review of Systems Narrative: See HPI Patient History <Mechelle You PA-C - Last Filed: 10/09/23 19:44> Medical History Arthropathy of left shoulder Spinal stenosis Osteoarthritis Depression Memory changes COPD (chronic obstructive pulmonary disease) Diabetes Hypertension Gouty arthritis of toe Surgical History History of arthroplasty of left knee History of arthroplasty of right knee Social History household members: spouse, family and children Smoking Status: Never smoker alcohol intake: former Smoking Status: Never smoker alcohol intake frequency: holidays/special occasions only Substance Use Type: does not use Exam <Mechelle You PA-C - Last Filed: 10/09/23 19:44> Narrative Exam Narrative: GENERAL: 88 year old patient appears stated age. Well-developed patient, in mild distress, alert oriented and answering questions appropriately. HEAD: Atraumatic. Normocephalic. EYES: Pupils equal round and reactive. Extraocular motions intact. No scleral icterus. No injection or drainage. ENT: Nose without bleeding, purulent drainage. Airway patent. NECK: Trachea midline. Non tender CARDIOVASCULAR: Regular rate and rhythm without murmurs, gallops, or rubs. RESPIRATORY: Lung sounds coarse on auscultation. Breath sounds equal bilaterally. No wheezes, rales, or rhonchi. GASTROINTESTINAL: Abdomen nondistended. EXTREMITIES: Wrists and hands /fingers have significant bony arthritic changes. There is no tenderness with palpation over the fingers or metacarpals of the affected right hand. Range of motion of fingers wrist and elbow are intact on the affected right arm. Patient has mild bruising to the dorsum of the base of the hand just distal to the wrist, there is no appreciable swelling and no significant tenderness noted. She has report of tenderness at the base of her left thumb however no tenderness on exam. She does have point tenderness over the proximal radius/elbow. There is slight bruising present as well. Supination and pronation are intact and pain-free. No other edema or joint tenderness. NEURO: AOx3. SKIN: No rash or erythema of visible areas Initial Vital Signs Initial Vital Signs: Vital Signs Temperature 98.1 F 10/09/23 17:23 Pulse Rate 52 L 10/09/23 17:23 Respiratory Rate 18 10/09/23 17:23 Blood Pressure 155/67 H 10/09/23 17:23 Pulse Oximetry 95 10/09/23 17:23 Oxygen Delivery Method Room Air 10/09/23 17:23 <Darcy Billy DO - Last Filed: 10/11/23 09:37> Initial Vital Signs Initial Vital Signs: Vital Signs Temperature 98.1 F 10/09/23 17:23 Pulse Rate 52 L 10/09/23 17:23 Respiratory Rate 18 10/09/23 17:23 Blood Pressure 155/67 H 10/09/23 17:23 Pulse Oximetry 95 10/09/23 17:23 Oxygen Delivery Method Room Air 10/09/23 17:23 Course <Mechelle You PA-C - Last Filed: 10/09/23 19:44> Orders Ordered: ED Orders 10/09/23 17:26 XR forearm RT 2V Stat XR hand RT min 3V Stat Vital Signs Vital signs: Vital Signs - 8 hr 10/09/23 17:23 Temperature 98.1 F Pulse Rate 52 L Respiratory Rate 18 Blood Pressure 155/67 H Pulse Oximetry 95 Oxygen Delivery Method Room Air <Darcy Billy DO - Last Filed: 10/11/23 09:37> Orders Ordered: ED Orders 10/09/23 17:26 XR forearm RT 2V Stat XR hand RT min 3V Stat Vital Signs Vital signs: Vital Signs - 8 hr 10/09/23 17:23 Temperature 98.1 F Pulse Rate 52 L Respiratory Rate 18 Blood Pressure 155/67 H Pulse Oximetry 95 Oxygen Delivery Method Room Air MDM - Extremity Injury (Upper) <Mechelle You PA-C - Last Filed: 10/09/23 19:44> Differential Diagnosis Differential diagnosis: Likely sprain and strain of wrist, fracture of wrist and other (Elbow fracture, proximal radius fracture) Medical Records Attestation: I reviewed the patient's medical records. Imaging Data Extremity x-ray #1: My Impression: Agree with Radiology interpretation Radiologist's Impression: [address] [address] XRay Report Signed Patient: Analia Lopez MR#: [id number] : 1935 Acct:[id number] Age/Sex: 88 / F Date of Service: 10/09/23 Loc: ED Accession Number: [id number] Procedure: XR forearm RT 2V Ordering Provider: Darcy Billy D.O. PROCEDURE: XR FOREARM RT 2V INDICATIONS: pain, hx of metal plate TECHNIQUE: 2 views of the forearm were acquired. COMPARISON: [facility], CR, XR HAND RT MIN 3V, 10/09/2023, 17:41. FINDINGS: Bones: No metal plate identified. Cortical irregularity of the radial head neck junction of undetermined chronicity. Osteoarthritic changes of the distal radial ulnar joint. Osteoarthritic change of the radiocarpal joints. Soft tissues: No suspicious soft tissue calcifications or masses. No significant elbow effusion. IMPRESSION: Cortical irregularity at the head neck junction of the radius is concerning for fracture however given lack of elbow effusion this may reflect chronic injury. Correlate for focal pain Dictated by: José Melendez M.D. on 10/09/2023 at 16:59 Approved by: José Melendez M.D. on 10/09/2023 at 17:01 Extremity x-ray #2: My Impression: Agree with Radiology interpretation Radiologist's Impression: [address] [address] XRay Report Signed Patient: Analia Lopez MR#: [id number] : 1935 Acct:[id number] Age/Sex: 88 / F Date of Service: 10/09/23 Loc: ED Accession Number: [id number] Procedure: XR hand RT min 3V Ordering Provider: Darcy Billy D.O. PROCEDURE: XR HAND RT MIN 3V INDICATIONS: pain TECHNIQUE: 3 views of the hand(s) acquired. COMPARISON: None. FINDINGS: Bones: Questionable lucency of the dorsal aspect of the 3rd distal phalanx with mild displacement. Advanced osteoarthritic changes throughout the interphalangeal joints of the hand. Moderate to advanced osteoarthritic changes at the 1st carpometacarpal/triscaphe joint. Moderate osteoarthritic changes of the radial ulnar and radiocarpal joints. Calcifications along the triangular fibrocartilage. Carpal bones are normally aligned. No suspicious bony lesions. Soft tissues: No suspicious soft tissue calcifications. IMPRESSION: 1. Probable dorsal avulsion fracture of the 3rd distal phalanx may represent chronic injury, correlate for focal pain. 2. Multifocal advanced osteoarthritic changes. 3. Chondrocalcinosis of the wrist. Dictated by: José Melendez M.D. on 10/09/2023 at 17:02 Approved by: José Melendez M.D. on 10/09/2023 at 17:05 [facility] Narrative Medical decision making narrative: 88-year-old woman with a significant medical history including COPD, diabetes and hypertension presents with concern for right elbow and wrist injury today sustained due to a slip from standing without falling to the ground. Patient did not hit her head or lose consciousness initially hit a soft recliner chair but her arm outstretched and also hit into a solid would not table. Exam today and age and history of arthritis are concerning for needing x-rays for further evaluation. These are obtained of hand and forearm. She does have a possible cortical irregularity of the proximal radius and given she has point tenderness over this region she is placed in a sugar-tong splint and sling with recommendation for orthopedic follow-up. She is also advised to follow up closely with her primary care provider. She has no other concerning injuries found on exam. X-ray did note a possible irregularity of her 3rd right digit however she has no tenderness or bruising noted at this location. Return precautions provided, follow-up plan discussed, all questions answered. Discharge Plan Departure Patient Disposition: Home Clinical Impression: Injury of elbow Qualifiers: Encounter type: initial encounter Laterality: right Qualified Code(s): S59.901A - Unspecified injury of right elbow, initial encounter Injury of right wrist Qualifiers: Encounter type: initial encounter Qualified Code(s): S69.91XA - Unspecified injury of right wrist, hand and finger(s), initial encounter Activity Restrictions/Additional Instructions: *You have been diagnosed with [elbow and wrist injury on the right.] *What to do: *Please continue to take your regular medications as directed. [ ] New medication prescriptions sent to your pharmacy: [ ] [ ] New medication written as a paper prescription [X ] No new medications given *Please follow up with your primary care provider in 2-3 days, call for an appointment. Let them know you were seen in the Emergency Department and that we ask that you be seen in follow up. We will electronically transmit a record of today's note if your PCP is in our system. We placed you in a splint today and sling, your x-ray was concerning for a possible subtle fracture near your elbow and given you have pain at that location and hit that today when he slipped it is best to splint it in the event that this is actually a fracture. There is also a possibility that these are chronic changes that you previously had in your bone. I would like you to follow up closely with orthopedics you can call the number associated here with this chart or if you have an orthopedic provider you obtained before your welcome to see them. The splint will need to come off and with re-evaluation, additional imaging you may or may not need a cast or further care by Orthopedics. Please keep the splint dry and follow all instructions provided. Continue with your regular pain regimen, Tylenol. *If you do not have a primary care provider please contact the [facility] Resource line at [phone]. They will ask some questions about your medical history and help get you set up with a doctor in the community. *Return to Emergency Department if you should have any new, worsening or concerning symptoms, such as [fever greater than 101 F, shaking chills, worsening pain, persistent vomiting or other bothersome symptoms] Prescriptions: No Action VITAMIN D (Vitamin D3) 1,000 units PO BEDTIME Qty: 0 fluoxetine [Prozac] 40 MG capsule 40 mg PO QDAY Qty: 0 insulin aspart U-100 [Novolog U-100 Insulin aspart] 100 unit/mL solution 10 unit SQ BID Qty: 0 atorvastatin 40 mg Tablet 40 mg PO BEDTIME aspirin 81 mg tablet,delayed release (DR/EC) 81 mg PO DAILY magnesium oxide 500 mg Tablet 500 mg PO DAILY gabapentin 300 mg capsule 600 mg PO BEDTIME calcium citrate 200 mg (950 mg) Tablet 500 mg PO BID metoprolol succinate 50 mg tablet extended release 24 hr 50 mg PO DAILY omeprazole 20 mg capsule,delayed release(DR/EC) 40 mg PO DAILY insulin glargine [Lantus Solostar U-100 Insulin] 100 unit/mL (3 mL) insulin pen 30 unit SUBCUT DAILY Patient Comments: [NO ORIGINAL SIG] doxycycline hyclate 100 mg tablet 100 mg PO BID donepezil 5 mg Tablet 5 mg PO BEDTIME Qty: 30 0RF Referrals: Shoshana Hernandez MD [Physician] - Katty Harrington MD [Primary Care Provider] - Stand Alone Forms: Patient Portal/API ED Sign-out <Darcy Billy DO - Last Filed: 10/11/23 09:37> Cosign ED Attending Lianeature Attestation: I was immediately available in the department for consultation.
== END 2023-10-09 19:36 | disposition home or self-care (01) ==
PROVIDERS: Emergency Provider Student in an Organized Health Care Education/Training Program; Family Provider Internal Medicine; PCP Family Medicine
DX: S59.901A Unspecified injury of right elbow, initial encounter (principal); S69.91XA Unspecified injury of right wrist, hand and finger(s), initial encounter; W01.0XXA Fall on same level from slipping, tripping and stumbling without subsequent striking against object, initial encounter
CPT/HCPCS: 29105; 73090; 73130; 99283

== ENCOUNTER 2023-10-09 22:25 | Emergency (ER) | payer MEDICARE, OTHER, SELFPAY ==
[2023-08-19 15:00] VITALS: BMI 26.9
[2023-10-09 22:37] VITALS: BP 184/84; PULSE 56; RESP 24; TEMP 37.4; O2SAT 94
--- NOTE | 2023-10-09 23:51 | PC.NURSE ---
pt c/o pain in fingers after splint, splint loosened upon arrival to room
--- NOTE | 2023-10-10 04:52 | ED_ITS ---
HPI - Extremity Injury (Upper) General Chief Complaint: Extremity Injury, Upper Stated Complaint: Right Hand injury Time Seen by Provider: 10/09/23 22:54 Source: patient and family Mode of arrival: Wheelchair History of Present Illness HPI narrative: An 88-year-old female complaining of right wrist and arm pain. Had a ground level fall earlier in the day was seen here, x-rays of the forearm and right hand did not show any definite fracture, there were locations that were concerning for acute fracture at the proximal radius and dorsum of the distal phalanx of the 3rd finger of the hand. She was placed in a sugar-tong splint. She returns tonight complaining about increased pain in her wrist and hand. This is relieved when her splint is loosened. She was directed to follow up with Orthopedics at the last visit. He is had no new injury since then. Has good sensation in that hand. I independently reviewed x-rays of her right hand and right forearm that were obtained on previous visit also reviewed radiology reports I reviewed the ED note from that visit Related Data Home Medications Medication Instructions Recorded Confirmed VITAMIN D (Vitamin D3) 1,000 units PO BEDTIME ##0 09/06/11 08/19/23 fluoxetine 40 mg capsule (Prozac) 40 mg PO QDAY ##0 11/28/16 08/19/23 insulin aspart U-100 100 unit/mL 10 unit SQ BID ##0 11/28/16 08/19/23 subcutaneous solution (Novolog U-100 Insulin aspart) atorvastatin 40 mg tablet 40 mg PO BEDTIME 03/03/22 08/19/23 aspirin 81 mg tablet,delayed 81 mg PO DAILY 03/04/22 08/19/23 release gabapentin 300 mg capsule 600 mg PO BEDTIME 03/04/22 08/19/23 magnesium oxide 500 mg tablet 500 mg PO DAILY 03/04/22 08/19/23 calcium citrate 200 mg (950 mg) 500 mg PO BID 03/07/22 08/19/23 tablet doxycycline hyclate 100 mg tablet 100 mg PO BID 08/16/23 08/19/23 insulin glargine 100 unit/mL (3 30 unit SUBCUT DAILY 08/16/23 08/19/23 mL) subcutaneous pen (Lantus Solostar U-100 Insulin) metoprolol succinate 50 mg 50 mg PO DAILY 08/16/23 08/19/23 tablet,extended release 24 hr omeprazole 20 mg capsule,delayed 40 mg PO DAILY 08/16/23 08/19/23 release Previous Rx's Medication Instructions Recorded donepezil 5 mg tablet 5 mg PO BEDTIME #30 tabs 08/23/23 Allergies Allergy/AdvReac Type Severity Reaction Status Date / Time iodine [IODINE] Allergy Severe Swelling Verified 10/06/23 14:27 of Lip/Tongue/Throat lisinopril [LISINOPRIL] Allergy Severe Swelling Verified 10/06/23 14:27 of Lip/Tongue/Throat shellfish derived Allergy Severe Swelling Verified 10/06/23 14:27 [SHELLFISH DERIVED] of Lip/Tongue/Throat Penicillins Allergy Intermediate Rash Verified 10/06/23 14:27 oxycodone AdvReac Hallucinati Verified 10/06/23 14:27 ng Patient History Medical History Arthropathy of left shoulder Spinal stenosis Osteoarthritis Depression Memory changes COPD (chronic obstructive pulmonary disease) Diabetes Hypertension Gouty arthritis of toe Surgical History History of arthroplasty of left knee History of arthroplasty of right knee Social History household members: spouse, family and children Smoking Status: Never smoker alcohol intake: former Smoking Status: Never smoker alcohol intake frequency: holidays/special occasions only Substance Use Type: does not use Exam Initial Vital Signs Initial Vital Signs: Vital Signs Temperature 99.3 F 10/09/23 22:37 Pulse Rate 56 L 10/09/23 22:37 Respiratory Rate 24 10/09/23 22:37 Blood Pressure 184/84 H 10/09/23 22:37 Pulse Oximetry 94 10/09/23 22:37 Oxygen Delivery Method Room Air 10/09/23 22:37 Const General: No acute distress and other (Sugar-tong splint on the right forearm and wrist is intact.) Resp Effort & Inspection: normal respiratory effort Skin General: no rashes or lesions noted Neuro General: patient alert, patient awake and patient oriented x3 Extrem Other: Splint on the right forearm is loosened with relief of her discomfort. There is no focal bony tenderness on the distal right 3rd finger. This is 1 of the locations where there was concern for a possible fracture. Given that she is wearing a sugar-tong splint for her possible proximal radius fracture I did not take the splint down. The sugar-tong splint was recent cured looser than previously. Capillary refill and light touch sensation in her right hand were intact. Course Vital Signs Vital signs: Vital Signs - 8 hr 10/09/23 22:37 Temperature 99.3 F Pulse Rate 56 L Respiratory Rate 24 Blood Pressure 184/84 H Pulse Oximetry 94 Oxygen Delivery Method Room Air MDM - Extremity Injury (Upper) MDM Narrative Medical decision making narrative: 88-year-old female with right forearm and hand pain after a fall earlier today. There were a couple of small areas had concern for possible fracture seen on x- ray. Her right long finger does not have tenderness to suggest a fracture at that location. I did not take down the splint that she was already wearing to assess tenderness in her forearm. I recommended she keep her orthopedics follow-up appointment. Discharge Plan Departure Patient Disposition: Home Clinical Impression: Pain of hand Activity Restrictions/Additional Instructions: We loosened your splint and this seems to be helping pain. Continue with previous home medications may use Tylenol as needed for pain elevate your right hand and arm above the level of the heart when able. Follow up with Orthopedics as previously suggested. Prescriptions: No Action VITAMIN D (Vitamin D3) 1,000 units PO BEDTIME Qty: 0 fluoxetine [Prozac] 40 MG capsule 40 mg PO QDAY Qty: 0 insulin aspart U-100 [Novolog U-100 Insulin aspart] 100 unit/mL solution 10 unit SQ BID Qty: 0 atorvastatin 40 mg Tablet 40 mg PO BEDTIME aspirin 81 mg tablet,delayed release (DR/EC) 81 mg PO DAILY magnesium oxide 500 mg Tablet 500 mg PO DAILY gabapentin 300 mg capsule 600 mg PO BEDTIME calcium citrate 200 mg (950 mg) Tablet 500 mg PO BID metoprolol succinate 50 mg tablet extended release 24 hr 50 mg PO DAILY omeprazole 20 mg capsule,delayed release(DR/EC) 40 mg PO DAILY insulin glargine [Lantus Solostar U-100 Insulin] 100 unit/mL (3 mL) insulin pen 30 unit SUBCUT DAILY Patient Comments: [NO ORIGINAL SIG] doxycycline hyclate 100 mg tablet 100 mg PO BID donepezil 5 mg Tablet 5 mg PO BEDTIME Qty: 30 0RF Referrals: Katty Harrington MD [Primary Care Provider] - Stand Alone Forms: Patient Portal/API
== END 2023-10-09 23:30 | disposition home or self-care (01) ==
PROVIDERS: Emergency Provider Emergency Medicine; Family Provider Internal Medicine; PCP Family Medicine
DX: S69.91XA Unspecified injury of right wrist, hand and finger(s), initial encounter (principal); S59.901A Unspecified injury of right elbow, initial encounter; M79.641 Pain in right hand; M79.631 Pain in right forearm; W01.0XXA Fall on same level from slipping, tripping and stumbling without subsequent striking against object, initial encounter
CPT/HCPCS: 29105; 73090; 73130; 99281; 99282; 99283

== ENCOUNTER 2023-10-20 03:14 | Emergency (ER) | payer MEDICARE, OTHER, SELFPAY ==
[2023-08-19 15:00] VITALS: BMI 26.9
[2023-10-20] VITALS (8 sets, daily range): BP systolic 130–156; BP diastolic 65–96; PULSE 51–60; RESP 20; TEMP 36.9; O2SAT 92–98
--- NOTE | 2023-10-20 03:21 | DI.CT.S_ITS ---
PROCEDURE: CT LUMBAR SPINE WO CON INDICATIONS: FALL 4 STEPS, LUMBAR PAIN TECHNIQUE: Noncontrast 3 mm thick sections acquired from the T12 level to the sacrum. Sagittal and coronal reformats were constructed. For radiation dose reduction, the following was used: automated exposure control. COMPARISON: [facility], , L-SPINE WITHOUT CONTRAST, 10/07/2017, 7:05. FINDINGS: Image quality: Excellent. Bones: There are 5 non rib-bearing lumbar vertebrae. There is normal bony alignment Nondisplaced right L3, L4 and L5 transverse process fractures. No suspicious lytic or blastic bony lesions. No pars defects. [id number] degenerative disc and facet disease throughout the lumbar spine. Multilevel central canal stenosis, severe at L4-L5, moderate at L3-L4, L4-L5 and mild at other levels. Bilateral foraminal stenosis, moderate to severe at L5-S1 bilaterally and moderate at L4-L5 bilaterally. Osteopenia. Soft tissues: No retroperitoneal masses or hematomas. Visualized aorta is normal in caliber. Small hiatal hernia. IMPRESSION: 1. Nondisplaced right L3, L4 and L5 transverse process fractures. 2. Multilevel degenerative disc disease and facet arthropathy as described. 3. Multilevel central canal stenoses and foraminal stenoses as described. No significant discrepancy with the warehouse shift supervisor radiology preliminary report. Dictated by: Reji Saenz M.D. on 10/20/2023 at 7:59 Approved by: Reji Saenz M.D. on 10/20/2023 at 8:05
--- NOTE | 2023-10-20 03:21 | DI.RAD.S_ITS ---
PROCEDURE: XR CHEST 1V INDICATIONS: GLF, BILAT SHOULDER PAIN TECHNIQUE: One view of the chest was acquired. COMPARISON: , CT, CT CHEST ABD PEL WO CON, 08/16/2023, 6:25. , CR, XR CHEST 1V, 10/06/2023, 14:44. FINDINGS: Surgical changes and devices: Left shoulder arthroplasty. Lungs and pleura: No consolidation. No pleural effusions or pneumothorax. Mediastinum: Mediastinal contours appear normal. Heart size is normal. Bones and chest wall: No suspicious bony lesions. Overlying soft tissues appear unremarkable. IMPRESSION: No acute cardiopulmonary abnormality is seen. This report is concordant with the overnight preliminary interpretation. Dictated by: Pako Ventura M.D. on 10/20/2023 at 8:00 Approved by: Pako Ventura M.D. on 10/20/2023 at 8:05
--- NOTE | 2023-10-20 03:21 | DI.CT.S_ITS ---
PROCEDURE: CT HEAD/BRAIN WO CON INDICATIONS: FALL 4 STEPS, HEAD INJURY TECHNIQUE: Noncontrast 4.5 mm thick angled axial sections acquired from the foramen magnum to the vertex, with coronal and sagittal reformats. For radiation dose reduction, the following was used: automated exposure control, adjustment of mA and/or kV according to patient size. COMPARISON: [facility], CT, CT HEAD/BRAIN WO CON, 08/16/2023, 6:25. FINDINGS: Image quality: Diagnostic. CSF spaces: Basal cisterns are patent. No extra-axial fluid collections. The ventricles are symmetric in size and shape. Brain: No intracranial bleeds or masses. There is cerebral volume loss for age, with resultant ventricular and sulcal prominence. There are periventricular and deep white matter chronic small vessel ischemic changes. There is intracranial internal carotid artery atherosclerosis. Skull and face: Calvarium and visualized facial bones appear intact, without suspicious lesions. Sinuses: Visualized sinuses and mastoids are clear. IMPRESSION: 1. No acute intracranial abnormalities. 2. Cerebral volume loss and chronic microvascular ischemic changes. No significant discrepancy with the sales professional bilingual radiology preliminary report. Dictated by: Reji Saenz M.D. on 10/20/2023 at 7:56 Approved by: Reji Saenz M.D. on 10/20/2023 at 7:56
--- NOTE | 2023-10-20 03:27 | ED_ITS ---
HPI - Fall General Chief Complaint: Fall Stated Complaint: FALL Time Seen by Provider: 10/20/23 03:14 History of Present Illness HPI Narrative: 88-year-old female with history Alzheimer's, insulin-dependent diabetes presents by private vehicle from home for bilateral shoulder pain, lumbar pain after slipping and falling down 4 stairs earlier today. Patient states that she slipped with her cane and landed on her bottom, subsequently stepwise falling down 4 stairs. She states that she did hit her head during this incident but denies loss of consciousness and denies use of blood thinners. Patient was seen earlier this month on 10/09 for hand and forearm pain after a ground level fall. There was question of radius fracture, however there was no effusion and this could have also possibly been a chronic injury Related Data Home Medications Medication Instructions Recorded Confirmed VITAMIN D (Vitamin D3) 1,000 units PO BEDTIME ##0 09/06/11 08/19/23 fluoxetine 40 mg capsule (Prozac) 40 mg PO QDAY ##0 11/28/16 08/19/23 insulin aspart U-100 100 unit/mL 10 unit SQ BID ##0 11/28/16 08/19/23 subcutaneous solution (Novolog U-100 Insulin aspart) atorvastatin 40 mg tablet 40 mg PO BEDTIME 03/03/22 08/19/23 aspirin 81 mg tablet,delayed 81 mg PO DAILY 03/04/22 08/19/23 release gabapentin 300 mg capsule 600 mg PO BEDTIME 03/04/22 08/19/23 magnesium oxide 500 mg tablet 500 mg PO DAILY 03/04/22 08/19/23 calcium citrate 200 mg (950 mg) 500 mg PO BID 03/07/22 08/19/23 tablet doxycycline hyclate 100 mg tablet 100 mg PO BID 08/16/23 08/19/23 insulin glargine 100 unit/mL (3 30 unit SUBCUT DAILY 08/16/23 08/19/23 mL) subcutaneous pen (Lantus Solostar U-100 Insulin) metoprolol succinate 50 mg 50 mg PO DAILY 08/16/23 08/19/23 tablet,extended release 24 hr omeprazole 20 mg capsule,delayed 40 mg PO DAILY 08/16/23 08/19/23 release Previous Rx's Medication Instructions Recorded donepezil 5 mg tablet 5 mg PO BEDTIME #30 tabs 08/23/23 hydrocodone 5 mg-acetaminophen 325 1 tab PO Q8H PRN pain #10 tabs 10/20/23 mg tablet Allergies Allergy/AdvReac Type Severity Reaction Status Date / Time iodine [IODINE] Allergy Severe Swelling Verified 10/06/23 14:27 of Lip/Tongue/Throat lisinopril [LISINOPRIL] Allergy Severe Swelling Verified 10/06/23 14:27 of Lip/Tongue/Throat shellfish derived Allergy Severe Swelling Verified 10/06/23 14:27 [SHELLFISH DERIVED] of Lip/Tongue/Throat Penicillins Allergy Intermediate Rash Verified 10/06/23 14:27 oxycodone AdvReac Hallucinati Verified 10/06/23 14:27 ng Review of Systems Review of Systems Narrative: Negative except as noted above Patient History Medical History Arthropathy of left shoulder Spinal stenosis Osteoarthritis Depression Memory changes COPD (chronic obstructive pulmonary disease) Diabetes Hypertension Gouty arthritis of toe Surgical History History of arthroplasty of left knee History of arthroplasty of right knee Social History household members: spouse, family and children Smoking Status: Never smoker alcohol intake: former Smoking Status: Never smoker alcohol intake frequency: holidays/special occasions only Substance Use Type: does not use Exam Initial Vital Signs Initial Vital Signs: Vital Signs Pulse Rate 51 L 10/20/23 03:21 Pulse Oximetry 93 10/20/23 03:21 Oxygen Delivery Method Room Air 10/20/23 03:21 Const: Awake, alert, no acute distress, debilitated, frail Cardiac: regular rate, regular rhythm RESP: unlabored, clear bilaterally, no wheezing GI: Atraumatic, soft, nontender MSK: No deformity, full range of motion, neurovascularly intact MSK back: No step-offs, lumbar midline tenderness to deep palpation Skin: Warm, Dry, intact, no rashes Neuro: AO x2, CN II-XII grossly intact, strength equal in upper and lower extremities bilaterally, sensation intact and equal bilaterally. Course Orders Ordered: ED Orders 10/20/23 03:21 CT head/brain wo con Stat CT lumbar spine wo con Stat Chest [XR chest 1V] Stat Discontinued Medications Acetaminophen (Acetaminophen 325 Mg Tablet) 975 mg PO NOW ONE Stop: 10/20/23 03:59 Last Admin: 10/20/23 04:03 Dose: 975 mg Hydrocodone Bitart/Acetaminophen (Hydrocodone/Acet 5/325 Tablet) 1 tab PO NOW ONE Stop: 10/20/23 03:25 Last Admin: 10/20/23 03:58 Dose: Not Given Lidocaine (Lidocaine 5% Patch) 1 each TOP NOW ONE Stop: 10/20/23 04:51 Last Admin: 10/20/23 04:57 Dose: 1 each Vital Signs Vital signs: Vital Signs - 8 hr 10/20/23 03:21 10/20/23 03:22 10/20/23 03:22 Temperature Pulse Rate 51 L 51 L Respiratory Rate Blood Pressure 130/96 H Pulse Oximetry 93 93 Oxygen Delivery Method Room Air Room Air 10/20/23 03:24 10/20/23 03:30 10/20/23 03:30 Temperature 98.4 F Pulse Rate 51 L 51 L Respiratory Rate 20 Blood Pressure 134/96 H 137/65 Pulse Oximetry 93 92 Oxygen Delivery Method Room Air Room Air 10/20/23 04:00 10/20/23 04:30 10/20/23 04:31 Temperature Pulse Rate 54 L 59 L Respiratory Rate Blood Pressure 156/75 H Pulse Oximetry 93 98 Oxygen Delivery Method Room Air Room Air 10/20/23 04:31 10/20/23 05:00 10/20/23 05:00 Temperature Pulse Rate 57 L 60 Respiratory Rate Blood Pressure 153/68 H Pulse Oximetry 98 94 Oxygen Delivery Method Room Air Room Air MDM - Fall Differential Diagnosis Differential diagnosis: Likely fracture of wrist, compression fracture and concussion with loss of consciousness MDM Narrative Medical decision making narrative: Well-appearing patient with shoulder and lumbar back pain after falling on her bottom down 4 stairs. She is able to transfer from wheelchair to ED bed without difficulty. There is no deformity of the shoulders, she is full range of motion, very low clinical suspicion for fracture. Since patient is endorsed head trauma and is of advanced age we will order CT of the head, and due to lumbar spine tenderness we will order CT L-spine. CT of the brain shows no acute process, there is no deformity seen on x-ray of the chest. Patient does have new transverse process fractures on the right side at L3, L4, L5. Neurologically intact. Patient and family informed of results. Patient is tearful, stating she was very anxious about her diagnosis. Patient was given reassurance. Family counseled on pain control at home, a short prescription for norco sent to pharmacy of choice. Family counseled about increased fall risk with this medication. Discharge Plan Departure Patient Disposition: Home Clinical Impression: Fracture of transverse process of lumbar vertebra Instructions: How to Prevent Falls, DI for Transverse Process Fracture Activity Restrictions/Additional Instructions: Today your CT of the lumbar spine showed right-sided 3rd, 4th, and 5th lumbar transverse process fractures. These are not out of place and should heal with conservative management. It is extremely important to prevent falls as much as possible as this may worsen the fracture or cause additional fractures. I recommend taking Tylenol for pain, if this is not controlling her pain a short prescription for hydrocodone has been sent to the [facility]'s in [place]. I also recommend putting lidocaine patches on your back for pain. Be careful with the hydrocodone as it may cause increased risk of falls. Prescriptions: New hydrocodone-acetaminophen 5-325 mg tablet 1 tab PO Q8H PRN (Reason: pain) Qty: 10 0RF No Action VITAMIN D (Vitamin D3) 1,000 units PO BEDTIME Qty: 0 fluoxetine [Prozac] 40 MG capsule 40 mg PO QDAY Qty: 0 insulin aspart U-100 [Novolog U-100 Insulin aspart] 100 unit/mL solution 10 unit SQ BID Qty: 0 atorvastatin 40 mg Tablet 40 mg PO BEDTIME aspirin 81 mg tablet,delayed release (DR/EC) 81 mg PO DAILY magnesium oxide 500 mg Tablet 500 mg PO DAILY gabapentin 300 mg capsule 600 mg PO BEDTIME calcium citrate 200 mg (950 mg) Tablet 500 mg PO BID metoprolol succinate 50 mg tablet extended release 24 hr 50 mg PO DAILY omeprazole 20 mg capsule,delayed release(DR/EC) 40 mg PO DAILY insulin glargine [Lantus Solostar U-100 Insulin] 100 unit/mL (3 mL) insulin pen 30 unit SUBCUT DAILY Patient Comments: [NO ORIGINAL SIG] doxycycline hyclate 100 mg tablet 100 mg PO BID donepezil 5 mg Tablet 5 mg PO BEDTIME Qty: 30 0RF Referrals: Katty Harrington MD [Primary Care Provider] - Stand Alone Forms: Patient Portal/API
[2023-10-20] MEDS: ACETAMINOPHEN 325 MG TABLET 975 MG PO (04:03)
[2023-10-20] MEDS: LIDOCAINE 5% PATCH 1 EACH TOP (04:57)
== END 2023-10-20 05:15 | disposition home or self-care (01) ==
PROVIDERS: Emergency Provider Emergency Medicine; Family Provider Internal Medicine; PCP Family Medicine
DX: S32.039A Unspecified fracture of third lumbar vertebra, initial encounter for closed fracture (principal); S32.049A Unspecified fracture of fourth lumbar vertebra, initial encounter for closed fracture; S32.059A Unspecified fracture of fifth lumbar vertebra, initial encounter for closed fracture; S09.90XA Unspecified injury of head, initial encounter; W10.9XXA Fall (on) (from) unspecified stairs and steps, initial encounter
CPT/HCPCS: 70450; 71045; 72131; 99283; 99284

== ENCOUNTER 2023-10-21 23:52 | Emergency (ER) | payer MEDICARE, OTHER, SELFPAY ==
[2023-08-19 15:00] VITALS: BMI 26.9
[2023-10-22 00:05] VITALS: BP 141/64; PULSE 58; RESP 18; TEMP 36.7; O2SAT 93; BMI 30.5
--- NOTE | 2023-10-22 00:10 | DI.RAD.S_ITS ---
PROCEDURE: XR KNEE LT 3V INDICATIONS: Fell and landed on left knee witnh pain TECHNIQUE: 3 views of the knee were acquired. COMPARISON: [facility], , KNEE 3V LEFT, 11/11/2015, 23:52. FINDINGS: Bones: No fractures or dislocations. No suspicious bony lesions. Knee arthroplasty. Hardware is intact without hardware fracture or periprosthetic lucency to suggest loosening. Alignment is stable. Soft tissues: Moderate joint effusion. No suspicious soft tissue calcifications. IMPRESSION: Moderate effusion. No visualized acute fracture or dislocation. However, if clinical concern and/or pain persist, short interval imaging followup in 7-10 days is recommended, as occult injury cannot be definitively excluded. Dictated by: Vicky Rodgers M.D. on 10/22/2023 at 0:51 Approved by: Vicky Rodgers M.D. on 10/22/2023 at 0:51
[2023-10-22 03:14] VITALS: BP 187/90; PULSE 52; RESP 21; O2SAT 95
[2023-10-22 03:25] VITALS: BP 193/143; PULSE 65
[2023-10-22 03:30] VITALS: PULSE 61; O2SAT 95
--- NOTE | 2023-10-22 03:30 | ED_ITS ---
HPI - Fall General Chief Complaint: Fall Stated Complaint: fell banged her knee left knee Time Seen by Provider: 10/22/23 02:27 Source: patient and family Mode of arrival: Wheelchair History of Present Illness HPI Narrative: An 88-year-old female with a history of dementia type 2 diabetes and frequent falls presents to the emergency department after a fall earlier in the night. Reportedly she fell out of a lawn chair onto the knee. This was not a fall from height. She has some pain in her left knee now. I note that she was seen very recently in the emergency department after a fall and had some spinous process fracture. Says she is been using hydrocodone for pain as well as lidocaine patches. Related Data Home Medications Medication Instructions Recorded Confirmed VITAMIN D (Vitamin D3) 1,000 units PO BEDTIME ##0 09/06/11 08/19/23 fluoxetine 40 mg capsule (Prozac) 40 mg PO QDAY ##0 11/28/16 08/19/23 insulin aspart U-100 100 unit/mL 10 unit SQ BID ##0 11/28/16 08/19/23 subcutaneous solution (Novolog U-100 Insulin aspart) atorvastatin 40 mg tablet 40 mg PO BEDTIME 03/03/22 08/19/23 aspirin 81 mg tablet,delayed 81 mg PO DAILY 03/04/22 08/19/23 release gabapentin 300 mg capsule 600 mg PO BEDTIME 03/04/22 08/19/23 magnesium oxide 500 mg tablet 500 mg PO DAILY 03/04/22 08/19/23 calcium citrate 200 mg (950 mg) 500 mg PO BID 03/07/22 08/19/23 tablet doxycycline hyclate 100 mg tablet 100 mg PO BID 08/16/23 08/19/23 insulin glargine 100 unit/mL (3 30 unit SUBCUT DAILY 08/16/23 08/19/23 mL) subcutaneous pen (Lantus Solostar U-100 Insulin) metoprolol succinate 50 mg 50 mg PO DAILY 08/16/23 08/19/23 tablet,extended release 24 hr omeprazole 20 mg capsule,delayed 40 mg PO DAILY 08/16/23 08/19/23 release Previous Rx's Medication Instructions Recorded donepezil 5 mg tablet 5 mg PO BEDTIME #30 tabs 08/23/23 hydrocodone 5 mg-acetaminophen 325 1 tab PO Q4-6H PRN pain #10 tabs 12/21/23 mg tablet hydrocodone 5 mg-acetaminophen 325 1 tab PO Q4-6H PRN pain #10 tabs 10/20/23 mg tablet hydrocodone 5 mg-acetaminophen 325 1 tab PO Q8H PRN pain #10 tabs 10/20/23 mg tablet Allergies Allergy/AdvReac Type Severity Reaction Status Date / Time iodine [IODINE] Allergy Severe Swelling Verified 10/06/23 14:27 of Lip/Tongue/Throat lisinopril [LISINOPRIL] Allergy Severe Swelling Verified 10/06/23 14:27 of Lip/Tongue/Throat shellfish derived Allergy Severe Swelling Verified 10/06/23 14:27 [SHELLFISH DERIVED] of Lip/Tongue/Throat Penicillins Allergy Intermediate Rash Verified 10/06/23 14:27 oxycodone AdvReac Hallucinati Verified 10/06/23 14:27 ng Patient History Medical History Arthropathy of left shoulder Spinal stenosis Osteoarthritis Depression Memory changes COPD (chronic obstructive pulmonary disease) Diabetes Hypertension Gouty arthritis of toe Surgical History History of arthroplasty of left knee History of arthroplasty of right knee Social History household members: spouse, family and children Smoking Status: Never smoker alcohol intake: former Smoking Status: Never smoker alcohol intake frequency: holidays/special occasions only Substance Use Type: does not use Exam Initial Vital Signs Initial Vital Signs: Vital Signs Temperature 98.1 F 10/22/23 00:05 Pulse Rate 58 L 10/22/23 00:05 Respiratory Rate 18 10/22/23 00:05 Blood Pressure 141/64 H 10/22/23 00:05 Pulse Oximetry 93 10/22/23 00:05 Oxygen Delivery Method Room Air 10/22/23 00:05 Const General: cooperative and frail appearing HENMT Head: atraumatic Eyes Sclera: sclerae normal Neck Neck: supple and No tender Resp Effort & Inspection: normal respiratory effort Auscultation: clear to auscultation bilaterally Back/Spine/Pelvis Back: normal to inspection Skin General: mottling and warm Neuro General: patient alert Extrem Other: Left knee has some abrasions over the patella, these are superficial without foreign body. Knee has good active range of motion there is no palpable effu selma distal neuro and vascular exam is intact Course Orders Ordered: ED Orders 10/22/23 00:10 XR knee LT 3V Stat 10/22/23 03:27 Urinalysis and Microscopic Stat Discontinued Medications Acetaminophen (Acetaminophen 325 Mg Tablet) 650 mg PO NOW ONE Stop: 10/22/23 03:36 Last Admin: 10/22/23 03:40 Dose: 650 mg Documented By: MONI Vital Signs Vital signs: Vital Signs - 8 hr 10/22/23 00:05 10/22/23 03:14 10/22/23 03:25 Temperature 98.1 F Pulse Rate 58 L 52 L 65 Respiratory Rate 18 21 Blood Pressure 141/64 H 187/90 H Pulse Oximetry 93 95 Oxygen Delivery Method Room Air 10/22/23 03:25 10/22/23 03:30 10/22/23 03:31 Temperature Pulse Rate 61 61 Respiratory Rate Blood Pressure 193/143 H Pulse Oximetry 95 98 Oxygen Delivery Method 10/22/23 03:31 Temperature Pulse Rate Respiratory Rate Blood Pressure 219/96 H Pulse Oximetry Oxygen Delivery Method MDM - Fall Lab Data Lab results narrative: Urinalysis is unremarkable Labs: Lab Results 10/22/23 Range/Units 03:27 Urine Color Yellow Urine Appearance Clear Urine pH 5.5 (4.5-8.0) Ur Specific [place] 1.025 (1.000-1.035) Urine Protein Negative (Negative) Urine Glucose (UA) Negative (Negative) g/dL Urine Ketones Trace H (NEGATIVE) Urine Occult Blood Negative (Negative) Urine Nitrate Negative (Negative) Urine Bilirubin Negative (NEGATIVE) Urine Urobilinogen 0.2 (0.2) E.U./dL Ur Leukocyte Esterase Negative (NEGATIVE) Urine RBC None seen (0-5/HPF) Urine WBC 0-1/hpf (0-5/HPF) Ur Squamous Epith Cells None seen (0-5/HPF) Urine Bacteria None seen (None) Ur Culture Indicated? Cult not indicated Urine Dip Bedside Urine Glucose Negative Bedside Urine Bilirubin - Negative Bedside Urine Ketone - Negative Urine Specific [place] 1.020 Bedside Urine Occult Blood - Negative Bedside Urine pH 5.5 Bedside Urine Protein - Negative Bedside Urine Nitrite - Negative Bedside Urine Leukocytes +/- 15 Esterase Imaging Data Extremity x-ray #1: My Impression: Independent review left knee x-ray, joint replacement hardware, no fracture or dislocation. Radiologist's Impression: MPRESSION: Moderate effusion. No visualized acute fracture or dislocation. However, if clinical concern and/or pain persist, short interval imaging followup in 7-10 days is recommended, as occult injury cannot be definitively excluded. Dictated by: Vicky Rodgers M.D. on 10/22/2023 at 0:51 Approved by: Vicky Rodgers M.D. on 10/22/2023 at 0:51 MDM Narrative Medical decision making narrative: 88-year-old female with a ground level fall onto a prosthetic knee joint. Has a small abrasion, exam is otherwise reassuring and on x-ray there is a joint effusion which appears to be small no fracture or dislocation. Patient was able to ambulate. Recommended symptomatic treatment and primary care follow up. Discharged home. Discharge Plan Departure Patient Disposition: Home Clinical Impression: Acute knee pain Qualifiers: Laterality: left Qualified Code(s): M25.562 - Pain in left knee Fall Qualifiers: Encounter type: initial encounter Qualified Code(s): W19.XXXA - Unspecified fall, initial encounter Knee abrasion Qualifiers: Encounter type: initial encounter Laterality: left Qualified Code(s): S80.212A - Abrasion, left knee, initial encounter Instructions: How to Prevent Falls Activity Restrictions/Additional Instructions: Emergency department evaluation tonight is reassuring. I think it is safe to go home, you have an abrasion to your knee you may want to keep that covered with a dressing and perhaps some antibiotic ointment. You can use the medications you already have as needed for pain. Activity as tolerated and follow up with your primary care provider soon. If you are having severe pain fevers or other acute symptoms recheck in the emergency department. Prescriptions: No Action VITAMIN D (Vitamin D3) 1,000 units PO BEDTIME Qty: 0 fluoxetine [Prozac] 40 MG capsule 40 mg PO QDAY Qty: 0 insulin aspart U-100 [Novolog U-100 Insulin aspart] 100 unit/mL solution 10 unit SQ BID Qty: 0 atorvastatin 40 mg Tablet 40 mg PO BEDTIME aspirin 81 mg tablet,delayed release (DR/EC) 81 mg PO DAILY magnesium oxide 500 mg Tablet 500 mg PO DAILY gabapentin 300 mg capsule 600 mg PO BEDTIME calcium citrate 200 mg (950 mg) Tablet 500 mg PO BID metoprolol succinate 50 mg tablet extended release 24 hr 50 mg PO DAILY omeprazole 20 mg capsule,delayed release(DR/EC) 40 mg PO DAILY insulin glargine [Lantus Solostar U-100 Insulin] 100 unit/mL (3 mL) insulin pen 30 unit SUBCUT DAILY Patient Comments: [NO ORIGINAL SIG] doxycycline hyclate 100 mg tablet 100 mg PO BID donepezil 5 mg Tablet 5 mg PO BEDTIME Qty: 30 0RF hydrocodone-acetaminophen 5-325 mg tablet 1 tab PO Q8H PRN (Reason: pain) Qty: 10 0RF hydrocodone-acetaminophen 5-325 mg tablet 1 tab PO Q4-6H PRN (Reason: pain) Qty: 10 0RF hydrocodone-acetaminophen 5-325 mg tablet 1 tab PO Q4-6H PRN (Reason: pain) Qty: 10 0RF Referrals: Katty Harrington MD [Primary Care Provider] - Stand Alone Forms: Patient Portal/API
[2023-10-22 03:31] VITALS: BP 219/96; PULSE 61; O2SAT 98
[2023-10-22 03:40] LABS: Appearance Urine UA CLEAR; Bilirubin Urine UA NEGATIVE (NEGATIVE); Color Urine UA YELLOW; Glucose Urine UA NEGATIVE (Negative); Ketones Urine UA TRACE (NEGATIVE); Leukocyte Esterase Urine UA NEGATIVE (NEGATIVE); Nitrite Urine UA NEGATIVE (Negative); Occult Blood Urine UA NEGATIVE (Negative); Protein Urine UA NEGATIVE (Negative); Specific Gravity Urine UA 1.025 (1.000-1.035); Urobilinogen Urine UA 0.2 E.U./dL (0.2)
[2023-10-22] MEDS: ACETAMINOPHEN 325 MG TABLET 650 MG PO (03:40)
[2023-10-22 03:42] LABS: pH Urine UA 5.5 (4.5-8.0)
[2023-10-22 03:55] LABS: Bacteria Urine None Seen; Culture Indicated Urine Cult Not Indicated; RBC Urine None Seen (0-5/HPF); Squamous Epithelial Cell Urine None Seen (0-5/HPF); WBC Urine 0-1/HPF (0-5/HPF)
== END 2023-10-22 03:49 | disposition home or self-care (01) ==
PROVIDERS: Emergency Provider Emergency Medicine; Family Provider Internal Medicine; PCP Family Medicine
DX: M25.562 Pain in left knee (principal); S80.212A Abrasion, left knee, initial encounter; W07.XXXA Fall from chair, initial encounter
CPT/HCPCS: 73562; 81001; 81003; 99283

== ENCOUNTER → 2023-11-09 12:39 | Outpatient (CLI) | payer OTHER, SELFPAY ==
[2023-08-19 15:00] VITALS: BMI 26.9
--- NOTE | 2023-11-09 12:40 | DI.CT.S_ITS ---
PROCEDURE: CT WRIST RIGHT WITHOUT CON INDICATIONS: PAIN IN RT WRIST R/O FRACTURE TECHNIQUE: Noncontrast 1 mm axial sections acquired through the carpal bones, with coronal and sagittal reformats. COMPARISON: [facility], CR, XR HAND RT MIN 3V, 10/09/2023, 17:41. [facility], CR, XR FOREARM RT 2V, 10/09/2023, 17:41. [facility], CR, XR WRIST 3+ VIEWS RIGHT, 10/18/2023, 14:10. [facility], CR, XR WRIST 3+ VIEWS RIGHT, 11/04/2023, 11:20. FINDINGS: Image quality: Excellent. Bones: As seen on prior right wrist radiograph, there is osteopenia and severe osteoarthritic changes throughout wrist joints more notably involving 1st CMC joint. No acute fracture or dislocation is seen. No suspicious bony lesion. No CT evidence of avascular necrosis. Soft tissues: There is widened scapholunate interval concerning for scapholunate ligament rupture. Chondrocalcinosis involving triangular fibrocartilage complex is seen. No other abnormal soft tissue calcifications. No gross full-thickness wrist tendon rupture. No discrete soft tissue mass or drainable fluid collection. IMPRESSION: 1. 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 No wrist fracture or dislocation. No suspicious bony lesions. No evidence of avascular necrosis. 2. Slight widening of scapholunate interval concerning for scapholunate ligament rupture. No full-thickness wrist tendon rupture. Chondrocalcinosis involving triangular fibrocartilage complex. No other abnormal soft tissue calcifications. No soft tissue mass or drainable fluid collection. No significant wrist joint effusion. Dictated by: Markos Desir M.D. on 11/09/2023 at 16:48 Approved by: Markos Desir M.D. on 11/09/2023 at 16:50
--- NOTE | 2023-11-09 12:41 | DI.CT.S_ITS ---
PROCEDURE: CT CERVICAL SPINE WO CON INDICATIONS: CERVICAL SPINE PAIN TECHNIQUE: Noncontrast 3 mm thick sections acquired from the skull base to the T4 level. Sagittal and coronal reformats were then constructed. For radiation dose reduction, the following was used: automated exposure control, adjustment of mA and/or kV according to patient size. COMPARISON: , CT, CT CERVICAL SPINE WO CON, 08/16/2023, 6:25. [facility], MR, MR CERVICAL SPINE WITHOUT CONTRAST, 06/20/2021, 10:09. FINDINGS: Image quality: Excellent. Bones: No fractures or dislocations. Visualized superior ribs are intact. Postoperative change of the mandible is partially seen on both sides. Multiple levels of significant degenerative change can be seen, including involving the C1-C2 interface anteriorly. There is moderate disc space narrowing seen at the C3-C4 level, with moderate to severe disc space narrowing at C4-C5, C5-C6, and C6-C7. Bridging anterior osteophytes can be seen C4 through C7. Post erected endplate osteophytes are seen, which are worst at the C6-C7 level. Multiple levels of significant facet arthropathy can be seen on both sides. Minimal anterolisthesis can be seen at C4-C5 and there is mild anterolisthesis seen at C5-C6. Reversal of the normal cervical lordosis is seen, with the apex at the C5-C6 level. Soft tissues: Prevertebral soft tissues are normal in thickness. No paravertebral hematomas. No apical pneumothoraces. IMPRESSION: Multiple levels of significant cervical spine degenerative change can be seen, which are overall worst at C5-C6 and C6-C7. Dictated by: Ori Dawn M.D. on 11/09/2023 at 14:57 Approved by: Ori Dawn M.D. on 11/09/2023 at 15:00
== END ==
LOC: CT 12:39
PROVIDERS: Family Provider Internal Medicine; PCP Family Medicine; Referring Provider Physician Assistant; Visit Provider Physician Assistant
DX: M54.2 Cervicalgia (principal); M25.531 Pain in right wrist; M47.812 Spondylosis without myelopathy or radiculopathy, cervical region
CPT/HCPCS: 72125; 73200

== ENCOUNTER → 2024-01-02 17:21 | Outpatient (CLI) | payer OTHER, SELFPAY ==
[2023-08-19 15:00] VITALS: BMI 26.9
== END ==
PROVIDERS: Family Provider Internal Medicine; PCP Family Medicine; Visit Provider Physician Assistant Surgical
DX: S91.105A Unspecified open wound of left lesser toe(s) without damage to nail, initial encounter (principal)
CPT/HCPCS: 87070; 87075; 87205

== ENCOUNTER → 2024-01-02 17:56 | Outpatient (CLI) | payer OTHER, SELFPAY ==
[2023-08-19 15:00] VITALS: BMI 26.9
--- NOTE | 2024-01-02 17:58 | DI.RAD.S_ITS ---
PROCEDURE: XR TOE LT MIN 2V INDICATIONS: s/p fall from stand, injury to 2nd digit of left foot TECHNIQUE: 3 views of the 2nd toe(s) acquired. COMPARISON: [facility], , XR FOOT LT MIN 3V, 07/30/2023, 14:52. FINDINGS: Bones: No fractures or dislocations. Second PIP fixation hardware is stable in appearance. Severe osteoarthritic changes of the 1st MTP joint with mild hallux valgus angulation and medial bunion formation. Diffuse interphalangeal joint degeneration. No suspicious bony lesions. Soft tissues: No suspicious soft tissue densities. IMPRESSION: No acute osseous abnormalities. Stable chronic findings as above. Dictated by: David Hewitt M.D. on 01/02/2024 at 18:52 Approved by: David Hewitt M.D. on 01/02/2024 at 18:53
== END ==
LOC: RAD 17:57
PROVIDERS: Family Provider Internal Medicine; PCP Family Medicine; Referring Provider Physician Assistant Surgical; Visit Provider Physician Assistant Surgical
DX: S91.105A Unspecified open wound of left lesser toe(s) without damage to nail, initial encounter; M20.12 Hallux valgus (acquired), left foot; M21.612 Bunion of left foot; M19.072 Primary osteoarthritis, left ankle and foot; W19.XXXA Unspecified fall, initial encounter
CPT/HCPCS: 73660; 87070; 87075; 87077; 87147; 87186; 87205

== ENCOUNTER 2024-02-04 03:24 | Emergency (ER) | payer MEDICARE, OTHER, SELFPAY ==
[2023-08-19 15:00] VITALS: BMI 26.9
--- NOTE | 2024-02-04 03:29 | DI.RAD.S_ITS ---
PROCEDURE: XR CHEST 1V INDICATIONS: MENTAL STATUS CHANGE TECHNIQUE: One view of the chest was acquired. COMPARISON: [facility], CR, XR CHEST 1V, 10/20/2023, 3:27. [facility], CR, XR CHEST 1V, 10/06/2023, 14:44. FINDINGS: Surgical changes and devices: Left shoulder arthroplasty. Lungs and pleura: Lungs are clear. No pleural effusions or pneumothorax. Mediastinum: Mediastinal contours appear normal. Heart size is normal. Bones and chest wall: No suspicious bony lesions. Overlying soft tissues appear unremarkable. IMPRESSION: No acute cardiopulmonary abnormality is seen. Agree with preliminary report. Dictated by: Octaviano Bailey M.D. on 02/04/2024 at 7:42 Approved by: Octaviano Bailey M.D. on 02/04/2024 at 7:42
[2024-02-04 03:35] VITALS: BP 191/79; PULSE 73; RESP 24; TEMP 36.6; O2SAT 92; BMI 29.2
--- NOTE | 2024-02-04 03:39 | ED_ITS ---
HPI - General Adult General Chief complaint: Environmental Exposure Stated complaint: exposure Time Seen by Provider: 02/04/24 03:27 History of Present Illness HPI narrative: A 8-year-old female with history of dementia, COPD on as needed oxygen presents by EMS from home for possible cold exposure. History is obtained from EMS as patient is known poor historian. EMS states that the family was trying to get the patient inside the house when she began to ?throw a tantrum?. She laid herself down on the porch and would not get up and family became concerned about cold exposure and called 911. They told paramedics that patient has not been taking her medications for the last week and they are very frustrated with her. Related Data Home Medications Medication Instructions Recorded Confirmed VITAMIN D (Vitamin D3) 1,000 units PO BEDTIME ##0 09/06/11 01/02/24 fluoxetine 40 mg capsule (Prozac) 40 mg PO QDAY ##0 11/28/16 01/02/24 insulin aspart U-100 100 unit/mL 10 unit SQ BID ##0 11/28/16 01/02/24 subcutaneous solution (Novolog U-100 Insulin aspart) atorvastatin 40 mg tablet 40 mg PO BEDTIME 03/03/22 01/02/24 aspirin 81 mg tablet,delayed 81 mg PO DAILY 03/04/22 01/02/24 release gabapentin 300 mg capsule 600 mg PO BEDTIME 03/04/22 01/02/24 magnesium oxide 500 mg PO DAILY 03/04/22 01/02/24 calcium citrate 200 mg (950 mg) 500 mg PO BID 03/07/22 01/02/24 tablet insulin glargine 100 unit/mL (3 30 unit SUBCUT DAILY 08/16/23 01/02/24 mL) subcutaneous pen (Lantus Solostar U-100 Insulin) metoprolol succinate 50 mg 50 mg PO DAILY 08/16/23 01/02/24 tablet,extended release 24 hr omeprazole 20 mg capsule,delayed 40 mg PO DAILY 08/16/23 01/02/24 release Previous Rx's Medication Instructions Recorded donepezil 5 mg tablet 5 mg PO BEDTIME #30 tabs 08/23/23 hydrocodone 5 mg-acetaminophen 325 1 tab PO Q4-6H PRN pain #10 tabs 10/20/23 mg tablet hydrocodone 5 mg-acetaminophen 325 1 tab PO Q4-6H PRN pain #10 tabs 10/20/23 mg tablet hydrocodone 5 mg-acetaminophen 325 1 tab PO Q8H PRN pain #10 tabs 10/20/23 mg tablet Allergies Allergy/AdvReac Type Severity Reaction Status Date / Time iodine [IODINE] Allergy Severe Swelling Verified 01/02/24 16:57 of Lip/Tongue/Throat lisinopril [LISINOPRIL] Allergy Severe Swelling Verified 01/02/24 16:57 of Lip/Tongue/Throat shellfish derived Allergy Severe Swelling Verified 01/02/24 16:57 [SHELLFISH DERIVED] of Lip/Tongue/Throat Penicillins Allergy Intermediate Rash Verified 01/02/24 16:57 oxycodone AdvReac Hallucinati Verified 01/02/24 16:57 ng Patient History Medical History Arthropathy of left shoulder Spinal stenosis Osteoarthritis Depression Memory changes COPD (chronic obstructive pulmonary disease) Diabetes Hypertension Gouty arthritis of toe Surgical History History of arthroplasty of left knee History of arthroplasty of right knee Social History household members: spouse, family and children Smoking Status: Never smoker alcohol intake: former Smoking Status: Never smoker alcohol intake frequency: holidays/special occasions only Substance Use Type: does not use Exam Initial Vital Signs Initial Vital Signs: Vital Signs Temperature 97.9 F 02/04/24 03:35 Pulse Rate 73 02/04/24 03:35 Respiratory Rate 24 02/04/24 03:35 Blood Pressure 191/79 H 02/04/24 03:35 Pulse Oximetry 92 02/04/24 03:35 Oxygen Delivery Method Room Air 02/04/24 03:35 Const: Awake, alert, no acute distress, frail Cardiac: regular rate, regular rhythm RESP: unlabored, clear bilaterally, speaking in complete sentences without dyspnea GI: Soft, nontender, nondistended, no rebound, no guarding Skin: Warm, Dry, intact, no rashes Neuro: AO x2, CN II-XII grossly intact, moves all extremities Course Orders Ordered: ED Orders 02/04/24 03:29 Chest [XR chest 1V] Stat 02/04/24 03:30 CBC Auto Diff [Complete Blood Count AUTO DIFF] Stat CMP [Comprehensive Metabolic Panel] Stat EKG-12 Lead Stat 02/04/24 04:08 UA Complete [Urinalysis and Microscopic] Stat Discontinued Medications Bacitracin (Bacitracin Oint 0.9 Gm Pckt) 1 applic TOP NOW ONE Stop: 02/04/24 05:04 Metoprolol Succinate (Metoprolol Er 50 Mg Tablet) 50 mg PO NOW ONE Stop: 02/04/24 04:29 Last Admin: 02/04/24 05:04 Dose: Not Given Vital Signs Vital signs: Vital Signs - 8 hr 02/04/24 03:35 02/04/24 04:27 02/04/24 04:30 Temperature 97.9 F Pulse Rate 73 67 66 Respiratory Rate 24 21 21 Blood Pressure 191/79 H Pulse Oximetry 92 94 95 Oxygen Delivery Method Room Air 02/04/24 04:31 02/04/24 04:31 02/04/24 05:04 Temperature Pulse Rate 65 60 Respiratory Rate 23 Blood Pressure 164/74 H Pulse Oximetry 95 Oxygen Delivery Method Medical Decision Making Lab Data 02/04/24 03:30 02/04/24 03:30 Labs: Lab Results 02/04/24 02/04/24 Range/Units 03:30 04:08 WBC 7.0 (4.5-11.0) X10^3/uL RBC 4.55 (4.0-5.2) X10^6/uL Hgb 13.0 (12.0-16.0) g/dL Hct 39.7 (36-46) % MCV 87.3 (80-100) fL MCH 28.6 (26-34) PG MCHC 32.7 (30-36) % RDW 14.3 (11.6-14.8) % Plt Count 204 (150-400) X10^3/uL Neut % (Auto) 74.3 (50-75) % Lymph % (Auto) 15.7 L (25-40) % [place] % (Auto) 8.0 (3-14) % Eos % (Auto) 1.2 L (2-4) % Baso % (Auto) 0.8 (0-2) % Neut # (Auto) 5200 (6980-4803) /uL Lymph # (Auto) 1100 (7864-4156) /uL [place] # (Auto) 600 (0-900) /uL Eos # (Auto) 100 (0-450) /uL Baso # (Auto) 100 (0-100) /uL Sodium 141 (137-145) mmol/L Potassium 3.6 (3.4-5.1) mmol/L Chloride 106 (98-107) mmol/L Carbon Dioxide 28 (22-32) mmol/L BUN 18 H (7-17) mg/dL Creatinine 0.94 (0.52-1.04) mg/dL Estimated GFR 59 L (>60) mL/min BUN/Creatinine Ratio 19.1 (6-22) Glucose 169 H (80-110) mg/dL Calcium 10.0 (8.4-10.2) mg/dL Total Bilirubin 0.6 (0.2-1.3) mg/dL AST 25 (14-36) IU/L ALT 16 (<35) IU/L Alkaline Phosphatase 88 (38-126) U/L Total Protein 7.4 (6.3-8.2) g/dL Albumin 4.2 (3.5-5.0) g/dL Globulin 3.2 (1.7-4.1) g/dL Albumin/Globulin Ratio 1.3 (1.0-2.8) Urine Color Yellow Urine Appearance Clear Urine pH 5.5 (4.5-8.0) Ur Specific [place] 1.015 (1.000-1.035) Urine Protein Negative (Negative) Urine Glucose (UA) 2+ H (Negative) g/dL Urine Ketones Negative (NEGATIVE) Urine Occult Blood Negative (Negative) Urine Nitrate Negative (Negative) Urine Bilirubin Negative (NEGATIVE) Urine Urobilinogen 0.2 (0.2) E.U./dL Ur Leukocyte Esterase Negative (NEGATIVE) Urine RBC None seen (0-5/HPF) Urine WBC None seen (0-5/HPF) Ur Squamous Epith Cells 0-1 /hpf (0-5/HPF) Urine Bacteria None seen (None) Ur Culture Indicated? Cult not indicated Vol Urine Centrifuged 10ml (spun) MDM Narrative Medical decision making narrative: Brought in by EMS from home for possible cold exposure. Family arrived several minutes later and they were able to provide additional history. at bedside states that patient was ?on the porch enjoying the night air?. He became concerned because of how cold it was outside and tried to bring her inside. Patient then began to scream for help and yell loudly. She then sat down and laid on the porch outside and would not get up. Daughter called 911 out of concern for the patient. Laboratory work and imaging is not any different from patient's baseline. No signs of infection. Patient saturations did dip into the upper 80s and she was placed on nasal cannula, however this is normal for the patient and she has as needed oxygen at home. Family counseled on lab and imaging findings. Patient's temperature is not hypothermic and she does not appear to have suffered any ill effects from staying outside on the porch. Patient advised on the importance of compliance with her medications and oxygen. Discharge Plan Departure Patient Disposition: Home Clinical Impression: Behavior concern Instructions: True or False: Being Exposed to Wet, Cold Weather Increases the Risk of Inf Activity Restrictions/Additional Instructions: Follow up with your primary care doctor. Please take all of your medications as prescribed. Prescriptions: No Action VITAMIN D (Vitamin D3) 1,000 units PO BEDTIME Qty: 0 fluoxetine [Prozac] 40 MG capsule 40 mg PO QDAY Qty: 0 insulin aspart U-100 [Novolog U-100 Insulin aspart] 100 unit/mL solution 10 unit SQ BID Qty: 0 atorvastatin 40 mg Tablet 40 mg PO BEDTIME aspirin 81 mg tablet,delayed release (DR/EC) 81 mg PO DAILY magnesium oxide 500 mg Tablet 500 mg PO DAILY gabapentin 300 mg capsule 600 mg PO BEDTIME calcium citrate 200 mg (950 mg) Tablet 500 mg PO BID metoprolol succinate 50 mg tablet extended release 24 hr 50 mg PO DAILY omeprazole 20 mg capsule,delayed release(DR/EC) 40 mg PO DAILY insulin glargine [Lantus Solostar U-100 Insulin] 100 unit/mL (3 mL) insulin pen 30 unit SUBCUT DAILY Patient Comments: [NO ORIGINAL SIG] donepezil 5 mg Tablet 5 mg PO BEDTIME Qty: 30 0RF hydrocodone-acetaminophen 5-325 mg tablet 1 tab PO Q8H PRN (Reason: pain) Qty: 10 0RF hydrocodone-acetaminophen 5-325 mg tablet 1 tab PO Q4-6H PRN (Reason: pain) Qty: 10 0RF hydrocodone-acetaminophen 5-325 mg tablet 1 tab PO Q4-6H PRN (Reason: pain) Qty: 10 0RF Referrals: Katty Harrington MD [Primary Care Provider] - Stand Alone Forms: Patient Portal/API
--- NOTE | 2024-02-04 03:44 | PC.NURSE ---
Family at bedside. MD Benavides at bedside discussing with family.
[2024-02-04 03:48] LABS: Add Manual Diff / Slide Review NO; Basophils Absolute Auto 100 /uL (0-100); Basophils Percent Auto 0.8 % (0-2); Eosinophils Absolute Auto 100 /uL (0-450); Eosinophils Percent Auto 1.2 % (2-4); Hematocrit 39.7 % (36-46); Lymphocytes Absolute Auto 1100 /uL (1100-4500); Lymphocytes Percent Auto 15.7 % (25-40); Mean Corpuscular HGB Conc 32.7 % (30-36); Mean Corpuscular Hemoglobin 28.6 PG (26-34); Mean Corpuscular Volume 87.3 fL (80-100); Monocytes Absolute Auto 600 /uL (0-900); Neutrophils Absolute Auto 5200 /uL (1500-7000); Neutrophils Percent Auto 74.3 % (50-75); Platelet Count 204 X10^3/uL (150-400); Red Blood Cell Count 4.55 X10^6/uL (4.0-5.2); Red Cell Distribution Width 14.3 % (11.6-14.8)
[2024-02-04 03:59] LABS: Alanine Aminotransferase 16 IU/L (<35); Albumin 4.2 g/dL (3.5-5.0); Albumin Globulin Ratio 1.3 (1.0-2.8); Alkaline Phosphatase 88 U/L (38-126); Aspartate Aminotransferase 25 IU/L (14-36); BUN Creatinine Ratio 19.1 (6-22); Bilirubin Total 0.6 mg/dL (0.2-1.3); Blood Urea Nitrogen 18 mg/dL (7-17); Carbon Dioxide 28 mmol/L (22-32); Chloride 106 mmol/L (98-107); Estimated Glomerular Filt Rate 59 mL/min (>60); Globulin 3.2 g/dL (1.7-4.1); Glucose 169 mg/dL (80-110); HEMOLYSIS < 15 (0-50); Potassium 3.6 mmol/L (3.4-5.1); Sodium 141 mmol/L (137-145); Total Protein 7.4 g/dL (6.3-8.2)
--- NOTE | 2024-02-04 04:25 | PC.NURSE ---
Pt is AAOx4, talking to family. Is moving arm freely without severe pain.
[2024-02-04 04:27] VITALS: PULSE 67; RESP 21; O2SAT 94
[2024-02-04 04:30] VITALS: PULSE 66; RESP 21; O2SAT 95
[2024-02-04 04:30] LABS: Appearance Urine UA CLEAR; Bilirubin Urine UA NEGATIVE (NEGATIVE); Color Urine UA YELLOW; Glucose Urine UA 2+ g/dL (Negative); Ketones Urine UA NEGATIVE (NEGATIVE); Leukocyte Esterase Urine UA NEGATIVE (NEGATIVE); Nitrite Urine UA NEGATIVE (Negative); Occult Blood Urine UA NEGATIVE (Negative); Protein Urine UA NEGATIVE (Negative); Specific Gravity Urine UA 1.015 (1.000-1.035); Urobilinogen Urine UA 0.2 E.U./dL (0.2); pH Urine UA 5.5 (4.5-8.0)
[2024-02-04 04:31] VITALS: BP 164/74; PULSE 65; RESP 23; O2SAT 95
[2024-02-04 04:43] LABS: Bacteria Urine None Seen; Culture Indicated Urine Cult Not Indicated; RBC Urine None Seen (0-5/HPF); Squamous Epithelial Cell Urine 0-1 /HPF (0-5/HPF); Urine Volume 10mL (spun); WBC Urine None Seen (0-5/HPF)
[2024-02-04 05:04] VITALS: PULSE 60
[2024-02-04] MEDS: BACITRACIN OINT 0.9 GM PCKT 1 APPLIC TOP (05:06)
== END 2024-02-04 05:15 | disposition home or self-care (01) ==
PROVIDERS: Emergency Provider Emergency Medicine; Family Provider Internal Medicine; PCP Family Medicine
DX: R46.89 Other symptoms and signs involving appearance and behavior (principal); X31.XXXA Exposure to excessive natural cold, initial encounter
CPT/HCPCS: 36415; 71045; 80053; 81001; 85025; 93005; 99283; 99284

== ENCOUNTER 2024-06-01 07:14 | Emergency (ER) | payer MEDICARE, OTHER, SELFPAY ==
[2023-08-19 15:00] VITALS: BMI 26.9
[2024-06-01] VITALS (8 sets, daily range): BP systolic 148–189; BP diastolic 71–87; PULSE 55–69; RESP 16–17; TEMP 36.7; O2SAT 93–97; BMI 25.9
--- NOTE | 2024-06-01 07:54 | ED.GENADULT ---
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 EMS reports that he bend her house frequently for behavior issues today she was found to have glucose of 56 she was given glucose and chocolates at home now seems to be doing better. She denies any sort of pain she is talking about great grandkids and children. She reports that she did not sleep last night she is unsure if she had breakfast this morning. No other symptoms I spoke with , he reports that she definitely has dementia in his frequently confused she does not take her medication regularly she was just started on Jardiance but he has not sure if she is taking it he can not make her take it. Related Data Home Medications Medication Instructions Recorded Confirmed VITAMIN D (Vitamin D3) 1,000 units PO BEDTIME ##0 09/06/11 01/02/24 fluoxetine 40 mg capsule (Prozac) 40 mg PO QDAY ##0 11/28/16 01/02/24 insulin aspart U-100 100 unit/mL 10 unit SQ BID ##0 11/28/16 01/02/24 subcutaneous solution (Novolog U-100 Insulin aspart) atorvastatin 40 mg tablet 40 mg PO BEDTIME 03/03/22 01/02/24 aspirin 81 mg tablet,delayed 81 mg PO DAILY 03/04/22 01/02/24 release gabapentin 300 mg capsule 600 mg PO BEDTIME 03/04/22 01/02/24 magnesium oxide 500 mg PO DAILY 03/04/22 01/02/24 calcium citrate 200 mg (950 mg) 500 mg PO BID 03/07/22 01/02/24 tablet insulin glargine 100 unit/mL (3 30 unit SUBCUT DAILY 08/16/23 01/02/24 mL) subcutaneous pen (Lantus Solostar U-100 Insulin) metoprolol succinate 50 mg 50 mg PO DAILY 08/16/23 01/02/24 tablet,extended release 24 hr omeprazole 20 mg capsule,delayed 40 mg PO DAILY 08/16/23 01/02/24 release Previous Rx's Medication Instructions Recorded donepezil 5 mg tablet 5 mg PO BEDTIME #30 tabs 08/23/23 hydrocodone 5 mg-acetaminophen 325 1 tab PO Q4-6H PRN pain #10 tabs 10/20/23 mg tablet hydrocodone 5 mg-acetaminophen 325 1 tab PO Q4-6H PRN pain #10 tabs 10/20/23 mg tablet hydrocodone 5 mg-acetaminophen 325 1 tab PO Q8H PRN pain #10 tabs 10/20/23 mg tablet divalproex 125 mg capsule,delayed 125 mg PO Q8H #90 caps 06/01/24 release sprinkle (Depakote Sprinkles) Allergies Allergy/AdvReac Type Severity Reaction Status Date / Time iodine [IODINE] Allergy Severe Swelling Verified 01/02/24 16:57 of Lip/Tongue/Throat lisinopril [LISINOPRIL] Allergy Severe Swelling Verified 01/02/24 16:57 of Lip/Tongue/Throat shellfish derived Allergy Severe Swelling Verified 01/02/24 16:57 [SHELLFISH DERIVED] of Lip/Tongue/Throat Penicillins Allergy Intermediate Rash Verified 01/02/24 16:57 oxycodone AdvReac Hallucinati Verified 01/02/24 16:57 ng Patient History Medical History Arthropathy of left shoulder Spinal stenosis Osteoarthritis Depression Memory changes COPD (chronic obstructive pulmonary disease) Diabetes Hypertension Gouty arthritis of toe Surgical History History of arthroplasty of left knee History of arthroplasty of right knee Social History household members: spouse, family and children Smoking Status: Never smoker alcohol intake: former Smoking Status: Never smoker alcohol intake frequency: holidays/special occasions only Substance Use Type: does not use Exam Initial Vital Signs Initial Vital Signs: Vital Signs Temperature 98.0 F 06/01/24 07:20 Pulse Rate 58 L 06/01/24 07:20 Respiratory Rate 16 06/01/24 07:20 Blood Pressure 148/71 H 06/01/24 07:20 Pulse Oximetry 97 06/01/24 07:20 Oxygen Delivery Method Room Air 06/01/24 07:20 GENERAL: Alert pleasantly confused 89-year-old female HEENT: Head atraumatic,EOMI, pupils reactive, face symmetric, moist mucous membranes CARDIOVASCULAR: Regular rate and rhythm without murmurs, rubs or gallops. RESPIRATORY: Breath sounds equal bilaterally, no wheezes rales or rhonchi. ABDOMEN: Soft, nontender. Normoactive bowel sounds all 4 quadrants. No guarding or rebound. EXTREMITIES: Normal range of motion, no clubbing or edema. 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 Course Orders Ordered: ED Orders 06/01/24 07:41 CBC Auto Diff [Complete Blood Count AUTO DIFF] Stat CMP [Comprehensive Metabolic Panel] Stat 06/01/24 07:56 Urinalysis and Microscopic Stat Discontinued Medications Divalproex Sodium (Divalproex 125 Mg Cap) 125 mg PO NOW ONE Stop: 06/01/24 10:06 Last Admin: 06/01/24 10:13 Dose: 125 mg Documented By: TUCKER Sodium Chloride (Normal Saline 0.9%) 1,000 mls @ 1,000 mls/hr IV BOLUS ONE Stop: 06/01/24 09:34 Last Infusion: 06/01/24 10:54 Dose: Infused Documented By: Admin: 06/01/24 09:27 Dose: 1,000 mls/hr Documented By: CTS Vital Signs Vital signs: Vital Signs - 8 hr 06/01/24 07:20 06/01/24 07:25 06/01/24 07:30 Temperature 98.0 F Pulse Rate 58 L 58 L 55 L Respiratory Rate 16 Blood Pressure 148/71 H Pulse Oximetry 97 96 97 Oxygen Delivery Method Room Air 06/01/24 07:30 06/01/24 08:00 06/01/24 08:00 Temperature Pulse Rate 58 L Respiratory Rate Blood Pressure 167/74 H 174/77 H Pulse Oximetry 97 Oxygen Delivery Method 06/01/24 09:14 06/01/24 09:30 06/01/24 10:00 Temperature Pulse Rate 62 56 L 66 Respiratory Rate Blood Pressure Pulse Oximetry 93 96 96 Oxygen Delivery Method Room Air 06/01/24 13:34 Temperature Pulse Rate 69 Respiratory Rate 17 Blood Pressure 189/87 H Pulse Oximetry 96 Oxygen Delivery Method Room Air Medical Decision Making Lab Data 06/01/24 07:41 06/01/24 07:41 Labs: Lab Results 06/01/24 06/01/24 Range/Units 07:41 07:56 WBC 6.0 (4.5-11.0) X10^3/uL RBC 4.27 (4.0-5.2) X10^6/uL Hgb 12.0 (12.0-16.0) g/dL Hct 37.1 (36-46) % MCV 86.8 (80-100) fL MCH 28.2 (26-34) PG MCHC 32.5 (30-36) % RDW 15.5 H (11.6-14.8) % Plt Count 177 (150-400) X10^3/uL Neut % (Auto) 53.5 (50-75) % Lymph % (Auto) 33.7 (25-40) % [place] % (Auto) 10.2 (3-14) % Eos % (Auto) 1.8 L (2-4) % Baso % (Auto) 0.8 (0-2) % Neut # (Auto) 3200 (4698-7674) /uL Lymph # (Auto) 2000 (5745-7617) /uL [place] # (Auto) 600 (0-900) /uL Eos # (Auto) 100 (0-450) /uL Baso # (Auto) 0 (0-100) /uL Sodium 138 (137-145) mmol/L Potassium 3.7 (3.4-5.1) mmol/L Chloride 107 (98-107) mmol/L Carbon Dioxide 24 (22-32) mmol/L BUN 25 H (7-17) mg/dL Creatinine 1.49 H (0.52-1.04) mg/dL Estimated GFR 34 L (>60) mL/min BUN/Creatinine Ratio 16.8 (6-22) Glucose 114 H (80-110) mg/dL Calcium 9.2 (8.4-10.2) mg/dL Total Bilirubin 0.4 (0.2-1.3) mg/dL AST 24 (14-36) IU/L ALT 16 (<35) IU/L Alkaline Phosphatase 82 (38-126) U/L Total Protein 6.4 (6.3-8.2) g/dL Albumin 3.5 (3.5-5.0) g/dL Globulin 2.9 (1.7-4.1) g/dL Albumin/Globulin Ratio 1.2 (1.0-2.8) Urine Color Yellow Urine Appearance Clear Urine pH 6.0 (4.5-8.0) Ur Specific [place] <=1.005 (1.000-1.035) Urine Protein Negative (Negative) Urine Glucose (UA) 3+ H (Negative) g/dL Urine Ketones Negative (NEGATIVE) Urine Occult Blood Negative (Negative) Urine Nitrate Negative (Negative) Urine Bilirubin Negative (NEGATIVE) Urine Urobilinogen 0.2 (0.2) E.U./dL Ur Leukocyte Esterase Negative (NEGATIVE) Urine RBC None seen (0-5/HPF) Urine WBC None seen (0-5/HPF) Ur Squamous Epith Cells None seen (0-5/HPF) Urine Bacteria None seen (None) Ur Culture Indicated? Cult not indicated Vol Urine Centrifuged 10ml (spun) Point of Care Testing Glucose POC 108 Point of care testing: Point of Care Testing Glucose POC 108 MDM Narrative Medical decision making narrative: Patient is a 81-year-old female history of dementia presenting today with hypoglycemia. She was recently started on Jardiance by her primary care doc it is unclear what exactly she is taking and if she is eating. Daughter is living with them trying to help them but she 2 says it is difficult. She reports that patient does not really sleep that much. While in the ED patient is very confused crying agitated at times and then quickly calms down. Blood work has been reviewed no leukocytosis or anemia no electrolyte abnormality or LEONEL she has no UTI While waiting for patient's family to pick her up started her on Depakote. Possible Depakote Sprinkles might help her behavioral issues while they wait to get into psychiatry. But no medical reason for admission Daughter at bedside to pick and shovel man patient. Discussed with her to hold Jardiance so she does not get hypoglycemic into try Depakote scheduled to see if it helps with behavior. Discharge Plan Departure Patient Disposition: Home Clinical Impression: Dementia Instructions: Alzheimer Disease Activity Restrictions/Additional Instructions: *You have been diagnosed with hypoglycemia, dementia *What to do: At this time blood work is overall reassuring. Try and follow-up with psychiatry and PCP *Continue to take medications as directed Hold Jardiance, talk with PCP Start Depakote Sprinkles 125 mg 3 times a day, should see improvement in about 24 hours *Follow up with your primary care provider in 2-3 days or call [phone] *Return to ER if you should have low sugar worsening behavior aggression or any new, worsening or concerning symptoms Prescriptions: New divalproex [Depakote Sprinkles] 125 mg capsule, delayed rel sprinkle 125 mg PO Q8H Qty: 90 0RF No Action VITAMIN D (Vitamin D3) 1,000 units PO BEDTIME Qty: 0 fluoxetine [Prozac] 40 MG capsule 40 mg PO QDAY Qty: 0 insulin aspart U-100 [Novolog U-100 Insulin aspart] 100 unit/mL solution 10 unit SQ BID Qty: 0 atorvastatin 40 mg Tablet 40 mg PO BEDTIME aspirin 81 mg tablet,delayed release (DR/EC) 81 mg PO DAILY magnesium oxide 500 mg Tablet 500 mg PO DAILY gabapentin 300 mg capsule 600 mg PO BEDTIME calcium citrate 200 mg (950 mg) Tablet 500 mg PO BID metoprolol succinate 50 mg tablet extended release 24 hr 50 mg PO DAILY omeprazole 20 mg capsule,delayed release(DR/EC) 40 mg PO DAILY insulin glargine [Lantus Solostar U-100 Insulin] 100 unit/mL (3 mL) insulin pen 30 unit SUBCUT DAILY Patient Comments: [NO ORIGINAL SIG] donepezil 5 mg Tablet 5 mg PO BEDTIME Qty: 30 0RF hydrocodone-acetaminophen 5-325 mg tablet 1 tab PO Q8H PRN (Reason: pain) Qty: 10 0RF hydrocodone-acetaminophen 5-325 mg tablet 1 tab PO Q4-6H PRN (Reason: pain) Qty: 10 0RF hydrocodone-acetaminophen 5-325 mg tablet 1 tab PO Q4-6H PRN (Reason: pain) Qty: 10 0RF Referrals: Katty Harrington MD [Primary Care Provider] - Stand Alone Forms: Patient Portal/API
[2024-06-01 07:56] LABS: Add Manual Diff / Slide Review NO; Basophils Absolute Auto 0 /uL (0-100); Basophils Percent Auto 0.8 % (0-2); Eosinophils Absolute Auto 100 /uL (0-450); Eosinophils Percent Auto 1.8 % (2-4); Hematocrit 37.1 % (36-46); Lymphocytes Absolute Auto 2000 /uL (1100-4500); Lymphocytes Percent Auto 33.7 % (25-40); Mean Corpuscular HGB Conc 32.5 % (30-36); Mean Corpuscular Hemoglobin 28.2 PG (26-34); Mean Corpuscular Volume 86.8 fL (80-100); Monocytes Absolute Auto 600 /uL (0-900); Monocytes Percent Auto 10.2 % (3-14); Neutrophils Absolute Auto 3200 /uL (1500-7000); Neutrophils Percent Auto 53.5 % (50-75); Platelet Count 177 X10^3/uL (150-400); Red Blood Cell Count 4.27 X10^6/uL (4.0-5.2); Red Cell Distribution Width 15.5 % (11.6-14.8)
[2024-06-01 08:02] LABS: Alanine Aminotransferase 16 IU/L (<35); Albumin 3.5 g/dL (3.5-5.0); Albumin Globulin Ratio 1.2 (1.0-2.8); Alkaline Phosphatase 82 U/L (38-126); Aspartate Aminotransferase 24 IU/L (14-36); BUN Creatinine Ratio 16.8 (6-22); Bilirubin Total 0.4 mg/dL (0.2-1.3); Blood Urea Nitrogen 25 mg/dL (7-17); Calcium 9.2 mg/dL (8.4-10.2); Carbon Dioxide 24 mmol/L (22-32); Chloride 107 mmol/L (98-107); Estimated Glomerular Filt Rate 34 mL/min (>60); Globulin 2.9 g/dL (1.7-4.1); Glucose 114 mg/dL (80-110); HEMOLYSIS < 15 (0-50); Potassium 3.7 mmol/L (3.4-5.1); Sodium 138 mmol/L (137-145); Total Protein 6.4 g/dL (6.3-8.2)
[2024-06-01 08:19] LABS: Appearance Urine UA CLEAR; Bilirubin Urine UA NEGATIVE (NEGATIVE); Color Urine UA YELLOW; Glucose Urine UA 3+ g/dL (Negative); Ketones Urine UA NEGATIVE (NEGATIVE); Leukocyte Esterase Urine UA NEGATIVE (NEGATIVE); Nitrite Urine UA NEGATIVE (Negative); Occult Blood Urine UA NEGATIVE (Negative); Protein Urine UA NEGATIVE (Negative); Specific Gravity Urine UA <=1.005 (1.000-1.035); Urobilinogen Urine UA 0.2 E.U./dL (0.2)
[2024-06-01 08:20] LABS: Urine Volume 10mL (spun)
[2024-06-01 08:23] LABS: Bacteria Urine None Seen; Culture Indicated Urine Cult Not Indicated; RBC Urine None Seen (0-5/HPF); Squamous Epithelial Cell Urine None Seen (0-5/HPF); WBC Urine None Seen (0-5/HPF)
[2024-06-01] MEDS: SODIUM CHLORIDE 0.9% 1,000 ML 1000 ML IV (09:27)
[2024-06-01] MEDS: DIVALPROEX 125 MG CAP PO (10:13)
--- NOTE | 2024-06-01 10:56 | PC.NURSE ---
Pt ambulated to bathroom with walker and steady gait, jason care provided and diaper changed. IV D/C'd and pt 's called for pickup.
== END 2024-06-01 13:38 | disposition home or self-care (01) ==
PROVIDERS: Emergency Provider Emergency Medicine; Family Provider Internal Medicine; PCP Family Medicine
DX: E11.649 Type 2 diabetes mellitus with hypoglycemia without coma (principal); F03.90 Unspecified dementia, unspecified severity, without behavioral disturbance, psychotic disturbance, mood disturbance, and anxiety; Z79.899 Other long term (current) drug therapy
CPT/HCPCS: 36415; 80053; 81001; 82962; 85025; 96360; 99284

== ENCOUNTER 2024-06-16 21:10 | Emergency (ER) | payer MEDICARE, OTHER, SELFPAY ==
[2023-08-19 15:00] VITALS: BMI 26.9
[2024-06-16 21:26] VITALS: BP 160/86; PULSE 68; RESP 16; TEMP 36.6; O2SAT 97; BMI 27.4
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
[2024-06-16] MEDS: DIVALPROEX 125 MG CAP PO (23:45)
[2024-06-17] MEDS: ACETAMINOPHEN 325 MG TABLET 975 MG PO (01:47)
[2024-06-17] MEDS: LORazepam 0.5 MG TABLET PO (01:48)
--- NOTE | 2024-06-17 03:49 | PC.NURSE ---
After pt family left for night, pt continued to cry about pain. She was given tylenol for her arthritis, and ativan for anxiety. Pt dozing in and out of short rest periods only. A total or maybe 15 minutes or less at one given time. She has not tried to get out of bed. She does use call light most of the time, but sometimes she just yells out to staff.
[2024-06-17 06:51] VITALS: BP 149/75; PULSE 71; RESP 18; O2SAT 97
[2024-06-17 06:52] VITALS: BP 149/75; PULSE 74; O2SAT 93
--- NOTE | 2024-06-17 07:42 | PC.NURSE ---
Patient is resting with her eyes closed and chest rise and fall can be seen. This RN first assessment delayed to allow patient to rest. In report patient was up majority of previous shift.
--- NOTE | 2024-06-17 11:15 | PC.NURSE ---
Reviewed home med list and updated from past records. Unable to verify insulins, metoprolol, fluoxetine. Discussed w/ Dr. Mojica. New orders obtained.
--- NOTE | 2024-06-17 11:42 | PC.NURSE ---
Boarding assessment is delayed to allow the patient to rest, respirations are even.
--- NOTE | 2024-06-17 11:44 | PC.NURSE ---
1100- boarding assessment will de done when the patient is awake, this RN is allowing her to rest. Respirations are even.
[2024-06-17] MEDS: DIVALPROEX 125 MG CAP PO (13:32)
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
[2024-06-17 13:51] VITALS: BP 146/72; PULSE 74; RESP 20; O2SAT 97
== END 2024-06-17 13:30 | disposition home or self-care (01) ==
PROVIDERS: Emergency Provider Emergency Medicine; Family Provider Internal Medicine; PCP Family Medicine
DX: F03.911 Unspecified dementia, unspecified severity, with agitation (principal)
CPT/HCPCS: 81003; 82962; 99283

== ENCOUNTER → 2024-10-06 14:49 | Outpatient (CLI) | payer MEDICARE, OTHER, SELFPAY ==
[2023-08-19 15:00] VITALS: BMI 26.9
== END ==
PROVIDERS: Family Provider Internal Medicine; PCP Family Medicine; Visit Provider Registered Nurse
DX: R30.0 Dysuria (principal)
CPT/HCPCS: 87086

== ENCOUNTER 2024-10-06 15:16 | Emergency (ER) | payer MEDICARE, OTHER, SELFPAY ==
[2023-08-19 15:00] VITALS: BMI 26.9
[2024-10-06 15:20] VITALS: BP 148/64; PULSE 46; RESP 20; TEMP 36.6; O2SAT 97; BMI 26.9
--- NOTE | 2024-10-06 15:29 | PC.NURSE ---
reports BS 51 at home. fed her PBJ sandwich, chocolates and juice. current BS 190
--- NOTE | 2024-10-06 15:35 | ED.GENADULT ---
HPI - General Adult General Chief complaint: Altered Mental Status Stated complaint: WIC; Low Blood Sugar, Low O2 Time Seen by Provider: 10/06/24 15:32 History of Present Illness HPI narrative: 89-year-old woman with a history of insulin-dependent diabetes takes 30 units of insulin night typically has a snack before bed, blood sugars are typically over 101st thing in the morning today she was at 51 which came up nicely after eating a peanut butter and jelly sandwich. She does have a history of cognitive decline, COPD, chronic pain with slight increase to Depakote and gabapentin approximately 3 months ago. She is incontinent of urine uses a depends was having some urinary irritation and her brought her into the walk-in clinic urinalysis showed no nitrites, no leukocyte esterase. Patient states that her irritation has essentially resolved. When seen at the walk-in clinic her heart rate was noted to be 41 and the provider there suggested that she come to the ER On arrival in the ER patient feels she is at her baseline of the like to go home. Heart rate is at 49, blood sugar is 158 she has no specific complaints at this time. Related Data Home Medications Medication Instructions Recorded Confirmed VITAMIN D (Vitamin D3) 1,000 units PO BEDTIME ##0 09/06/11 01/02/24 fluoxetine 40 mg capsule (Prozac) 40 mg PO QDAY ##0 11/28/16 01/02/24 insulin aspart U-100 100 unit/mL 10 unit SQ BID ##0 11/28/16 01/02/24 subcutaneous solution (Novolog U-100 Insulin aspart) atorvastatin 40 mg tablet 40 mg PO BEDTIME 03/03/22 06/17/24 aspirin 81 mg tablet,delayed 81 mg PO DAILY 03/04/22 06/17/24 release magnesium oxide 500 mg PO DAILY 03/04/22 01/02/24 calcium citrate 200 mg (950 mg) 500 mg PO BID 03/07/22 06/17/24 tablet insulin glargine 100 unit/mL (3 30 unit SUBCUT DAILY 08/16/23 01/02/24 mL) subcutaneous pen (Lantus Solostar U-100 Insulin) metoprolol succinate 50 mg 50 mg PO DAILY 08/16/23 01/02/24 tablet,extended release 24 hr omeprazole 20 mg capsule,delayed 40 mg PO DAILY 08/16/23 01/02/24 release diclofenac sodium 1 % topical gel 1 ea topical BID PRN joint aches 06/17/24 06/17/24 empagliflozin 25 mg tablet 25 mg PO DAILY 06/17/24 06/17/24 (Jardiance) gabapentin 300 mg capsule 600 mg PO BID 06/17/24 06/17/24 Previous Rx's Medication Instructions Recorded donepezil 5 mg tablet 5 mg PO BEDTIME #30 tabs 08/23/23 divalproex 125 mg capsule,delayed 125 mg PO Q8H #90 caps 06/01/24 release sprinkle (Depakote Sprinkles) Allergies Allergy/AdvReac Type Severity Reaction Status Date / Time iodine [IODINE] Allergy Severe Swelling Verified 06/16/24 21:26 of Lip/Tongue/Throat lisinopril [LISINOPRIL] Allergy Severe Swelling Verified 06/16/24 21:26 of Lip/Tongue/Throat shellfish derived Allergy Severe Swelling Verified 06/16/24 21:26 [SHELLFISH DERIVED] of Lip/Tongue/Throat Penicillins Allergy Intermediate Rash Verified 06/16/24 21:26 oxycodone AdvReac Hallucinati Verified 06/16/24 21:26 ng Review of Systems Review of Systems Narrative: Pertinent positive and negative findings as per HPI Patient History Medical History Arthropathy of left shoulder Spinal stenosis Osteoarthritis Depression Memory changes COPD (chronic obstructive pulmonary disease) Diabetes Hypertension Gouty arthritis of toe Surgical History History of arthroplasty of left knee History of arthroplasty of right knee Social History household members: spouse, family and children Smoking Status: Never smoker alcohol intake: former Smoking Status: Never smoker alcohol intake frequency: holidays/special occasions only Exam Initial Vital Signs Initial Vital Signs: Vital Signs Temperature 97.9 F 10/06/24 15:20 Pulse Rate 46 L 10/06/24 15:20 Respiratory Rate 20 10/06/24 15:20 Blood Pressure 148/64 H 10/06/24 15:20 Pulse Oximetry 97 10/06/24 15:20 Oxygen Delivery Method Room Air 10/06/24 15:20 General: Frail, chronically ill-appearing, alert and interactive HEENT: Moist mucous membranes, normal sclera with reactive pupils small abrasion to her chin that looks to be 2 to 3-day-old, Respiratory: Lungs are clear to auscultation, no wheezing no rales no rhonchi. Full and symmetrical air movement Cardiac: Bradycardic, regular, no murmurs Abdomen: Soft, nontender, good bowel tones, no flank pain Neurologic: Grossly neurologically intact with no obvious asymmetries or abnormalities Extremities: No trauma, no lower extremity edema Psych: Cooperative, fluent speech Course Vital Signs Vital signs: Vital Signs - 8 hr 10/06/24 15:20 Temperature 97.9 F Pulse Rate 46 L Respiratory Rate 20 Blood Pressure 148/64 H Pulse Oximetry 97 Oxygen Delivery Method Room Air Medical Decision Making Lab Data Labs: Point of Care Testing Glucose POC 187 Point of care testing: Point of Care Testing Glucose POC 187 MDM Narrative Medical decision making narrative: 89-year-old woman with diabetes coronary artery disease on insulin and metoprolol, cognitive decline and chronic pain who presented to urgent care this morning wondering if she may have a bladder infection. Urinalysis suggests she does not and her irritation has since resolved however based on history of a low blood sugar upon awakening this morning and a noted bradycardic rate at 41 with suggested she come to the emergency room for further evaluation. Patient feels she is at her baseline, would not have otherwise come to the ER, heart rate in the ER is 49 and with any activity easily goes up into the mid 60s or 70s. She has not complaining of chest pain, orthopnea or exertional dyspnea. I suspect that these findings are not far from her baseline. Prior to making any changes we do need to collect additional data. I have asked him to check blood sugars at night and 1st thing in the morning to review with her primary care doctor to see if the 30 units of Lantus needs to be decreased. We did talk about nighttime snack to try and help avoid morning hypoglycemia. She has recently been taken off her immediate acting insulin. Regarding the heart rate, currently this is asymptomatic bradycardia likely related to her metoprolol. We will ask him to check heart rate and blood pressures each morning and again review this with the primary care physician to see if the metoprolol needs to be lowered or discontinued. This time she is at her baseline, there was no indication for additional workup or imaging studies and she is safe for discharge Discharge Plan Departure Patient Disposition: Home Clinical Impression: Hypoglycemia, Bradycardia Activity Restrictions/Additional Instructions: Thank you for coming in today Does not look like you have a bladder infection however the 1st provider that you saw was concerned with your low heart rate and your low blood sugar 1st thing this morning Both of these things have improved at this time and I think we need more information before suggesting any changes to your medications. I am not seeing any signs of infection, heart attack, pneumonia or other reason for additional evaluation in the ER today I would recommend that you check your blood sugar before bedtime, if it is below 100 you need to have a bedtime snack. Please keep track of your morning blood sugars, you need an appointment with your primary care physician to review your blood sugars to decide if you need to make any changes to your insulin. One of the complications of trying to have well-controlled diabetes is that there are episodes of low blood sugars Regarding your heart rate, you currently are on metoprolol at 50 mg a day and that may be contributing to the slow heart rate. You do not have any complaints related to your low heart rate and you clinically do not have signs of heart failure. Please check blood pressure and heart rate in the morning with your blood sugars and keep track of these. Please review this with your primary care doctor with your ER follow up appointment as well your doctor may want to change your blood pressure medication but, your doctor will need more information to be able to make changes that are appropriate for you.\ If you find that you are getting worse or develop any new symptoms, please feel free to return to the emergency department for further evaluation. Prescriptions: No Action VITAMIN D (Vitamin D3) 1,000 units PO BEDTIME Qty: 0 fluoxetine [Prozac] 40 MG capsule 40 mg PO QDAY Qty: 0 insulin aspart U-100 [Novolog U-100 Insulin aspart] 100 unit/mL solution 10 unit SQ BID Qty: 0 atorvastatin 40 mg Tablet 40 mg PO BEDTIME aspirin 81 mg tablet,delayed release (DR/EC) 81 mg PO DAILY magnesium oxide 500 mg Tablet 500 mg PO DAILY calcium citrate 200 mg (950 mg) Tablet 500 mg PO BID metoprolol succinate 50 mg tablet extended release 24 hr 50 mg PO DAILY omeprazole 20 mg capsule,delayed release(DR/EC) 40 mg PO DAILY insulin glargine [Lantus Solostar U-100 Insulin] 100 unit/mL (3 mL) insulin pen 30 unit SUBCUT DAILY Patient Comments: [NO ORIGINAL SIG] donepezil 5 mg Tablet 5 mg PO BEDTIME Qty: 30 0RF divalproex [Depakote Sprinkles] 125 mg capsule, delayed rel sprinkle 125 mg PO Q8H Qty: 90 0RF gabapentin 300 mg capsule 600 mg PO BID diclofenac sodium 1 % gel 1 ea topical BID PRN (Reason: joint aches) Jardiance 25 mg tablet 25 mg PO DAILY Referrals: Katty Harrington MD [Primary Care Provider] - Stand Alone Forms: Patient Portal/API/Survey
[2024-10-06 16:09] VITALS: BP 158/85; PULSE 58; O2SAT 96
== END 2024-10-06 16:12 | disposition home or self-care (01) ==
PROVIDERS: Emergency Provider Emergency Medicine; Family Provider Internal Medicine; PCP Family Medicine
DX: E11.649 Type 2 diabetes mellitus with hypoglycemia without coma (principal); R00.1 Bradycardia, unspecified; R30.0 Dysuria
CPT/HCPCS: 82962; 87086; 99282

== ENCOUNTER 2024-11-17 15:39 | Emergency (ER) | payer MEDICARE, OTHER, SELFPAY ==
[2023-08-19 15:00] VITALS: BMI 26.9
[2024-11-17] VITALS (16 sets, daily range): BP systolic 134–188; BP diastolic 63–91; PULSE 44–69; RESP 16–18; TEMP 36.9; O2SAT 92–100; BMI 25.7
--- NOTE | 2024-11-17 15:57 | ED.GENADULT ---
HPI - General Adult General Chief complaint: Back Pain/Injury Stated complaint: back pain, fell 6 mo ago Time Seen by Provider: 11/17/24 15:56 Related Data Home Medications Medication Instructions Recorded Confirmed VITAMIN D (Vitamin D3) 1,000 units PO BEDTIME ##0 09/06/11 01/02/24 fluoxetine 40 mg capsule (Prozac) 40 mg PO QDAY ##0 11/28/16 01/02/24 insulin aspart U-100 100 unit/mL 10 unit SQ BID ##0 11/28/16 01/02/24 subcutaneous solution (Novolog U-100 Insulin aspart) atorvastatin 40 mg tablet 40 mg PO BEDTIME 03/03/22 06/17/24 aspirin 81 mg tablet,delayed 81 mg PO DAILY 03/04/22 06/17/24 release magnesium oxide 500 mg PO DAILY 03/04/22 01/02/24 calcium citrate 500 mg PO BID 03/07/22 06/17/24 insulin glargine 100 unit/mL (3 30 unit SUBCUT DAILY 08/16/23 01/02/24 mL) subcutaneous pen (Lantus Solostar U-100 Insulin) metoprolol succinate 50 mg 50 mg PO DAILY 08/16/23 01/02/24 tablet,extended release 24 hr omeprazole 20 mg capsule,delayed 40 mg PO DAILY 08/16/23 01/02/24 release diclofenac sodium 1 % topical gel 1 ea topical BID PRN joint aches 06/17/24 06/17/24 empagliflozin 25 mg tablet 25 mg PO DAILY 06/17/24 06/17/24 (Jardiance) gabapentin 300 mg capsule 600 mg PO BID 06/17/24 06/17/24 Previous Rx's Medication Instructions Recorded donepezil 5 mg tablet 5 mg PO BEDTIME #30 tabs 08/23/23 divalproex 125 mg capsule,delayed 125 mg PO Q8H #90 caps 06/01/24 release sprinkle (Depakote Sprinkles) Allergies Allergy/AdvReac Type Severity Reaction Status Date / Time iodine [IODINE] Allergy Severe Swelling Verified 06/16/24 21:26 of Lip/Tongue/Throat lisinopril [LISINOPRIL] Allergy Severe Swelling Verified 06/16/24 21:26 of Lip/Tongue/Throat shellfish derived Allergy Severe Swelling Verified 06/16/24 21:26 [SHELLFISH DERIVED] of Lip/Tongue/Throat Penicillins Allergy Intermediate Rash Verified 06/16/24 21:26 oxycodone AdvReac Hallucinati Verified 06/16/24 21:26 ng Patient History Medical History Arthropathy of left shoulder Spinal stenosis Osteoarthritis Depression Memory changes COPD (chronic obstructive pulmonary disease) Diabetes Hypertension Gouty arthritis of toe Surgical History History of arthroplasty of left knee History of arthroplasty of right knee Social History household members: spouse, family and children Smoking Status: Never smoker alcohol intake: former Smoking Status: Never smoker alcohol intake frequency: holidays/special occasions only Exam Initial Vital Signs Initial Vital Signs: Vital Signs Temperature 98.4 F 11/17/24 15:47 Pulse Rate 60 11/17/24 15:47 Respiratory Rate 16 11/17/24 15:47 Blood Pressure 188/84 H 11/17/24 15:47 Pulse Oximetry 98 11/17/24 15:47 Oxygen Delivery Method Room Air 11/17/24 15:47 Course Vital Signs Vital signs: Vital Signs - 8 hr 11/17/24 15:47 Temperature 98.4 F Pulse Rate 60 Respiratory Rate 16 Blood Pressure 188/84 H Pulse Oximetry 98 Oxygen Delivery Method Room Air Discharge Plan Departure Prescriptions: No Action VITAMIN D (Vitamin D3) 1,000 units PO BEDTIME Qty: 0 fluoxetine [Prozac] 40 MG capsule 40 mg PO QDAY Qty: 0 insulin aspart U-100 [Novolog U-100 Insulin aspart] 100 unit/mL solution 10 unit SQ BID Qty: 0 atorvastatin 40 mg Tablet 40 mg PO BEDTIME aspirin 81 mg tablet,delayed release (DR/EC) 81 mg PO DAILY magnesium oxide 500 mg Tablet 500 mg PO DAILY calcium citrate 200 mg (950 mg) Tablet 500 mg PO BID metoprolol succinate 50 mg tablet extended release 24 hr 50 mg PO DAILY omeprazole 20 mg capsule,delayed release(DR/EC) 40 mg PO DAILY insulin glargine [Lantus Solostar U-100 Insulin] 100 unit/mL (3 mL) insulin pen 30 unit SUBCUT DAILY Patient Comments: [NO ORIGINAL SIG] donepezil 5 mg Tablet 5 mg PO BEDTIME Qty: 30 0RF divalproex [Depakote Sprinkles] 125 mg capsule, delayed rel sprinkle 125 mg PO Q8H Qty: 90 0RF gabapentin 300 mg capsule 600 mg PO BID diclofenac sodium 1 % gel 1 ea topical BID PRN (Reason: joint aches) Jardiance 25 mg tablet 25 mg PO DAILY Referrals: Katty Harrington MD [Primary Care Provider] -
--- NOTE | 2024-11-17 16:07 | DI.CT.S_ITS ---
PROCEDURE: CT CERVICAL SPINE WO CON INDICATIONS: fall, pain TECHNIQUE: Noncontrast 3 mm thick sections acquired from the skull base to the T4 level. Sagittal and coronal reformats were then constructed. For radiation dose reduction, the following was used: automated exposure control, adjustment of mA and/or kV according to patient size. COMPARISON: [facility], CT, CT CERVICAL SPINE WO CON, 11/09/2023, 12:57. FINDINGS: Image quality: Excellent. Bones: No fractures or dislocations. There are degenerative changes of the cervical spine most prominent at C5-C7. Visualized superior ribs are intact. Soft tissues: Prevertebral soft tissues are normal in thickness. No paravertebral hematomas. No apical pneumothoraces. IMPRESSION: No displaced fracture or traumatic subluxation. Dictated by: Elvira Armando M.D. on 11/17/2024 at 15:51 Approved by: Elvira Armando M.D. on 11/17/2024 at 15:54
--- NOTE | 2024-11-17 16:07 | DI.RAD.S_ITS ---
PROCEDURE: XR CHEST 1V INDICATIONS: pain upper chest TECHNIQUE: One view of the chest was acquired. COMPARISON: [facility], CR, XR CHEST 1V, 02/04/2024, 3:30. [facility], CR, XR CHEST 1V, 10/20/2023, 3:27. FINDINGS: Surgical changes and devices: Left glenohumeral arthroplasty Lungs and pleura: Lungs are clear. No pleural effusions or pneumothorax. Mediastinum: Mediastinal contours appear normal. Heart size is normal. Bones and chest wall: No suspicious bony lesions. Overlying soft tissues appear unremarkable. IMPRESSION: No acute cardiopulmonary abnormality is seen. Dictated by: Elvira Armando M.D. on 11/17/2024 at 15:42 Approved by: Elvira Armando M.D. on 11/17/2024 at 15:43
[2024-11-17 16:29] LABS: Add Manual Diff / Slide Review NO; Basophils Absolute Auto 0 /uL (0-100); Basophils Percent Auto 0.9 % (0-2); Eosinophils Absolute Auto 100 /uL (0-450); Eosinophils Percent Auto 2.4 % (2-4); Hematocrit 39.7 % (36-46); Lymphocytes Absolute Auto 2100 /uL (1100-4500); Lymphocytes Percent Auto 42.1 % (25-40); Mean Corpuscular HGB Conc 32.8 % (30-36); Mean Corpuscular Hemoglobin 29.1 PG (26-34); Mean Corpuscular Volume 88.9 fL (80-100); Monocytes Absolute Auto 500 /uL (0-900); Monocytes Percent Auto 10.1 % (3-14); Neutrophils Absolute Auto 2200 /uL (1500-7000); Neutrophils Percent Auto 44.5 % (50-75); Platelet Count 152 X10^3/uL (150-400); Red Blood Cell Count 4.47 X10^6/uL (4.0-5.2); Red Cell Distribution Width 14.8 % (11.6-14.8)
[2024-11-17] MEDS: SODIUM CHLORIDE 0.9% 1,000 ML 1000 ML IV (16:38)
[2024-11-17] MEDS: HYDROMORPHONE 0.5 MG INJ IV ×2 (16:38→17:34)
[2024-11-17 16:50] LABS: Alanine Aminotransferase 20 IU/L (<35); Albumin 4.2 g/dL (3.5-5.0); Albumin Globulin Ratio 1.4 (1.0-2.8); Alkaline Phosphatase 82 U/L (38-126); Aspartate Aminotransferase 28 IU/L (14-36); BUN Creatinine Ratio 22.8 (6-22); Bilirubin Total 0.7 mg/dL (0.2-1.3); Blood Urea Nitrogen 33 mg/dL (7-17); Calcium 9.9 mg/dL (8.4-10.2); Carbon Dioxide 28 mmol/L (22-32); Chloride 103 mmol/L (98-107); Estimated Glomerular Filt Rate 35 mL/min (>60); Globulin 2.9 g/dL (1.7-4.1); Glucose 208 mg/dL (80-110); HEMOLYSIS 26 (0-50); Potassium 4.1 mmol/L (3.4-5.1); Sodium 135 mmol/L (137-145); Total Protein 7.1 g/dL (6.3-8.2)
--- NOTE | 2024-11-17 17:22 | PC.NURSE ---
Pt given diluadid and O2 dips with sleeping, placeing pt on O2 via NC at 2L while sleeping.
--- NOTE | 2024-11-17 18:06 | ED.BACK ---
HPI - Back Pain/Injury General Chief Complaint: Back Pain/Injury Stated Complaint: back pain, fell 6 mo ago Time Seen by Provider: 11/17/24 15:56 History of Present Illness HPI Narrative: 89-year-old female with history of dementia presents by EMS from home for body pain. History is very limited, both patient and has been at bedside are very poor historians and daughter at bedside is noncontributory. Patient states ?I feel like has been run over by a [employer] truck?. Has been states that patient was complaining of pain from her hips up her back and down her legs today and she could not get up because of the pain. Patient states that she fell, but this was over 6 months ago. Denies recent falls or injuries. Every time a question is asked, the patient and her provide a different answer. Patient apparently complained of neck pain to daytime ED physician, however she complains of hip/back pain to myself. Related Data Home Medications Medication Instructions Recorded Confirmed VITAMIN D (Vitamin D3) 1,000 units PO BEDTIME ##0 09/06/11 01/02/24 fluoxetine 40 mg capsule (Prozac) 40 mg PO QDAY ##0 11/28/16 01/02/24 insulin aspart U-100 100 unit/mL 10 unit SQ BID ##0 11/28/16 01/02/24 subcutaneous solution (Novolog U-100 Insulin aspart) atorvastatin 40 mg tablet 40 mg PO BEDTIME 03/03/22 06/17/24 aspirin 81 mg tablet,delayed 81 mg PO DAILY 03/04/22 06/17/24 release magnesium oxide 500 mg PO DAILY 03/04/22 01/02/24 calcium citrate 500 mg PO BID 03/07/22 06/17/24 insulin glargine 100 unit/mL (3 30 unit SUBCUT DAILY 08/16/23 01/02/24 mL) subcutaneous pen (Lantus Solostar U-100 Insulin) metoprolol succinate 50 mg 50 mg PO DAILY 08/16/23 01/02/24 tablet,extended release 24 hr omeprazole 20 mg capsule,delayed 40 mg PO DAILY 08/16/23 01/02/24 release diclofenac sodium 1 % topical gel 1 ea topical BID PRN joint aches 06/17/24 06/17/24 empagliflozin 25 mg tablet 25 mg PO DAILY 06/17/24 06/17/24 (Jardiance) gabapentin 300 mg capsule 600 mg PO BID 06/17/24 06/17/24 Previous Rx's Medication Instructions Recorded donepezil 5 mg tablet 5 mg PO BEDTIME #30 tabs 08/23/23 divalproex 125 mg capsule,delayed 125 mg PO Q8H #90 caps 06/01/24 release sprinkle (Depakote Sprinkles) Allergies Allergy/AdvReac Type Severity Reaction Status Date / Time iodine [IODINE] Allergy Severe Swelling Verified 06/16/24 21:26 of Lip/Tongue/Throat lisinopril [LISINOPRIL] Allergy Severe Swelling Verified 06/16/24 21:26 of Lip/Tongue/Throat shellfish derived Allergy Severe Swelling Verified 06/16/24 21:26 [SHELLFISH DERIVED] of Lip/Tongue/Throat Penicillins Allergy Intermediate Rash Verified 06/16/24 21:26 oxycodone AdvReac Hallucinati Verified 06/16/24 21:26 ng Patient History Medical History Arthropathy of left shoulder Spinal stenosis Osteoarthritis Depression Memory changes COPD (chronic obstructive pulmonary disease) Diabetes Hypertension Gouty arthritis of toe Surgical History History of arthroplasty of left knee History of arthroplasty of right knee Social History household members: spouse, family and children Smoking Status: Never smoker alcohol intake: former Smoking Status: Never smoker alcohol intake frequency: holidays/special occasions only Exam Initial Vital Signs Initial Vital Signs: Vital Signs Blood Pressure 188/84 H 11/17/24 15:44 Const: Awake, alert, debilitated, frail, appears chronically unwell Cardiac:bradycardia, regular rhythm RESP: unlabored, clear bilaterally, no wheezing MSK: no deformity, no reproducible tenderness to palpation Skin: Warm, Dry, intact, no rashes Neuro: AO x2, CN II-XII grossly intact, moves all extremities Course Orders Ordered: ED Orders 11/17/24 16:07 CT cervical spine wo con Stat XR chest 1V Stat 11/17/24 16:18 Complete Blood Count AUTO DIFF Stat Comprehensive Metabolic Panel Stat 11/17/24 18:49 XR lumbar spine 2-3V Stat XR pelvis 1-2V Stat 11/17/24 19:55 EKG-12 Lead Stat Discontinued Medications Hydromorphone HCl (Hydromorphone 0.5 Mg Inj) 0.5 mg IV Q15MIN PRN PRN Reason: Pain, Last Admin: 11/17/24 17:34 Dose: 0.5 mg Documented By: Admin: 11/17/24 16:38 Dose: 0.5 mg Documented By: THA Sodium Chloride (Normal Saline 0.9%) 1,000 mls @ 1,000 mls/hr IV BOLUS ONE Stop: 11/17/24 17:06 Last Infusion: 11/17/24 17:30 Dose: Infused Documented By: Admin: 11/17/24 16:38 Dose: 1,000 mls/hr Documented By: THA Vital Signs Vital signs: Vital Signs - 8 hr 11/17/24 15:44 11/17/24 15:47 11/17/24 16:00 Temperature 98.4 F Pulse Rate 60 62 Respiratory Rate 16 Blood Pressure 188/84 H 188/84 H Pulse Oximetry 98 98 Oxygen Delivery Method Room Air 11/17/24 16:46 11/17/24 16:47 11/17/24 16:47 Temperature Pulse Rate 68 69 Respiratory Rate Blood Pressure 188/91 H Pulse Oximetry 96 97 Oxygen Delivery Method 11/17/24 17:00 11/17/24 17:00 11/17/24 17:30 Temperature Pulse Rate 60 Respiratory Rate Blood Pressure 174/81 H 185/83 H Pulse Oximetry 95 Oxygen Delivery Method 11/17/24 17:30 11/17/24 18:00 11/17/24 18:01 Temperature Pulse Rate 52 L 60 Respiratory Rate Blood Pressure 158/69 H Pulse Oximetry 99 95 Oxygen Delivery Method 11/17/24 18:01 11/17/24 18:30 11/17/24 18:31 Temperature Pulse Rate 60 52 L Respiratory Rate Blood Pressure 134/63 Pulse Oximetry 94 98 Oxygen Delivery Method 11/17/24 18:31 11/17/24 19:12 11/17/24 19:30 Temperature Pulse Rate 53 L 53 L 50 L Respiratory Rate 18 Blood Pressure Pulse Oximetry 100 99 93 Oxygen Delivery Method 11/17/24 19:42 11/17/24 19:42 01/18/25 20:00 Temperature Pulse Rate 44 L 44 L Respiratory Rate 18 Blood Pressure 173/72 H Pulse Oximetry 94 93 Oxygen Delivery Method 11/17/24 20:01 11/17/24 20:01 Temperature Pulse Rate 45 L Respiratory Rate 18 Blood Pressure 137/63 Pulse Oximetry 92 Oxygen Delivery Method MDM - Back Pain/Injury Differential Diagnosis Differential diagnosis: Likely lumbar radiculopathy, strain of lumbar region and thoracic back pain Lab Data 11/17/24 16:18 11/17/24 16:18 Labs: Lab Results 11/17/24 Range/Units 16:18 WBC 5.0 (4.5-11.0) X10^3/uL RBC 4.47 (4.0-5.2) X10^6/uL Hgb 13.0 (12.0-16.0) g/dL Hct 39.7 (36-46) % MCV 88.9 (80-100) fL MCH 29.1 (26-34) PG MCHC 32.8 (30-36) % RDW 14.8 (11.6-14.8) % Plt Count 152 (150-400) X10^3/uL Neut % (Auto) 44.5 L (50-75) % Lymph % (Auto) 42.1 H (25-40) % Norman % (Auto) 10.1 (3-14) % Eos % (Auto) 2.4 (2-4) % Baso % (Auto) 0.9 (0-2) % Neut # (Auto) 2200 (5287-4320) /uL Lymph # (Auto) 2100 (5083-3870) /uL Norman # (Auto) 500 (0-900) /uL Eos # (Auto) 100 (0-450) /uL Baso # (Auto) 0 (0-100) /uL Sodium 135 L (137-145) mmol/L Potassium 4.1 (3.4-5.1) mmol/L Chloride 103 (98-107) mmol/L Carbon Dioxide 28 (22-32) mmol/L BUN 33 H (7-17) mg/dL Creatinine 1.45 H (0.52-1.04) mg/dL Estimated GFR 35 L (>60) mL/min BUN/Creatinine Ratio 22.8 H (6-22) Glucose 208 H (80-110) mg/dL Calcium 9.9 (8.4-10.2) mg/dL Total Bilirubin 0.7 (0.2-1.3) mg/dL AST 28 (14-36) IU/L ALT 20 (<35) IU/L Alkaline Phosphatase 82 (38-126) U/L Total Protein 7.1 (6.3-8.2) g/dL Albumin 4.2 (3.5-5.0) g/dL Globulin 2.9 (1.7-4.1) g/dL Albumin/Globulin Ratio 1.4 (1.0-2.8) Urine Dip Bedside Urine Glucose 100 mg/dl Bedside Urine Bilirubin - Negative Bedside Urine Ketone - Negative Urine Specific [place] 1.015 Bedside Urine Occult Blood - Negative Bedside Urine pH 6 Bedside Urine Protein - Negative Bedside Urine Urobilinogen - Negative Bedside Urine Nitrite - Negative Bedside Urine Leukocytes - Negative Esterase Imaging Data CT - cervical spine: Radiologist's Impression: PROCEDURE: CT CERVICAL SPINE WO CON INDICATIONS: fall, pain TECHNIQUE: Noncontrast 3 mm thick sections acquired from the skull base to the T4 level. Sagittal and coronal reformats were then constructed. For radiation dose reduction, the following was used: automated exposure control, adjustment of mA and/or kV according to patient size. COMPARISON: [facility], CT, CT CERVICAL SPINE WO CON, 11/09/2023, 12:57. FINDINGS: Image quality: Excellent. Bones: No fractures or dislocations. There are degenerative changes of the cervical spine most prominent at C5-C7. Visualized superior ribs are intact. Soft tissues: Prevertebral soft tissues are normal in thickness. No paravertebral hematomas. No apical pneumothoraces. IMPRESSION: No displaced fracture or traumatic subluxation. Dictated by: Elvira Armando M.D. on 11/17/2024 at 15:51 Approved by: Elvira Armando M.D. on 11/17/2024 at 15:54 Chest x-ray: Radiologist's Impression: PROCEDURE: XR CHEST 1V INDICATIONS: pain upper chest TECHNIQUE: One view of the chest was acquired. COMPARISON: [facility], CR, XR CHEST 1V, 02/04/2024, 3:30. [facility], CR, XR CHEST 1V, 10/20/2023, 3:27. FINDINGS: Surgical changes and devices: Left glenohumeral arthroplasty Lungs and pleura: Lungs are clear. No pleural effusions or pneumothorax. Mediastinum: Mediastinal contours appear normal. Heart size is normal. Bones and chest wall: No suspicious bony lesions. Overlying soft tissues appear unremarkable. IMPRESSION: No acute cardiopulmonary abnormality is seen. Dictated by: Elvira Armando M.D. on 11/17/2024 at 15:42 Approved by: Elvira Armando M.D. on 11/17/2024 at 15:43 Extremity x-ray #1: Radiologist's Impression: PROCEDURE: XR LUMBAR SPINE 2-3V INDICATIONS: atraumatic worsening pain TECHNIQUE: 3 views of the lumbar spine were acquired. COMPARISON: None. FINDINGS: Bones: Moderate to severe lumbar spondylosis. Vertebral body heights are well maintained. No traumatic subluxation. Soft tissues: Pelvic clips. Vascular calcifications. Large fecal loading. IMPRESSION: Moderate to severe spondylotic changes of the lumbar spine. No definite acute radiographic abnormality. If there is high concern for further derangement, consider MRI evaluation. Large fecal loading. Dictated by: Jose Angel Joseph M.D. on 11/17/2024 at 19:24 Approved by: Jose Angel Joseph M.D. on 11/17/2024 at 19:25 Extremity x-ray #2: Radiologist's Impression: PROCEDURE: XR PELVIS 1-2V INDICATIONS: ATRAUMATIC WORSENING PAIN TECHNIQUE: 1 view(s) of the pelvis acquired. COMPARISON: None. FINDINGS: Bones: Moderate bilateral hip arthrosis. The pelvic ring appears intact. No acute displaced fracture or dislocation. Lumbosacral degenerative changes also seen. Soft tissues: There are pelvic clips. Increased fecal loading. IMPRESSION: Moderate bilateral arthrosis. Lumbosacral degenerative changes. No acute radiographic abnormality. If there is high concern for further derangement, consider MRI evaluation. Dictated by: Jose Angel Joseph M.D. on 11/17/2024 at 19:23 Approved by: Jose Angel Joseph M.D. on 11/17/2024 at 19:24 [facility] Narrative Medical decision making narrative: Patient with musculoskeletal pain. No recent history of trauma. Physical exam is unremarkable and inconsistent. Patient complains of pain in different locations each time she was asked. She did receive pain medications by daytime ED physician prior to my arrival. Has been at bedside also states that they were supposed to have a primary care appointment yesterday, but they accidentally slipped in and did not make it. They has been evaluated by social work in the past and have refused home health as they do not like strangers in their household. All imaging studies negative. Urinalysis negative for signs of infection. Patient incidentally noted to be bradycardic, however this is consistent with her previous ER visit in September of 2024. Patient able to ambulate at bedside with a walker, which is her baseline. She was counseled to decrease her metoprolol dose for her asymptomatic bradycardia. states that they ahve an appointmen tnext week with her PCP Discharge Plan Departure Patient Disposition: Home Clinical Impression: Generalized joint pain Instructions: DI for Chronic Pain -- Adult Activity Restrictions/Additional Instructions: Your laboratory work is normal and there are no fractures on your x-rays. Decrease your metoprolol to 12.5 mg from 25 mg. Continue to take Tylenol and Voltaren for pain. Follow up as scheduled with your primary care doctor. Prescriptions: No Action VITAMIN D (Vitamin D3) 1,000 units PO BEDTIME Qty: 0 fluoxetine [Prozac] 40 MG capsule 40 mg PO QDAY Qty: 0 insulin aspart U-100 [Novolog U-100 Insulin aspart] 100 unit/mL solution 10 unit SQ BID Qty: 0 atorvastatin 40 mg Tablet 40 mg PO BEDTIME aspirin 81 mg tablet,delayed release (DR/EC) 81 mg PO DAILY magnesium oxide 500 mg Tablet 500 mg PO DAILY calcium citrate 200 mg (950 mg) Tablet 500 mg PO BID metoprolol succinate 50 mg tablet extended release 24 hr 50 mg PO DAILY omeprazole 20 mg capsule,delayed release(DR/EC) 40 mg PO DAILY insulin glargine [Lantus Solostar U-100 Insulin] 100 unit/mL (3 mL) insulin pen 30 unit SUBCUT DAILY Patient Comments: [NO ORIGINAL SIG] donepezil 5 mg Tablet 5 mg PO BEDTIME Qty: 30 0RF divalproex [Depakote Sprinkles] 125 mg capsule, delayed rel sprinkle 125 mg PO Q8H Qty: 90 0RF gabapentin 300 mg capsule 600 mg PO BID diclofenac sodium 1 % gel 1 ea topical BID PRN (Reason: joint aches) Jardiance 25 mg tablet 25 mg PO DAILY Referrals: Katty Harrington MD [Primary Care Provider] - Stand Alone Forms: Patient Portal/API/Survey
--- NOTE | 2024-11-17 18:49 | DI.RAD.S_ITS ---
PROCEDURE: XR PELVIS 1-2V INDICATIONS: ATRAUMATIC WORSENING PAIN TECHNIQUE: 1 view(s) of the pelvis acquired. COMPARISON: None. FINDINGS: Bones: Moderate bilateral hip arthrosis. The pelvic ring appears intact. No acute displaced fracture or dislocation. Lumbosacral degenerative changes also seen. Soft tissues: There are pelvic clips. Increased fecal loading. IMPRESSION: Moderate bilateral arthrosis. Lumbosacral degenerative changes. No acute radiographic abnormality. If there is high concern for further derangement, consider MRI evaluation. Dictated by: Jose Angel Joseph M.D. on 11/17/2024 at 19:23 Approved by: Jose Angel Joseph M.D. on 11/17/2024 at 19:24
--- NOTE | 2024-11-17 18:49 | DI.RAD.S_ITS ---
PROCEDURE: XR LUMBAR SPINE 2-3V INDICATIONS: atraumatic worsening pain TECHNIQUE: 3 views of the lumbar spine were acquired. COMPARISON: None. FINDINGS: Bones: Moderate to severe lumbar spondylosis. Vertebral body heights are well maintained. No traumatic subluxation. Soft tissues: Pelvic clips. Vascular calcifications. Large fecal loading. IMPRESSION: Moderate to severe spondylotic changes of the lumbar spine. No definite acute radiographic abnormality. If there is high concern for further derangement, consider MRI evaluation. Large fecal loading. Dictated by: Jose Angel Joseph M.D. on 11/17/2024 at 19:24 Approved by: Jose Angel Joseph M.D. on 11/17/2024 at 19:25
--- NOTE | 2024-11-17 19:59 | EKG_ITS ---
[facility] [address] [place] [address] Test Date: 2024-11-17 Pat Name: 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
== END 2024-11-17 20:23 | disposition home or self-care (01) ==
PROVIDERS: Emergency Medicine; Emergency Provider Emergency Medicine; Family Provider Internal Medicine; PCP Family Medicine
DX: M25.50 Pain in unspecified joint (principal); M54.2 Cervicalgia; R07.89 Other chest pain; M54.50 Low back pain, unspecified; R10.2 Pelvic and perineal pain; R00.1 Bradycardia, unspecified
CPT/HCPCS: 36415; 71045; 72100; 72125; 72170; 80053; 81003; 85025; 93005; 93010; 96361; 96374; 96376; 99284; J1171

== ENCOUNTER 2025-03-13 19:05 | Emergency (ER) | payer MEDICARE, OTHER, SELFPAY ==
[2023-08-19 15:00] VITALS: BMI 26.9
[2025-03-13 19:21] VITALS: BP 192/81; PULSE 55; RESP 18; TEMP 36.6; O2SAT 96; BMI 24.7
[2025-03-13 20:09] LABS: Bacteria Urine Occasional (0-1); Culture Indicated Urine Cult Not Indicated; RBC Urine 0-1/HPF (0-5/HPF); Squamous Epithelial Cell Urine 1-5 /HPF (0-5/HPF); Urine Volume 10mL (spun); WBC Urine 1-5/HPF (0-5/HPF)
--- NOTE | 2025-03-13 20:52 | ED.FEMALEGU ---
HPI - Female Genitourinary General Chief complaint: Urogenital-Female Stated complaint: urinary problem Time Seen by Provider: 03/13/25 20:52 Source: patient Mode of arrival: Wheelchair History of Present Illness HPI Narrative: 89-year-old female with a past medical history of hyperlipidemia Alzheimer's diabetes hypertension presenting for urinary symptoms, she states that yesterday she started having increased urinary frequency, she denies any other symptoms at this time, has been at bedside corroborates this story given patient at baseline does have history of Alzheimer's therefore she is alert to self but intermittently to place and time states this is her baseline. Additional ROS HPI limited given patient's baseline dementia Related Data Home Medications Medication Instructions Recorded Confirmed VITAMIN D (Vitamin D3) 1,000 units PO BEDTIME ##0 09/06/11 01/02/24 fluoxetine 40 mg capsule (Prozac) 40 mg PO QDAY ##0 11/28/16 01/02/24 insulin aspart U-100 100 unit/mL 10 unit SQ BID ##0 11/28/16 01/02/24 subcutaneous solution (Novolog U-100 Insulin aspart) atorvastatin 40 mg tablet 40 mg PO BEDTIME 03/03/22 06/17/24 aspirin 81 mg tablet,delayed 81 mg PO DAILY 03/04/22 06/17/24 release magnesium oxide 500 mg PO DAILY 03/04/22 01/02/24 calcium citrate 500 mg PO BID 03/07/22 06/17/24 insulin glargine 100 unit/mL (3 30 unit SUBCUT DAILY 08/16/23 01/02/24 mL) subcutaneous pen (Lantus Solostar U-100 Insulin) metoprolol succinate 50 mg 50 mg PO DAILY 08/16/23 01/02/24 tablet,extended release 24 hr omeprazole 20 mg capsule,delayed 40 mg PO DAILY 08/16/23 01/02/24 release diclofenac sodium 1 % topical gel 1 ea topical BID PRN joint aches 06/17/24 06/17/24 empagliflozin 25 mg tablet 25 mg PO DAILY 06/17/24 06/17/24 (Jardiance) gabapentin 300 mg capsule 600 mg PO BID 06/17/24 06/17/24 Previous Rx's Medication Instructions Recorded donepezil 5 mg tablet 5 mg PO BEDTIME #30 tabs 08/23/23 divalproex 125 mg capsule,delayed 125 mg PO Q8H #90 caps 06/01/24 release sprinkle (Depakote Sprinkles) sulfamethoxazole 800 1 tab PO Q12H 5 days #10 tabs 03/13/25 mg-trimethoprim 160 mg tablet (Bactrim DS) Allergies Allergy/AdvReac Type Severity Reaction Status Date / Time iodine [IODINE] Allergy Severe Swelling Verified 06/16/24 21:26 of Lip/Tongue/Throat lisinopril [LISINOPRIL] Allergy Severe Swelling Verified 06/16/24 21:26 of Lip/Tongue/Throat shellfish derived Allergy Severe Swelling Verified 06/16/24 21:26 [SHELLFISH DERIVED] of Lip/Tongue/Throat Penicillins Allergy Intermediate Rash Verified 06/16/24 21:26 oxycodone AdvReac Hallucinati Verified 06/16/24 21:26 ng Review of Systems Review of Systems Narrative: General: Denies fever, chills, weight loss HEENT: Denies headache, eye drainage, eye irritation, head trauma, sore throat, voice change Cardiovascular: Denies any chest pain, palpitations, tachycardia Respiratory: Denies any shortness of breath, cough, wheeze, stridor GI/: Positive urinary frequency Denies any abdominal pain, nausea, vomiting, diarrhea, bright red blood per rectum, melanotic stools,, urinary retention, dysuria, hematuria MSK: Denies any joint pain, muscle pains, swelling Skin: Denies any rashes, lesions, discoloration Neuro: Denies any headache, lightheadedness, dizziness, fainting, weakness Psych: Denies SI/HI Patient History Medical History Arthropathy of left shoulder Spinal stenosis Osteoarthritis Depression Memory changes COPD (chronic obstructive pulmonary disease) Diabetes Hypertension Gouty arthritis of toe Surgical History History of arthroplasty of left knee History of arthroplasty of right knee Exam Narrative Exam Narrative: General: Cooperative, well-developed, not in acute distress HEENT: Normocephalic, atraumatic, PERRLA, normal sclera, eyelids normal Neck: Active full range of motion, atraumatic Chest: Normal to inspection, negative crepitus, no overlying erythema ecchymosis Respiratory: Normal respiratory effort, not in acute respiratory distress, clear to auscultation bilaterally negative cough, wheeze, tachypnea, rhonchi, rales Cardiology: Regular rate rhythm negative gallop, murmur, rubs GI/: No tenderness to palpation, soft, non rigid, normal to inspection, exam deferred MSK: Full active range of motion in all 4 extremities, atraumatic, no tenderness to palpation of any bony prominences Skin: No rashes or lesions noted Neuro: Patient at baseline history of dementia alert to self intermittently to place and time Psych: Cooperative, negative suicidal or homicidal ideations Initial Vital Signs Initial Vital Signs: Vital Signs Temperature 97.9 F 03/13/25 19:21 Pulse Rate 55 L 03/13/25 19:21 Respiratory Rate 18 03/13/25 19:21 Blood Pressure 192/81 H 03/13/25 19:21 Pulse Oximetry 96 03/13/25 19:21 Oxygen Delivery Method Room Air 03/13/25 19:21 Course Orders Ordered: ED Orders 03/13/25 19:40 Urine Microscopic Stat Ondansetron HCl (Ondansetron 4 Mg/2 Ml Inj) 4 mg IV NOW PRN PRN Reason: Nausea And Vomiting Ondansetron HCl (Ondansetron 4 Mg Odt) 4 mg PO NOW PRN PRN Reason: Nausea And Vomiting Vital Signs Vital signs: Vital Signs - 8 hr 03/13/25 19:21 Temperature 97.9 F Pulse Rate 55 L Respiratory Rate 18 Blood Pressure 192/81 H Pulse Oximetry 96 Oxygen Delivery Method Room Air MDM - Female Genitourinary Differential Diagnosis Differential diagnosis: Likely urinary tract infection Lab Data Labs: Lab Results 03/13/25 Range/Units 19:40 Urine RBC 0-1/hpf (0-5/HPF) Urine WBC 1-5/hpf (0-5/HPF) Ur Squamous Epith Cells 1-5 /hpf (0-5/HPF) Urine Bacteria Occasional (0-1) (None) Ur Culture Indicated? Cult not indicated Vol Urine Centrifuged 10ml (spun) Urine Dip Bedside Urine Glucose 250 mg/dl Bedside Urine Bilirubin - Negative Bedside Urine Ketone - Negative Urine Specific [place] 1.01 Bedside Urine Occult Blood +/- Bedside Urine pH 6 Bedside Urine Protein - Negative Bedside Urine Urobilinogen - Negative Bedside Urine Nitrite - Negative Bedside Urine Leukocytes - Negative Esterase MDM Narrative Medical decision making narrative: 89-year-old female with a history of Alzheimer's dementia at baseline intermittently alert to self intermittently to place and time wanting for increased urinary frequency, at bedside states patient is at baseline has been having increased urinary frequency and states more of a abnormal smell, urinalysis showing only occasional bacteria however given patient complaining of urinary symptoms we will treat for acute urinary tract infection, otherwise patient not complaining of any of the symptoms she is well-appearing nontoxic was instructed to follow up with primary care in outpatient setting verbalized understanding and agrees to being discharged home with outpatient follow up Discharge Plan Departure Patient Disposition: Home Clinical Impression: Acute UTI Activity Restrictions/Additional Instructions: Please follow up with the primary care doctor Please read the discharge instructions sheet carefully and bring all papers to all doctor follow-up visits, as it may contain information that your doctor may want to see. Disease processes change and evolve, if your symptoms worsen or if you develop any new symptoms that are concerning to you please return for evaluation. Your evaluation today does not show any evidence of any life-threatening/serious illnesses requiring admission to the hospital or surgery. Please follow-up with your doctor for re-evaluation in approximately 1 day. Seek immediate medical attention for any worrisome symptoms. *If you do not have a primary care provider please contact the [facility] Resource line at [phone]. They will ask some questions about your medical history and help get you set up with a doctor in the community. Prescriptions: New sulfamethoxazole-trimethoprim [Bactrim DS] 800-160 mg tablet 1 tab PO Q12H 5 Days Qty: 10 0RF No Action VITAMIN D (Vitamin D3) 1,000 units PO BEDTIME Qty: 0 fluoxetine [Prozac] 40 MG capsule 40 mg PO QDAY Qty: 0 insulin aspart U-100 [Novolog U-100 Insulin aspart] 100 unit/mL solution 10 unit SQ BID Qty: 0 atorvastatin 40 mg Tablet 40 mg PO BEDTIME aspirin 81 mg tablet,delayed release (DR/EC) 81 mg PO DAILY magnesium oxide 500 mg Tablet 500 mg PO DAILY calcium citrate 200 mg (950 mg) Tablet 500 mg PO BID metoprolol succinate 50 mg tablet extended release 24 hr 50 mg PO DAILY omeprazole 20 mg capsule,delayed release(DR/EC) 40 mg PO DAILY insulin glargine [Lantus Solostar U-100 Insulin] 100 unit/mL (3 mL) insulin pen 30 unit SUBCUT DAILY Patient Comments: [NO ORIGINAL SIG] donepezil 5 mg Tablet 5 mg PO BEDTIME Qty: 30 0RF divalproex [Depakote Sprinkles] 125 mg capsule, delayed rel sprinkle 125 mg PO Q8H Qty: 90 0RF gabapentin 300 mg capsule 600 mg PO BID diclofenac sodium 1 % gel 1 ea topical BID PRN (Reason: joint aches) Jardiance 25 mg tablet 25 mg PO DAILY Referrals: Katty Harrington MD [Primary Care Provider] - Stand Alone Forms: Patient Portal/API/Survey
[2025-03-13] MEDS: TRIMETH/SULFA 160/800 (DS) TABLET 1 TAB PO (21:48)
[2025-03-13 21:49] VITALS: BP 181/82; PULSE 48; RESP 18; O2SAT 96
== END 2025-03-13 21:58 | disposition home or self-care (01) ==
PROVIDERS: Emergency Provider Student in an Organized Health Care Education/Training Program; Family Provider Internal Medicine; PCP Family Medicine
DX: N39.0 Urinary tract infection, site not specified (principal)
CPT/HCPCS: 81003; 81015; 99283

== ENCOUNTER 2025-04-30 09:54 | Emergency (ER) | payer MEDICARE, OTHER, SELFPAY ==
[2023-08-19 15:00] VITALS: BMI 26.9
[2025-04-30] VITALS (15 sets, daily range): BP systolic 181–211; BP diastolic 85–113; PULSE 50–89; RESP 19; TEMP 36.9; O2SAT 96–100
--- NOTE | 2025-04-30 10:04 | ED.GENADULT ---
HPI - General Adult General Chief complaint: Extremity Injury, Upper Stated complaint: Shoulder,arm and finger pain Time Seen by Provider: 04/30/25 10:03 Source: patient, EMS and old records reviewed Mode of arrival: EMS Limitations: no limitations History of Present Illness HPI narrative: 89-year-old female history of dyslipidemia, Alzheimer's, diabetes, hypertension who presents with complaint of right thumb pain, left shoulder pain, patient notes a little bit chest discomfort. Family states earlier she was sort of shaky was alert but answering in 1 or 2 word answers. Also noted that her legs felt weak and sort of shaky at that time as well. Both family and patient states she was feeling improved. She does complain of little bit of right thumb pain states she walked it but neither 1 of them thinks that she broke it and she has good range of motion. She was chronic left shoulder pain which is present as well. Patient and family state they are not really sure she needs to be here at this time after discussion about goals of care they note she was DNR DNI and they leaned towards comfort measures blood or open to some labs and EKG but no they would not want to her to be transferred to have heart catheterization if she had an acute CT. patient does not have any other complaints no recent fevers. No shortness of breath. No nausea or vomiting, no no other new GI or urinary symptoms. Patient's episode was earlier this morning has not had any recurrent episodes. She was accompanied by her they notes she does not take aspirin anymore does take medication for hypertension dyslipidemia as well as gabapentin and Tylenol daily. Related Data Home Medications ?Medication ?Instructions ?Recorded ?Confirmed VITAMIN D (Vitamin D3) 1,000 units PO BEDTIME ##0 09/06/11 01/02/24 fluoxetine 40 mg capsule (Prozac) 40 mg PO QDAY ##0 11/28/16 01/02/24 insulin aspart U-100 100 unit/mL 10 unit SQ BID ##0 11/28/16 01/02/24 subcutaneous solution (Novolog U-100 Insulin aspart) atorvastatin 40 mg tablet 40 mg PO BEDTIME 03/03/22 06/17/24 aspirin 81 mg tablet,delayed 81 mg PO DAILY 03/04/22 06/17/24 release magnesium oxide 500 mg PO DAILY 03/04/22 01/02/24 calcium citrate 500 mg PO BID 03/07/22 06/17/24 insulin glargine 100 unit/mL (3 30 unit SUBCUT DAILY 08/16/23 01/02/24 mL) subcutaneous pen (Lantus Solostar U-100 Insulin) metoprolol succinate 50 mg 50 mg PO DAILY 08/16/23 01/02/24 tablet,extended release 24 hr omeprazole 20 mg capsule,delayed 40 mg PO DAILY 08/16/23 01/02/24 release diclofenac sodium 1 % topical gel 1 ea topical BID PRN joint aches 06/17/24 06/17/24 empagliflozin 25 mg tablet 25 mg PO DAILY 06/17/24 06/17/24 (Jardiance) gabapentin 300 mg capsule 600 mg PO BID 06/17/24 06/17/24 Previous Rx's ?Medication ?Instructions ?Recorded donepezil 5 mg tablet 5 mg PO BEDTIME #30 tabs 08/23/23 divalproex 125 mg capsule,delayed 125 mg PO Q8H #90 caps 06/01/24 release sprinkle (Depakote Sprinkles) Allergies Allergy/AdvReac Type Severity Reaction Status Date / Time iodine (IODINE) Allergy Severe Swelling Verified 04/30/25 09:57 of Lip/Tongue/Throat lisinopril (LISINOPRIL) Allergy Severe Swelling Verified 04/30/25 09:57 of Lip/Tongue/Throat shellfish derived (SHELLFISH Allergy Severe Swelling Verified 04/30/25 09:57 DERIVED) of Lip/Tongue/Throat Penicillins Allergy Intermediate Rash Verified 04/30/25 09:57 oxycodone AdvReac Hallucinati Verified 04/30/25 09:57 ng Review of Systems Review of Systems ROS Unobtainable: All systems reviewed & are unremarkable except as noted in HPI and below Patient History Medical History Arthropathy of left shoulder Spinal stenosis Osteoarthritis Depression Memory changes COPD (chronic obstructive pulmonary disease) Diabetes Hypertension Gouty arthritis of toe Surgical History History of arthroplasty of left knee History of arthroplasty of right knee Social History household members: spouse, family and children alcohol intake: former alcohol intake frequency: holidays/special occasions only Exam Narrative Exam Narrative: GEN: well nourished, well appearing female, alert and oriented to self and location, patient is conversant, patient appears to be in mild distress. HEENT: Atraumatic, pupils are equal round reactive to light, extraocular movements are intact, nares are clear, TMs are clear with no fluid, there is no conjunctival pallor. Throat is clear without any exudates, erythema, tonsillar enlargement or uvular deviation HEART: Regular rate and rhythm without murmur, clicks, rubs. Pulses are equal in upper and lower extremities LUNGS:Lungs clear to auscultation, no wheezes, rales, crackles, chest moves symmetrically ABD:bowel sounds normal, soft, non-tender, no guarding, rebound, rigidity, no masses noted, no hepatosplenomegaly :No CVA tenderness MSCL: Non-tender, no muscle atrophy, muscles strength 5/5 upper and lower extremities, full range of motion. NEURO:CN 2-12 intact, sensation normal, no dysarthria or aphasia. Initial Vital Signs Initial Vital Signs: Vital Signs Temperature 98.5 F 04/30/25 09:57 Pulse Rate 89 04/30/25 09:57 Respiratory Rate 19 04/30/25 09:57 Blood Pressure 209/85 H 04/30/25 09:57 Pulse Oximetry 100 04/30/25 09:57 Oxygen Delivery Method Room Air 04/30/25 09:57 Course Orders Ordered: Discontinued Medications Acetaminophen (Acetaminophen 325 Mg Tablet) 975 mg PO NOW ONE Stop: 04/30/25 10:54 Last Admin: 04/30/25 10:58 Dose: 975 mg Documented By: Vital Signs Vital signs: Vital Signs - 8 hr 04/30/25 12:00 04/30/25 12:01 04/30/25 12:01 Pulse Rate 63 60 Blood Pressure 192/85 H Pulse Oximetry 99 97 04/30/25 12:30 04/30/25 12:31 04/30/25 12:31 Pulse Rate 50 L 55 L Blood Pressure 181/91 H Pulse Oximetry 98 99 04/30/25 13:00 04/30/25 13:30 04/30/25 13:30 Pulse Rate 55 L 56 L Blood Pressure 189/86 H Pulse Oximetry 96 97 04/30/25 14:00 Pulse Rate 61 Blood Pressure Pulse Oximetry 97 Medical Decision Making Lab Data 04/30/25 10:38 04/30/25 10:38 Labs: Lab Results 04/30/25 Range/Units 10:38 WBC 6.3 (4.5-11.0) X10^3/uL RBC 4.82 (4.0-5.2) X10^6/uL Hgb 14.5 (12.0-16.0) g/dL Hct 43.7 (36-46) % MCV 90.7 (80-100) fL MCH 30.1 (26-34) PG MCHC 33.2 (30-36) % RDW 14.5 (11.6-14.8) % Plt Count 171 (150-400) X10^3/uL Neut % (Auto) 48.3 L (50-75) % Lymph % (Auto) 40.2 H (25-40) % [place] % (Auto) 9.2 (3-14) % Eos % (Auto) 1.2 L (2-4) % Baso % (Auto) 1.1 (0-2) % Neut # (Auto) 3000 (1828-0215) /uL Lymph # (Auto) 2500 (5974-7340) /uL [place] # (Auto) 600 (0-900) /uL Eos # (Auto) 100 (0-450) /uL Baso # (Auto) 100 (0-100) /uL Sodium 138 (137-145) mmol/L Potassium 4.2 (3.4-5.1) mmol/L Chloride 103 (98-107) mmol/L Carbon Dioxide 26 (22-32) mmol/L BUN 26 H (7-17) mg/dL Creatinine 1.19 H (0.52-1.04) mg/dL Estimated GFR 44 L (>60) mL/min BUN/Creatinine Ratio 21.8 (6-22) Glucose 168 H (70-99) mg/dL Calcium 9.4 (8.4-10.2) mg/dL ECG Data Attestation: I personally reviewed and interpreted this ECG as follows: Interpretation: Sinus bradycardia with sinus arrhythmia rate of 55 [place] 162 QRS 84 QTC 451, no acute ST elevation or depression noted. Patient was prior from 11/17/24 with a appears similar to today's. MDM Narrative Additional Information: 89-year-old female with complaint of finger pain although she states she whacked her hands she was full range of motion both her and her has been state they do not think that she broke anything and on exam seems unlikely, she was chronic left shoulder pain with no new trauma or injuries. Does note a little bit of chest discomfort and had an episode this morning where she was conversant but only 1 or 2 words according to her and was very shaky. After discussion with her and her at bedside they lean more towards comfort measures they elect to obtain some labs and EKG but no additional workup. Patient was DNR/DNI. Labs labs show normal hemoglobin, white count and platelets, predominance of lymphocytes. Chemistry showed creatinine of 1.19, BUN 26 otherwise appropriate electrolytes glucose of 168 EKG sinus bradycardia with sinus arrhythmia appears similar to prior. Patient normally takes acetaminophen and gabapentin for pain has not had her morning medications was feeling more uncomfortable was given dose and acetaminophen but appeared to aspirate a little bit. She seems to be tolerating with her airway without any stridor or other changes we will continue to monitor has been states the tablets here were bigger than what they typically use at home but notes she does sometimes aspirate intermittently. After monitoring patient was significantly improved she was feeling much better she was speaking normally she has not had any changes to her vital signs. Reviewed all of her findings from today they feel comfortable returning home. Discharge Plan Departure Patient Disposition: Home Clinical Impression: Hand pain, right, Left shoulder pain Activity Restrictions/Additional Instructions: Your labs today did not show any major changes. Continue your home medications as prescribed. Please return if you have new or worsening changes or other new concerns. Prescriptions: No Action VITAMIN D (Vitamin D3) 1,000 units PO BEDTIME Qty: 0 fluoxetine [Prozac] 40 MG capsule 40 mg PO QDAY Qty: 0 insulin aspart U-100 [Novolog U-100 Insulin aspart] 100 unit/mL solution 10 unit SQ BID Qty: 0 atorvastatin 40 mg Tablet 40 mg PO BEDTIME aspirin 81 mg tablet,delayed release (DR/EC) 81 mg PO DAILY magnesium oxide 500 mg Tablet 500 mg PO DAILY calcium citrate 200 mg (950 mg) Tablet 500 mg PO BID metoprolol succinate 50 mg tablet extended release 24 hr 50 mg PO DAILY omeprazole 20 mg capsule,delayed release(DR/EC) 40 mg PO DAILY insulin glargine [Lantus Solostar U-100 Insulin] 100 unit/mL (3 mL) insulin pen 30 unit SUBCUT DAILY Patient Comments: [NO ORIGINAL SIG] donepezil 5 mg Tablet 5 mg PO BEDTIME Qty: 30 0RF divalproex [Depakote Sprinkles] 125 mg capsule, delayed rel sprinkle 125 mg PO Q8H Qty: 90 0RF gabapentin 300 mg capsule 600 mg PO BID diclofenac sodium 1 % gel 1 ea topical BID PRN (Reason: joint aches) Jardiance 25 mg tablet 25 mg PO DAILY Referrals: Katty Harrington MD [Primary Care Provider, Family Practice] Stand Alone Forms: Patient Portal/API
--- NOTE | 2025-04-30 10:19 | PC.NURSE ---
Pt reports pain to left shoulder, right thumb, and bilateral LE. Brief saturated with urine. Changed brief and placed [place] to suction.
[2025-04-30 10:48] LABS: Add Manual Diff / Slide Review NO; Hematocrit 43.7 % (36-46); Hemoglobin 14.5 g/dL (12.0-16.0); Lymphocytes Absolute Auto 2500 /uL (1100-4500); Mean Corpuscular HGB Conc 33.2 % (30-36); Mean Corpuscular Hemoglobin 30.1 PG (26-34); Mean Corpuscular Volume 90.7 fL (80-100); Platelet Count 171 X10^3/uL (150-400)
--- NOTE | 2025-04-30 10:51 | EKG_ITS ---
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
[2025-04-30 10:58] LABS: Blood Urea Nitrogen 26 mg/dL (7-17); Calcium 9.4 mg/dL (8.4-10.2); Carbon Dioxide 26 mmol/L (22-32); Chloride 103 mmol/L (98-107); Estimated Glomerular Filt Rate 44 mL/min (>60); Glucose 168 mg/dL (70-99); Sodium 138 mmol/L (137-145)
[2025-04-30] MEDS: ACETAMINOPHEN 325 MG TABLET 975 MG PO (10:58)
[2025-04-30 11:04] LABS: HEMOLYSIS 87 (0-50)
[2025-04-30 11:05] LABS: Potassium 4.2 mmol/L (3.4-5.1)
--- NOTE | 2025-04-30 11:07 | PC.NURSE ---
Pt reports that she is in pain, bilateral LE. Dr Billy notified. RT called to evaluate. Verbal order received for Tylenol 975 mg. Asked how she takes medication. states that she takes pills whole. Pt took medication and aspirated. Encouraged to expel pill, suctioned oral airway.
--- NOTE | 2025-04-30 11:33 | PC.NURSE ---
RT in room with pt. Pt speaking in full sentences. Able to cough and manage secretions.
--- NOTE | 2025-04-30 12:18 | PC.NURSE ---
Pt continues to remain painful to legs. MD notified.
== END 2025-04-30 14:10 | disposition home or self-care (01) ==
PROVIDERS: Emergency Provider Emergency Medicine; Family Provider Internal Medicine; PCP Family Medicine
DX: M79.641 Pain in right hand (principal); M25.512 Pain in left shoulder; M79.644 Pain in right finger(s); R53.1 Weakness; R07.9 Chest pain, unspecified
CPT/HCPCS: 36415; 80048; 85025; 93005; 93010; 99283; 99284

== ENCOUNTER → 2025-05-10 14:17 | Outpatient (CLI) | payer MEDICARE, OTHER, SELFPAY ==
[2023-08-19 15:00] VITALS: BMI 26.9
--- NOTE | 2025-05-10 14:23 | DI.RAD.S_ITS ---
PROCEDURE: XR WRIST RT MIN 3V INDICATIONS: Wrist pain TECHNIQUE: For views of the wrist were acquired. COMPARISON: Merged With [facility], CR, XR WRIST LT MIN 3V, 07/14/2023, 18:36. FINDINGS: Bones: No fractures or dislocations. Advanced osteoarthritic change of the intercarpal joints, trapeziometacarpal and radiocarpal joints marked by joint space narrowing, marginal osteophytosis and subchondral sclerosis. Similar degenerative changes are noted throughout the interphalangeal and 1st metacarpophalangeal joints. No suspicious bony lesions. Soft tissues: No suspicious soft tissue calcifications. IMPRESSION: Polyarticular arthropathy as outlined above without evidence of acute bony abnormality. Dictated by: Emile Lyn M.D. on 05/12/2025 at 18:39 Approved by: Emile Lyn M.D. on 05/12/2025 at 18:41
--- NOTE | 2025-05-10 14:23 | DI.RAD.S_ITS ---
PROCEDURE: XR HAND RT MIN 3V INDICATIONS: Hand pain TECHNIQUE: 3 views of the hand(s) acquired. COMPARISON: [facility], CR, XR HAND RT MIN 3V, 10/09/2023, 17:41. FINDINGS: Bones: No fractures or dislocations. Advanced polyarticular arthropathy of the trapezium metacarpal, STT, radiocarpal, 1st metacarpophalangeal and all interphalangeal joints includes joint space narrowing, marginal osteophytosis, subchondral sclerosis and periarticular erosive change. Carpal bones are normally aligned. No suspicious bony lesions. Soft tissues: No suspicious soft tissue calcifications. IMPRESSION: Advanced polyarticular arthropathy as outlined above without evidence of acute bony abnormality. Dictated by: Emile Lyn M.D. on 05/12/2025 at 18:35 Approved by: Emile Lyn M.D. on 05/12/2025 at 18:36
--- NOTE | 2025-05-10 14:23 | DI.RAD.S_ITS ---
PROCEDURE: XR LUMBAR SPINE 2-3V INDICATIONS: Low spine pain TECHNIQUE: 3 views of the lumbar spine were acquired. COMPARISON: [facility], CR, XR LUMBAR SPINE 2-3V, 11/17/2024, 18:48. FINDINGS: Bones: 5 [id number] vertebrae are present. Retrolisthesis of L1 on L2 measures 4 mm. There is otherwise normal bony alignment. Severe multilevel disc height loss with adjacent endplate sclerosis and anterior osteophytosis. Moderate narrowing of the central canal. No vertebral body compression fractures. No suspicious bony lesions. Soft tissues: Overlying bowel gas pattern is normal. No suspicious soft tissue calcifications. Atherosclerotic vascular calcifications. Surgical clips bilaterally overlying the sacroiliac joints. 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 Dictated by: Emile Lyn M.D. on 05/12/2025 at 18:37 Approved by: Emile Lyn M.D. on 05/12/2025 at 18:39
== END ==
PROVIDERS: Family Provider Internal Medicine; PCP Family Medicine; Referring Provider Family Medicine; Visit Provider Nurse Practitioner Family
DX: S69.91XA Unspecified injury of right wrist, hand and finger(s), initial encounter (principal); M19.041 Primary osteoarthritis, right hand; M19.031 Primary osteoarthritis, right wrist; M47.816 Spondylosis without myelopathy or radiculopathy, lumbar region; M43.16 Spondylolisthesis, lumbar region; W18.30XA Fall on same level, unspecified, initial encounter; W06.XXXA Fall from bed, initial encounter
CPT/HCPCS: 72100; 73110; 73130

== ENCOUNTER 2025-08-05 15:42 | Emergency (ER) | payer MEDICARE, OTHER, SELFPAY ==
[2025-06-20 16:09] VITALS: BMI 27.3
[2025-08-05] VITALS (14 sets, daily range): BP systolic 164–217; BP diastolic 76–130; PULSE 56–148; RESP 13–39; TEMP 36.8; O2SAT 97–99; BMI 28.3
--- NOTE | 2025-08-05 15:56 | ED.ABDPAIN ---
HPI - Abdominal Pain General Chief Complaint: Abdominal Pain Stated Complaint: abd pain Time Seen by Provider: 08/05/25 15:55 Source: patient and family Mode of arrival: Wheelchair History of Present Illness HPI narrative: 89-year-old female past medical history Alzheimer's dementia, dyslipidemia, insulin dependent diabetes, depression, COPD neuropathy hypertension osteoarthritis rheumatoid arthritis uncontrolled muscle spasms in both legs both knees replaced left shoulder replaced appendectomy hysterectomy presents with right lower quadrant pain for 2 days for which has given Tums and Tylenol with no significant relief of symptoms. She has had a bowel movement yesterday normal. Patient denies chest pain, back pain, urinary complaints, fever, chills, body aches, rectal bleeding, hematuria. Other than what is stated 14 point review of system is negative. Related Data Home Medications ?Medication ?Instructions ?Recorded ?Confirmed VITAMIN D (Vitamin D3) 1,000 units PO BEDTIME ##0 09/06/11 08/05/25 fluoxetine 40 mg capsule (Prozac) 40 mg PO QDAY ##0 11/28/16 08/05/25 atorvastatin 40 mg tablet 40 mg PO BEDTIME 03/03/22 08/05/25 aspirin 81 mg tablet,delayed 81 mg PO DAILY 03/04/22 08/05/25 release magnesium oxide 500 mg PO DAILY 03/04/22 08/05/25 calcium citrate 500 mg PO BID 03/07/22 08/05/25 insulin glargine 100 unit/mL (3 30 unit SUBCUT DAILY 08/16/23 08/05/25 mL) subcutaneous pen (Lantus Solostar U-100 Insulin) omeprazole 20 mg capsule,delayed 40 mg PO DAILY 08/16/23 08/05/25 release diclofenac sodium 1 % topical gel 1 ea topical BID PRN joint aches 06/17/24 08/05/25 empagliflozin 25 mg tablet 25 mg PO DAILY 06/17/24 08/05/25 (Jardiance) gabapentin 300 mg capsule 600 mg PO BID 06/17/24 08/05/25 albuterol 90 mcg/actuation aerosol 1 mcg inhalation Q4HR wheezing 05/10/25 08/05/25 inhaler atorvastatin 40 mg tablet (Lipitor) 40 mg PO BEDTIME 05/10/25 08/05/25 donepezil 5 mg tablet (Aricept) 5 mg PO BEDTIME 05/10/25 08/05/25 epinephrine 0.3 mg/0.3 mL 0.3 mg IM Q5-15M PRN anaphylaxis 05/10/25 08/05/25 injection, auto-injector metoprolol succinate 25 mg 25 mg PO DAILY 05/10/25 08/05/25 tablet,extended release 24 hr pen needle, diabetic 31 gauge x #1,200 ea 05/10/25 08/05/25 5/16 (Easy Touch) doxycycline hyclate 100 mg capsule 100 mg PO BID 06/16/25 08/05/25 gabapentin 600 mg tablet 600 mg PO BEDTIME 06/16/25 08/05/25 Previous Rx's ?Medication ?Instructions ?Recorded donepezil 5 mg tablet 5 mg PO BEDTIME #30 tabs 08/23/23 divalproex 125 mg capsule,delayed 125 mg PO Q8H #90 caps 06/01/24 release sprinkle (Depakote Sprinkles) quetiapine 50 mg tablet (Seroquel) 50 mg PO TID #90 tabs 06/27/25 nitrofurantoin 100 mg PO BID #10 caps 08/05/25 monohydrate/macrocrystals 100 mg capsule (Macrobid) tamsulosin 0.4 mg capsule (Flomax) 0.4 mg PO DAILY #30 caps 08/05/25 tramadol 50 mg tablet 50 mg PO Q6H PRN pain #20 tabs 08/05/25 Allergies Allergy/AdvReac Type Severity Reaction Status Date / Time iodine (IODINE) Allergy Severe Swelling Verified 08/05/25 15:52 of Lip/Tongue/Throat lisinopril (LISINOPRIL) Allergy Severe Swelling Verified 08/05/25 15:52 of Lip/Tongue/Throat shellfish derived (SHELLFISH Allergy Severe Swelling Verified 08/05/25 15:52 DERIVED) of Lip/Tongue/Throat Penicillins Allergy Intermediate Rash Verified 08/05/25 15:52 oxycodone AdvReac Hallucinati Verified 08/05/25 15:52 ng Review of Systems Review of Systems ROS Unobtainable: All systems reviewed & are unremarkable except as noted in HPI and below Patient History Medical History Arthropathy of left shoulder Spinal stenosis Osteoarthritis Depression Memory changes COPD (chronic obstructive pulmonary disease) Diabetes Hypertension Gouty arthritis of toe Surgical History History of arthroplasty of left knee History of arthroplasty of right knee Social History household members: spouse, family and children alcohol intake: former alcohol intake frequency: holidays/special occasions only Exam Narrative Exam Narrative: GENERAL: [89] year old patient appears stated age. Well-developed patient, in mild distress. HEAD: Atraumatic. Normocephalic. EYES: Pupils equal round and reactive. Extraocular motions intact. No scleral icterus. No injection or drainage. ENT: Nose without bleeding, purulent drainage. Throat without erythema, tonsillar hypertrophy or exudate. Airway patent. NECK: Trachea midline. Non tender CARDIOVASCULAR: Regular rate and rhythm without murmurs, gallops, or rubs. RESPIRATORY: Clear to auscultation. Breath sounds equal bilaterally. No wheezes, rales, or rhonchi. GASTROINTESTINAL: Abdomen soft, RLQ TTP no r/r/g nondistended. EXTREMITIES: No edema or joint tenderness. BACK: Nontender without deformity or crepitance. No flank tenderness. NEURO: AOx3. SKIN: No rash or erythema of visible areas Initial Vital Signs Initial Vital Signs: Vital Signs Pulse Rate 61 08/05/25 15:48 Pulse Oximetry 99 08/05/25 15:48 Course Orders Ordered: ED Orders 08/05/25 15:50 Complete Blood Count AUTO DIFF Stat Comprehensive Metabolic Panel Stat Lipase Stat 08/05/25 15:55 CT abdomen pelvis wo con Stat EKG-12 Lead Stat 08/05/25 17:02 EKG-12 Lead Stat Ondansetron HCl (Ondansetron 4 Mg/2 Ml Inj) 4 mg IV NOW PRN PRN Reason: Nausea And Vomiting Last Admin: 08/05/25 16:26 Dose: 4 mg Documented By: BELKIS Ondansetron HCl (Ondansetron 4 Mg Odt) 4 mg PO NOW PRN PRN Reason: Nausea And Vomiting Discontinued Medications Lactated Ringer's (Lactated Ringers) 1,000 mls @ 1,000 mls/hr IV BOLUS ONE Stop: 08/05/25 16:54 Last Infusion: 08/05/25 17:25 Dose: Infused Documented By: Admin: 10/06/25 16:25 Dose: 1,000 mls/hr Documented By: BELKIS Ketorolac Tromethamine (Ketorolac 30 Mg/Ml Vial) 15 mg IV NOW ONE Stop: 08/05/25 16:07 Last Admin: 08/05/25 16:25 Dose: 15 mg Documented By: BELKIS Vital Signs Vital signs: Vital Signs - 8 hr 08/05/25 15:48 08/05/25 15:52 08/05/25 15:52 Temperature 98.3 F Pulse Rate 61 56 L 58 L Respiratory Rate 17 13 Blood Pressure 171/80 H Pulse Oximetry 99 99 98 Oxygen Delivery Method Room Air 08/05/25 15:52 08/05/25 16:00 08/05/25 16:00 Temperature Pulse Rate 56 L Respiratory Rate 24 Blood Pressure 171/80 H 175/81 H Pulse Oximetry 98 Oxygen Delivery Method 08/05/25 16:26 08/05/25 16:26 08/05/25 16:30 Temperature Pulse Rate 62 58 L Respiratory Rate 21 23 Blood Pressure 173/87 H Pulse Oximetry 99 98 Oxygen Delivery Method 08/05/25 16:30 08/05/25 17:00 08/05/25 17:00 Temperature Pulse Rate 148 H Respiratory Rate 39 H Blood Pressure 164/76 H 175/130 H Pulse Oximetry 99 Oxygen Delivery Method 08/05/25 17:30 08/05/25 17:30 Temperature Pulse Rate 79 Respiratory Rate 25 H Blood Pressure 206/82 H Pulse Oximetry 99 Oxygen Delivery Method MDM - Abdominal Pain Lab Data 08/05/25 15:50 08/05/25 15:50 Labs: Lab Results 08/05/25 Range/Units 15:50 WBC 7.1 (4.5-11.0) X10^3/uL RBC 4.76 (4.0-5.2) X10^6/uL Hgb 14.7 (12.0-16.0) g/dL Hct 43.3 (36-46) % MCV 91.0 (80-100) fL MCH 30.8 (26-34) PG MCHC 33.8 (30-36) % RDW 13.7 (11.6-14.8) % Plt Count 190 (150-400) X10^3/uL Neut % (Auto) 63.9 (50-75) % Lymph % (Auto) 27.6 (25-40) % Bates % (Auto) 7.2 (3-14) % Eos % (Auto) 0.6 L (2-4) % Baso % (Auto) 0.7 (0-2) % Neut # (Auto) 4500 (6802-9341) /uL Lymph # (Auto) 1900 (3795-0092) /uL Bates # (Auto) 500 (0-900) /uL Eos # (Auto) 0 (0-450) /uL Baso # (Auto) 0 (0-100) /uL Sodium 136 L (137-145) mmol/L Potassium 4.1 (3.4-5.1) mmol/L Chloride 104 (98-107) mmol/L Carbon Dioxide 24 (22-32) mmol/L BUN 22 H (7-17) mg/dL Creatinine 1.20 H (0.52-1.04) mg/dL Estimated GFR 43 L (>60) mL/min BUN/Creatinine Ratio 18.3 (6-22) Glucose 275 H (70-99) mg/dL Calcium 10.2 (8.4-10.2) mg/dL Total Bilirubin 0.5 (0.2-1.3) mg/dL AST 22 (14-36) IU/L ALT 18 (<35) IU/L Alkaline Phosphatase 79 (38-126) U/L Total Protein 7.6 (6.3-8.2) g/dL Albumin 4.4 (3.5-5.0) g/dL Globulin 3.2 (1.7-4.1) g/dL Albumin/Globulin Ratio 1.4 (1.0-2.8) Lipase 35 (23-300) U/L Imaging Data CT scan - abdomen/pelvis: Radiologist's Impression: [address] [address] [address] Scan Report Signed Patient: Analia Lopez MR#: [id number] : 1935 Acct:[id number] Age/Sex: 89 / F Date of Service: 08/05/25 Loc: ED Accession Number: [id number] Procedure: CT abdomen pelvis wo con Ordering Provider: Mike Anderson D.O. PROCEDURE: CT ABDOMEN PELVIS WO CON INDICATIONS: abd pain TECHNIQUE: CT of the abdomen and pelvis was obtained without intravenous contrast. Coronal and sagittal reformats were performed. For radiation dose reduction, the following was used: automated exposure control, adjustment of mA and/or kV according to patient size. COMPARISON: None. FINDINGS: Image quality: Diagnostic. Lower Chest: No significant findings. ABDOMEN: Liver: No contour-deforming mass. Gallbladder: No radiopaque gallstones or wall thickening. Biliary ducts: No biliary dilation. Pancreas: No ductal dilation. Spleen: Size is within normal limits. Adrenal Glands: No adrenal nodules. Kidneys and Ureters: There is no hydronephrosis. There is a 6 x 3 mm stone in the very distal portion of the right ureter. There is significant motion artifact in the mid abdomen. A calcification in the right paravertebral region is probably outside the proximal right ureter. Stomach and Bowel: Normal colonic caliber, without significant wall thickening. Peritoneum: No abnormal intraperitoneal fluid. No free air. Ventral Wall: No significant hernia. Abdominal Nodes: No retroperitoneal or mesenteric adenopathy by size criteria. Vessels: Aorta and inferior vena cava are normal in size. PELVIS: Pelvic Organs: Status post hysterectomy. No adnexal mass seen. Bladder: Unremarkable. Pelvic Nodes: No enlarged lymph nodes. Miscellaneous: No inguinal hernias are seen. Bones: No aggressive osseous abnormality. IMPRESSION: 1. There is a stone in the very distal portion of the right ureter measuring up to 6 mm, without hydronephrosis. 2. A calcification in the right mid abdomen is probably outside the proximal right ureter, however there is significant motion in this region. This can be reassessed on follow-up studies. 3. No definite acute intra-abdominal abnormality otherwise. ECG Data Interpretation: Sinus Jeff HR 59 RI 192 QRS [address]-t wave change Change from 06/16/25 MDM Narrative Medical decision making narrative: All lab work, vital signs, nurse triage note, medication list, previous ER visits, and all imaging studies reviewed. WBC 7.1 hemoglobin 14.7 platelet 190 sodium 136 potassium 4 point chloride 104 CO2 24 BUN 22 creatinine 1.2 glucose [address] abdomen and pelvis stone in the very distal portion of the right ureter measuring up to 6 mm without hydronephrosis. Calcification in the right midabdomen is probably outside the proximal right ureter however there is significant motion in this region this can be. Reassessed on follow up study no definite acute intra-abdominal abnormality otherwise. Differential diagnosis otitis diverticulitis constipation small-bowel obstruction kidney function kidney stone. DC home on Tramadol and Flomax and to follow up with urologist. Discharge Plan Departure Patient Disposition: Home Clinical Impression: Kidney stone Instructions: DI for Kidney Stones Activity Restrictions/Additional Instructions: Return with new or worsening symptoms. Take your medicines as directed. Keep hydrated. Follow up with Dr. Dover urologist call office for appointment. ? Prescriptions: New tramadol 50 mg tablet 50 mg PO Q6H PRN (Reason: pain) Qty: 20 0RF tamsulosin [Flomax] 0.4 mg capsule 0.4 mg PO DAILY Qty: 30 0RF nitrofurantoin monohyd/m-cryst [Macrobid] 100 mg capsule 100 mg PO BID Qty: 10 0RF Rx Instructions: must administer with a meal/food No Action atorvastatin [Lipitor] 40 mg tablet 40 mg PO BEDTIME donepezil [Aricept] 5 mg tablet 5 mg PO BEDTIME metoprolol succinate 25 mg tablet extended release 24 hr 25 mg PO DAILY albuterol 90 mcg/actuation aerosol 1 mcg inhalation Q4HR epinephrine 0.3 mg/0.3 mL auto-injector 0.3 mg IM Q5-15M PRN (Reason: anaphylaxis) Rx Instructions: do not exceed 3 doses per episode (DME) pen needle, diabetic [Easy Touch] 31 gauge x 5/16 needle See Rx Instructions .ROUTE .MEDSUPPLY Qty: 1200 Patient Comments: [NO ORIGINAL SIG] Rx Instructions: As directed VITAMIN D (Vitamin D3) 1,000 units PO BEDTIME Qty: 0 fluoxetine [Prozac] 40 MG capsule 40 mg PO QDAY Qty: 0 atorvastatin 40 mg Tablet 40 mg PO BEDTIME aspirin 81 mg tablet,delayed release (DR/EC) 81 mg PO DAILY magnesium oxide 500 mg Tablet 500 mg PO DAILY calcium citrate 200 mg (950 mg) Tablet 500 mg PO BID doxycycline hyclate 100 mg capsule 100 mg PO BID Patient Comments: daily to prevent gabapentin 600 mg tablet 600 mg PO BEDTIME quetiapine [Seroquel] 50 mg tablet 50 mg PO TID Qty: 90 0RF omeprazole 20 mg capsule,delayed release(DR/EC) 40 mg PO DAILY insulin glargine [Lantus Solostar U-100 Insulin] 100 unit/mL (3 mL) insulin pen 30 unit SUBCUT DAILY Patient Comments: [NO ORIGINAL SIG] donepezil 5 mg Tablet 5 mg PO BEDTIME Qty: 30 0RF divalproex [Depakote Sprinkles] 125 mg capsule, delayed rel sprinkle 125 mg PO Q8H Qty: 90 0RF gabapentin 300 mg capsule 600 mg PO BID diclofenac sodium 1 % gel 1 ea topical BID PRN (Reason: joint aches) Jardiance 25 mg tablet 25 mg PO DAILY Referrals: Amado Dover DO [Physician, Urology] Cyril Conley DO [Primary Care Provider, Family Practice] Stand Alone Forms: Patient Portal/API
[2025-08-05 16:00] LABS: Add Manual Diff / Slide Review NO; Hematocrit 43.3 % (36-46); Hemoglobin 14.7 g/dL (12.0-16.0); Lymphocytes Absolute Auto 1900 /uL (1100-4500); Mean Corpuscular HGB Conc 33.8 % (30-36); Mean Corpuscular Hemoglobin 30.8 PG (26-34); Mean Corpuscular Volume 91.0 fL (80-100); Platelet Count 190 X10^3/uL (150-400)
[2025-08-05 16:11] LABS: Alanine Aminotransferase 18 IU/L (<35); Albumin 4.4 g/dL (3.5-5.0); Albumin Globulin Ratio 1.4 (1.0-2.8); Alkaline Phosphatase 79 U/L (38-126); Blood Urea Nitrogen 22 mg/dL (7-17); Calcium 10.2 mg/dL (8.4-10.2); Carbon Dioxide 24 mmol/L (22-32); Chloride 104 mmol/L (98-107); Estimated Glomerular Filt Rate 43 mL/min (>60); Globulin 3.2 g/dL (1.7-4.1); Glucose 275 mg/dL (70-99); HEMOLYSIS < 15 (0-50); Lipase 35 U/L (23-300); Potassium 4.1 mmol/L (3.4-5.1); Sodium 136 mmol/L (137-145); Total Protein 7.6 g/dL (6.3-8.2)
--- NOTE | 2025-08-05 16:21 | EKG_ITS ---
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
[2025-08-05] MEDS: LACTATED RINGERS 1,000 ML 1000 ML IV (16:25)
[2025-08-05] MEDS: KETOROLAC 30 MG/ML VIAL 15 MG IV (16:25)
[2025-08-05] MEDS: ONDANSETRON 4 MG/2 ML INJ IV (16:26)
--- NOTE | 2025-08-05 17:06 | EKG_ITS ---
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
[2025-08-05 18:54] LABS: Culture Indicated Urine Specimen Cultured
== END 2025-08-05 20:02 | disposition home or self-care (01) ==
PROVIDERS: Emergency Provider Family Medicine; Family Provider Internal Medicine; PCP Family Medicine
DX: N20.0 Calculus of kidney (principal)
CPT/HCPCS: 74176; 80053; 81003; 81015; 83690; 85025; 87077; 87086; 87186; 93005; 96361; 96374; 96375; 99284; J1885; J2405; J7120

== ENCOUNTER 2025-08-18 10:26 | Emergency (ER) | payer MEDICARE, OTHER, SELFPAY ==
[2025-06-20 16:09] VITALS: BMI 27.3
[2025-08-18 11:01] VITALS: BP 116/62; PULSE 73; RESP 17; TEMP 36.3; O2SAT 95; BMI 27.3
--- NOTE | 2025-08-18 11:05 | DI.RAD.S_ITS ---
PROCEDURE: XR WRIST RT MIN 3V INDICATIONS: FOOSH TECHNIQUE: 4 views of the wrist were acquired. COMPARISON: [facility], , XR WRIST RT MIN 3V, 05/10/2025, 14:31. FINDINGS: Bones: No fractures or dislocations. No suspicious bony lesions. Generalized decreased osseous mineralization noted. Degenerative joint space narrowing and marginal osteophytes Soft tissues: No suspicious soft tissue calcifications. IMPRESSION: Osteopenia and degenerative changes without fracture or foreign body Approved by: Pj Vo M.D. on 08/18/2025 at 11:03
--- NOTE | 2025-08-18 11:05 | DI.RAD.S_ITS ---
PROCEDURE: XR ELBOW RT MIN 3V INDICATIONS: FOOSH TECHNIQUE: 3 views of the elbow were acquired. COMPARISON: None. FINDINGS: Bones: No fractures or dislocations. No suspicious bony lesions. Soft tissues: No elbow joint effusion. No suspicious soft tissue calcifications. IMPRESSION: Osteopenia degenerative changes without fracture Approved by: Pj Vo M.D. on 08/18/2025 at 11:05
--- NOTE | 2025-08-18 11:05 | DI.CT.S_ITS ---
PROCEDURE: CT CERVICAL SPINE WO CON INDICATIONS: fall, hit head TECHNIQUE: Noncontrast 3 mm thick sections acquired from the skull base to the T4 level. Sagittal and coronal reformats were then constructed. For radiation dose reduction, the following was used: automated exposure control, adjustment of mA and/or kV according to patient size. COMPARISON: [facility], CT, CT CERVICAL SPINE WO CON, 11/17/2024, 16:11. FINDINGS: Bones: No fractures or dislocations. Visualized superior ribs are intact. Disc space narrowing and hypertrophic facet joints noted particularly in the mid cervical spine. C4-5, C5-6 degenerative ankylosis. . Soft tissues: Prevertebral soft tissues are normal in thickness. No paravertebral hematomas. No apical pneumothoraces. IMPRESSION: No displaced fracture or traumatic subluxation. Advanced degenerative disc disease and arthropathy Approved by: Pj Vo M.D. on 08/18/2025 at 11:31
--- NOTE | 2025-08-18 11:05 | DI.CT.S_ITS ---
PROCEDURE: CT HEAD/BRAIN WO CON INDICATIONS: fall, hit head TECHNIQUE: Noncontrast 4.5 mm thick angled axial sections acquired from the foramen magnum to the vertex, with coronal and sagittal reformats. For radiation dose reduction, the following was used: automated exposure control, adjustment of mA and/or kV according to patient size. COMPARISON: [facility], CT, CT HEAD/BRAIN WO CON, 06/16/2025, 2:48. FINDINGS: CSF spaces: Basal cisterns are patent. No extra-axial fluid collections. Ventricles are normal in size and shape. Brain: No midline shift. No intracranial mass effect or hemorrhage. Childress- white matter interface is normal. Skull and face: Calvarium and visualized facial bones are intact, without suspicious lesions. Sinuses: Visualized sinuses and mastoids are clear. IMPRESSION: Moderate atrophy and chronic ischemic change without acute hemorrhage or mass effect Approved by: Pj Vo M.D. on 08/18/2025 at 11:27
--- NOTE | 2025-08-18 13:41 | ED.FALL ---
HPI - Fall General Chief Complaint: Fall Stated Complaint: Fell injured hand Time Seen by Provider: 08/18/25 13:37 Source: patient and family Mode of arrival: Wheelchair History of Present Illness HPI Narrative: 89-year-old female history of dyslipidemia, Alzheimer's, diabetes, hypertension reports that she had a slip and fall on tile catching her house shoes. Patient states did hit the back of her head, denies any headache or neck pain. Main complaint is right wrist and elbow pain. Patient states that she was sitting on a stool caught her shoe and fell backwards she did hit her head. She has not had any sudden new changes to mentation. Her family at bedside notes she has had slowly worsening progression of her memory. Patient's main complaint is her right wrist. Fall occurred on Tuesday. Patient has not had any new chest pain, no shortness of breath. No nausea or vomiting. No other GI or urinary symptoms. She arrives pain of the right wrist they have given Tylenol which has been helpful. She can flex extend and move it. The son has not noticed any swelling or erythema or other bruising changes. Related Data Home Medications ?Medication ?Instructions ?Recorded ?Confirmed VITAMIN D (Vitamin D3) 1,000 units PO BEDTIME ##0 09/06/11 08/18/25 fluoxetine 40 mg capsule (Prozac) 40 mg PO QDAY ##0 11/28/16 08/18/25 atorvastatin 40 mg tablet 40 mg PO BEDTIME 03/03/22 08/18/25 aspirin 81 mg tablet,delayed 81 mg PO DAILY 03/04/22 08/18/25 release magnesium oxide 500 mg PO DAILY 03/04/22 08/18/25 calcium citrate 500 mg PO BID 03/07/22 08/18/25 insulin glargine 100 unit/mL (3 30 unit SUBCUT DAILY 08/16/23 08/18/25 mL) subcutaneous pen (Lantus Solostar U-100 Insulin) omeprazole 20 mg capsule,delayed 40 mg PO DAILY 08/16/23 08/18/25 release diclofenac sodium 1 % topical gel 1 ea topical BID PRN joint aches 06/17/24 08/18/25 empagliflozin 25 mg tablet 25 mg PO DAILY 06/17/24 08/18/25 (Jardiance) gabapentin 300 mg capsule 600 mg PO BID 06/17/24 08/18/25 albuterol 90 mcg/actuation aerosol 1 mcg inhalation Q4HR wheezing 05/10/25 08/18/25 inhaler atorvastatin 40 mg tablet (Lipitor) 40 mg PO BEDTIME 05/10/25 08/18/25 donepezil 5 mg tablet (Aricept) 5 mg PO BEDTIME 05/10/25 08/18/25 epinephrine 0.3 mg/0.3 mL 0.3 mg IM Q5-15M PRN anaphylaxis 05/10/25 08/18/25 injection, auto-injector metoprolol succinate 25 mg 25 mg PO DAILY 05/10/25 08/18/25 tablet,extended release 24 hr pen needle, diabetic 31 gauge x #1,200 ea 05/10/25 08/18/2503/15 (Easy Touch) doxycycline hyclate 100 mg capsule 100 mg PO BID 06/16/25 08/18/25 gabapentin 600 mg tablet 600 mg PO BEDTIME 06/16/25 08/18/25 Previous Rx's ?Medication ?Instructions ?Recorded donepezil 5 mg tablet 5 mg PO BEDTIME #30 tabs 08/23/23 divalproex 125 mg capsule,delayed 125 mg PO Q8H #90 caps 06/01/24 release sprinkle (Depakote Sprinkles) quetiapine 50 mg tablet (Seroquel) 50 mg PO TID #90 tabs 06/27/25 nitrofurantoin 100 mg PO BID #10 caps 08/05/25 monohydrate/macrocrystals 100 mg capsule (Macrobid) tamsulosin 0.4 mg capsule (Flomax) 0.4 mg PO DAILY #30 caps 08/05/25 tramadol 50 mg tablet 50 mg PO Q6H PRN pain #20 tabs 08/05/25 Allergies Allergy/AdvReac Type Severity Reaction Status Date / Time iodine (IODINE) Allergy Severe Swelling Verified 08/18/25 11:01 of Lip/Tongue/Throat lisinopril (LISINOPRIL) Allergy Severe Swelling Verified 08/18/25 11:01 of Lip/Tongue/Throat shellfish derived (SHELLFISH Allergy Severe Swelling Verified 08/18/25 11:01 DERIVED) of Lip/Tongue/Throat Penicillins Allergy Intermediate Rash Verified 08/18/25 11:01 oxycodone AdvReac Hallucinati Verified 08/18/25 11:01 ng Review of Systems Review of Systems ROS Unobtainable: All systems reviewed & are unremarkable except as noted in HPI and below Patient History Medical History Arthropathy of left shoulder Spinal stenosis Osteoarthritis Depression Memory changes COPD (chronic obstructive pulmonary disease) Diabetes Hypertension Gouty arthritis of toe Surgical History History of arthroplasty of left knee History of arthroplasty of right knee Social History household members: spouse, family and children alcohol intake: former alcohol intake frequency: holidays/special occasions only Exam Narrative Exam Narrative: GEN: Patient appears in mild distress. HEAD: No evidence of trauma, no raccoon/Bhatia sign. NECK: Nontender, painless range of motion, trachea midline Positive Nexus criteria, no midline line tenderness, distracting injury, positive altered mental status (dementia at baseline), no neuro deficit, recent EtOH. EYES: PERRLA, EOMI ENT: External inspection normal, trachea is midline, TM's are normal no hemotypanum, Nares are clear, no septal hematoma, no dental or oral injury, airway is normal and with normal occlusion, No bony tenderness RESP: Chest is nontender and has symmetric movement, no ecchymosis, breath sounds are normal no crackles, wheezes or rales CVS: Heart sounds are normal, no murmur noted, No JVD. ABG/GI: Nontender, soft, normal bowel sounds, no distention, no organomegaly, pelvic rock is negative NEURO: Oriented AOx3, neuro is grossly intact, sensation and motor is normal all 4 extremities moving, cranial nerves II through XII are intact, GCS is 14 PSYCH: Normal mood and affect SKIN: Intact, warm and dry, no crepitus and without decubitus BACK: No CVA tenderness, no vertebral tenderness, no step-off's, no crepitus EXT: Patient has some mild tenderness over the right wrist at the distal radius, no warmth, erythema, she has normal flexion-extension of fingers, wrist elbow and shoulder. 2+ radial pulse. Cap refills less than 2 seconds all 5 fingers. Normal sensation throughout. No other bony tenderness of her extremities upper or lower. Hips are nontender, no pedal edema, normal color and temperature, normal range of motion of extremities with normal tendon exam, 2+ pulses in all four extremities Initial Vital Signs Initial Vital Signs: Vital Signs Temperature 97.4 F L 08/18/25 11:01 Pulse Rate 73 08/18/25 11:01 Respiratory Rate 17 08/18/25 11:01 Blood Pressure 116/62 08/18/25 11:01 Pulse Oximetry 95 08/18/25 11:01 Oxygen Delivery Method Room Air 08/18/25 11:01 Course Orders Ordered: ED Orders 08/18/25 11:05 CT cervical spine wo con Stat CT head/brain wo con Stat XR elbow RT min 3V Stat XR wrist RT min 3V Stat 08/18/25 13:57 Consult to INTERMEDIATE CARD TENDER - Rn Renal Stat Vital Signs Vital signs: Vital Signs - 8 hr 08/18/25 11:01 08/18/25 15:05 Temperature 97.4 F L Pulse Rate 73 65 Respiratory Rate 17 17 Blood Pressure 116/62 166/81 H Pulse Oximetry 95 98 Oxygen Delivery Method Room Air Room Air MDM - Fall MDM Narrative Medical decision making narrative: Head CT shows moderate atrophy chronic ischemic change without acute hemorrhage or mass effect. Head CT shows no displaced fracture or traumatic subluxation advanced degenerative disc disease and arthropathy. Right elbow x-ray shows no joint effusion no suspicious soft tissue calcification osteopenia degenerative changes without fracture. Right wrist shows osteopenia degenerative changes without fracture or foreign body. 89-year-old female reportedly on aspirin daily known dementia at baseline with no new mentation changes had what sounds like a mechanical ground level fall family states she has had some persistent wrist pain. She did hit her head so had head CT CT cervical spine as well as elbow and wrist x-rays which show no new fractures or bleed. During evaluation they do note they have had issues with transport to set up follow up they have . Discharge Plan Departure Patient Disposition: Home Clinical Impression: Right wrist pain, Fall, Head injury Instructions: Closed Head Injury Activity Restrictions/Additional Instructions: Follow up with your physician. You can give acetaminophen up to a 1000 mg every 6 hours as needed for pain. You can use ice to the affected areas needed. Please return if sudden changes to mentation, rapidly worsening pain, any new skin color changes, new chest pain or shortness of breath, persistent vomiting, new difficulty with movement or other new or concerning changes. Prescriptions: No Action atorvastatin [Lipitor] 40 mg tablet 40 mg PO BEDTIME donepezil [Aricept] 5 mg tablet 5 mg PO BEDTIME metoprolol succinate 25 mg tablet extended release 24 hr 25 mg PO DAILY albuterol 90 mcg/actuation aerosol 1 mcg inhalation Q4HR epinephrine 0.3 mg/0.3 mL auto-injector 0.3 mg IM Q5-15M PRN (Reason: anaphylaxis) Rx Instructions: do not exceed 3 doses per episode (DME) pen needle, diabetic [Easy Touch] 31 gauge x 5/16 needle See Rx Instructions .ROUTE .MEDSUPPLY Qty: 1200 Patient Comments: [NO ORIGINAL SIG] Rx Instructions: As directed VITAMIN D (Vitamin D3) 1,000 units PO BEDTIME Qty: 0 fluoxetine [Prozac] 40 MG capsule 40 mg PO QDAY Qty: 0 atorvastatin 40 mg Tablet 40 mg PO BEDTIME aspirin 81 mg tablet,delayed release (DR/EC) 81 mg PO DAILY magnesium oxide 500 mg Tablet 500 mg PO DAILY calcium citrate 200 mg (950 mg) Tablet 500 mg PO BID doxycycline hyclate 100 mg capsule 100 mg PO BID Patient Comments: daily to prevent gabapentin 600 mg tablet 600 mg PO BEDTIME quetiapine [Seroquel] 50 mg tablet 50 mg PO TID Qty: 90 0RF tramadol 50 mg tablet 50 mg PO Q6H PRN (Reason: pain) Qty: 20 0RF tamsulosin [Flomax] 0.4 mg capsule 0.4 mg PO DAILY Qty: 30 0RF nitrofurantoin monohyd/m-cryst [Macrobid] 100 mg capsule 100 mg PO BID Qty: 10 0RF Rx Instructions: must administer with a meal/food omeprazole 20 mg capsule,delayed release(DR/EC) 40 mg PO DAILY insulin glargine [Lantus Solostar U-100 Insulin] 100 unit/mL (3 mL) insulin pen 30 unit SUBCUT DAILY Patient Comments: [NO ORIGINAL SIG] donepezil 5 mg Tablet 5 mg PO BEDTIME Qty: 30 0RF divalproex [Depakote Sprinkles] 125 mg capsule, delayed rel sprinkle 125 mg PO Q8H Qty: 90 0RF gabapentin 300 mg capsule 600 mg PO BID diclofenac sodium 1 % gel 1 ea topical BID PRN (Reason: joint aches) Jardiance 25 mg tablet 25 mg PO DAILY Referrals: Cyril Conley DO [Primary Care Provider, Family Practice] Stand Alone Forms: Patient Portal/API
--- NOTE | 2025-08-18 14:45 | CM.SWNOTE ---
ED RIG BUILDER HELPER Note: Reviewed chart and discussed with multidisciplinary team pt's medical status and initial discharge needs. RIG BUILDER HELPER consulted as pt has been having difficulty with getting prescriptions refilled and PCP follow up due [place]. PCP: Dr. Cyril Conley DO ([facility]) [facility] and [employer] Life. RIG BUILDER HELPER entered room to meet with patient, introduced self and role. Pt and spouse identified the barrier: Both pt and spouse have IDs [place] but their industrial truck driver (grandson) does not have the REAL ID/Enhanced First Line Supervisor's License required to drive them on. [place] gate but it's [place]. RIG BUILDER HELPER discussed possible switch to a civilian PCP and pt would agree to this but with the [facility] clinic, all medications and visits are 100% covered with no co-pay. Do not wish to entertain this option at this time, especially since they are hoping to move to [place] in the near future. Pt had concerns for getting a will drawn up and Advanced Directives - RIG BUILDER HELPER provided legal resources/contacts. RIG BUILDER HELPER [facility] to [facility] with [facility] as well as the [facility] for possible [place] Plan: Pt to discharge home with family (grandson to transport) and [facility] up [facility] or [facility] when available. AYUSH Hernandez
[2025-08-18 15:05] VITALS: BP 166/81; PULSE 65; RESP 17; O2SAT 98
== END 2025-08-18 15:08 | disposition home or self-care (01) ==
PROVIDERS: Emergency Provider Emergency Medicine; Family Provider Internal Medicine; PCP Family Medicine
DX: S09.90XA Unspecified injury of head, initial encounter (principal); M25.531 Pain in right wrist; W01.0XXA Fall on same level from slipping, tripping and stumbling without subsequent striking against object, initial encounter
CPT/HCPCS: 70450; 72125; 73080; 73110; 99281; 99284

== ENCOUNTER 2025-09-09 07:10 | Emergency (ER) | payer MEDICARE, OTHER, SELFPAY ==
[2025-06-20 16:09] VITALS: BMI 27.3
[2025-09-09] VITALS (8 sets, daily range): BP systolic 147–168; BP diastolic 65–85; PULSE 62–79; RESP 16; TEMP 36.4; O2SAT 92–99; BMI 25.0
--- NOTE | 2025-09-09 08:04 | DI.CT.S_ITS ---
PROCEDURE: CT FACIAL BONES WO CON
--- NOTE | 2025-09-09 08:04 | DI.CT.S_ITS ---
PROCEDURE: CT CHEST ABD PEL WO CON
--- NOTE | 2025-09-09 08:04 | DI.CT.S_ITS ---
PROCEDURE: CT CERVICAL SPINE WO CON
--- NOTE | 2025-09-09 08:04 | DI.CT.S_ITS ---
PROCEDURE: CT HEAD/BRAIN WO CON
[2025-09-09 08:06] LABS: Add Manual Diff / Slide Review NO; Hematocrit 41.7 % (36-46); Hemoglobin 14.1 g/dL (12.0-16.0); Lymphocytes Absolute Auto 1700 /uL (1100-4500); Mean Corpuscular HGB Conc 33.9 % (30-36); Mean Corpuscular Hemoglobin 30.9 PG (26-34); Mean Corpuscular Volume 91.2 fL (80-100); Platelet Count 162 X10^3/uL (150-400)
--- NOTE | 2025-09-09 08:06 | ED.FALL ---
HPI - Fall General Chief Complaint: Fall Stated Complaint: fall Time Seen by Provider: 09/09/25 07:29 Source: family and EMS Mode of arrival: EMS History of Present Illness HPI Narrative: 89 years old female with history of dementia, dyslipidemia, brought in by ambulance fall. She is not a good historian due to history of dementia. She tripped and fell forward complain of headache, neck pain, jaw pain. She can move both arms and legs. Her said she pass out after fall. She denied any chest pain, abdominal pain, nausea vomiting. She has no blood thinners but taking aspirin. Related Data Home Medications ?Medication ?Instructions ?Recorded ?Confirmed VITAMIN D (Vitamin D3) 1,000 units PO BEDTIME ##0 09/06/11 08/18/25 fluoxetine 40 mg capsule (Prozac) 40 mg PO QDAY ##0 11/28/16 08/18/25 atorvastatin 40 mg tablet 40 mg PO BEDTIME 03/03/22 08/18/25 aspirin 81 mg tablet,delayed 81 mg PO DAILY 03/04/22 08/18/25 release magnesium oxide 500 mg PO DAILY 03/04/22 08/18/25 calcium citrate 500 mg PO BID 03/07/22 08/18/25 insulin glargine 100 unit/mL (3 30 unit SUBCUT DAILY 08/16/23 08/18/25 mL) subcutaneous pen (Lantus Solostar U-100 Insulin) omeprazole 20 mg capsule,delayed 40 mg PO DAILY 08/16/23 08/18/25 release diclofenac sodium 1 % topical gel 1 ea topical BID PRN joint aches 06/17/24 08/18/25 empagliflozin 25 mg tablet 25 mg PO DAILY 06/17/24 08/18/25 (Jardiance) gabapentin 300 mg capsule 600 mg PO BID 06/17/24 08/18/25 albuterol 90 mcg/actuation aerosol 1 mcg inhalation Q4HR wheezing 05/10/25 08/18/25 inhaler atorvastatin 40 mg tablet (Lipitor) 40 mg PO BEDTIME 05/10/25 08/18/25 donepezil 5 mg tablet (Aricept) 5 mg PO BEDTIME 05/10/25 08/18/25 epinephrine 0.3 mg/0.3 mL 0.3 mg IM Q5-15M PRN anaphylaxis 05/10/25 08/18/25 injection, auto-injector metoprolol succinate 25 mg 25 mg PO DAILY 05/10/25 08/18/25 tablet,extended release 24 hr pen needle, diabetic 31 gauge x #1,200 ea 05/10/25 08/18/2503/15 (Easy Touch) doxycycline hyclate 100 mg capsule 100 mg PO BID 06/16/25 08/18/25 gabapentin 600 mg tablet 600 mg PO BEDTIME 06/16/25 08/18/25 Previous Rx's ?Medication ?Instructions ?Recorded donepezil 5 mg tablet 5 mg PO BEDTIME #30 tabs 08/23/23 divalproex 125 mg capsule,delayed 125 mg PO Q8H #90 caps 06/01/24 release sprinkle (Depakote Sprinkles) quetiapine 50 mg tablet (Seroquel) 50 mg PO TID #90 tabs 06/27/25 nitrofurantoin 100 mg PO BID #10 caps 08/05/25 monohydrate/macrocrystals 100 mg capsule (Macrobid) tamsulosin 0.4 mg capsule (Flomax) 0.4 mg PO DAILY #30 caps 08/05/25 tramadol 50 mg tablet 50 mg PO Q6H PRN pain #20 tabs 08/05/25 cephalexin 500 mg capsule 500 mg PO BID #14 caps 09/09/25 Allergies Allergy/AdvReac Type Severity Reaction Status Date / Time iodine (IODINE) Allergy Severe Swelling Verified 08/18/25 11:01 of Lip/Tongue/Throat lisinopril (LISINOPRIL) Allergy Severe Swelling Verified 08/18/25 11:01 of Lip/Tongue/Throat shellfish derived (SHELLFISH Allergy Severe Swelling Verified 08/18/25 11:01 DERIVED) of Lip/Tongue/Throat Penicillins Allergy Intermediate Rash Verified 08/18/25 11:01 oxycodone AdvReac Hallucinati Verified 08/18/25 11:01 ng Review of Systems Review of Systems Narrative: Positive for headache, jaw pain, facial pain, neck pain, fall, head injury, loss of consciousness. Negative for chest pain, abdominal pain, nausea vomiting. Patient History Medical History Arthropathy of left shoulder Spinal stenosis Osteoarthritis Depression Memory changes COPD (chronic obstructive pulmonary disease) Diabetes Hypertension Gouty arthritis of toe Surgical History History of arthroplasty of left knee History of arthroplasty of right knee Social History household members: spouse, family and children Smoking Status: Never smoker alcohol intake: former Smoking Status: Never smoker alcohol intake frequency: holidays/special occasions only Exam Narrative Exam Narrative: GENERAL: Awake. Confusion. HEAD: Atraumatic. Normocephalic. EYES: Pupils equal round and reactive. Extraocular motions intact. No scleral icterus. No injection or drainage. NECK: C-collar in place. CARDIOVASCULAR: Regular rate and rhythm without murmurs, gallops, or rubs. RESPIRATORY: Clear to auscultation. Breath sounds equal bilaterally. No wheezes, rales, or rhonchi. GASTROINTESTINAL: Abdomen soft, non-tender, nondistended. EXTREMITIES: No edema or joint tenderness. BACK: Nontender without deformity or crepitance. No flank tenderness. NEURO: Confusion at baseline. Moves all extremities follow commands. SKIN: No rash or erythema of visible areas Initial Vital Signs Initial Vital Signs: Vital Signs Temperature 97.5 F L 09/09/25 07:35 Pulse Rate 65 09/09/25 07:35 Respiratory Rate 16 09/09/25 07:35 Blood Pressure 168/85 H 09/09/25 07:35 Pulse Oximetry 98 09/09/25 07:35 Oxygen Delivery Method Room Air 09/09/25 07:35 Course Orders Ordered: Discontinued Medications Hydromorphone HCl (Hydromorphone Hcl 0.5 Mg/0.5 Ml Syringe) 0.2 mg IV NOW ONE Stop: 09/09/25 08:25 Last Admin: 09/09/25 08:53 Dose: 0.2 mg Documented By: DARIO Ceftriaxone Sodium 1,000 mg/ (Sodium Chloride) 100 mls @ 200 mls/hr IV NOW ONE Stop: 09/09/25 11:12 Last Admin: 09/09/25 11:49 Dose: Not Given Documented By: HAYDER Sodium Chloride (Normal Saline 0.9%) 500 mls @ 1,000 mls/hr IV BOLUS ONE Stop: 09/09/25 11:42 Last Admin: 09/09/25 11:49 Dose: Not Given Documented By: GW Vital Signs Vital signs: Vital Signs - 8 hr 09/09/25 07:35 09/09/25 08:03 09/09/25 08:44 Temperature 97.5 F L Pulse Rate 65 67 62 Respiratory Rate 16 Blood Pressure 168/85 H Pulse Oximetry 98 98 92 Oxygen Delivery Method Room Air 09/09/25 09:00 09/09/25 09:30 09/09/25 10:00 Temperature Pulse Rate 64 64 69 Respiratory Rate Blood Pressure 147/79 H 150/65 H Pulse Oximetry 99 98 97 Oxygen Delivery Method 09/09/25 10:30 Temperature Pulse Rate 72 Respiratory Rate Blood Pressure Pulse Oximetry 97 Oxygen Delivery Method MDM - Fall Lab Data 09/09/25 07:59 09/09/25 07:59 Labs: Lab Results 09/09/25 09/09/25 Range/Units 07:59 09:06 WBC 5.1 (4.5-11.0) X10^3/uL RBC 4.57 (4.0-5.2) X10^6/uL Hgb 14.1 (12.0-16.0) g/dL Hct 41.7 (36-46) % MCV 91.2 (80-100) fL MCH 30.9 (26-34) PG MCHC 33.9 (30-36) % RDW 13.3 (11.6-14.8) % Plt Count 162 (150-400) X10^3/uL Neut % (Auto) 53.4 (50-75) % Lymph % (Auto) 33.5 (25-40) % Dickenson % (Auto) 10.3 (3-14) % Eos % (Auto) 1.6 L (2-4) % Baso % (Auto) 1.2 (0-2) % Neut # (Auto) 2700 (5696-4567) /uL Lymph # (Auto) 1700 (4799-6827) /uL Dickenson # (Auto) 500 (0-900) /uL Eos # (Auto) 100 (0-450) /uL Baso # (Auto) 100 (0-100) /uL Sodium 138 (137-145) mmol/L Potassium 4.6 (3.4-5.1) mmol/L Chloride 102 (98-107) mmol/L Carbon Dioxide 26 (22-32) mmol/L BUN 30 H (7-17) mg/dL Creatinine 1.29 H (0.52-1.04) mg/dL Estimated GFR 40 L (>60) mL/min BUN/Creatinine Ratio 23.3 H (6-22) Glucose 257 H (70-99) mg/dL Calcium 9.8 (8.4-10.2) mg/dL Total Bilirubin 0.4 (0.2-1.3) mg/dL AST 27 (14-36) IU/L ALT 16 (<35) IU/L Alkaline Phosphatase 87 (38-126) U/L Total Protein 7.3 (6.3-8.2) g/dL Albumin 4.4 (3.5-5.0) g/dL Globulin 2.9 (1.7-4.1) g/dL Albumin/Globulin Ratio 1.5 (1.0-2.8) Urine Color Yellow Urine Appearance Clear Urine pH 7.0 (4.5-8.0) Ur Specific [place] 1.010 (1.000-1.035) Urine Protein Negative (Negative) Urine Glucose (UA) 2+ H (Negative) g/dL Urine Ketones Negative (NEGATIVE) Urine Occult Blood Negative (Negative) Urine Nitrate Negative (Negative) Urine Bilirubin Negative (NEGATIVE) Urine Urobilinogen 0.2 (0.2) E.U./dL Ur Leukocyte Esterase 1+ H (NEGATIVE) Urine RBC None seen (0-5/HPF) Urine WBC 5-10/hpf H (0-5/HPF) Ur Squamous Epith Cells 1-5 /hpf (0-5/HPF) Urine Bacteria None seen (None) Ur Culture Indicated? Specimen cultured Vol Urine Centrifuged 10ml (spun) Imaging Data CT scan - head: Radiologist's Impression: PROCEDURE: CT HEAD/BRAIN WO CON INDICATIONS: History dementia, fall, poor historian. Loss of consciousne TECHNIQUE: Noncontrast 4.5 mm thick angled axial sections acquired from the foramen magnum to the vertex, with coronal and sagittal reformats. For radiation dose reduction, the following was used: automated exposure control, adjustment of mA and/or kV according to patient size. COMPARISON: [facility], CT, CT HEAD/BRAIN WO CON, 08/18/2025, 11:28. FINDINGS: Image quality: Diagnostic. CSF spaces: Basal cisterns are patent. No extra-axial fluid collections. The ventricles are symmetric in size and shape. Brain: No intracranial bleeds or mass effect. There is cerebral volume loss, with resultant ventricular and sulcal prominence. There are moderate to severe periventricular and deep white matter chronic small vessel ischemic changes. There is intracranial internal carotid artery atherosclerosis. Skull and face: Calvarium and visualized facial bones appear intact, without suspicious lesions. Sinuses: Visualized sinuses and mastoids are clear. IMPRESSION: No acute intracranial pathology. Dictated by: Rene La M.D. on 09/09/2025 at 9:07 Approved by: Rene La M.D. on 09/09/2025 at 9:08 CT Face: Radiologist's Impression: PROCEDURE: CT FACIAL BONES WO CON INDICATIONS: History dementia, fall, poor historian. Loss of consciousne TECHNIQUE: Noncontrast 2.5 mm thick axial images acquired from the mandible through the frontal sinuses, with coronal and sagittal reformatting. For radiation dose reduction, the following was used: automated exposure control, adjustment of mA and/or kV according to patient size. COMPARISON: None. FINDINGS: Image quality: Excellent. Bones and teeth: Orbital guy are intact. Sinus guy show no fracture or deformity. Nasal bones and septum are intact. Visualized portions of the mandible demonstrate no fractures or subluxation. Zygomatic arches are intact. Pterygo patient is edentulous. Remote mandible ORIF. id plates are intact. Visualized portions of the skull base and auditory canals are intact. Sinuses: Paranasal sinuses are aerated, without fluid levels, mucosal thickening, or mucoceles. Mastoid air cells are aerated. Soft tissues: No edema, masses, or fluid collections. No enlarged lymph nodes. No soft tissue lacerations or debris. Vascular: Visualized vascular structures appear normal in the absence of contrast. Bony vascular foramina and canals are intact. IMPRESSION: No acute displaced facial bone fracture or mandibular fracture. Dictated by: Rene La M.D. on 09/09/2025 at 9:14 Approved by: Rene La M.D. on 09/09/2025 at 9:23 CT Chest abdomen pelvis: Radiologist's Impression: PROCEDURE: CT CHEST ABD PEL WO CON INDICATIONS: History dementia, fall, poor historian. Loss of consciousne TECHNIQUE: After the administration of oral contrast, 5 mm thick sections acquired from the lung apices to the symphysis pubis. 5 mm thick coronal and sagittal reformats acquired, with additional 7 mm coronal MIP reformats through the lungs. For radiation dose reduction, the following was used: automated exposure control, adjustment of mA and/or kV according to patient size. COMPARISON: None. FINDINGS: Image quality: Diagnostic. CHEST: Lower Neck: No enlarged lymph nodes. Thyroid: No thyroid nodules which require sonographic follow up, per consensus guidelines. Axillae: No enlarged lymph nodes. Chest Wall: Unremarkable. Bones: Unremarkable. Lungs and Pleura: No pneumothorax or pleural effusions. No consolidation or suspicious nodules. Heart: Heart size is normal. No pericardial effusion. Thoracic Vessels: The aorta and pulmonary arteries demonstrate normal size. Mediastinum and Katie: No enlarged lymph nodes. Esophagus: No wall thickening. No hiatal hernia. ABDOMEN: Liver: No solid mass. Gallbladder: No radiopaque gallstones or wall thickening. Biliary ducts: No biliary dilation. Pancreas: No ductal dilation. Spleen: Size is within normal limits. Adrenal Glands: No adrenal nodules. Kidneys and Ureters: No hydronephrosis. No solid mass. No complex renal cystic lesion which requires follow up. Stomach and Bowel: Normal colonic caliber, without significant wall thickening. Peritoneum: No abnormal intraperitoneal fluid. No free air. Ventral Wall: No hernia. Abdominal Nodes: No retroperitoneal or mesenteric adenopathy by size criteria. Vessels: Aorta and inferior vena cava are normal in size. PELVIS: Pelvic Organs: Uterus is surgically absent. No adnexal masses. Bladder: Unremarkable. Pelvic Nodes: No enlarged lymph nodes. Miscellaneous: No inguinal hernias are seen. Bones: No aggressive osseous abnormality. Diffuse lumbar degenerative change. High-grade canal stenosis at L4-L5. IMPRESSION: 1. No acute process in the chest, abdomen, and pelvis. 2. No compression fractures. 3. Incidental note made of high-grade canal stenosis at L4-L5. Dictated by: Rene La M.D. on 09/09/2025 at 9:30 Approved by: Rene La M.D. on 09/09/2025 at 9:45 CT - cervical spine: Radiologist's Impression: PROCEDURE: CT CERVICAL SPINE WO CON INDICATIONS: History dementia, fall, poor historian. Loss of consciousne TECHNIQUE: Noncontrast 3 mm thick sections acquired from the skull base to the T4 level. Sagittal and coronal reformats were then constructed. For radiation dose reduction, the following was used: automated exposure control, adjustment of mA and/or kV according to patient size. COMPARISON: [facility], CT, CT CERVICAL SPINE WO CON, 08/18/2025, 11:28. FINDINGS: Image quality: Excellent. Bones: No fractures or dislocations. Severe diffuse cervical spondylosis. Visualized superior ribs are intact. Soft tissues: Prevertebral soft tissues are normal in thickness. No paravertebral hematomas. No apical pneumothoraces. IMPRESSION: No displaced fracture or traumatic subluxation. Severe diffuse cervical spondylosis. Dictated by: Rene La M.D. on 09/09/2025 at 9:08 Approved by: Rene La M.D. on 09/09/2025 at 9:11 [facility] Narrative Medical decision making narrative: 89 years old female with history of dementia, dyslipidemia, brought in by ambulance fall. She is not a good historian due to history of dementia. She tripped and fell forward complain of headache, neck pain, jaw pain. She can move both arms and legs. Her said she pass out after fall. She denied any chest pain, abdominal pain, nausea vomiting. Rechecked the patient and update the lab results to her . Her CT brain, C-spine, maxillofacial, chest abdomen and pelvis showed no acute finding. Accidental finding on the CT scan abdomen and pelvis showed high-grade stenosis on the L4-L5. Did neuro exam on both legs show 5/5 strength on hip flexion, knee extension, ankle flexion and extension on both legs. Equal sensation on both thighs and lower legs. No dorsiflexion of the great toe follow up Babinski test on both feet. 2+ DTR on both knees. Her said she had no change in her bowel or bladder patern. Her UA showed my UTI. Her CBC was normal. Her BNP showed BUN 30 and creatinine 1.29 otherwise normal BNP. Her LFT was normal. She was sent home with Keflex and drink plenty of fluid. I asked her to follow up with her PCP for L4-L5 high-grade stenosis outpatient since she has no active symptoms. She currently off C-collar and was talking at the baseline. Discharge Plan Departure Patient Disposition: Home Clinical Impression: Acute UTI, Fall from ground level, Spinal stenosis at L4-L5 level Instructions: DI for Urinary Tract Infection (UTI), How to Prevent Falls, DI for Spinal Stenosis Activity Restrictions/Additional Instructions: Please come back to the emergency room if any worsening symptoms including but not limited to fever, vomiting, dehydration, abdominal pain, persistent vomiting, fall. Please follow up your primary care doctor for spinal stenosis at the level L4 and L5. Please finish antibiotic. Please drink plenty of fluid. Prescriptions: New cephalexin 500 mg capsule 500 mg PO BID Qty: 14 0RF No Action atorvastatin [Lipitor] 40 mg tablet 40 mg PO BEDTIME donepezil [Aricept] 5 mg tablet 5 mg PO BEDTIME metoprolol succinate 25 mg tablet extended release 24 hr 25 mg PO DAILY albuterol 90 mcg/actuation aerosol 1 mcg inhalation Q4HR epinephrine 0.3 mg/0.3 mL auto-injector 0.3 mg IM Q5-15M PRN (Reason: anaphylaxis) Rx Instructions: do not exceed 3 doses per episode (DME) pen needle, diabetic [Easy Touch] 31 gauge x 5/16 needle See Rx Instructions .ROUTE .MEDSUPPLY Qty: 1200 Patient Comments: [NO ORIGINAL SIG] Rx Instructions: As directed VITAMIN D (Vitamin D3) 1,000 units PO BEDTIME Qty: 0 fluoxetine [Prozac] 40 MG capsule 40 mg PO QDAY Qty: 0 atorvastatin 40 mg Tablet 40 mg PO BEDTIME aspirin 81 mg tablet,delayed release (DR/EC) 81 mg PO DAILY magnesium oxide 500 mg Tablet 500 mg PO DAILY calcium citrate 200 mg (950 mg) Tablet 500 mg PO BID doxycycline hyclate 100 mg capsule 100 mg PO BID Patient Comments: daily to prevent gabapentin 600 mg tablet 600 mg PO BEDTIME quetiapine [Seroquel] 50 mg tablet 50 mg PO TID Qty: 90 0RF tramadol 50 mg tablet 50 mg PO Q6H PRN (Reason: pain) Qty: 20 0RF tamsulosin [Flomax] 0.4 mg capsule 0.4 mg PO DAILY Qty: 30 0RF nitrofurantoin monohyd/m-cryst [Macrobid] 100 mg capsule 100 mg PO BID Qty: 10 0RF Rx Instructions: must administer with a meal/food omeprazole 20 mg capsule,delayed release(DR/EC) 40 mg PO DAILY insulin glargine [Lantus Solostar U-100 Insulin] 100 unit/mL (3 mL) insulin pen 30 unit SUBCUT DAILY Patient Comments: [NO ORIGINAL SIG] donepezil 5 mg Tablet 5 mg PO BEDTIME Qty: 30 0RF divalproex [Depakote Sprinkles] 125 mg capsule, delayed rel sprinkle 125 mg PO Q8H Qty: 90 0RF gabapentin 300 mg capsule 600 mg PO BID diclofenac sodium 1 % gel 1 ea topical BID PRN (Reason: joint aches) Jardiance 25 mg tablet 25 mg PO DAILY Referrals: Cyril Conley DO [Primary Care Provider, Family Practice] Stand Alone Forms: Patient Portal/API
[2025-09-09 08:21] LABS: Alanine Aminotransferase 16 IU/L (<35); Albumin 4.4 g/dL (3.5-5.0); Albumin Globulin Ratio 1.5 (1.0-2.8); Alkaline Phosphatase 87 U/L (38-126); Blood Urea Nitrogen 30 mg/dL (7-17); Calcium 9.8 mg/dL (8.4-10.2); Carbon Dioxide 26 mmol/L (22-32); Chloride 102 mmol/L (98-107); Estimated Glomerular Filt Rate 40 mL/min (>60); Globulin 2.9 g/dL (1.7-4.1); Glucose 257 mg/dL (70-99); HEMOLYSIS 47 (0-50); Potassium 4.6 mmol/L (3.4-5.1); Sodium 138 mmol/L (137-145); Total Protein 7.3 g/dL (6.3-8.2)
[2025-09-09 09:15] LABS: Appearance Urine UA CLEAR; Bilirubin Urine UA NEGATIVE (NEGATIVE); Color Urine UA YELLOW; Glucose Urine UA 2+ g/dL (Negative); Ketones Urine UA NEGATIVE (NEGATIVE); Leukocyte Esterase Urine UA 1+ (NEGATIVE); Nitrite Urine UA NEGATIVE (Negative); Occult Blood Urine UA NEGATIVE (Negative); Protein Urine UA NEGATIVE (Negative); Specific Gravity Urine UA 1.010 (1.000-1.035); Urobilinogen Urine UA 0.2 E.U./dL (0.2); pH Urine UA 7.0 (4.5-8.0)
[2025-09-09 09:21] LABS: Culture Indicated Urine Specimen Cultured
== END 2025-09-09 11:40 | disposition home or self-care (01) ==
PROVIDERS: Emergency Provider Emergency Medicine; Family Provider Internal Medicine; PCP Family Medicine
DX: N39.0 Urinary tract infection, site not specified (principal); M48.061 Spinal stenosis, lumbar region without neurogenic claudication; M54.2 Cervicalgia; R51.9 Headache, unspecified; W01.0XXA Fall on same level from slipping, tripping and stumbling without subsequent striking against object, initial encounter
CPT/HCPCS: 70450; 70486; 71250; 72125; 74176; 80053; 81001; 85025; 87086; 93005; 96374; 99283; 99284; J1171

== ENCOUNTER 2025-09-12 21:38 | Emergency (ER) | payer MEDICARE, OTHER, SELFPAY ==
[2025-06-20 16:09] VITALS: BMI 27.3
[2025-09-12 21:45] VITALS: BP 156/86; PULSE 80; RESP 18; TEMP 36.3; O2SAT 100
--- NOTE | 2025-09-12 22:04 | ED.PSYCH ---
HPI - Psych General Chief Complaint: Psychiatric Symptoms Stated Complaint: aggressive, yelling outside Time Seen by Provider: 09/12/25 21:45 Source: patient and EMS Mode of arrival: EMS History of Present Illness HPI Narrative: Patient has a 89-year-old female history of dementia, dyslipidemia insulin-dependent diabetes depression COPD neuropathy hypertension osteoarthritis, presenting today with increased agitation and confusion. Found outside wandering by family. EMS arrived she was inside. She was seen evaluated September 09 she had blood work head CT chest abdomen pelvis CT cervical spine CT, all within normal limits diagnosed with UTI however urine culture from that day shows mixed clyde. Today she is just more confused. Related Data Home Medications ?Medication ?Instructions ?Recorded ?Confirmed VITAMIN D (Vitamin D3) 1,000 units PO BEDTIME ##0 09/06/11 08/18/25 fluoxetine 40 mg capsule (Prozac) 40 mg PO QDAY ##0 11/28/16 08/18/25 atorvastatin 40 mg tablet 40 mg PO BEDTIME 03/03/22 08/18/25 aspirin 81 mg tablet,delayed 81 mg PO DAILY 03/04/22 08/18/25 release magnesium oxide 500 mg PO DAILY 03/04/22 08/18/25 calcium citrate 500 mg PO BID 03/07/22 08/18/25 insulin glargine 100 unit/mL (3 30 unit SUBCUT DAILY 08/16/23 08/18/25 mL) subcutaneous pen (Lantus Solostar U-100 Insulin) omeprazole 20 mg capsule,delayed 40 mg PO DAILY 08/16/23 08/18/25 release diclofenac sodium 1 % topical gel 1 ea topical BID PRN joint aches 06/17/24 08/18/25 empagliflozin 25 mg tablet 25 mg PO DAILY 06/17/24 08/18/25 (Jardiance) gabapentin 300 mg capsule 600 mg PO BID 06/17/24 08/18/25 albuterol 90 mcg/actuation aerosol 1 mcg inhalation Q4HR wheezing 05/10/25 08/18/25 inhaler atorvastatin 40 mg tablet (Lipitor) 40 mg PO BEDTIME 05/10/25 08/18/25 donepezil 5 mg tablet (Aricept) 5 mg PO BEDTIME 05/10/25 08/18/25 epinephrine 0.3 mg/0.3 mL 0.3 mg IM Q5-15M PRN anaphylaxis 05/10/25 08/18/25 injection, auto-injector metoprolol succinate 25 mg 25 mg PO DAILY 05/10/25 08/18/25 tablet,extended release 24 hr pen needle, diabetic 31 gauge x #1,200 ea 05/10/25 08/18/25 5/16 (Easy Touch) doxycycline hyclate 100 mg capsule 100 mg PO BID 06/16/25 08/18/25 gabapentin 600 mg tablet 600 mg PO BEDTIME 06/16/25 08/18/25 Previous Rx's ?Medication ?Instructions ?Recorded donepezil 5 mg tablet 5 mg PO BEDTIME #30 tabs 08/23/23 divalproex 125 mg capsule,delayed 125 mg PO Q8H #90 caps 06/01/24 release sprinkle (Depakote Sprinkles) quetiapine 50 mg tablet (Seroquel) 50 mg PO TID #90 tabs 06/27/25 nitrofurantoin 100 mg PO BID #10 caps 08/05/25 monohydrate/macrocrystals 100 mg capsule (Macrobid) tamsulosin 0.4 mg capsule (Flomax) 0.4 mg PO DAILY #30 caps 08/05/25 tramadol 50 mg tablet 50 mg PO Q6H PRN pain #20 tabs 08/05/25 cephalexin 500 mg capsule 500 mg PO BID #14 caps 09/09/25 Allergies Allergy/AdvReac Type Severity Reaction Status Date / Time iodine (IODINE) Allergy Severe Swelling Verified 08/18/25 11:01 of Lip/Tongue/Throat lisinopril (LISINOPRIL) Allergy Severe Swelling Verified 08/18/25 11:01 of Lip/Tongue/Throat shellfish derived (SHELLFISH Allergy Severe Swelling Verified 08/18/25 11:01 DERIVED) of Lip/Tongue/Throat Penicillins Allergy Intermediate Rash Verified 08/18/25 11:01 oxycodone AdvReac Hallucinati Verified 08/18/25 11:01 ng Patient History Medical History Arthropathy of left shoulder Spinal stenosis Osteoarthritis Depression Memory changes COPD (chronic obstructive pulmonary disease) Diabetes Hypertension Gouty arthritis of toe Surgical History History of arthroplasty of left knee History of arthroplasty of right knee Social History household members: spouse, family and children alcohol intake: former alcohol intake frequency: holidays/special occasions only Exam Initial Vital Signs Initial Vital Signs: Vital Signs Temperature 97.3 F L 09/12/25 21:45 Pulse Rate 80 09/12/25 21:45 Respiratory Rate 18 09/12/25 21:45 Blood Pressure 156/86 H 09/12/25 21:45 Pulse Oximetry 100 09/12/25 21:45 Oxygen Delivery Method Room Air 09/12/25 21:45 GENERAL: Alert pleasantly confused 89-year-old female making jokes HEENT: Head atraumatic,EOMI, pupils reactive, face symmetric, moist mucous membranes CARDIOVASCULAR: Regular rate and rhythm without murmurs, rubs or gallops. RESPIRATORY: Breath sounds equal bilaterally, no wheezes rales or rhonchi. ABDOMEN: Soft, nontender. Normoactive bowel sounds all 4 quadrants. No guarding or rebound. EXTREMITIES: Normal range of motion, no clubbing or edema. Neurovascularly intact NEUROLOGICAL: Alert and oriented x1.Normal gait and speech. SKIN: Warm, dry, no laceration, no petechiae, no rashes or lesions. Course Orders Ordered: ED Orders 09/12/25 22:08 CMP [Comprehensive Metabolic Panel] Stat 09/12/25 23:02 CBC Auto Diff [Complete Blood Count AUTO DIFF] Stat Discontinued Medications Divalproex Sodium (Divalproex 125 Mg Cap) 125 mg PO NOW ONE Stop: 09/12/25 23:32 Last Admin: 09/13/25 00:01 Dose: 125 mg Documented By: THA Donepezil HCl (Donepezil 5 Mg Tablet) 5 mg PO NOW ONE Stop: 09/12/25 23:32 Last Admin: 09/13/25 00:01 Dose: 5 mg Documented By: THA Lorazepam (Lorazepam 2 Mg/Ml Inj) 0.5 mg IV NOW ONE Stop: 09/13/25 02:10 Last Admin: 09/13/25 02:19 Dose: Not Given Documented By: TINO Vital Signs Vital signs: Vital Signs - 8 hr 09/12/25 21:45 Temperature 97.3 F L Pulse Rate 80 Respiratory Rate 18 Blood Pressure 156/86 H Pulse Oximetry 100 Oxygen Delivery Method Room Air MDM - Psych Lab Data 09/12/25 23:02 09/12/25 22:08 Labs: Lab Results 09/12/25 09/12/25 Range/Units 22:08 23:02 WBC 6.7 (4.5-11.0) X10^3/uL RBC 4.93 (4.0-5.2) X10^6/uL Hgb 15.1 (12.0-16.0) g/dL Hct 45.0 (36-46) % MCV 91.2 (80-100) fL MCH 30.6 (26-34) PG MCHC 33.6 (30-36) % RDW 13.4 (11.6-14.8) % Plt Count 183 (150-400) X10^3/uL Neut % (Auto) 64.2 (50-75) % Lymph % (Auto) 27.4 (25-40) % [place] % (Auto) 7.1 (3-14) % Eos % (Auto) 0.3 L (2-4) % Baso % (Auto) 1.0 (0-2) % Neut # (Auto) 4300 (9658-0196) /uL Lymph # (Auto) 1800 (4907-4154) /uL [place] # (Auto) 500 (0-900) /uL Eos # (Auto) 0 (0-450) /uL Baso # (Auto) 100 (0-100) /uL Sodium 139 (137-145) mmol/L Potassium 4.1 (3.4-5.1) mmol/L Chloride 103 (98-107) mmol/L Carbon Dioxide 23 (22-32) mmol/L BUN 24 H (7-17) mg/dL Creatinine 1.42 H (0.52-1.04) mg/dL Estimated GFR 35 L (>60) mL/min BUN/Creatinine Ratio 16.9 (6-22) Glucose 215 H (70-99) mg/dL Calcium 11.4 H (8.4-10.2) mg/dL Total Bilirubin 1.0 (0.2-1.3) mg/dL AST 38 H (14-36) IU/L ALT 18 (<35) IU/L Alkaline Phosphatase 62 (38-126) U/L Total Protein 7.6 (6.3-8.2) g/dL Albumin 4.6 (3.5-5.0) g/dL Globulin 3.0 (1.7-4.1) g/dL Albumin/Globulin Ratio 1.5 (1.0-2.8) MDM Narrative Medical decision making narrative: Patient 89-year-old female history of Alzheimer's dementia presenting today with behavior change. She has had increasing ED visits for the last 1 month. She was found to have a 6 mm kidney stone. However upon recent imaging there was no abnormality. Today blood work reviewed without any significant abnormality. Nursing spoke with family who reports that she has been spiraling the goal is to move her to [place] where there is different family to care for her. This has not sat well with her and she has not been taking her meds. She was given donepexil and Depakote Sprinkles in the emergency department. She continued to be cooperative easily redirectable wanted to go on multiple walks. She was cooperative. Family did come and get her from the emergency department. Discharge Plan Departure Patient Disposition: Home Clinical Impression: Alzheimer dementia Instructions: Alzheimer Disease Activity Restrictions/Additional Instructions: *You have been diagnosed with Alzheimer's dementia *What to do: At this time please follow-up. Take medications as directed She was given nightly medications here in the emergency department including Donepezil and depakote. *Continue to take medications as directed *Follow up with your primary care provider in 2-3 days or call [phone] *Return to ER if you should have any new, worsening or concerning symptoms Prescriptions: No Action atorvastatin [Lipitor] 40 mg tablet 40 mg PO BEDTIME donepezil [Aricept] 5 mg tablet 5 mg PO BEDTIME metoprolol succinate 25 mg tablet extended release 24 hr 25 mg PO DAILY albuterol 90 mcg/actuation aerosol 1 mcg inhalation Q4HR epinephrine 0.3 mg/0.3 mL auto-injector 0.3 mg IM Q5-15M PRN (Reason: anaphylaxis) Rx Instructions: do not exceed 3 doses per episode (DME) pen needle, diabetic [Easy Touch] 31 gauge x 5/16 needle See Rx Instructions .ROUTE .MEDSUPPLY Qty: 1200 Patient Comments: [NO ORIGINAL SIG] Rx Instructions: As directed VITAMIN D (Vitamin D3) 1,000 units PO BEDTIME Qty: 0 fluoxetine [Prozac] 40 MG capsule 40 mg PO QDAY Qty: 0 atorvastatin 40 mg Tablet 40 mg PO BEDTIME aspirin 81 mg tablet,delayed release (DR/EC) 81 mg PO DAILY magnesium oxide 500 mg Tablet 500 mg PO DAILY calcium citrate 200 mg (950 mg) Tablet 500 mg PO BID doxycycline hyclate 100 mg capsule 100 mg PO BID Patient Comments: daily to prevent gabapentin 600 mg tablet 600 mg PO BEDTIME quetiapine [Seroquel] 50 mg tablet 50 mg PO TID Qty: 90 0RF tramadol 50 mg tablet 50 mg PO Q6H PRN (Reason: pain) Qty: 20 0RF tamsulosin [Flomax] 0.4 mg capsule 0.4 mg PO DAILY Qty: 30 0RF nitrofurantoin monohyd/m-cryst [Macrobid] 100 mg capsule 100 mg PO BID Qty: 10 0RF Rx Instructions: must administer with a meal/food cephalexin 500 mg capsule 500 mg PO BID Qty: 14 0RF omeprazole 20 mg capsule,delayed release(DR/EC) 40 mg PO DAILY insulin glargine [Lantus Solostar U-100 Insulin] 100 unit/mL (3 mL) insulin pen 30 unit SUBCUT DAILY Patient Comments: [NO ORIGINAL SIG] donepezil 5 mg Tablet 5 mg PO BEDTIME Qty: 30 0RF divalproex [Depakote Sprinkles] 125 mg capsule, delayed rel sprinkle 125 mg PO Q8H Qty: 90 0RF gabapentin 300 mg capsule 600 mg PO BID diclofenac sodium 1 % gel 1 ea topical BID PRN (Reason: joint aches) Jardiance 25 mg tablet 25 mg PO DAILY Referrals: Cyril Conley DO [Primary Care Provider, Family Practice] Stand Alone Forms: Patient Portal/API
[2025-09-12 23:07] LABS: Alanine Aminotransferase 18 IU/L (<35); Albumin 4.6 g/dL (3.5-5.0); Albumin Globulin Ratio 1.5 (1.0-2.8); Alkaline Phosphatase 62 U/L (38-126); Blood Urea Nitrogen 24 mg/dL (7-17); Calcium 11.4 mg/dL (8.4-10.2); Carbon Dioxide 23 mmol/L (22-32); Chloride 103 mmol/L (98-107); Estimated Glomerular Filt Rate 35 mL/min (>60); Globulin 3.0 g/dL (1.7-4.1); Glucose 215 mg/dL (70-99); HEMOLYSIS 28 (0-50); Potassium 4.1 mmol/L (3.4-5.1); Sodium 139 mmol/L (137-145); Total Protein 7.6 g/dL (6.3-8.2)
[2025-09-12 23:13] LABS: Add Manual Diff / Slide Review NO; Hematocrit 45.0 % (36-46); Hemoglobin 15.1 g/dL (12.0-16.0); Lymphocytes Absolute Auto 1800 /uL (1100-4500); Mean Corpuscular HGB Conc 33.6 % (30-36); Mean Corpuscular Hemoglobin 30.6 PG (26-34); Mean Corpuscular Volume 91.2 fL (80-100); Platelet Count 183 X10^3/uL (150-400)
[2025-09-13] MEDS: DONEPEZIL 5 MG TABLET PO (00:01)
[2025-09-13] MEDS: DIVALPROEX 125 MG CAP PO (00:01)
== END 2025-09-13 02:20 | disposition home or self-care (01) ==
PROVIDERS: Emergency Provider Emergency Medicine; Family Provider Internal Medicine; PCP Family Medicine
DX: F03.911 Unspecified dementia, unspecified severity, with agitation (principal)
CPT/HCPCS: 36415; 80053; 85025; 99283